=== PATIENT | male | born 1960 | race Caucasian/White ===

== ENCOUNTER 2016-08-12 18:47 | Inpatient (IN) | payer OTHER ==
[2016-08-12] MEDS ORDERED: AZITHROMYCIN 500 MG in SODIUM CHLORIDE 0.9% 250 ML IVPB STA (19:06)
[2016-08-12] MEDS ORDERED: ALBUTEROL NEBULIZED 2.5 MG/3 ML INHALATION STA (19:06)
[2016-08-12] MEDS ORDERED: methylPREDNISolone SOD SUCCI 125 MG/2 ML VIAL IV STA (19:06)
[2016-08-12] MEDS ORDERED: IPRATROPIUM 0.5 MG/2.5 ML NEBU INHALATION STA (19:06)
[2016-08-12] MEDS ORDERED: SODIUM CHLORIDE 0.9% 1,000 ML IV STA (19:06)
[2016-08-12] MEDS ORDERED: ASPIRIN 81 MG CHEW PO STA (19:08)
[2016-08-12] MEDS ORDERED: MORPHINE SULFATE 4 MG/ML SYRINGE IV PRN (19:08)
--- NOTE | 2016-08-12 19:10 | ED ---
General Adult HPI - General Chief complaint: Shortness of Breath Stated complaint: ryan, gets worse lying down Time Seen by Provider: 08/12/16 19:04 Source: patient, RN notes reviewed, old records reviewed Mode of arrival: wheelchair Limitations: no limitations - History of Present Illness Initial comments: This is a 35-year-old male the ER for evaluation of severe shortness of breath. Cough congestion and chest pain rating on left arm. Patient has a medical history including COPD CHF heart disease. Patient coming here today for evaluation of shortness of breath. Patient is very short of breath and exam, for strain secondary to clinical condition. Patient denies fever, does admit increased cough and congestion. Has been taking all medications as prescribed - Related Data Home Medications Medication Instructions Recorded Confirmed Albuterol Inhaler [Ventolin Hfa 1 - 2 puff INHALATION Q6HR PRN 08/12/16 08/12/16 Inhaler] Carvedilol [Coreg] 25 mg PO 08/12/16 Insulin Regular, Human [NovoLIN R] 400 unit SQ 08/12/16 Metoclopramide [Reglan] 10 mg PO ACHS 08/12/16 08/12/16 amLODIPine BES/OLMESARTAN MED 0.5 each PO DAILY 08/12/16 08/12/16 [amLODIPine BES/OLMESARTAN MED 10-20 mg] Allergies Allergy/AdvReac Type Severity Reaction Status Date / Time No Known Allergies Allergy Verified 08/12/16 19:00 Review of Systems ROS Statement: Those systems with pertinent positive or pertinent negative responses have been documented in the HPI. ROS Other: All systems not noted in ROS Statement are negative. Past Medical History Past Medical History: COPD, Diabetes Mellitus, Hypertension, Osteoarthritis (OA) Additional Past Medical History / Comment(s): emphysema, retinopathy, charcot joints, gastroparesis History of Any Multi-Drug Resistant Organisms: None Reported Past Surgical History: Cholecystectomy Past Psychological History: No Psychological Hx Reported Smoking Status: Former smoker Past Alcohol Use History: None Reported Past Drug Use History: None Reported General Exam Limitations: no limitations General appearance: alert, in no apparent distress, anxious, in distress Head exam: Present: atraumatic, normocephalic, normal inspection Eye exam: Present: normal appearance, PERRL, EOMI. Absent: scleral icterus, conjunctival injection, periorbital swelling ENT exam: Present: normal exam, mucous membranes moist Neck exam: Present: normal inspection. Absent: tenderness, meningismus, lymphadenopathy Respiratory exam: Present: respiratory distress, wheezes, accessory muscle use, decreased breath sounds, prolonged expiratory. Absent: rales, rhonchi, stridor Cardiovascular Exam: Present: regular rate, normal rhythm, normal heart sounds. Absent: systolic murmur, diastolic murmur, rubs, gallop, clicks GI/Abdominal exam: Present: soft, normal bowel sounds. Absent: distended, tenderness, guarding, rebound, rigid Extremities exam: Present: normal inspection, full ROM, normal capillary refill. Absent: tenderness, pedal edema, joint swelling, calf tenderness Back exam: Present: normal inspection Neurological exam: Present: alert, oriented X3, CN II-XII intact Psychiatric exam: Present: normal affect, normal mood Skin exam: Present: warm, dry, intact, normal color. Absent: rash Course Vital Signs 08/12/16 08/12/16 08/12/16 18:54 19:25 19:35 Temperature 98.8 F Pulse Rate 94 93 98 Respiratory 18 Rate Blood Pressure 159/74 O2 Sat by Pulse 83 L Oximetry 08/12/16 20:31 Temperature Pulse Rate 90 Respiratory 18 Rate Blood Pressure 124/60 O2 Sat by Pulse 94 L Oximetry - Reevaluation(s) Reevaluation #1: 08/12/16 19:09 Patient does have mild improvement after prolonged breathing treatment EKG Findings - EKG Comments: EKG Findings:: EKG shows normal sinus rhythm rate of 89, NJ 160, QRS 100, QTC 433 Medical Decision Making - Medical Decision Making 55 mailed ER for evaluation of chest pain shortness of breath difficulty breathing cough congestion severe COPD exacerbation, patient found to be hypoxic mildly improved with breathing treatment. Chest X ray shows no pneumonia, patient also significant history of heart disease. She'll be admitted for breathing treatment minutes, trending of troponin. Patient is also found to have elevated troponin, we will anticoagulate - Lab Data Result diagrams: 08/12/16 19:20 08/12/16 19:20 Lab Results 08/12/16 08/12/16 08/12/16 Range/Units 19:20 19:20 19:20 WBC 6.2 (3.8-10.6) k/uL RBC 3.97 L (4.30-5.90) m/uL Hgb 10.8 L (13.0-17.5) gm/dL Hct 35.4 L (39.0-53.0) % MCV 89.1 (80.0-100.0) fL MCH 27.3 (25.0-35.0) pg MCHC 30.6 L (31.0-37.0) g/dL RDW 15.3 (11.5-15.5) % Plt Count 222 (150-450) k/uL Neutrophils % (Manual) 90.0 % Lymphocytes % (Manual) 6.0 % Monocytes % (Manual) 4.0 % Neutrophils # (Manual) 5.6 (1.3-7.7) k/uL Lymphocytes # (Manual) 0.4 L (1.0-4.8) k/uL Monocytes # (Manual) 0.2 (0-1.0) k/uL Nucleated RBCs 0 (0-0) /100 WBC Manual Slide Review Performed Hypochromasia Moderate PT (9.0-12.0) sec INR (<1.1) APTT (22.0-30.0) sec Sodium 135 L (137-145) mmol/L Potassium 5.0 (3.5-5.1) mmol/L Chloride 94 L (98-107) mmol/L Carbon Dioxide 29 (22-30) mmol/L Anion Gap 12 mmol/L BUN 19 (9-20) mg/dL Creatinine 0.95 (0.66-1.25) mg/dL Est GFR (MDRD) Af Amer >60 (>60 ml/min/1.73 sqM) Est GFR (MDRD) Non-Af >60 (>60 ml/min/1.73 sqM) Glucose 350 H (74-99) mg/dL Calcium 8.9 (8.4-10.2) mg/dL Magnesium 1.8 (1.6-2.3) mg/dL Total Bilirubin 0.7 (0.2-1.3) mg/dL AST 52 (17-59) U/L ALT 61 (21-72) U/L Alkaline Phosphatase 77 (38-126) U/L Total Creatine Kinase 121 (55-170) U/L CK-MB (CK-2) 3.5 H* (0.0-2.4) ng/mL CK-MB (CK-2) Rel Index 2.9 Troponin I 1.590 H* (0.000-0.034) ng/mL Total Protein 6.9 (6.3-8.2) g/dL Albumin 3.9 (3.5-5.0) g/dL 08/12/16 Range/Units 19:20 WBC (3.8-10.6) k/uL RBC (4.30-5.90) m/uL Hgb (13.0-17.5) gm/dL Hct (39.0-53.0) % MCV (80.0-100.0) fL MCH (25.0-35.0) pg MCHC (31.0-37.0) g/dL RDW (11.5-15.5) % Plt Count (150-450) k/uL Neutrophils % (Manual) % Lymphocytes % (Manual) % Monocytes % (Manual) % Neutrophils # (Manual) (1.3-7.7) k/uL Lymphocytes # (Manual) (1.0-4.8) k/uL Monocytes # (Manual) (0-1.0) k/uL Nucleated RBCs (0-0) /100 WBC Manual Slide Review Hypochromasia PT 10.8 (9.0-12.0) sec INR 1.1 (<1.1) APTT 24.9 (22.0-30.0) sec Sodium (137-145) mmol/L Potassium (3.5-5.1) mmol/L Chloride (98-107) mmol/L Carbon Dioxide (22-30) mmol/L Anion Gap mmol/L BUN (9-20) mg/dL Creatinine (0.66-1.25) mg/dL Est GFR (MDRD) Af Amer (>60 ml/min/1.73 sqM) Est GFR (MDRD) Non-Af (>60 ml/min/1.73 sqM) Glucose (74-99) mg/dL Calcium (8.4-10.2) mg/dL Magnesium (1.6-2.3) mg/dL Total Bilirubin (0.2-1.3) mg/dL AST (17-59) U/L ALT (21-72) U/L Alkaline Phosphatase (38-126) U/L Total Creatine Kinase (55-170) U/L CK-MB (CK-2) (0.0-2.4) ng/mL CK-MB (CK-2) Rel Index Troponin I (0.000-0.034) ng/mL Total Protein (6.3-8.2) g/dL Albumin (3.5-5.0) g/dL Critical Care Time Critical Care Time: Yes Total Critical Care Time: 31 Disposition Clinical Impression: Asthma with exacerbation, Acute exacerbation of chronic obstructive airways disease, Hypoxemia, Community acquired pneumonia, NSTEMI (non-ST elevated myocardial infarction) Disposition: ADMITTED IP TO THIS HOSP Condition: Serious Referrals: None,Stated [Primary Care Provider] - 1-2 days
[2016-08-12] MEDS ORDERED: IPRATROPIUM-ALBUTEROL 3 ML NEB INHALATION STA (19:19)
[2016-08-12] MEDS ORDERED: ALBUTEROL NEB (CONC) 2.5 MG/0.5 ML INHALATION STA (19:19)
[2016-08-12] MEDS: IPRATROPIUM-ALBUTEROL 3 ML NEB INHALATION SCH (19:26)
--- NOTE | 2016-08-12 19:40 | XR ---
EXAMINATION TYPE: XR chest 1V portable DATE OF EXAM: 08/12/2016 7:32 PM COMPARISON: NONE HISTORY: Shortness of breath TECHNIQUE: Single frontal view of the chest is obtained. FINDINGS: Abnormal increased attenuation is present at the right lung base. Heart is enlarged. No pn eumothorax or pleural effusion. There are overlying cardiac leads. Pulmonary vascularity and song wit hin normal limits. IMPRESSION: Correlate for pneumonia. Cardiomegaly. Follow-up recommended.
[2016-08-12] MEDS ORDERED: LEVOFLOXACIN 750MG-D5W PMX 750 MG in DEXTROSE/WATER 1 150ML.BAG IVPB STA (19:52)
[2016-08-12 20:30] LABS: ALT 61 U/L (21-72); AST 52 U/L (17-59); Alkaline Phosphatase 77 U/L (38-126); Anion Gap 12 mmol/L; Blood Urea Nitrogen 19 mg/dL (9-20); Calcium 8.9 mg/dL (8.4-10.2); Carbon Dioxide 29 mmol/L (22-30); Chloride 94 mmol/L (98-107); Glucose 350 mg/dL (74-99); Magnesium 1.8 mg/dL (1.6-2.3); Non-African American GFR(MDRD) >60 (>60 ml/min/1.73 sqM); Sodium 135 mmol/L (137-145); Total Bilirubin 0.7 mg/dL (0.2-1.3); Total Protein 6.9 g/dL (6.3-8.2)
[2016-08-12 20:33] LABS: Aty Lym Flag Slight; CH 27.2; CHCM 30.7; HCT 35.4 % (39.0-53.0); HDW 2.76; HGB 10.8 gm/dL (13.0-17.5); Hypochromasia Moderate; MCH 27.3 pg (25.0-35.0); MCHC 30.6 g/dL (31.0-37.0); MCV 89.1 fL (80.0-100.0); Mean Platelet Volume 9.2; RBC 3.97 m/uL (4.30-5.90); RDW 15.3 % (11.5-15.5); WBC 6.2 k/uL (3.8-10.6); WBC (Perox) 6.23
[2016-08-12 20:40] LABS: INR 1.1 (<1.1); Partial Thromboplastin Time 24.9 sec (22.0-30.0); Prothrombin Time 10.8 sec (9.0-12.0)
[2016-08-12 20:43] LABS: Add Differential Manual Differential
[2016-08-12 20:45] LABS: Manual Review Performed; Nucleated Red Blood Cells 0 /100 WBC (0-0); Total Cells Counted 100
[2016-08-12 20:54] LABS: Creatine Kinase MB 3.5 ng/mL (0.0-2.4)
[2016-08-12 20:55] LABS: Troponin I 1.59 ng/mL (0.000-0.034)
[2016-08-12] MEDS ORDERED: HEPARIN SODIUM,PORCINE 5,000 UNIT/ML 1 ML VIAL IV ONE (20:56)
[2016-08-12] MEDS: HEPARIN SODIUM,PORCINE/D5W PMX 25,000 UNIT in DEXTROSE/WATER 1 500ML.BAG IV SCH (21:06)
[2016-08-12 21:32] LABS: Glucose,Whole Blood 372 mg/dL (75-99)
[2016-08-12] MEDS: INSULIN LISPRO (humaLOG) 300 UNIT/3 ML VIAL SQ SCH (21:36)
[2016-08-12] MEDS: SODIUM CHLORIDE 0.9% 1,000 ML IV SCH ×2 (22:50→22:51)
[2016-08-12] MEDS: methylPREDNISolone SOD SUCCI 125 MG/2 ML VIAL IV SCH (23:27)
[2016-08-13] MEDS: HEPARIN SODIUM,PORCINE 5,000 UNIT/ML 1 ML VIAL IV PRN ×3 (03:13→17:02)
[2016-08-13 03:26] LABS: Creatine Kinase MB 2.9 ng/mL (0.0-2.4); Troponin I 1.08 ng/mL (0.000-0.034)
[2016-08-13] MEDS: methylPREDNISolone SOD SUCCI 125 MG/2 ML VIAL IV SCH ×4 (06:03→23:27)
[2016-08-13 06:09] LABS: Glucose,Whole Blood 492 mg/dL (75-99)
[2016-08-13] MEDS ORDERED: INSULIN LISPRO (humaLOG) 300 UNIT/3 ML VIAL SQ ONE (06:13)
[2016-08-13] MEDS: IPRATROPIUM-ALBUTEROL 3 ML NEB INHALATION SCH ×4 (08:26→19:47)
[2016-08-13] MEDS ORDERED: ENOXAPARIN 40 MG/0.4 ML SYRINGE SQ SCH (09:00)
[2016-08-13 09:02] LABS: Basophils % (A) 1 %; CH 26.3; CHCM 29.4; Eosinophils % (A) 0 %; HCT 36.8 % (39.0-53.0); HDW 2.64; HGB 10.8 gm/dL (13.0-17.5); Hypochromasia Marked; Luc # (Auto) 0.09; Luc % (Auto) 1; Lymphocytes # (A) 0.6 k/uL (1.0-4.8); Lymphocytes % (A) 7 %; MCH 26.4 pg (25.0-35.0); MCHC 29.3 g/dL (31.0-37.0); Mean Platelet Volume 7.5; Monocytes # (A) 0.3 k/uL (0-1.0); Monocytes % (A) 3 %; Neutrophils # (A) 6.7 k/uL (1.3-7.7); Neutrophils % (A) 88 %; RBC 4.09 m/uL (4.30-5.90); RDW 15.1 % (11.5-15.5); WBC 7.7 k/uL (3.8-10.6); WBC (Perox) 8.51
[2016-08-13 09:43] LABS: Creatine Kinase MB 2.8 ng/mL (0.0-2.4); Troponin I 0.886 ng/mL (0.000-0.034)
--- NOTE | 2016-08-13 11:10 | P.CRDCN ---
History of Present Illness Consult date: 08/13/16 Chief complaint: Chest discomfort History of present illness: This is a pleasant 55-year-old gentleman with a past medical history significant for obesity, diabetes, hypertension, dyslipidemia presented to the hospital complaining of chest discomfort and difficulty breathing. He was in his usual state of health until about 3 days ago when he started experiencing chest tightness, across the chest, without any radiation to the arm or neck or shoulders but it was associated with shortness of breath. He is not aware of any prior history of coronary artery disease. As a matter of fact he used to live in [place] and he was seen by a gauge machine operator over there few years ago where he underwent a stress test and it was unremarkable. During this admission, the EKG showed sinus rhythm with nonspecific changes in the lateral leads. The cardiac enzymes were checked and came in to be abnormal and consistent with acute [place]. I had a long discussion with him regarding the next step in management. I recommended proceeding with a coronary angiogram to rule out any severe underlying coronary artery disease in view of his multiple risk factors. The patient was to think about it today and he wants that to be scheduled for tomorrow. Meanwhile, I would maximize his medical treatment and I'll start the patient on antiplatelet, beta huey, and a statin. I will obtain an echocardiogram was Doppler as well. We will continue following up with the patient. Past Medical History Past Medical History: COPD, Diabetes Mellitus, Hypertension, Osteoarthritis (OA) , Renal Disease Additional Past Medical History / Comment(s): emphysema, retinopathy, charcot joints, gastroparesis, STAGE 3 RENAL FAILURE, MURMUR A CHILD, History of Any Multi-Drug Resistant Organisms: None Reported Past Surgical History: Cholecystectomy Additional Past Surgical History / Comment(s): SURGERY FOR GERD WHERE THEY MOVED ESOPHAGUS UP, carpal tunnel surgery, foot wounds requiring bone from right big toe to be removed. Past Anesthesia/Blood Transfusion Reactions: No Reported Reaction Past Psychological History: No Psychological Hx Reported Smoking Status: Former smoker Past Alcohol Use History: None Reported Past Drug Use History: None Reported - Past Family History Father Brother(s) Family Medical History: Diabetes Mellitus Mother Family Medical History: Myocardial Infarction ([place]) Medications and Allergies Home Medications Medication Instructions Recorded Confirmed Type Albuterol Inhaler [Ventolin Hfa 1 - 2 puff INHALATION Q6HR PRN 08/12/16 History Inhaler] Calcitriol [Rocaltrol] 0.25 mcg PO DAILY 08/12/16 08/12/16 History Carvedilol [Coreg] 25 mg PO BID 08/12/16 08/12/16 History Cyclobenzaprine [Flexeril] 10 mg PO TID 08/12/16 08/12/16 History Insulin Regular, Human [NovoLIN R] 400 unit SQ 08/12/16 History Losartan [Cozaar] 12.5 mg PO DAILY 08/12/16 08/12/16 History Metoclopramide [Reglan] 10 mg PO ACHS 08/12/16 08/12/16 History amLODIPine BES/OLMESARTAN MED 0.5 each PO DAILY 08/12/16 08/12/16 History [amLODIPine BES/OLMESARTAN MED 10-20 mg] Allergies Allergy/AdvReac Type Severity Reaction Status Date / Time No Known Allergies Allergy Verified 08/12/16 19:00 Physical Exam Vitals: Vital Signs Temp Pulse Pulse Resp BP BP Pulse Ox 08/13/16 08:40 92 08/13/16 08:31 90 08/13/16 07:44 90 19 08/13/16 07:38 96.8 F L 90 19 142/63 93 L 08/13/16 03:39 96.3 F L 97 20 165/75 90 L 08/12/16 23:15 96.7 F L 89 20 139/81 95 08/12/16 21:20 90 18 145/64 96 08/12/16 20:31 90 18 124/60 94 L 08/12/16 19:35 98 08/12/16 19:25 93 Intake and Output 08/12/16 08/13/16 08/13/16 22:59 06:59 14:59 Intake Total 773.246 183.512 Balance 773.246 183.512 Intake: IV 650 Azithromycin 500 mg In 250 Sodium Chloride 0.9% 250 ml @ 125 mls/hr IVPB ONCE STA Rx#:[id number] Heparin Sodium,Porcine/ 170 D5w Pmx 25,000 unit In Dextrose/Water 1 500ml. bag @ 8.5 UNITS/KG/HR 20. 04 mls/hr IV .Q24H [facility] Rx #:[id number] Sodium Chloride 0.9% 1, 180 000 ml @ 20 mls/hr IV . Q24H [facility] Rx#:[id number] cefTRIAXone 1,000 mg In 50 Sodium Chloride 0.9% 50 ml @ 100 mls/hr IVPB Q24H [facility] Rx#:[id number] Intake, IV Titration 123.246 183.512 Amount Heparin Sodium,Porcine/ 123.246 183.512 D5w Pmx 25,000 unit In Dextrose/Water 1 500ml. bag @ 8.5 UNITS/KG/HR 20. 04 mls/hr IV .Q24H [facility] Rx #:[id number] Other: Weight 118.841 kg 119 kg - Constitutional General appearance: no acute distress - Respiratory Respiratory: bilateral: CTA - Cardiovascular Rhythm: regular Heart sounds: normal: S1, S2 Results 08/13/16 08:20 08/12/16 19:20 Cardiac Enzymes 08/12/16 08/12/16 08/13/16 Range/Units 19:20 19:20 02:14 AST 52 (17-59) U/L CK-MB (CK-2) 3.5 H* 2.9 H* (0.0-2.4) ng/mL Troponin I 1.590 H* 1.080 H* (0.000-0.034) ng/mL 08/13/16 Range/Units 08:20 AST (17-59) U/L CK-MB (CK-2) 2.8 H* (0.0-2.4) ng/mL Troponin I 0.886 H* (0.000-0.034) ng/mL Coagulation 08/12/16 08/13/16 08/13/16 Range/Units 19:20 02:14 08:20 PT 10.8 (9.0-12.0) sec APTT 24.9 26.1 30.8 H (22.0-30.0) sec CBC 08/12/16 08/13/16 Range/Units 19:20 08:20 WBC 6.2 7.7 (3.8-10.6) k/uL RBC 3.97 L 4.09 L (4.30-5.90) m/uL Hgb 10.8 L 10.8 L (13.0-17.5) gm/dL Hct 35.4 L 36.8 L (39.0-53.0) % Plt Count 222 285 (150-450) k/uL Comprehensive Metabolic Panel 08/12/16 Range/Units 19:20 Sodium 135 L (137-145) mmol/L Potassium 5.0 (3.5-5.1) mmol/L Chloride 94 L (98-107) mmol/L Carbon Dioxide 29 (22-30) mmol/L BUN 19 (9-20) mg/dL Creatinine 0.95 (0.66-1.25) mg/dL Glucose 350 H (74-99) mg/dL Calcium 8.9 (8.4-10.2) mg/dL AST 52 (17-59) U/L ALT 61 (21-72) U/L Alkaline Phosphatase 77 (38-126) U/L Total Protein 6.9 (6.3-8.2) g/dL Albumin 3.9 (3.5-5.0) g/dL Current Medications Generic Name Dose Route Start Last Admin Trade Name Freq PRN Reason Stop Dose Admin Albuterol/Ipratropium 3 ml 08/12/16 20:00 08/13/16 08:26 Duoneb 0.5 Mg-3 Mg/3 Ml Soln INHALATION 3 ml RT-QID [facility] Administration Aspirin 325 mg 08/13/16 09:00 Aspirin PO DAILY [facility] Heparin Sodium (Porcine) 0 unit 08/12/16 20:56 08/13/16 10:00 Heparin IV 4,000 unit PER PROTOCOL PRN Administration Low PTT Protocol Sodium Chloride 1,000 mls @ 20 mls/hr 08/12/16 19:15 08/12/16 22:51 Saline 0.9% IV 20 mls/hr .Q24H [facility] Administration Ceftriaxone Sodium 1,000 mg/ 50 mls @ 100 mls/hr 08/13/16 22:00 Sodium Chloride IVPB Q24H [facility] Heparin Sodium/Dextrose 25,000 500 mls @ 20.04 mls/hr 08/12/16 21:00 10:01 unit/ IV Solution IV 14.41 units/kg/hr .Q24H [facility] 34 mls/hr Protocol Titration 8.5 UNITS/KG/HR Insulin Human Lispro 0 unit 08/13/16 07:30 08/12/16 21:36 Humalog SQ 10 unit ACHS [facility] Administration Protocol Methylprednisolone Sodium Succinate 60 mg 08/13/16 00:00 08/13/16 06:03 Solu-Medrol IV 60 mg Q6HR [facility] Administration Morphine Sulfate 4 mg 08/12/16 19:08 08/12/16 19:58 Morphine Sulfate (Inj) IV 4 mg Q4HR PRN Administration Chest Pain Intake and Output 08/12/16 08/13/16 08/13/16 22:59 06:59 14:59 Intake Total 773.246 183.512 Balance 773.246 183.512 Intake: IV 650 Azithromycin 500 mg In 250 Sodium Chloride 0.9% 250 ml @ 125 mls/hr IVPB ONCE STA Rx#:[id number] Heparin Sodium,Porcine/ 170 D5w Pmx 25,000 unit In Dextrose/Water 1 500ml. bag @ 8.5 UNITS/KG/HR 20. 04 mls/hr IV .Q24H [facility] Rx #:[id number] Sodium Chloride 0.9% 1, 180 000 ml @ 20 mls/hr IV . Q24H [facility] Rx#:[id number] cefTRIAXone 1,000 mg In 50 Sodium Chloride 0.9% 50 ml @ 100 mls/hr IVPB Q24H [facility] Rx#:[id number] Intake, IV Titration 123.246 183.512 Amount Heparin Sodium,Porcine/ 123.246 183.512 D5w Pmx 25,000 unit In Dextrose/Water 1 500ml. bag @ 8.5 UNITS/KG/HR 20. 04 mls/hr IV .Q24H [facility] Rx #:[id number] Other: Weight 118.841 kg 119 kg 08/13/16 08:20 08/12/16 19:20 Assessment and Plan Plan: Assessment #1 acute non-ST elevation [place] #2 diabetes type 2 #3 morbid obesity #4 hypertension #5 dyslipidemia Plan #1 antiplatelet #2 beta huey and statin #3 echocardiogram was Doppler #4 heart catheterization tomorrow
[2016-08-13] MEDS: INSULIN LISPRO (humaLOG) 300 UNIT/3 ML VIAL SQ SCH ×3 (11:51→17:08)
[2016-08-13 12:06] LABS: Glucose,Whole Blood 458 mg/dL (75-99)
[2016-08-13] MEDS: ASPIRIN 325 MG TAB PO SCH (13:01)
[2016-08-13 13:33] LABS: Glucose,Whole Blood 500 mg/dL (75-99)
[2016-08-13] MEDS: INSULIN REGULAR 100 UNIT in SODIUM CHLORIDE 0.9% 100 ML IV SCH ×2 (13:44→18:47)
[2016-08-13 14:42] LABS: Glucose,Whole Blood 483 mg/dL (75-99)
[2016-08-13 15:12] LABS: Glucose,Whole Blood 399 mg/dL (75-99)
[2016-08-13 15:42] LABS: Glucose,Whole Blood 385 mg/dL (75-99)
[2016-08-13 16:20] LABS: Glucose,Whole Blood 348 mg/dL (75-99)
[2016-08-13 16:24] LABS: Glucose,Whole Blood 301 mg/dL (75-99)
[2016-08-13 17:13] LABS: Glucose,Whole Blood 338 mg/dL (75-99)
[2016-08-13 17:55] LABS: Glucose,Whole Blood 296 mg/dL (75-99)
[2016-08-13 18:17] LABS: Glucose,Whole Blood 342 mg/dL (75-99)
[2016-08-13 18:29] LABS: Glucose,Whole Blood 365 mg/dL (75-99)
[2016-08-13 19:06] LABS: Glucose,Whole Blood 316 mg/dL (75-99)
[2016-08-13] MEDS: ATORVASTATIN 80 MG TAB PO SCH (19:30)
[2016-08-13] MEDS: METOPROLOL TARTRATE 25 MG TAB PO SCH (19:30)
[2016-08-13 19:32] LABS: Glucose,Whole Blood 315 mg/dL (75-99)
[2016-08-13 20:03] LABS: Glucose,Whole Blood 291 mg/dL (75-99)
[2016-08-13] MEDS ORDERED: ALPRAZolam 0.25 MG TAB PO PRN (20:08)
[2016-08-13] MEDS ORDERED: TEMAZEPAM 15 MG CAP PO PRN (20:08)
[2016-08-13] MEDS ORDERED: HYDROcodone/APAP 5-325MG 1 EACH TAB PO PRN (20:08)
[2016-08-13 20:32] LABS: Glucose,Whole Blood 303 mg/dL (75-99)
[2016-08-13 21:00] LABS: Glucose,Whole Blood 267 mg/dL (75-99)
[2016-08-13] MEDS: GABAPENTIN 300 MG CAP PO SCH (21:12)
[2016-08-13] MEDS: LISINOPRIL 5 MG TAB PO SCH (21:12)
[2016-08-13] MEDS: FUROSEMIDE 10 MG/ML 4 ML VIAL IV SCH (21:12)
[2016-08-13] MEDS: CARVEDILOL 12.5 MG TAB PO SCH (21:12)
[2016-08-13] MEDS: NIACIN TR 500 MG CAPSULE.ER PO SCH (21:13)
[2016-08-13] MEDS: HEPARIN SODIUM,PORCINE/D5W PMX 25,000 UNIT in DEXTROSE/WATER 1 500ML.BAG IV SCH (21:25)
[2016-08-13 21:38] LABS: Glucose,Whole Blood 256 mg/dL (75-99)
[2016-08-13 22:14] LABS: Glucose,Whole Blood 259 mg/dL (75-99)
[2016-08-13 22:48] LABS: Glucose,Whole Blood 212 mg/dL (75-99)
[2016-08-13 23:33] LABS: Glucose,Whole Blood 221 mg/dL (75-99)
[2016-08-14] MEDS: HEPARIN SODIUM,PORCINE 5,000 UNIT/ML 1 ML VIAL IV PRN (00:19)
[2016-08-14 00:31] LABS: Glucose,Whole Blood 255 mg/dL (75-99)
[2016-08-14 01:46] LABS: Glucose,Whole Blood 225 mg/dL (75-99)
[2016-08-14 02:29] LABS: Glucose,Whole Blood 221 mg/dL (75-99)
[2016-08-14 02:32] LABS: Appearance,Urine Clear (Clear); Bilirubin,Urine Negative (Negative); Glucose,Urine (UA) 1+ (Negative); Ketones,Urine Negative (Negative); Leukocyte Esterase,Urine Negative (Negative); Nitrite,Urine Negative (Negative); PH, Urine 6.5 (5.0-8.0); Protein,Urine Negative (Negative); Specific Gravity,Urine 1.004 (1.001-1.035); UA Billing (MACRO vs. MICRO) CHEM; Urobilinogen,Urine <2.0 mg/dL (<2.0)
[2016-08-14 03:35] LABS: Glucose,Whole Blood 271 mg/dL (75-99)
[2016-08-14 04:38] LABS: Glucose,Whole Blood 190 mg/dL (75-99)
[2016-08-14 05:32] LABS: Glucose,Whole Blood 215 mg/dL (75-99)
[2016-08-14] MEDS: INSULIN REGULAR 100 UNIT in SODIUM CHLORIDE 0.9% 100 ML IV SCH ×3 (05:39→22:23)
[2016-08-14] MEDS: INSULIN LISPRO (humaLOG) 300 UNIT/3 ML VIAL SQ SCH ×3 (06:13→17:37)
[2016-08-14] MEDS: methylPREDNISolone SOD SUCCI 125 MG/2 ML VIAL IV SCH ×3 (06:16→17:36)
[2016-08-14] MEDS: ASPIRIN 325 MG TAB PO SCH (06:16)
[2016-08-14] MEDS: PANTOPRAZOLE 40 MG TABLET PO SCH (06:16)
[2016-08-14] MEDS: amLODIPine 10 MG TAB PO SCH (06:16)
[2016-08-14] MEDS: CHOLECALCIFEROL 400 UNIT TAB PO SCH (06:16)
[2016-08-14] MEDS: LISINOPRIL 5 MG TAB PO SCH (06:17)
[2016-08-14] MEDS: GABAPENTIN 300 MG CAP PO SCH ×2 (06:17→23:42)
[2016-08-14] MEDS: METOPROLOL TARTRATE 25 MG TAB PO SCH ×2 (06:18→23:43)
[2016-08-14] MEDS: NIACIN TR 500 MG CAPSULE.ER PO SCH ×4 (06:19→23:44)
[2016-08-14] MEDS: CALCITRIOL 0.25 MCG CAP PO SCH (06:25)
[2016-08-14 06:28] LABS: Glucose,Whole Blood 235 mg/dL (75-99)
[2016-08-14] MEDS: CARVEDILOL 12.5 MG TAB PO SCH ×2 (06:30→10:48)
[2016-08-14 06:53] LABS: Basophils % (A) 0 %; CH 26.7; CHCM 31.3; Eosinophils % (A) 0 %; HCT 32.8 % (39.0-53.0); HDW 2.89; HGB 10.1 gm/dL (13.0-17.5); Hypochromasia Slight; Luc # (Auto) 0.32; Luc % (Auto) 3; Lymphocytes # (A) 0.7 k/uL (1.0-4.8); Lymphocytes % (A) 5 %; MCH 26.5 pg (25.0-35.0); MCHC 30.8 g/dL (31.0-37.0); MCV 85.8 fL (80.0-100.0); Mean Platelet Volume 8.6; Monocytes # (A) 0.6 k/uL (0-1.0); Monocytes % (A) 5 %; Neutrophils # (A) 11.4 k/uL (1.3-7.7); Neutrophils % (A) 88 %; RBC 3.82 m/uL (4.30-5.90); RDW 15.6 % (11.5-15.5); WBC (Perox) 13.66
[2016-08-14 07:39] LABS: Anion Gap 10 mmol/L; Blood Urea Nitrogen 31 mg/dL (9-20); Calcium 8.5 mg/dL (8.4-10.2); Carbon Dioxide 27 mmol/L (22-30); Chloride 99 mmol/L (98-107); Cholesterol 207 mg/dL (<200); Glucose 226 mg/dL (74-99); HDL Cholesterol 45 mg/dL (40-60); Non-African American GFR(MDRD) >60 (>60 ml/min/1.73 sqM); Potassium 4.1 mmol/L (3.5-5.1); Sodium 136 mmol/L (137-145); Triglycerides 147 mg/dL (<150)
[2016-08-14] MEDS: SYMBICORT 160-4.5 MCG INHALER INHALATION SCH ×2 (08:24→21:11)
[2016-08-14] MEDS: IPRATROPIUM-ALBUTEROL 3 ML NEB INHALATION SCH ×5 (08:24→21:11)
[2016-08-14 08:39] LABS: Glucose,Whole Blood 208 mg/dL (75-99)
[2016-08-14] MEDS ORDERED: NON-FORMULARY DRUG (Multivitamin [Men's Multi-Vitamin] 1 TAB) PO SCH (09:00)
[2016-08-14] MEDS ORDERED: LOSARTAN 50 MG TAB PO SCH (09:00)
[2016-08-14] MEDS ORDERED: IV FLUID CONTINUATION 1,000 ML IV ONE (09:05)
[2016-08-14] MEDS ORDERED: MIDAZOLAM 2 MG/2 ML VIAL IV ONE (09:25)
[2016-08-14] MEDS ORDERED: LIDOCAINE 2% INJ 20 MG/ML SQ ONE (09:26)
[2016-08-14] MEDS: VERAPAMIL SYRINGE (5 MG/10 ML) INTRAARTER ONE ×2 (09:27→09:45)
[2016-08-14] MEDS ORDERED: HEPARIN SODIUM 1,000 UNIT/ML VIAL IV ONE (09:28)
[2016-08-14] MEDS ORDERED: IOHEXOL 350 MG/ML 100 ML BOTTLE INJ ONE (09:46)
[2016-08-14] MEDS ORDERED: RX INFO: IV CONTRAST WAS GIVEN 1 EACH MISC MISCELLANE PRN (10:01)
--- NOTE | 2016-08-14 10:11 | XR ---
EXAMINATION TYPE: XR chest 1V portable DATE OF EXAM: 08/14/2016 7:16 AM COMPARISON: Prior chest x-ray 12 August 2016 HISTORY: Pneumonia, COPD and congestive heart failure TECHNIQUE: Single frontal view of the chest is obtained. FINDINGS: Airspace disease persists in the right lower lobe. The heart is enlarged. No evident pneum othorax. Patient is rotated. There are overlying cardiac leads. IMPRESSION: Rotated exam. Similar findings to prior. Correlate for pneumonia versus congestive heart failure. Follow-up recommended.
[2016-08-14] MEDS ORDERED: SODIUM CHLORIDE 0.9% 1,000 ML IV SCH (10:15)
[2016-08-14] MEDS ORDERED: MD COMMUNICATION TO PHARMACY 1 EACH MISC PO ONE (10:21)
--- NOTE | 2016-08-14 10:27 | ECHOF ---
Referral Reason:NSTEMI MEASUREMENTS -------- HEIGHT: 175.3 cm WEIGHT: 114.3 kg BP: IVSd: 1.3 cm (0.6 - 1.1) LVIDd: 4.6 cm (3.9 - 5.3) LVPWd: 1.1 cm (0.6 - 1.1) IVSs: 1.7 cm LVIDs: 3.3 cm LVPWs: 1.2 cm Ao Diam: 3.3 cm (2.0 - 3.7) AV Cusp: 2.1 cm (1.5 - 2.6) LA Diam: 4.1 cm (2.7 - 3.8) MV EXCURSION: 19.436 mm (> 18.000) MV EF SLOPE: 104 mm/s (70 - 150) EPSS: 1.0 cm MV E Jaron: 1.08 m/s MV DecT: 230 ms MV A Jaron: 0.97 m/s MV E/A Ratio: 1.12 RAP: 5.00 mmHg RVSP: 10.82 mmHg FINDINGS -------- Sinus rhythm. This was a techncally difficult study with suboptimal views, , Definity utilized for enhancement of images. There is mild concentric left ventricular hypertrophy. Overall left ventricular systolic function is mildly impaired with, an EF between 45 - 50 %. Inferior basal Hypokinesis The right ventricle is normal in size. The left atrial size is normal. The right atrial size is normal. 1.5MG OF DEFINITY UTLIZED: 2 OR MORE WALL SEGMENTS NOT VISUALIZED. There is mild aortic valve sclerosis. There is no evidence of aortic regurgitation. Mild mitral annular calcification present. Mild mitral regurgitation is present. Mild tricuspid regurgitation present. There is no evidence of pulmonary hypertension. The right ventricular systolic pressure, as measured by Doppler, is 10.82mmHg. Trace/mild (physiologic) pulmonic regurgitation. The aortic root size is normal. There is no pericardial effusion. CONCLUSIONS -------- 1. This was a techncally difficult study with suboptimal views, , Definity utilized for enhancement of images. 2. There is no evidence of pulmonary hypertension. 3. The right ventricular systolic pressure, as measured by Doppler, is 10.82mmHg. 4. Trace/mild (physiologic) pulmonic regurgitation. 5. The aortic root size is normal. 6. There is no pericardial effusion. 7. There is mild concentric left ventricular hypertrophy. 8. Overall left ventricular systolic function is mildly impaired with, an EF between 45 - 50 %. 9. Inferior basal Hypokinesis 10. 1.5MG OF DEFINITY UTLIZED: 2 OR MORE WALL SEGMENTS NOT VISUALIZED. 11. There is mild aortic valve sclerosis. 12. Mild mitral annular calcification present. 13. Mild mitral regurgitation is present. 14. Mild tricuspid regurgitation present. [employer]OMOTIONS DIRECTOR: Ines France RDCS
[2016-08-14 11:06] LABS: Glucose,Whole Blood 266 mg/dL (75-99)
[2016-08-14] MEDS: FUROSEMIDE 10 MG/ML 4 ML VIAL IV SCH (11:58)
[2016-08-14] MEDS: MULTIVITAMINS, THERA 1 EACH TAB PO SCH (11:59)
[2016-08-14 12:54] LABS: Glucose,Whole Blood 279 mg/dL (75-99)
[2016-08-14 13:48] LABS: Hepatitis B Surface Ag Index 0.08
[2016-08-14 13:54] LABS: Hepatitis B Core IgM Index 0.03
[2016-08-14 14:05] LABS: Hepatitis C Virus IgG Index 0.07
[2016-08-14 14:11] LABS: Hepatitis C Virus IgG Ab Negative (Negative)
--- NOTE | 2016-08-14 14:47 | P.GSCN ---
History of Present Illness Consult date: 08/14/16 Reason for Consult: Evaluation for coronary artery bypass grafting Requesting physician: Javon Marin History of present illness: Patient is a 55 years old gentleman with past medical history of insulin- dependent diabetes mellitus, hypertension, hyperlipidemia, obesity, obstructive sleep apnea on CPAP , with diabetic complication including stage III chronic kidney disease as per the nephrology record in [place], secondary hyperparathyroidism, retinopathy, proteinuria, peripheral neuropathy etc. admitted for a 2 days history of stuttering chest pain radiating to the left associated with diaphoresis coming at rest associated to shortness of breath. Patient was ruled in for a non-ST elevation myocardial infarction. Cardiac catheterization today shows double vessel coronary artery disease with advanced calcification. The cardiovascular surgical consult was called to evaluate him for coronary artery bypass grafting Review of Systems - Constitutional Denies fever, Denies weight loss - Cardiovascular Reports chest pain, Reports dyspnea on exertion, Reports high blood pressure, Reports shortness of breath - Respiratory Reports dyspnea, Reports sleep apnea, Reports snoring, Reports wheezing - Gastrointestinal Reports dyspepsia, Reports heartburn - Genitourinary Denies dysuria, Denies hematuria - Musculoskeletal Musculoskeleta Comment(s): Patient has bilateral Charcot feet bilateral: foot pain, foot stiffness - Integumentary Denies rash, Denies unusual bruising - Neurological Denies headaches, Denies syncope - Endocrine Reports excessive sweating, Reports heat intolerance, Reports high blood sugars , Reports polydipsia, Reports polyuria - Hematologic/Lymphatic Denies easy bleeding, Denies easy bruising Past Medical History Past Medical History: COPD, Diabetes Mellitus, Hypertension, Osteoarthritis (OA) , Renal Disease Additional Past Medical History / Comment(s): emphysema, retinopathy, charcot joints, gastroparesis, STAGE 3 RENAL FAILURE, MURMUR A CHILD, History of Any Multi-Drug Resistant Organisms: None Reported Past Surgical History: Cholecystectomy Additional Past Surgical History / Comment(s): SURGERY FOR GERD WHERE THEY MOVED ESOPHAGUS UP, carpal tunnel surgery, foot wounds requiring bone from right big toe to be removed. Past Anesthesia/Blood Transfusion Reactions: No Reported Reaction Past Psychological History: No Psychological Hx Reported Smoking Status: Former smoker Past Alcohol Use History: None Reported Past Drug Use History: None Reported - Past Family History Father Brother(s) Family Medical History: Diabetes Mellitus Mother Family Medical History: Myocardial Infarction (DE) Medications and Allergies Home Medications Medication Instructions Recorded Confirmed Type Calcitriol [Rocaltrol] 0.25 mcg PO MOWEFR 08/12/16 08/13/16 History Carvedilol [Coreg] 25 mg PO BID 08/12/16 08/14/16 History Metoclopramide [Reglan] 10 mg PO ACHS 08/12/16 08/12/16 History Albuterol Sulfate [Proventil Hfa] 2 puff INHALATION RT-Q6H PRN 08/13/16 History Ascorbic Acid [Vitamin C] 1,000 mg PO DAILY 08/13/16 08/13/16 History Fish Oil/Dha/Epa [Fish Oil 1,200 1 cap PO TID 08/13/16 08/13/16 History mg Fish Oil] Furosemide [Lasix] 20 mg PO DAILY 08/13/16 08/13/16 History Gabapentin [Neurontin] 600 mg PO BID 08/13/16 08/13/16 History Gemfibrozil [Lopid] 600 mg PO AC-BID 08/13/16 08/13/16 History INSULIN LISPRO (HumaLOG) [HumaLOG] 280 - 400 units SQ ACHS 08/13/16 08/13/16 History Ipratropium Nebulized [Atrovent 0.5 mg INHALATION RT-QID 08/13/16 08/13/16 History Nebulized] Losartan Potassium [Cozaar] 50 mg PO DAILY 08/13/16 08/14/16 History Mometasone/Formoterol [Dulera 100 2 puff INHALATION RT-BID 08/13/16 08/13/16 History Mcg/5 Mcg Inhaler] Multivitamin [Men's Multi-Vitamin] 1 tab PO DAILY 08/13/16 08/13/16 History Niacin 500 mg PO QID 08/13/16 08/13/16 History Simvastatin [Zocor] 40 mg PO HS 08/13/16 08/13/16 History amLODIPine [Norvasc] 5 mg PO HS 08/13/16 08/14/16 History Aspirin 81 mg PO DAILY 08/14/16 08/14/16 History Bismuth Subsalicylate 0 mg PO DAILY PRN 08/14/16 08/14/16 History [Pepto-Bismol] Cyclobenzaprine [Flexeril] 10 mg PO TID 08/14/16 08/14/16 History Eye Lubricant Combination No.1 1 applic BOTH EYES BID 08/14/16 08/14/16 History [Freshkote] Magnesium Oxide 400 mg PO DAILY 08/14/16 08/14/16 History Polyethylene Glycol 3350 [Miralax] 17 gm PO DAILY PRN 08/14/16 08/14/16 History Turmeric/Cumin 1,300 mg PO DAILY 08/14/16 08/14/16 History Allergies Allergy/AdvReac Type Severity Reaction Status Date / Time No Known Allergies Allergy Verified 08/13/16 12:56 Surgical - Exam Vital Signs Temp Pulse Resp BP Pulse Ox 98.8 F 94 18 159/74 83 L 08/12/16 18:54 08/12/16 18:54 08/12/16 18:54 08/12/16 18:54 08/12/16 18:54 - General well developed, well nourished, no distress - Eyes normal ocular movement, no icteric - Neck no masses, trachea midline - Respiratory normal expansion - Cardiovascular Heart Sounds: normal: S1, S2 - Abdomen Obese - Rectum Deferred - Neurologic no disoriented, no combative - Psychiatric oriented to time, oriented to person, oriented to place, speech is normal, memory intact No varicose veins. 2+ left-sided dorsalis pedis and 1+ right-sided dorsalis pedis. Charcot feeds with deformity and exostosis Results - Labs 08/14/16 06:16 08/14/16 06:16 Abnormal Lab Results - Last 24 Hours (Table) 08/13/16 08/13/16 08/13/16 Range/Units 02:14 14:20 14:52 WBC (3.8-10.6) k/uL RBC (4.30-5.90) m/uL Hgb (13.0-17.5) gm/dL Hct (39.0-53.0) % MCHC (31.0-37.0) g/dL RDW (11.5-15.5) % Neutrophils # (1.3-7.7) k/uL Lymphocytes # (1.0-4.8) k/uL APTT (22.0-30.0) sec Sodium (137-145) mmol/L BUN (9-20) mg/dL Glucose (74-99) mg/dL POC Glucose (mg/dL) 483 H 399 H (75-99) mg/dL Hemoglobin A1c 9.0 H (4.2-6.1) % Cholesterol (<200) mg/dL LDL Cholesterol, Calc (0-99) mg/dL TSH (0.465-4.680) mIU/L Urine Glucose (UA) (Negative) 08/13/16 08/13/16 08/13/16 Range/Units 15:22 16:00 16:21 WBC (3.8-10.6) k/uL RBC (4.30-5.90) m/uL Hgb (13.0-17.5) gm/dL Hct (39.0-53.0) % MCHC (31.0-37.0) g/dL RDW (11.5-15.5) % Neutrophils # (1.3-7.7) k/uL Lymphocytes # (1.0-4.8) k/uL APTT (22.0-30.0) sec Sodium (137-145) mmol/L BUN (9-20) mg/dL Glucose (74-99) mg/dL POC Glucose (mg/dL) 385 H 348 H 301 H (75-99) mg/dL Hemoglobin A1c (4.2-6.1) % Cholesterol (<200) mg/dL LDL Cholesterol, Calc (0-99) mg/dL TSH (0.465-4.680) mIU/L Urine Glucose (UA) (Negative) 08/13/16 08/13/16 08/13/16 Range/Units 16:53 17:27 17:57 WBC (3.8-10.6) k/uL RBC (4.30-5.90) m/uL Hgb (13.0-17.5) gm/dL Hct (39.0-53.0) % MCHC (31.0-37.0) g/dL RDW (11.5-15.5) % Neutrophils # (1.3-7.7) k/uL Lymphocytes # (1.0-4.8) k/uL APTT (22.0-30.0) sec Sodium (137-145) mmol/L BUN (9-20) mg/dL Glucose (74-99) mg/dL POC Glucose (mg/dL) 338 H 296 H 342 H (75-99) mg/dL Hemoglobin A1c (4.2-6.1) % Cholesterol (<200) mg/dL LDL Cholesterol, Calc (0-99) mg/dL TSH (0.465-4.680) mIU/L Urine Glucose (UA) (Negative) 08/13/16 08/13/16 08/13/16 Range/Units 18:27 19:03 19:31 WBC (3.8-10.6) k/uL RBC (4.30-5.90) m/uL Hgb (13.0-17.5) gm/dL Hct (39.0-53.0) % MCHC (31.0-37.0) g/dL RDW (11.5-15.5) % Neutrophils # (1.3-7.7) k/uL Lymphocytes # (1.0-4.8) k/uL APTT (22.0-30.0) sec Sodium (137-145) mmol/L BUN (9-20) mg/dL Glucose (74-99) mg/dL POC Glucose (mg/dL) 365 H 316 H 315 H (75-99) mg/dL Hemoglobin A1c (4.2-6.1) % Cholesterol (<200) mg/dL LDL Cholesterol, Calc (0-99) mg/dL TSH (0.465-4.680) mIU/L Urine Glucose (UA) (Negative) 08/13/16 08/13/16 08/13/16 Range/Units 20:01 20:30 20:59 WBC (3.8-10.6) k/uL RBC (4.30-5.90) m/uL Hgb (13.0-17.5) gm/dL Hct (39.0-53.0) % MCHC (31.0-37.0) g/dL RDW (11.5-15.5) % Neutrophils # (1.3-7.7) k/uL Lymphocytes # (1.0-4.8) k/uL APTT (22.0-30.0) sec Sodium (137-145) mmol/L BUN (9-20) mg/dL Glucose (74-99) mg/dL POC Glucose (mg/dL) 291 H 303 H 267 H (75-99) mg/dL Hemoglobin A1c (4.2-6.1) % Cholesterol (<200) mg/dL LDL Cholesterol, Calc (0-99) mg/dL TSH (0.465-4.680) mIU/L Urine Glucose (UA) (Negative) 08/13/16 08/13/16 08/13/16 Range/Units 21:35 22:11 22:44 WBC (3.8-10.6) k/uL RBC (4.30-5.90) m/uL Hgb (13.0-17.5) gm/dL Hct (39.0-53.0) % MCHC (31.0-37.0) g/dL RDW (11.5-15.5) % Neutrophils # (1.3-7.7) k/uL Lymphocytes # (1.0-4.8) k/uL APTT (22.0-30.0) sec Sodium (137-145) mmol/L BUN (9-20) mg/dL Glucose (74-99) mg/dL POC Glucose (mg/dL) 256 H 259 H 212 H (75-99) mg/dL Hemoglobin A1c (4.2-6.1) % Cholesterol (<200) mg/dL LDL Cholesterol, Calc (0-99) mg/dL TSH (0.465-4.680) mIU/L Urine Glucose (UA) (Negative) 08/13/16 08/13/16 08/14/16 Range/Units 23:06 23:31 00:29 WBC (3.8-10.6) k/uL RBC (4.30-5.90) m/uL Hgb (13.0-17.5) gm/dL Hct (39.0-53.0) % MCHC (31.0-37.0) g/dL RDW (11.5-15.5) % Neutrophils # (1.3-7.7) k/uL Lymphocytes # (1.0-4.8) k/uL APTT 34.7 H (22.0-30.0) sec Sodium (137-145) mmol/L BUN (9-20) mg/dL Glucose (74-99) mg/dL POC Glucose (mg/dL) 221 H 255 H (75-99) mg/dL Hemoglobin A1c (4.2-6.1) % Cholesterol (<200) mg/dL LDL Cholesterol, Calc (0-99) mg/dL TSH (0.465-4.680) mIU/L Urine Glucose (UA) (Negative) 08/14/16 08/14/16 08/14/16 Range/Units 01:15 01:34 02:27 WBC (3.8-10.6) k/uL RBC (4.30-5.90) m/uL Hgb (13.0-17.5) gm/dL Hct (39.0-53.0) % MCHC (31.0-37.0) g/dL RDW (11.5-15.5) % Neutrophils # (1.3-7.7) k/uL Lymphocytes # (1.0-4.8) k/uL APTT (22.0-30.0) sec Sodium (137-145) mmol/L BUN (9-20) mg/dL Glucose (74-99) mg/dL POC Glucose (mg/dL) 225 H 221 H (75-99) mg/dL Hemoglobin A1c (4.2-6.1) % Cholesterol (<200) mg/dL LDL Cholesterol, Calc (0-99) mg/dL TSH (0.465-4.680) mIU/L Urine Glucose (UA) 1+ H (Negative) 08/14/16 08/14/16 08/14/16 Range/Units 03:33 04:37 05:31 WBC (3.8-10.6) k/uL RBC (4.30-5.90) m/uL Hgb (13.0-17.5) gm/dL Hct (39.0-53.0) % MCHC (31.0-37.0) g/dL RDW (11.5-15.5) % Neutrophils # (1.3-7.7) k/uL Lymphocytes # (1.0-4.8) k/uL APTT (22.0-30.0) sec Sodium (137-145) mmol/L BUN (9-20) mg/dL Glucose (74-99) mg/dL POC Glucose (mg/dL) 271 H 190 H 215 H (75-99) mg/dL Hemoglobin A1c (4.2-6.1) % Cholesterol (<200) mg/dL LDL Cholesterol, Calc (0-99) mg/dL TSH (0.465-4.680) mIU/L Urine Glucose (UA) (Negative) 08/14/16 08/14/16 08/14/16 Range/Units 06:16 06:16 06:16 WBC 13.0 H (3.8-10.6) k/uL RBC 3.82 L (4.30-5.90) m/uL Hgb 10.1 L (13.0-17.5) gm/dL Hct 32.8 L (39.0-53.0) % MCHC 30.8 L (31.0-37.0) g/dL RDW 15.6 H (11.5-15.5) % Neutrophils # 11.4 H (1.3-7.7) k/uL Lymphocytes # 0.7 L (1.0-4.8) k/uL APTT 57.3 H (22.0-30.0) sec Sodium 136 L (137-145) mmol/L BUN 31 H (9-20) mg/dL Glucose 226 H (74-99) mg/dL POC Glucose (mg/dL) (75-99) mg/dL Hemoglobin A1c (4.2-6.1) % Cholesterol 207 H (<200) mg/dL LDL Cholesterol, Calc 133 H (0-99) mg/dL TSH (0.465-4.680) mIU/L Urine Glucose (UA) (Negative) 08/14/16 08/14/16 08/14/16 Range/Units 06:16 06:26 08:37 WBC (3.8-10.6) k/uL RBC (4.30-5.90) m/uL Hgb (13.0-17.5) gm/dL Hct (39.0-53.0) % MCHC (31.0-37.0) g/dL RDW (11.5-15.5) % Neutrophils # (1.3-7.7) k/uL Lymphocytes # (1.0-4.8) k/uL APTT (22.0-30.0) sec Sodium (137-145) mmol/L BUN (9-20) mg/dL Glucose (74-99) mg/dL POC Glucose (mg/dL) 235 H 208 H (75-99) mg/dL Hemoglobin A1c (4.2-6.1) % Cholesterol (<200) mg/dL LDL Cholesterol, Calc (0-99) mg/dL TSH 0.294 L (0.465-4.680) mIU/L Urine Glucose (UA) (Negative) 08/14/16 08/14/16 Range/Units 10:45 12:52 WBC (3.8-10.6) k/uL RBC (4.30-5.90) m/uL Hgb (13.0-17.5) gm/dL Hct (39.0-53.0) % MCHC (31.0-37.0) g/dL RDW (11.5-15.5) % Neutrophils # (1.3-7.7) k/uL Lymphocytes # (1.0-4.8) k/uL APTT (22.0-30.0) sec Sodium (137-145) mmol/L BUN (9-20) mg/dL Glucose (74-99) mg/dL POC Glucose (mg/dL) 266 H 279 H (75-99) mg/dL Hemoglobin A1c (4.2-6.1) % Cholesterol (<200) mg/dL LDL Cholesterol, Calc (0-99) mg/dL TSH (0.465-4.680) mIU/L Urine Glucose (UA) (Negative) Microbiology - Last 24 Hours (Table) 08/12/16 19:38 Blood Culture - Preliminary Blood No Growth after 24 hours Diabetes panel 08/13/16 08/14/16 Range/Units 02:14 06:16 Sodium 136 L (137-145) mmol/L Potassium 4.1 (3.5-5.1) mmol/L Chloride 99 (98-107) mmol/L Carbon Dioxide 27 (22-30) mmol/L BUN 31 H (9-20) mg/dL Creatinine 0.87 (0.66-1.25) mg/dL Glucose 226 H (74-99) mg/dL Hemoglobin A1c 9.0 H (4.2-6.1) % Calcium 8.5 (8.4-10.2) mg/dL Triglycerides 147 (<150) mg/dL HDL Cholesterol 45 (40-60) mg/dL Thyroid panel 08/14/16 Range/Units 06:16 TSH 0.294 L (0.465-4.680) mIU/L Calcium panel 08/14/16 Range/Units 06:16 Calcium 8.5 (8.4-10.2) mg/dL Pituitary panel 08/14/16 08/14/16 Range/Units 06:16 06:16 Sodium 136 L (137-145) mmol/L Potassium 4.1 (3.5-5.1) mmol/L Chloride 99 (98-107) mmol/L Carbon Dioxide 27 (22-30) mmol/L BUN 31 H (9-20) mg/dL Creatinine 0.87 (0.66-1.25) mg/dL Glucose 226 H (74-99) mg/dL Calcium 8.5 (8.4-10.2) mg/dL TSH 0.294 L (0.465-4.680) mIU/L Adrenal panel 08/14/16 Range/Units 06:16 Sodium 136 L (137-145) mmol/L Potassium 4.1 (3.5-5.1) mmol/L Chloride 99 (98-107) mmol/L Carbon Dioxide 27 (22-30) mmol/L BUN 31 H (9-20) mg/dL Creatinine 0.87 (0.66-1.25) mg/dL Glucose 226 H (74-99) mg/dL Calcium 8.5 (8.4-10.2) mg/dL - Imaging Chest x-ray: report reviewed, image reviewed EKG: report reviewed, image reviewed Additional studies: Patient had a 2-D echo that showed an EF of 45-50%, inferior hypokinesia and mild mitral valve regurgitation. Cardiac catheterization showed calcific significant proximal LAD disease involving a moderate-sized diagonal, subtotally occluded right coronary artery just before the bifurcation with some faint distended he visualized right to right and [id number], a circumflex system that consists of a ramus with several branching, occluded circumflex in the groove with may be a small marginal distally. Calcification noted in the proximal aorta Assessment and Plan Plan: 55 years old gentleman with the above comorbidities with non-ST elevation myocardial infarction. Patient has insulin-dependent diabetes with microvascular complications with chronic kidney disease, proteinuria, retinopathy, etc. Patient was significant proximal LAD and distal right coronary artery stenosis. Patient candidate for a beating heart approach to his LAD diagonal distal right coronary artery. I doubt that they'll be a suitable posterolateral target. We will allow 24th 48 hours of kidney recovery and pulmonary optimization before proceeding. Preoperative workup has been initiated. We'll follow the patient closely with you. Thank you for the privilege of this consult
--- NOTE | 2016-08-14 14:54 | P.CNPUL ---
History of Present Illness Consult date: 08/14/16 Requesting physician: Katherine Sarmiento Chief complaint: Shortness of breath History of present illness: This is a 55-year-old white male with history of multiple medical problems including COPD, hypertension, dyslipidemia, diabetes, obesity, and he has a very sedentary lifestyle. 2 years ago, the patient had a stress test which was supposedly normal. This was done in [place]. Patient presented this time to the ER with 3 days history of tightness across the chest, associated with some shortness of breath. His EKG was nonspecific, however his enzymes were positive , the patient was found to have non-ST elevation myocardial infarction. Today the patient underwent cardiac catheterization by Dr. Vegas, and he was found to have significant coronary artery disease. Hence the patient was advised to have myocardial revascularization. And the patient is yet to be seen by cardiac surgery on consultation. In the meantime the patient was placed on medications for his acute MN and I was asked to see him on consultation. His shortness of breath is improved, his chest pain is resolved. However the patient is known to have remote smoking history, however he quit many years ago. Patient was told at one point that he may have emphysema, severity of which is not clear. However the patient is not O2 dependent and not prednisone dependent. Bedside spirometry was done, and it was a poor quality because of the effort was very poor, hence I recommended a full PFT to be done in a.m. Review of Systems 14 point review of systems were obtained, please refer to pertinent positives and negatives as per HPI. Past Medical History Past Medical History: COPD, Diabetes Mellitus, Hypertension, Osteoarthritis (OA) , Renal Disease Additional Past Medical History / Comment(s): emphysema, retinopathy, charcot joints, gastroparesis, STAGE 3 RENAL FAILURE, MURMUR A CHILD, History of Any Multi-Drug Resistant Organisms: None Reported Past Surgical History: Cholecystectomy Additional Past Surgical History / Comment(s): SURGERY FOR GERD WHERE THEY MOVED ESOPHAGUS UP, carpal tunnel surgery, foot wounds requiring bone from right big toe to be removed. Past Anesthesia/Blood Transfusion Reactions: No Reported Reaction Past Psychological History: No Psychological Hx Reported Smoking Status: Former smoker Past Alcohol Use History: None Reported Past Drug Use History: None Reported - Past Family History Father Brother(s) Family Medical History: Diabetes Mellitus Mother Family Medical History: Myocardial Infarction (MN) Medications and Allergies Home Medications Medication Instructions Recorded Confirmed Type Calcitriol [Rocaltrol] 0.25 mcg PO MOWEFR 08/12/16 08/13/16 History Carvedilol [Coreg] 25 mg PO BID 08/12/16 08/14/16 History Metoclopramide [Reglan] 10 mg PO ACHS 08/12/16 08/12/16 History Albuterol Sulfate [Proventil Hfa] 2 puff INHALATION RT-Q6H PRN 08/13/16 History Ascorbic Acid [Vitamin C] 1,000 mg PO DAILY 08/13/16 08/13/16 History Fish Oil/Dha/Epa [Fish Oil 1,200 1 cap PO TID 08/13/16 08/13/16 History mg Fish Oil] Furosemide [Lasix] 20 mg PO DAILY 08/13/16 08/13/16 History Gabapentin [Neurontin] 600 mg PO BID 08/13/16 08/13/16 History Gemfibrozil [Lopid] 600 mg PO AC-BID 08/13/16 08/13/16 History INSULIN LISPRO (HumaLOG) [HumaLOG] 280 - 400 units SQ ACHS 08/13/16 08/13/16 History Ipratropium Nebulized [Atrovent 0.5 mg INHALATION RT-QID 08/13/16 08/13/16 History Nebulized] Losartan Potassium [Cozaar] 50 mg PO DAILY 08/13/16 08/14/16 History Mometasone/Formoterol [Dulera 100 2 puff INHALATION RT-BID 08/13/16 08/13/16 History Mcg/5 Mcg Inhaler] Multivitamin [Men's Multi-Vitamin] 1 tab PO DAILY 08/13/16 08/13/16 History Niacin 500 mg PO QID 08/13/16 08/13/16 History Simvastatin [Zocor] 40 mg PO HS 08/13/16 08/13/16 History amLODIPine [Norvasc] 5 mg PO HS 08/13/16 08/14/16 History Aspirin 81 mg PO DAILY 08/14/16 08/14/16 History Bismuth Subsalicylate 0 mg PO DAILY PRN 08/14/16 08/14/16 History [Pepto-Bismol] Cyclobenzaprine [Flexeril] 10 mg PO TID 08/14/16 08/14/16 History Eye Lubricant Combination No.1 1 applic BOTH EYES BID 08/14/16 08/14/16 History [Freshkote] Magnesium Oxide 400 mg PO DAILY 08/14/16 08/14/16 History Polyethylene Glycol 3350 [Miralax] 17 gm PO DAILY PRN 08/14/16 08/14/16 History Turmeric/Cumin 1,300 mg PO DAILY 08/14/16 08/14/16 History Allergies Allergy/AdvReac Type Severity Reaction Status Date / Time No Known Allergies Allergy Verified 08/13/16 12:56 Physical Exam Vitals: Vital Signs Temp Pulse Pulse Pulse Pulse Resp BP 08/14/16 13:46 83 20 125/70 08/14/16 12:45 94 20 112/57 08/14/16 11:46 80 20 118/60 08/14/16 11:16 96.4 F L 80 20 126/61 08/14/16 10:46 83 20 08/14/16 10:31 78 20 135/64 08/14/16 10:16 77 20 124/62 08/14/16 10:01 77 20 122/59 08/14/16 08:55 97 F L 74 20 08/14/16 08:40 92 08/14/16 08:24 88 08/14/16 08:00 97 F L 74 20 08/14/16 03:43 97 F L 83 18 08/14/16 00:00 96.9 F L 83 20 08/13/16 20:00 96 F L 92 20 08/13/16 19:59 92 08/13/16 19:47 92 08/13/16 16:00 96.7 F L 90 18 08/13/16 15:40 96 08/13/16 15:27 92 BP Pulse Ox 08/14/16 13:46 08/14/16 12:45 08/14/16 11:46 08/14/16 11:16 92 L 08/14/16 10:46 133/61 08/14/16 10:31 08/14/16 10:16 08/14/16 10:01 08/14/16 08:55 143/65 94 L 08/14/16 08:40 08/14/16 08:24 08/14/16 08:00 143/65 94 L 08/14/16 03:43 141/64 93 L 08/14/16 00:00 150/67 92 L 08/13/16 20:00 161/70 93 L 08/13/16 19:59 08/13/16 19:47 92 L 08/13/16 16:00 156/77 93 L 08/13/16 15:40 08/13/16 15:27 Intake and Output 08/13/16 08/14/16 08/14/16 22:59 06:59 14:59 Intake Total 1198.074 1859.539 1527.533 Output Total 1200 700 Balance 1325.326 217.539 827.533 Intake: IV 766 940 875 Heparin Sodium,Porcine/ 380 160 D5w Pmx 25,000 unit In Dextrose/Water 1 500ml. bag @ 8.5 UNITS/KG/HR 20. 04 mls/hr IV .Q24H ALE Rx #:[id number] Insulin Regular 100 unit 176 60 In Sodium Chloride 0.9% 100 ml @ Titrate IV .Q0M ALE Rx#:[id number] Sodium Chloride 0.9% 1, 160 720 800 000 ml @ 20 mls/hr IV . Q24H ALE Rx#:[id number] [id number] 1,000 mg In 50 Sodium Chloride 0.9% 50 ml @ 100 mls/hr IVPB Q24H ALE Rx#:[id number] Intake, IV Titration 319.326 477.539 52.533 Amount Heparin Sodium,Porcine/ 193.242 429.823 D5w Pmx 25,000 unit In Dextrose/Water 1 500ml. bag @ 8.5 UNITS/KG/HR 20. 04 mls/hr IV .Q24H ALE Rx #:[id number] Insulin Regular 100 unit 126.084 47.716 52.533 In Sodium Chloride 0.9% 100 ml @ Titrate IV .Q0M ALE Rx#:[id number] Oral 240 600 Output: Urine 1200 700 Other: # Voids 2 # Bowel Movements 1 Weight 114.5 kg 114.5 kg Patient Weight 08/15/16 06:59 Weight 114.5 kg Physical Exam: Revealed a 55-year-old in no distress HEENT:[Neck is supple.] [No neck masses.] [No thyromegaly.] [No JVD.] Chest: Diminished breath sounds at the bases, no crackles or rhonchi or wheezes. ] Cardiac Exam: [Normal S1 and S2, no S3 gallop, no murmur.] Abdomen: [Soft, nontender, no megaly, no rebound, no guarding, normal bowel sounds.] Extremities: [No clubbing, no edema, no cyanosis.] Neurological Exam: [No focal neurologic deficit.] Results - Laboratory Findings CBC and BMP: 08/14/16 06:16 08/14/16 06:16 PT/INR, D-dimer PT 10.8 sec (9.0-12.0) 08/12/16 19:20 INR 1.1 (<1.1) 08/12/16 19:20 Abnormal lab findings: Abnormal Labs 08/12/16 08/12/16 08/12/16 19:20 19:20 19:20 WBC RBC 3.97 L Hgb 10.8 L Hct 35.4 L MCHC 30.6 L RDW Neutrophils # Lymphocytes # Lymphocytes # (Manual) 0.4 L APTT Sodium 135 L Chloride 94 L BUN Glucose 350 H POC Glucose (mg/dL) Hemoglobin A1c CK-MB (CK-2) 3.5 H* Troponin I 1.590 H* Cholesterol LDL Cholesterol, Calc TSH Urine Glucose (UA) 08/12/16 08/13/16 08/13/16 21:30 02:14 02:14 WBC RBC Hgb Hct MCHC RDW Neutrophils # Lymphocytes # Lymphocytes # (Manual) APTT Sodium Chloride BUN Glucose POC Glucose (mg/dL) 372 H Hemoglobin A1c 9.0 H CK-MB (CK-2) 2.9 H* Troponin I 1.080 H* Cholesterol LDL Cholesterol, Calc TSH Urine Glucose (UA) 08/13/16 08/13/16 08/13/16 06:08 08:20 08:20 WBC RBC 4.09 L Hgb 10.8 L Hct 36.8 L MCHC 29.3 L RDW Neutrophils # Lymphocytes # 0.6 L Lymphocytes # (Manual) APTT Sodium Chloride BUN Glucose POC Glucose (mg/dL) 492 H Hemoglobin A1c CK-MB (CK-2) 2.8 H* Troponin I 0.886 H* Cholesterol LDL Cholesterol, Calc TSH Urine Glucose (UA) 08/13/16 08/13/16 08/13/16 08:20 11:50 13:23 WBC RBC Hgb Hct MCHC RDW Neutrophils # Lymphocytes # Lymphocytes # (Manual) APTT 30.8 H Sodium Chloride BUN Glucose POC Glucose (mg/dL) 458 H 500 H Hemoglobin A1c CK-MB (CK-2) Troponin I Cholesterol LDL Cholesterol, Calc TSH Urine Glucose (UA) 08/13/16 08/13/16 08/13/16 14:20 14:52 15:22 WBC RBC Hgb Hct MCHC RDW Neutrophils # Lymphocytes # Lymphocytes # (Manual) APTT Sodium Chloride BUN Glucose POC Glucose (mg/dL) 483 H 399 H 385 H Hemoglobin A1c CK-MB (CK-2) Troponin I Cholesterol LDL Cholesterol, Calc TSH Urine Glucose (UA) 08/13/16 08/13/16 08/13/16 16:00 16:21 16:53 WBC RBC Hgb Hct MCHC RDW Neutrophils # Lymphocytes # Lymphocytes # (Manual) APTT Sodium Chloride BUN Glucose POC Glucose (mg/dL) 348 H 301 H 338 H Hemoglobin A1c CK-MB (CK-2) Troponin I Cholesterol LDL Cholesterol, Calc TSH Urine Glucose (UA) 08/13/16 08/13/16 08/13/16 17:27 17:57 18:27 WBC RBC Hgb Hct MCHC RDW Neutrophils # Lymphocytes # Lymphocytes # (Manual) APTT Sodium Chloride BUN Glucose POC Glucose (mg/dL) 296 H 342 H 365 H Hemoglobin A1c CK-MB (CK-2) Troponin I Cholesterol LDL Cholesterol, Calc TSH Urine Glucose (UA) 08/13/16 08/13/16 08/13/16 19:03 19:31 20:01 WBC RBC Hgb Hct MCHC RDW Neutrophils # Lymphocytes # Lymphocytes # (Manual) APTT Sodium Chloride BUN Glucose POC Glucose (mg/dL) 316 H 315 H 291 H Hemoglobin A1c CK-MB (CK-2) Troponin I Cholesterol LDL Cholesterol, Calc TSH Urine Glucose (UA) 08/13/16 08/13/16 08/13/16 20:30 20:59 21:35 WBC RBC Hgb Hct MCHC RDW Neutrophils # Lymphocytes # Lymphocytes # (Manual) APTT Sodium Chloride BUN Glucose POC Glucose (mg/dL) 303 H 267 H 256 H Hemoglobin A1c CK-MB (CK-2) Troponin I Cholesterol LDL Cholesterol, Calc TSH Urine Glucose (UA) 08/13/16 08/13/16 08/13/16 22:11 22:44 23:06 WBC RBC Hgb Hct MCHC RDW Neutrophils # Lymphocytes # Lymphocytes # (Manual) APTT 34.7 H Sodium Chloride BUN Glucose POC Glucose (mg/dL) 259 H 212 H Hemoglobin A1c CK-MB (CK-2) Troponin I Cholesterol LDL Cholesterol, Calc TSH Urine Glucose (UA) 08/13/16 08/14/16 08/14/16 23:31 00:29 01:15 WBC RBC Hgb Hct MCHC RDW Neutrophils # Lymphocytes # Lymphocytes # (Manual) APTT Sodium Chloride BUN Glucose POC Glucose (mg/dL) 221 H 255 H Hemoglobin A1c CK-MB (CK-2) Troponin I Cholesterol LDL Cholesterol, Calc TSH Urine Glucose (UA) 1+ H 08/14/16 08/14/16 08/14/16 01:34 02:27 03:33 WBC RBC Hgb Hct MCHC RDW Neutrophils # Lymphocytes # Lymphocytes # (Manual) APTT Sodium Chloride BUN Glucose POC Glucose (mg/dL) 225 H 221 H 271 H Hemoglobin A1c CK-MB (CK-2) Troponin I Cholesterol LDL Cholesterol, Calc TSH Urine Glucose (UA) 08/14/16 08/14/16 08/14/16 04:37 05:31 06:16 WBC 13.0 H RBC 3.82 L Hgb 10.1 L Hct 32.8 L MCHC 30.8 L RDW 15.6 H Neutrophils # 11.4 H Lymphocytes # 0.7 L Lymphocytes # (Manual) APTT Sodium Chloride BUN Glucose POC Glucose (mg/dL) 190 H 215 H Hemoglobin A1c CK-MB (CK-2) Troponin I Cholesterol LDL Cholesterol, Calc TSH Urine Glucose (UA) 08/14/16 08/14/16 08/14/16 06:16 06:16 06:16 WBC RBC Hgb Hct MCHC RDW Neutrophils # Lymphocytes # Lymphocytes # (Manual) APTT 57.3 H Sodium 136 L Chloride BUN 31 H Glucose 226 H POC Glucose (mg/dL) Hemoglobin A1c CK-MB (CK-2) Troponin I Cholesterol 207 H LDL Cholesterol, Calc 133 H TSH 0.294 L Urine Glucose (UA) 08/14/16 08/14/16 08/14/16 06:26 08:37 10:45 WBC RBC Hgb Hct MCHC RDW Neutrophils # Lymphocytes # Lymphocytes # (Manual) APTT Sodium Chloride BUN Glucose POC Glucose (mg/dL) 235 H 208 H 266 H Hemoglobin A1c CK-MB (CK-2) Troponin I Cholesterol LDL Cholesterol, Calc TSH Urine Glucose (UA) 08/14/16 12:52 WBC RBC Hgb Hct MCHC RDW Neutrophils # Lymphocytes # Lymphocytes # (Manual) APTT Sodium Chloride BUN Glucose POC Glucose (mg/dL) 279 H Hemoglobin A1c CK-MB (CK-2) Troponin I Cholesterol LDL Cholesterol, Calc TSH Urine Glucose (UA) - Diagnostic Findings Chest x-ray: image reviewed (Initial chest x-ray was reviewed and the follow-up chest x-ray was also reviewed, the initial one was showing findings of congestive heart failure improved on the follow-up chest x-ray. Strongly doubt underlying pneumonia.) Assessment and Plan Plan: Impression: 1 acute non-ST elevation myocardial infarction, 2 significant coronary artery disease based on cardiac catheterization. 3 morbid obesity 4 history of hypertension 5 history of dyslipidemia 6 suspect some component of COPD, full PFT is pending, his initial bedside PFT is very poor because of mostly of poor effort. Although restriction is strongly suspected. 7 suspect some component of congestive heart failure on presentation, improved on the follow-up chest x-ray. Hence cut down IV fluid to KVO, and continue diuretics. Follow-up chest x-ray will be done in a.m. Recommendation: Agree with the present treatment plan including antiplatelets beta blockers and statins and patient is to be seen by cardiac surgery on consultation today. Patient will be placed empirically on bronchodilators. Time with Patient: Greater than 30
[2016-08-14 15:05] LABS: Glucose,Whole Blood 231 mg/dL (75-99)
[2016-08-14] MEDS ORDERED: INSULIN REGULAR 100 UNIT in SODIUM CHLORIDE 0.9% 100 ML IV SCH (17:30)
--- NOTE | 2016-08-14 17:34 | HP ---
DATE OF ADMISSION: 08/12/2016 CHIEF COMPLAINT: Shortness of breath and chest pain. HISTORY OF PRESENT ILLNESS: This 55-year-old gentleman with a past history of COPD, history of diabetes, history of asthma, hypertension, degenerative joint disease, history of renal disease, history of diabetic retinopathy, diabetic shock, gastroparesis, history of , history of morbid obesity, cholecystectomy, being followed by a primary physician in [place] recently moved to [place]. The patient is having cold symptoms for the last 3-4 weeks and subsequently which was aggravated and the patient also had some cough and sputum. The patient was noted to have shortness of breath and the patient came to [facility] and admitted to the hospital for further evaluation and treatment. Patient also complains of left-sided chest pain. The right side pneumonia was suspected and in the ER chest x-rays but; however, the troponin was also found to be elevated up to 1.590 and 1.08 indicating acute non-ST elevation myocardial infarction. The EKG showed diffuse ST-T changes also. The patient is in sinus rhythm as well as LVH. There is no history of any fever, rigors or chills. No history of headache, loss of consciousness or seizures, hematochezia or melena at this time. PAST MEDICAL HISTORY: History of COPD, diabetes mellitus, hypertension, DJD, history of renal disorder, history of retinopathy, history of Charcot joints, history of renal failure. Medications: The home medications are: 1. Niacin 500 mg p.o. q.i.d. 2. Vitamin D3 800 units daily. 3. Multivitamins 1 p.o. daily. 4. Fish oil on p.o. t.i.d. 5. Vitamin C 1000 mg daily. 6. Proventil 2 puffs q.6 p.r.n. 7. Zocor 40 mg at bedtime. 8. Lopid 600 mg b.i.d. 9. Lasix 20 mg daily. 10. Atrovent 0.5 q.i.d. 11. Humalog 280 to 400 units subcutaneous q.h.s. 12. Dulera 100 2 puffs b.i.d. 13. Cozaar 100 mg daily. 14. Neurontin 600 mg p.o. b.i.d. 15. Norvasc 10 mg p.o. daily. 16. Coreg 25 mg p.o. t.i.d. 17. Rocaltrol 0.25 Sunday, Sunday and Sunday. 18. Reglan 10 mg p.o. q.h.s. ALLERGIES: None. FAMILY HISTORY: History of diabetes mellitus in the family. SOCIAL HISTORY: Previous history of smoking. No history of alcohol intake. REVIEW OF SYSTEMS: ENT: No diminished vision. No diminished hearing. CARDIOVASCULAR: As mentioned earlier. RESPIRATORY: As mentioned earlier. GI: No nausea. : No dysuria. Nervous system: No numbness, weakness. ALLERGY/IMMUNOLOGY: No asthma or hayfever. MUSCULOSKELETAL: As mentioned earlier. HEMATOLOGY/ONCOLOGY: No history of anemia. ENDOCRINE: Diabetes. CONSTITUTIONAL: As mentioned earlier. Dermatology: Negative. Rheumatology: Negative. PSYCHIATRY: As mentioned earlier. PHYSICAL EXAMINATION: The patient is alert and oriented times three. Pulse is 90, blood pressure 150/77. Respiratory rate 18. Temperature 97.7. Pulse ox 93% on 5 L. HEENT: Conjunctivae normal. NECK: No jugular venous distention. CARDIOVASCULAR: S1, S2 muffled. No S3, no S4. RESPIRATORY: Breath sounds diminished in the bases. Bilateral scattered rhonchi and crackles. ABDOMEN: Soft, obese, nontender. No mass palpable. LEGS: No edema. No swelling. CENTRAL NERVOUS SYSTEM: Higher functions as mentioned earlier. Moves all four limbs. No focal deficits. LYMPHATICS: No lymph nodes palpable in the neck, axillae or groin. SKIN: No ulcer, rash or bleeding. LABS: WBC 7.5, hemoglobin 10.8. Sodium is 135 and glucose is 372 and 291. Troponin is 1.590 and 1.080. ASSESSMENT: 1. Chest pain with elevated troponin 1.590, acute non-ST segment elevation myocardial infarction. 2. Acute pneumonia, bilateral, possibly gram-negative, right more than the left. 3. Chronic obstructive pulmonary disease, acute exacerbation. 4. Hyponatremia. 5. Diabetes mellitus type 2, uncontrolled. 6. Anemia, normocytic, anemia of chronic disease. 7. Obesity with body mass index 38.7. 8. History of asthma. 9. Diabetes mellitus type 2. 10. Hypertension. 11. History of degenerative joint disease. 12. History of chronic kidney disease stage III. 13. History of diabetic retinopathy. 14. Diabetic Charcot joints. 15. Diabetic gastroparesis. 16. Cholecystectomy. 17. History of gastroesophageal reflux disease. 18. History of carpal tunnel surgery. 19. Remote history of nicotine dependence. 20. FULL CODE. RECOMMENDATIONS AND DISCUSSION: In this 55-year-old gentleman who presented with multiple complex medical issues, we will monitor the patient closely, continue the current medications, continue symptomatic treatment, continue bronchodilators. Continue with empiric antibiotics. Continue with steroids. Monitor blood pressures closely, continue IV insulin drip. I would also recommend a cardiology and pulmonology consultations. Cardiology is also evaluating the patient with myocardial infarction and the patient started on antiplatelet agents. Guarded prognosis because of multiple complex medical issues. Further recommendations to follow. We will also initiate beta blockers as well. Guarded prognosis. MTDD
--- NOTE | 2016-08-14 17:40 | P.PN ---
Subjective Date of service 08/14/2016. Progress note being dictated for Dr. Sarmiento. Interval history: This is a 55-year-old gentleman admitted with chest pain, acute non-STEMI, status post cardiac cath with significant CAD involving proximal LAD and distal RCA per verbal report, COPD, possible CHF and multiple other medical issues. Maintained on beta huey, statin, antiplatelet therapy , and nebulized bronchodilators. Evaluated by cardiothoracic surgery, discussing CABG. Echo suboptimal study, reporting moderately impaired LV function, EF 45-50%, inferior basal hypokinesis, 2 or more wall segments not visualized. Maintained on insulin drip with sugars uncontrolled, up to 230, in a patient with hemoglobin A1c of 9. Currently denies chest pain, palpitations. Shortness of breath slow to improve, maintaining O2 sats of 90% on 5 L nasal cannula. Review of systems: HEENT: Denies headache or focal deficits. Denies any dizziness or lightheadedness. Respiratory: Complains of increased shortness of breath. Cardiac: Denies any chest pain, palpitations. GI: Denies any nausea, vomiting, or diarrhea. Denies any abdominal tenderness. : Denies any dysuria. Psychiatry: Denies any anxiety or depression. Active Medications Hydrocodone Bitart/Acetaminophen ([place] 5-325) 1 each PO Q6HR PRN PRN Reason: Pain Albuterol/Ipratropium (Duoneb 0.5 Mg-3 Mg/3 Ml Soln) 3 ml INHALATION RT-QID [facility] Last Admin: 08/14/16 16:52 Dose: Not Given Alprazolam (Xanax) 0.25 mg PO TID PRN PRN Reason: Anxiety Amlodipine Besylate (Norvasc) 10 mg PO DAILY [facility] Last Admin: 08/14/16 06:16 Dose: Not Given Aspirin (Aspirin) 325 mg PO DAILY [facility] Last Admin: 08/14/16 06:16 Dose: 325 mg Atorvastatin Calcium (Lipitor) 80 mg PO HS [facility] Last Admin: 08/13/16 19:30 Dose: 80 mg Budesonide/Formoterol Fumarate (Symbicort 160-4.5 Mcg Inhaler) 2 puff INHALATION RT-BID [facility] Last Admin: 08/14/16 08:24 Dose: 2 puff Calcitriol (Rocaltrol) 0.25 mcg PO MOWEFR [facility] Last Admin: 08/14/16 06:25 Dose: 0.25 mcg Cholecalciferol (Vitamin D3) 800 unit PO DAILY [facility] Last Admin: 08/14/16 06:16 Dose: 800 unit Furosemide (Lasix) 40 mg IV DAILY [facility] Last Admin: 08/14/16 11:58 Dose: 40 mg Gabapentin (Neurontin) 600 mg PO BID [facility] Last Admin: 08/14/16 06:17 Dose: 600 mg Heparin Sodium (Porcine) (Heparin) 0 unit IV PER PROTOCOL PRN; Protocol PRN Reason: Low PTT Last Admin: 08/14/16 00:19 Dose: 4,000 unit Sodium Chloride (Saline 0.9%) 1,000 mls @ 20 mls/hr IV .Q24H [facility] Last Admin: 08/12/16 22:51 Dose: 20 mls/hr Ceftriaxone Sodium 1,000 mg/ (Sodium Chloride) 50 mls @ 100 mls/hr IVPB Q24H [facility] Last Admin: 08/13/16 21:26 Dose: 100 mls/hr Heparin Sodium/Dextrose 25,000 (unit/ IV Solution) 500 mls @ 20.04 mls/hr IV .Q24H [facility]; 8.5 UNITS/KG/HR PRN Reason: Protocol Last Titration: 08/14/16 06:48 Dose: 20.34 units/kg/hr, 47.97 mls/hr Insulin Human Regular 100 unit (/ Sodium Chloride) 101 mls @ 0 mls/hr IV .Q0M [facility]; Titrate PRN Reason: Protocol Last Titration: 08/14/16 15:06 Dose: 7.92 units/hr, 8 mls/hr Azithromycin 500 mg/ Sodium (Chloride) 250 mls @ 125 mls/hr IVPB 2000 [facility] Insulin Human Lispro (Humalog) 15 unit SQ AC-TID [facility] Last Admin: 08/14/16 12:00 Dose: 15 unit Methylprednisolone Sodium Succinate (Solu-Medrol) 60 mg IV Q6HR [facility] Last Admin: 08/14/16 11:58 Dose: 60 mg Metoprolol Tartrate (Lopressor) 25 mg PO BID [facility] Last Admin: 08/14/16 06:18 Dose: 25 mg Miscellaneous Information (Rx Info: Iv Contrast Was Given) 1 each MISCELLANE DAILY PRN PRN Reason: Per Protocol Stop: 08/16/16 10:01 Morphine Sulfate (Morphine Sulfate (Inj)) 4 mg IV Q4HR PRN PRN Reason: Chest Pain Last Admin: 08/12/16 19:58 Dose: 4 mg Multivitamins (Theragran) 1 each PO DAILY@1200 [facility] Last Admin: 08/14/16 11:59 Dose: 1 each Mupirocin (Bactroban Oint) 1 applic NASAL BID [facility] Stop: 08/19/16 21:01 Niacin (Niacin Tr) 500 mg PO QID [facility] Last Admin: 08/14/16 11:59 Dose: 500 mg Pantoprazole Sodium (Protonix) 40 mg PO AC-BRKFST [facility] Last Admin: 08/14/16 06:16 Dose: 40 mg Temazepam (Restoril) 15 mg PO HS PRN PRN Reason: Insomnia Objective - Vital Signs Vital signs: Vital Signs Temp 96.4 F L 08/14/16 11:16 Pulse 80 08/14/16 11:16 Resp 20 08/14/16 11:16 BP 126/61 08/14/16 11:16 Pulse Ox 92 L 08/14/16 11:16 Intake & Output 08/13/16 08/14/16 08/14/16 18:59 06:59 18:59 Intake Total 3216.028 2250.623 105.7 Output Total 1200 Balance 1073.754 925.623 105.7 Weight 114.5 kg Intake: IV 116 1590 75 Heparin Sodium,Porcine/ 540 D5w Pmx 25,000 unit In Dextrose/Water 1 500ml. bag @ 8.5 UNITS/KG/HR 20. 04 mls/hr IV .Q24H [facility] Rx #:[id number] Insulin Regular 100 unit 116 120 In Sodium Chloride 0.9% 100 ml @ Titrate IV .Q0M [facility] Rx#:[id number] Sodium Chloride 0.9% 1, 880 000 ml @ 20 mls/hr IV . Q24H [facility] Rx#:[id number] cefTRIAXone 1,000 mg In 50 Sodium Chloride 0.9% 50 ml @ 100 mls/hr IVPB Q24H [facility] Rx#:[id number] Intake, IV Titration 477.754 535.623 30.7 Amount Heparin Sodium,Porcine/ 376.754 429.823 D5w Pmx 25,000 unit In Dextrose/Water 1 500ml. bag @ 8.5 UNITS/KG/HR 20. 04 mls/hr IV .Q24H [facility] Rx #:[id number] Insulin Regular 100 unit 101.000 105.800 30.7 In Sodium Chloride 0.9% 100 ml @ Titrate IV .Q0M [facility] Rx#:[id number] Oral 480 Output: Urine 1200 Other: # Voids 2 # Bowel Movements 1 - Exam PHYSICAL EXAM: VITAL SIGNS: As above [] GENERAL: [Sitting up at side of bed, no acute distress] HEENT: [Pupils equal conjunctiva normal.] NECK: [Supple, no JVD] RESPIRATORY EFFORT:[Increased] LUNGS: [Diminished bases, no crackles rhonchi or wheezes] CARDIOVASCULAR[regular S1 and S2, no murmur rub or gallop] GI: [Abdomen soft, nontender, positive bowel sounds.] PSYCH: [Alert and oriented -3, mood and affect normal.] NEURO: [No focal deficits, moves all 4 extremities, charcot joints] - Labs CBC & Chem 7: 08/14/16 06:16 08/14/16 06:16 Labs: Abnormal Lab Results - Last 24 Hours (Table) 08/13/16 08/13/16 08/13/16 Range/Units 02:14 11:50 13:23 WBC (3.8-10.6) k/uL RBC (4.30-5.90) m/uL Hgb (13.0-17.5) gm/dL Hct (39.0-53.0) % MCHC (31.0-37.0) g/dL RDW (11.5-15.5) % Neutrophils # (1.3-7.7) k/uL Lymphocytes # (1.0-4.8) k/uL APTT (22.0-30.0) sec Sodium (137-145) mmol/L BUN (9-20) mg/dL Glucose (74-99) mg/dL POC Glucose (mg/dL) 458 H 500 H (75-99) mg/dL Hemoglobin A1c 9.0 H (4.2-6.1) % Cholesterol (<200) mg/dL LDL Cholesterol, Calc (0-99) mg/dL Urine Glucose (UA) (Negative) 08/13/16 08/13/16 08/13/16 Range/Units 14:20 14:52 15:22 WBC (3.8-10.6) k/uL RBC (4.30-5.90) m/uL Hgb (13.0-17.5) gm/dL Hct (39.0-53.0) % MCHC (31.0-37.0) g/dL RDW (11.5-15.5) % Neutrophils # (1.3-7.7) k/uL Lymphocytes # (1.0-4.8) k/uL APTT (22.0-30.0) sec Sodium (137-145) mmol/L BUN (9-20) mg/dL Glucose (74-99) mg/dL POC Glucose (mg/dL) 483 H 399 H 385 H (75-99) mg/dL Hemoglobin A1c (4.2-6.1) % Cholesterol (<200) mg/dL LDL Cholesterol, Calc (0-99) mg/dL Urine Glucose (UA) (Negative) 08/13/16 08/13/16 08/13/16 Range/Units 16:00 16:21 16:53 WBC (3.8-10.6) k/uL RBC (4.30-5.90) m/uL Hgb (13.0-17.5) gm/dL Hct (39.0-53.0) % MCHC (31.0-37.0) g/dL RDW (11.5-15.5) % Neutrophils # (1.3-7.7) k/uL Lymphocytes # (1.0-4.8) k/uL APTT (22.0-30.0) sec Sodium (137-145) mmol/L BUN (9-20) mg/dL Glucose (74-99) mg/dL POC Glucose (mg/dL) 348 H 301 H 338 H (75-99) mg/dL Hemoglobin A1c (4.2-6.1) % Cholesterol (<200) mg/dL LDL Cholesterol, Calc (0-99) mg/dL Urine Glucose (UA) (Negative) 08/13/16 08/13/16 08/13/16 Range/Units 17:27 17:57 18:27 WBC (3.8-10.6) k/uL RBC (4.30-5.90) m/uL Hgb (13.0-17.5) gm/dL Hct (39.0-53.0) % MCHC (31.0-37.0) g/dL RDW (11.5-15.5) % Neutrophils # (1.3-7.7) k/uL Lymphocytes # (1.0-4.8) k/uL APTT (22.0-30.0) sec Sodium (137-145) mmol/L BUN (9-20) mg/dL Glucose (74-99) mg/dL POC Glucose (mg/dL) 296 H 342 H 365 H (75-99) mg/dL Hemoglobin A1c (4.2-6.1) % Cholesterol (<200) mg/dL LDL Cholesterol, Calc (0-99) mg/dL Urine Glucose (UA) (Negative) 08/13/16 08/13/16 08/13/16 Range/Units 19:03 19:31 20:01 WBC (3.8-10.6) k/uL RBC (4.30-5.90) m/uL Hgb (13.0-17.5) gm/dL Hct (39.0-53.0) % MCHC (31.0-37.0) g/dL RDW (11.5-15.5) % Neutrophils # (1.3-7.7) k/uL Lymphocytes # (1.0-4.8) k/uL APTT (22.0-30.0) sec Sodium (137-145) mmol/L BUN (9-20) mg/dL Glucose (74-99) mg/dL POC Glucose (mg/dL) 316 H 315 H 291 H (75-99) mg/dL Hemoglobin A1c (4.2-6.1) % Cholesterol (<200) mg/dL LDL Cholesterol, Calc (0-99) mg/dL Urine Glucose (UA) (Negative) 08/13/16 08/13/16 08/13/16 Range/Units 20:30 20:59 21:35 WBC (3.8-10.6) k/uL RBC (4.30-5.90) m/uL Hgb (13.0-17.5) gm/dL Hct (39.0-53.0) % MCHC (31.0-37.0) g/dL RDW (11.5-15.5) % Neutrophils # (1.3-7.7) k/uL Lymphocytes # (1.0-4.8) k/uL APTT (22.0-30.0) sec Sodium (137-145) mmol/L BUN (9-20) mg/dL Glucose (74-99) mg/dL POC Glucose (mg/dL) 303 H 267 H 256 H (75-99) mg/dL Hemoglobin A1c (4.2-6.1) % Cholesterol (<200) mg/dL LDL Cholesterol, Calc (0-99) mg/dL Urine Glucose (UA) (Negative) 08/13/16 08/13/16 08/13/16 Range/Units 22:11 22:44 23:06 WBC (3.8-10.6) k/uL RBC (4.30-5.90) m/uL Hgb (13.0-17.5) gm/dL Hct (39.0-53.0) % MCHC (31.0-37.0) g/dL RDW (11.5-15.5) % Neutrophils # (1.3-7.7) k/uL Lymphocytes # (1.0-4.8) k/uL APTT 34.7 H (22.0-30.0) sec Sodium (137-145) mmol/L BUN (9-20) mg/dL Glucose (74-99) mg/dL POC Glucose (mg/dL) 259 H 212 H (75-99) mg/dL Hemoglobin A1c (4.2-6.1) % Cholesterol (<200) mg/dL LDL Cholesterol, Calc (0-99) mg/dL Urine Glucose (UA) (Negative) 08/13/16 08/14/16 08/14/16 Range/Units 23:31 00:29 01:15 WBC (3.8-10.6) k/uL RBC (4.30-5.90) m/uL Hgb (13.0-17.5) gm/dL Hct (39.0-53.0) % MCHC (31.0-37.0) g/dL RDW (11.5-15.5) % Neutrophils # (1.3-7.7) k/uL Lymphocytes # (1.0-4.8) k/uL APTT (22.0-30.0) sec Sodium (137-145) mmol/L BUN (9-20) mg/dL Glucose (74-99) mg/dL POC Glucose (mg/dL) 221 H 255 H (75-99) mg/dL Hemoglobin A1c (4.2-6.1) % Cholesterol (<200) mg/dL LDL Cholesterol, Calc (0-99) mg/dL Urine Glucose (UA) 1+ H (Negative) 08/14/16 08/14/16 08/14/16 Range/Units 01:34 02:27 03:33 WBC (3.8-10.6) k/uL RBC (4.30-5.90) m/uL Hgb (13.0-17.5) gm/dL Hct (39.0-53.0) % MCHC (31.0-37.0) g/dL RDW (11.5-15.5) % Neutrophils # (1.3-7.7) k/uL Lymphocytes # (1.0-4.8) k/uL APTT (22.0-30.0) sec Sodium (137-145) mmol/L BUN (9-20) mg/dL Glucose (74-99) mg/dL POC Glucose (mg/dL) 225 H 221 H 271 H (75-99) mg/dL Hemoglobin A1c (4.2-6.1) % Cholesterol (<200) mg/dL LDL Cholesterol, Calc (0-99) mg/dL Urine Glucose (UA) (Negative) 08/14/16 08/14/16 08/14/16 Range/Units 04:37 05:31 06:16 WBC 13.0 H (3.8-10.6) k/uL RBC 3.82 L (4.30-5.90) m/uL Hgb 10.1 L (13.0-17.5) gm/dL Hct 32.8 L (39.0-53.0) % MCHC 30.8 L (31.0-37.0) g/dL RDW 15.6 H (11.5-15.5) % Neutrophils # 11.4 H (1.3-7.7) k/uL Lymphocytes # 0.7 L (1.0-4.8) k/uL APTT (22.0-30.0) sec Sodium (137-145) mmol/L BUN (9-20) mg/dL Glucose (74-99) mg/dL POC Glucose (mg/dL) 190 H 215 H (75-99) mg/dL Hemoglobin A1c (4.2-6.1) % Cholesterol (<200) mg/dL LDL Cholesterol, Calc (0-99) mg/dL Urine Glucose (UA) (Negative) 08/14/16 08/14/16 08/14/16 Range/Units 06:16 06:16 06:26 WBC (3.8-10.6) k/uL RBC (4.30-5.90) m/uL Hgb (13.0-17.5) gm/dL Hct (39.0-53.0) % MCHC (31.0-37.0) g/dL RDW (11.5-15.5) % Neutrophils # (1.3-7.7) k/uL Lymphocytes # (1.0-4.8) k/uL APTT 57.3 H (22.0-30.0) sec Sodium 136 L (137-145) mmol/L BUN 31 H (9-20) mg/dL Glucose 226 H (74-99) mg/dL POC Glucose (mg/dL) 235 H (75-99) mg/dL Hemoglobin A1c (4.2-6.1) % Cholesterol 207 H (<200) mg/dL LDL Cholesterol, Calc 133 H (0-99) mg/dL Urine Glucose (UA) (Negative) 08/14/16 08/14/16 Range/Units 08:37 10:45 WBC (3.8-10.6) k/uL RBC (4.30-5.90) m/uL Hgb (13.0-17.5) gm/dL Hct (39.0-53.0) % MCHC (31.0-37.0) g/dL RDW (11.5-15.5) % Neutrophils # (1.3-7.7) k/uL Lymphocytes # (1.0-4.8) k/uL APTT (22.0-30.0) sec Sodium (137-145) mmol/L BUN (9-20) mg/dL Glucose (74-99) mg/dL POC Glucose (mg/dL) 208 H 266 H (75-99) mg/dL Hemoglobin A1c (4.2-6.1) % Cholesterol (<200) mg/dL LDL Cholesterol, Calc (0-99) mg/dL Urine Glucose (UA) (Negative) Microbiology - Last 24 Hours (Table) 08/12/16 19:38 Blood Culture - Preliminary Blood No Growth after 24 hours Assessment and Plan Plan: 1. Acute non-STEMI. 2. [Status post cardiac cath and verbal report of significant CAD involving LAD and distal RCA]. CABG pending. 3. [Diabetes mellitus, and insulin drip dependent, hemoglobin A1c 9, uncontrolled- on steroids]. 4. CKD, stage III 5. [Hypertension]. 6. [Acute on chronic COPD]. 7. [Possible acute CHF exacerbation, echo pending]. 8. Degenerative joint disease with osteoarthritis 9. Charcot joints 10. History of nicotine abuse 11. Heparin monitoring 12. Hyperlipidemia 13. Anemia of chronic disease, secondary to CKD 14. Acute hypoxic respiratory failure Plan: Continue on current medication regime , nebulized bronchodilators, beta huey, statin, heparin, monitoring and symptomatic treatment. As mentioned above cardiothoracic surgery discussing CABG. Close monitoring of of Accu-Cheks , insulin drip adjusted, please refer to orders. Close monitoring of electrolytes and renal function with repeat labs ordered for a.m.CT ordered and pending. Further recommendations to follow. The impression and plan of care has been dictated as directed. : I performed a H&P examination of this patient and discussed the same with the dictator. I agree with the dictator's note. Any additional findings/opinions/ etc. will be noted.
--- NOTE | 2016-08-14 17:41 | CC ---
DATE OF SERVICE: August 14, 2016. Performing physician: Javon Marin M.D., munitions handler. PROCEDURE PERFORMED: Selective right and left coronary angiogram. INDICATION: This is a pleasant 55-year-old gentleman who just moved to town recently with a past medical history significant for diabetes, hypertension, dyslipidemia, and obesity, presented to the hospital with chest discomfort and shortness of breath and was ruled in for acute coronary event. A heart catheterization was recommended. Approach: Right radial artery. COMPLICATIONS: None. Level of sedation: Moderate with a sedation length of 30 minutes. PROCEDURE DESCRIPTION: After obtaining informed consent, the patient was brought to the cardiac clinical lab specialist. Right radial artery was cannulated using micropuncture technique. The micropuncture wire passed easily, then I placed a 6 [place] sheath in the right radial artery. Subsequently I gave the patient 2 mg of verapamil IA and 3000 units of heparin IV. After that, I did selective right and left coronary angiogram using JR4 and JL 3.5 catheters. The procedure was completed without any complication. SELECTIVE CORONARY ANGIOGRAM: 1. The right coronary artery is a large-caliber vessel and it is a dominant vessel. The proximal RCA appeared to have mild disease only. The mid RCA appeared to have mild disease only and gives rises into a small to medium acute marginal branch. The RCA distally has a long tubular lesion in the range of 90% to 95%. It bifurcates distally into PDA and PLV branches; both seems to be a small-caliber vessel with competitive flow from the collaterals from the left to system. 2. The left main is angiographically normal. It bifurcates into the left circumflex and left anterior descending artery. 3. The left circumflex is a large-caliber vessel and it is a codominant vessel. The proximal left circumflex is occluded. It fills by collateral from the left anterior descending coronary artery. Before the occlusion, the left circumflex gives rises into the first obtuse marginal branch, which is a large-caliber vessel, seems to have mild disease only. The left circumflex continues after that in the AV groove and it is occluded. 4. Left anterior descending artery: The proximal left anterior descending artery appeared to have mild disease only and gives rises into the first diagonal branch, which is a medium caliber vessel with disease in the ostium appeared to be in the range of 50%. The mid LAD has a long tubular lesion and seems to be calcified by that region and the lesion appeared to be in in the range 70% to 80%. This is by the bifurcation of the second diagonal branch, which is a medium caliber vessel with severe ostial disease. The LAD distally becomes a large-caliber vessel and seems to be angiographically normally. The LAD gives rises to left to left and [id number] collaterals. CONCLUSION: 1. Calcified right and left coronary system. 2. Codominant right and left coronary system. 3. Severe triple-vessel coronary artery disease. 4. Critical disease involving the distal right coronary artery. 5. Occluded left circumflex coronary artery in the proximal portion and fills by collateral from the left anterior descending coronary artery. 6. Severe disease involving the mid left anterior descending coronary artery on a long tubular lesion. POSTPROCEDURE MANAGEMENT: I discussed with the patient that the best move is to proceed with coronary artery bypass grafting. I will consult the surgeon to evaluate the patient.
[2016-08-14 17:57] LABS: Glucose,Whole Blood 181 mg/dL (75-99)
--- NOTE | 2016-08-14 18:17 | US ---
EXAMINATION TYPE: US carotid duplex BILAT DATE OF EXAM: 08/14/2016 5:06 PM COMPARISON: NONE CLINICAL HISTORY: PreOp cardiac surgery. EXAM MEASUREMENTS: RIGHT: Peak Systolic Velocity (PSV) cm/sec ----- Right CCA: 74.0 ----- Right ICA: 90.6 ----- Right ECA: 68.0 ICA/CCA ratio: 1.2 RIGHT: End Diastole cm/sec ----- Right CCA: 17.3 ----- Right ICA: 25.2 ----- Right ECA: 21.2 LEFT: Peak Systolic Velocity (PSV) cm/sec ----- Left CCA: 126.0 ----- Left ICA: 79.5 ----- Left ECA: 122.0 ICA/CCA ratio: 0.6 LEFT: End Diastole cm/sec ----- Left CCA: 15.6 ----- Left ICA: 25.9 ----- Left ECA: 9.0 VERTEBRALS (direction of flow): Right Vertebral: Antegrade Left Vertebral: Antegrade TECHNOLOGIST IMPRESSION: No significant velocity elevations, patient has large thick neck. IMPRESSION: There is antegrade flow in the vertebral arteries. The images and measurements suggest 2 0-30% stenosis in both internal carotid arteries. Criteria for Assigning % of Stenosis / Diameter reduction (Estimation based on the indirect measurements of the internal carotid artery velocities (ICA PSV). 1. Normal (no stenosis)=ICA PSV < 125 cm/s: ratio < 2.0: ICA EDV<40 cm/s. 2. Less than 50% stenosis=ICA PSV < 125 cm/s: ratio < 2.0: ICA EDV<40 cm/s. 3. 50 to 69% stenosis=ICA PSV of 125 to 230 cm/s: ration 2.0 ? 4.0: ICA EDV 40-100 cm/s. 4. Greater than 70% stenosis to near occlusion= ICA PSV > 230 cm/s: ratio > 4.0: ICA EDV > 100 cm/s. 5. Near occlusion= ICA PSV velocities may be low or undetectable: variable ratio and ICA EDV. 6. Total occlusion=unable to detect flow.
[2016-08-14 19:31] LABS: Glucose,Whole Blood 207 mg/dL (75-99)
[2016-08-14 21:26] LABS: Glucose,Whole Blood 255 mg/dL (75-99)
[2016-08-14] MEDS: SODIUM CHLORIDE 0.9% 1,000 ML IV SCH (22:10)
[2016-08-14] MEDS: AZITHROMYCIN 500 MG in SODIUM CHLORIDE 0.9% 250 ML IVPB SCH (22:11)
[2016-08-14] MEDS: ATORVASTATIN 80 MG TAB PO SCH (23:43)
[2016-08-14] MEDS: MUPIROCIN 2% OINT 22 GM TUBE NASAL SCH (23:43)
[2016-08-15 00:05] LABS: Glucose,Whole Blood 245 mg/dL (75-99)
[2016-08-15 02:25] LABS: Glucose,Whole Blood 244 mg/dL (75-99)
[2016-08-15 04:56] LABS: Glucose,Whole Blood 242 mg/dL (75-99)
[2016-08-15 06:13] LABS: Glucose,Whole Blood 160 mg/dL (75-99)
[2016-08-15 06:19] LABS: Basophils % (A) 0 %; CH 26.3; CHCM 30.3; Eosinophils % (A) 0 %; HCT 32.9 % (39.0-53.0); Hypochromasia Moderate; Luc # (Auto) 0.35; Luc % (Auto) 3; Lymphocytes # (A) 0.6 k/uL (1.0-4.8); Lymphocytes % (A) 5 %; MCH 26.7 pg (25.0-35.0); MCHC 30.5 g/dL (31.0-37.0); MCV 87.3 fL (80.0-100.0); Mean Platelet Volume 9.1; Monocytes # (A) 0.7 k/uL (0-1.0); Monocytes % (A) 6 %; Neutrophils # (A) 10.3 k/uL (1.3-7.7); Neutrophils % (A) 86 %; RBC 3.76 m/uL (4.30-5.90); RDW 15.6 % (11.5-15.5); WBC 12.1 k/uL (3.8-10.6); WBC (Perox) 12.26
[2016-08-15 06:25] LABS: INR 1.2 (<1.1); Partial Thromboplastin Time 22.8 sec (22.0-30.0); Prothrombin Time 12.1 sec (9.0-12.0)
[2016-08-15 06:33] LABS: ALT 53 U/L (21-72); AST 40 U/L (17-59); Alkaline Phosphatase 54 U/L (38-126); Anion Gap 8 mmol/L; Blood Urea Nitrogen 24 mg/dL (9-20); Calcium 8.2 mg/dL (8.4-10.2); Carbon Dioxide 27 mmol/L (22-30); Chloride 103 mmol/L (98-107); Glucose 157 mg/dL (74-99); Non-African American GFR(MDRD) >60 (>60 ml/min/1.73 sqM); Potassium 3.9 mmol/L (3.5-5.1); Sodium 138 mmol/L (137-145); Total Bilirubin 0.3 mg/dL (0.2-1.3); Total Protein 6.2 g/dL (6.3-8.2)
[2016-08-15] MEDS: HEPARIN SODIUM,PORCINE/D5W PMX 25,000 UNIT in DEXTROSE/WATER 1 500ML.BAG IV SCH (06:48)
[2016-08-15] MEDS: methylPREDNISolone SOD SUCCI 125 MG/2 ML VIAL IV SCH ×5 (06:52→23:31)
[2016-08-15] MEDS: INSULIN LISPRO (humaLOG) 300 UNIT/3 ML VIAL SQ SCH ×3 (06:56→17:29)
[2016-08-15] MEDS: PANTOPRAZOLE 40 MG TABLET PO SCH (06:57)
[2016-08-15] MEDS: IPRATROPIUM-ALBUTEROL 3 ML NEB INHALATION SCH ×4 (07:26→19:54)
[2016-08-15] MEDS: SYMBICORT 160-4.5 MCG INHALER INHALATION SCH ×2 (07:26→19:55)
[2016-08-15 08:13] LABS: Glucose,Whole Blood 100 mg/dL (75-99)
--- NOTE | 2016-08-15 09:36 | P.PN ---
<Yasmin Dalton - Last Filed: 08/15/16 09:35> Subjective Principal diagnosis: CAD, non-STEMI. Pending coronary artery bypass graft surgery. Patient currently sitting up in bed in no apparent distress. Eating breakfast. No questions at this time. Objective - Vital Signs Vital signs: Vital Signs Temp 96.6 F L 08/15/16 04:00 Pulse 83 08/15/16 04:00 Resp 20 08/15/16 04:00 BP 130/62 08/15/16 04:00 Pulse Ox 95 08/15/16 04:00 Intake & Output 08/14/16 08/15/16 08/15/16 18:59 06:59 18:59 Intake Total 1751.200 352.935 Output Total 2200 2600 Balance -448.800 -2247.065 Weight 114.5 kg 116.3 kg Intake: IV 875 Sodium Chloride 0.9% 1, 800 000 ml @ 20 mls/hr IV . Q24H ALE Rx#:[id number] Intake, IV Titration 96.200 52.935 Amount Insulin Regular 100 unit 96.200 In Sodium Chloride 0.9% 100 ml @ Titrate IV .Q0M ALE Rx#:[id number] Insulin Regular 100 unit 52.935 In Sodium Chloride 0.9% 100 ml @ Titrate IV .Q0M ALE Rx#:[id number] Oral 780 300 Output: Urine 2200 2600 Other: # Voids 2 # Bowel Movements 1 - Constitutional General appearance: Present: cooperative, no acute distress, obese - Respiratory Details: Lungs sounds diminished bilaterally. Respirations even, nonlabored. Currently on 5 L nasal cannula. - Cardiovascular Details: S1, S2 present. Regular rate and rhythm, normal sinus rhythm on telemetry. No edema present. - Gastrointestinal Gastrointestinal Comment(s): Abdomen soft, nontender, nondistended. Active bowel sounds 4 quadrants. Tolerating diet. - Genitourinary Genitourinary Comment(s): Voiding clear, yellow urine per urinal. - Musculoskeletal Musculoskeletal: Present: strength equal bilaterally - Psychiatric Psychiatric: Present: A&O x's 3, appropriate affect, intact judgment & insight - Allied health notes Allied health notes reviewed: nursing - Labs CBC & Chem 7: 08/15/16 06:04 08/15/16 06:04 Labs: Abnormal Lab Results - Last 24 Hours (Table) 08/13/16 08/14/16 08/14/16 Range/Units 02:14 06:16 08:37 WBC (3.8-10.6) k/uL RBC (4.30-5.90) m/uL Hgb (13.0-17.5) gm/dL Hct (39.0-53.0) % MCHC (31.0-37.0) g/dL RDW (11.5-15.5) % Neutrophils # (1.3-7.7) k/uL Lymphocytes # (1.0-4.8) k/uL PT (9.0-12.0) sec BUN (9-20) mg/dL Glucose (74-99) mg/dL POC Glucose (mg/dL) 208 H (75-99) mg/dL Hemoglobin A1c 9.0 H (4.2-6.1) % Calcium (8.4-10.2) mg/dL Total Protein (6.3-8.2) g/dL Albumin (3.5-5.0) g/dL TSH 0.294 L (0.465-4.680) mIU/L 08/14/16 08/14/16 08/14/16 Range/Units 10:45 12:52 14:53 WBC (3.8-10.6) k/uL RBC (4.30-5.90) m/uL Hgb (13.0-17.5) gm/dL Hct (39.0-53.0) % MCHC (31.0-37.0) g/dL RDW (11.5-15.5) % Neutrophils # (1.3-7.7) k/uL Lymphocytes # (1.0-4.8) k/uL PT (9.0-12.0) sec BUN (9-20) mg/dL Glucose (74-99) mg/dL POC Glucose (mg/dL) 266 H 279 H 231 H (75-99) mg/dL Hemoglobin A1c (4.2-6.1) % Calcium (8.4-10.2) mg/dL Total Protein (6.3-8.2) g/dL Albumin (3.5-5.0) g/dL TSH (0.465-4.680) mIU/L 08/14/16 08/14/16 08/14/16 Range/Units 17:31 19:28 21:24 WBC (3.8-10.6) k/uL RBC (4.30-5.90) m/uL Hgb (13.0-17.5) gm/dL Hct (39.0-53.0) % MCHC (31.0-37.0) g/dL RDW (11.5-15.5) % Neutrophils # (1.3-7.7) k/uL Lymphocytes # (1.0-4.8) k/uL PT (9.0-12.0) sec BUN (9-20) mg/dL Glucose (74-99) mg/dL POC Glucose (mg/dL) 181 H 207 H 255 H (75-99) mg/dL Hemoglobin A1c (4.2-6.1) % Calcium (8.4-10.2) mg/dL Total Protein (6.3-8.2) g/dL Albumin (3.5-5.0) g/dL TSH (0.465-4.680) mIU/L 08/15/16 08/15/16 08/15/16 Range/Units 00:03 02:23 04:53 WBC (3.8-10.6) k/uL RBC (4.30-5.90) m/uL Hgb (13.0-17.5) gm/dL Hct (39.0-53.0) % MCHC (31.0-37.0) g/dL RDW (11.5-15.5) % Neutrophils # (1.3-7.7) k/uL Lymphocytes # (1.0-4.8) k/uL PT (9.0-12.0) sec BUN (9-20) mg/dL Glucose (74-99) mg/dL POC Glucose (mg/dL) 245 H 244 H 242 H (75-99) mg/dL Hemoglobin A1c (4.2-6.1) % Calcium (8.4-10.2) mg/dL Total Protein (6.3-8.2) g/dL Albumin (3.5-5.0) g/dL TSH (0.465-4.680) mIU/L 08/15/16 08/15/16 08/15/16 Range/Units 06:04 06:04 06:04 WBC 12.1 H (3.8-10.6) k/uL RBC 3.76 L (4.30-5.90) m/uL Hgb 10.0 L (13.0-17.5) gm/dL Hct 32.9 L (39.0-53.0) % MCHC 30.5 L (31.0-37.0) g/dL RDW 15.6 H (11.5-15.5) % Neutrophils # 10.3 H (1.3-7.7) k/uL Lymphocytes # 0.6 L (1.0-4.8) k/uL PT 12.1 H (9.0-12.0) sec BUN 24 H (9-20) mg/dL Glucose 157 H (74-99) mg/dL POC Glucose (mg/dL) (75-99) mg/dL Hemoglobin A1c (4.2-6.1) % Calcium 8.2 L (8.4-10.2) mg/dL Total Protein 6.2 L (6.3-8.2) g/dL Albumin 3.3 L (3.5-5.0) g/dL TSH (0.465-4.680) mIU/L 08/15/16 Range/Units 06:11 WBC (3.8-10.6) k/uL RBC (4.30-5.90) m/uL Hgb (13.0-17.5) gm/dL Hct (39.0-53.0) % MCHC (31.0-37.0) g/dL RDW (11.5-15.5) % Neutrophils # (1.3-7.7) k/uL Lymphocytes # (1.0-4.8) k/uL PT (9.0-12.0) sec BUN (9-20) mg/dL Glucose (74-99) mg/dL POC Glucose (mg/dL) 160 H (75-99) mg/dL Hemoglobin A1c (4.2-6.1) % Calcium (8.4-10.2) mg/dL Total Protein (6.3-8.2) g/dL Albumin (3.5-5.0) g/dL TSH (0.465-4.680) mIU/L Microbiology - Last 24 Hours (Table) 08/12/16 19:38 Blood Culture - Preliminary Blood No Growth after 48 hours 08/14/16 12:54 Urine Culture - Preliminary Urine,Clean Catch 08/14/16 13:57 Nasal Screen MRSA/MSSA ([facility]) - Preliminary Nasal Swab - Imaging and Cardiology Carotids, vein mapping images reviewed. Assessment and Plan (1) NSTEMI (non-ST elevated myocardial infarction) Status: Acute (2) Acute exacerbation of chronic obstructive airways disease Status: Acute (3) History of chronic kidney disease Status: Acute (4) Insulin dependent diabetes mellitus Status: Acute (5) Hypertension Status: Acute (6) Hyperlipidemia associated with type 2 diabetes mellitus Status: Acute (7) Obesity (BMI 30-39.9) Status: Acute (8) Obstructive sleep apnea on CPAP Status: Acute (9) Secondary hyperparathyroidism of renal origin Status: Acute (10) Diabetic gastroparesis associated with type 2 diabetes mellitus Status: Acute Plan: 1. Continue aspirin, beta huey, statin, Lasix. 2. Anticipate coronary artery bypass grafting soon, probably pending results of preop testing. 3. Hold heparin drip 2 hours prior to OR. 4. Antibiotics, Solu-Medrol per pulmonology recommendations. 5. Encourage preoperative incentive spirometry use. 6. Insulin and diabetic management per primary service 7. More recommendations as patient progresses. Time with Patient: Greater than 30 <Rodrigo Bates - Last Filed: 08/15/16 09:40> Objective - Vital Signs Vital signs: Vital Signs Temp 97.4 F L 08/15/16 07:40 Pulse 77 08/15/16 07:40 Resp 16 08/15/16 07:40 BP 149/68 08/15/16 07:40 Pulse Ox 95 08/15/16 07:40 Intake & Output 08/14/16 08/15/16 08/15/16 18:59 06:59 18:59 Intake Total 1751.200 352.935 253.2 Output Total 2200 2600 Balance -448.800 -2247.065 253.2 Weight 114.5 kg 116.3 kg Intake: IV 875 Sodium Chloride 0.9% 1, 800 000 ml @ 20 mls/hr IV . Q24H ALE Rx#:[id number] Intake, IV Titration 96.200 52.935 13.2 Amount Insulin Regular 100 unit 96.200 In Sodium Chloride 0.9% 100 ml @ Titrate IV .Q0M ALE Rx#:[id number] Insulin Regular 100 unit 52.935 13.2 In Sodium Chloride 0.9% 100 ml @ Titrate IV .Q0M ALE Rx#:[id number] Oral 780 300 240 Output: Urine 2200 2600 Other: # Voids 2 # Bowel Movements 1 - Labs CBC & Chem 7: 08/15/16 06:04 08/15/16 06:04 Labs: Abnormal Lab Results - Last 24 Hours (Table) 08/14/16 08/14/16 08/14/16 Range/Units 06:16 10:45 12:52 WBC (3.8-10.6) k/uL RBC (4.30-5.90) m/uL Hgb (13.0-17.5) gm/dL Hct (39.0-53.0) % MCHC (31.0-37.0) g/dL RDW (11.5-15.5) % Neutrophils # (1.3-7.7) k/uL Lymphocytes # (1.0-4.8) k/uL PT (9.0-12.0) sec BUN (9-20) mg/dL Glucose (74-99) mg/dL POC Glucose (mg/dL) 266 H 279 H (75-99) mg/dL Calcium (8.4-10.2) mg/dL Total Protein (6.3-8.2) g/dL Albumin (3.5-5.0) g/dL TSH 0.294 L (0.465-4.680) mIU/L 08/14/16 08/14/16 08/14/16 Range/Units 14:53 17:31 19:28 WBC (3.8-10.6) k/uL RBC (4.30-5.90) m/uL Hgb (13.0-17.5) gm/dL Hct (39.0-53.0) % MCHC (31.0-37.0) g/dL RDW (11.5-15.5) % Neutrophils # (1.3-7.7) k/uL Lymphocytes # (1.0-4.8) k/uL PT (9.0-12.0) sec BUN (9-20) mg/dL Glucose (74-99) mg/dL POC Glucose (mg/dL) 231 H 181 H 207 H (75-99) mg/dL Calcium (8.4-10.2) mg/dL Total Protein (6.3-8.2) g/dL Albumin (3.5-5.0) g/dL TSH (0.465-4.680) mIU/L 08/14/16 08/15/16 08/15/16 Range/Units 21:24 00:03 02:23 WBC (3.8-10.6) k/uL RBC (4.30-5.90) m/uL Hgb (13.0-17.5) gm/dL Hct (39.0-53.0) % MCHC (31.0-37.0) g/dL RDW (11.5-15.5) % Neutrophils # (1.3-7.7) k/uL Lymphocytes # (1.0-4.8) k/uL PT (9.0-12.0) sec BUN (9-20) mg/dL Glucose (74-99) mg/dL POC Glucose (mg/dL) 255 H 245 H 244 H (75-99) mg/dL Calcium (8.4-10.2) mg/dL Total Protein (6.3-8.2) g/dL Albumin (3.5-5.0) g/dL TSH (0.465-4.680) mIU/L 08/15/16 08/15/16 08/15/16 Range/Units 04:53 06:04 06:04 WBC 12.1 H (3.8-10.6) k/uL RBC 3.76 L (4.30-5.90) m/uL Hgb 10.0 L (13.0-17.5) gm/dL Hct 32.9 L (39.0-53.0) % MCHC 30.5 L (31.0-37.0) g/dL RDW 15.6 H (11.5-15.5) % Neutrophils # 10.3 H (1.3-7.7) k/uL Lymphocytes # 0.6 L (1.0-4.8) k/uL PT (9.0-12.0) sec BUN 24 H (9-20) mg/dL Glucose 157 H (74-99) mg/dL POC Glucose (mg/dL) 242 H (75-99) mg/dL Calcium 8.2 L (8.4-10.2) mg/dL Total Protein 6.2 L (6.3-8.2) g/dL Albumin 3.3 L (3.5-5.0) g/dL TSH (0.465-4.680) mIU/L 08/15/16 08/15/16 08/15/16 Range/Units 06:04 06:11 08:10 WBC (3.8-10.6) k/uL RBC (4.30-5.90) m/uL Hgb (13.0-17.5) gm/dL Hct (39.0-53.0) % MCHC (31.0-37.0) g/dL RDW (11.5-15.5) % Neutrophils # (1.3-7.7) k/uL Lymphocytes # (1.0-4.8) k/uL PT 12.1 H (9.0-12.0) sec BUN (9-20) mg/dL Glucose (74-99) mg/dL POC Glucose (mg/dL) 160 H 100 H (75-99) mg/dL Calcium (8.4-10.2) mg/dL Total Protein (6.3-8.2) g/dL Albumin (3.5-5.0) g/dL TSH (0.465-4.680) mIU/L Microbiology - Last 24 Hours (Table) 08/12/16 19:38 Blood Culture - Preliminary Blood No Growth after 48 hours 08/14/16 12:54 Urine Culture - Preliminary Urine,Clean Catch 08/14/16 13:57 Nasal Screen MRSA/MSSA ([facility]) - Preliminary Nasal Swab Assessment and Plan Plan: Preoperative workup is underway. Plan for coronary artery bypass grafting later this week by Dr. James.
--- NOTE | 2016-08-15 10:18 | PN ---
DATE OF SERVICE: 08/14/2016 This 55-year-old gentleman was admitted with features of acute non-ST elevation myocardial infarction with significant coronary artery disease. Cardiology is recommend CABG. The patient also had multiple pulmonary abnormalities and Dr. Rangel is also following the patient closely. I have seen and evaluated the patient with the nurse practitioner. Please see the nurse practitioner notes and impressions documented as a scribe for further information. Further recommendations to follow.
--- NOTE | 2016-08-15 10:34 | XR ---
EXAMINATION TYPE: XR chest 2V DATE OF EXAM: 08/15/2016 10:22 AM COMPARISON: 08/14/2016 TECHNIQUE: PA and lateral views submitted. HISTORY: Preop FINDINGS: There is no pneumothorax, pleural or pleural effusion. Hypertrophic and degenerative change of the sp ine noted. Heart is mildly enlarged. Nodule at the left lung base may be related to granuloma. There is marked right paratracheal soft tissue fullness. CT chest recommended. IMPRESSION: 1. Persistent subsegmental interstitial perihilar changes. May been the basis of a pneumonitis or int erstitial atypical pneumonia. Venous congestion not excluded. 2. There is right paratracheal soft tissue fullness for which CT of the chest is recommended.
[2016-08-15 10:39] LABS: Glucose,Whole Blood 290 mg/dL (75-99)
[2016-08-15] MEDS: amLODIPine 10 MG TAB PO SCH (11:00)
[2016-08-15] MEDS: ASPIRIN 325 MG TAB PO SCH (11:01)
[2016-08-15] MEDS: GABAPENTIN 300 MG CAP PO SCH ×2 (11:01→21:57)
[2016-08-15] MEDS: NIACIN TR 500 MG CAPSULE.ER PO SCH ×4 (11:01→21:57)
[2016-08-15] MEDS: MUPIROCIN 2% OINT 22 GM TUBE NASAL SCH ×2 (11:01→21:58)
[2016-08-15] MEDS: METOPROLOL TARTRATE 25 MG TAB PO SCH ×2 (11:01→22:11)
[2016-08-15] MEDS: CHOLECALCIFEROL 400 UNIT TAB PO SCH (11:01)
[2016-08-15] MEDS: FUROSEMIDE 10 MG/ML 4 ML VIAL IV SCH ×2 (11:41→22:10)
[2016-08-15 11:46] LABS: Glucose,Whole Blood 319 mg/dL (75-99)
--- NOTE | 2016-08-15 11:51 | CT ---
EXAMINATION TYPE: CT chest wo con DATE OF EXAM: 08/15/2016 11:26 AM COMPARISON: Chest x-ray same date HISTORY: Congestive heart failure, COPD, pneumonia, restrictive lung disease CT DLP: 659.5 mGycm Automated exposure control for dose reduction was used. FINDINGS: There is bilateral airspace disease in the perihilar regions, lower lobes. Bilateral pleural effusion s are present with associated atelectatic change. Some air bronchograms are noted at the right lung b ase. Calcified subcarinal and left hilar nodes are present. There are coronary artery calcifications. No pericardial effusion. Ascending aorta measures 4 cm. No mediastinal, axillary, or hilar adenopath y. Possible gastric diverticulum is present. There may be fatty infiltration of the liver. Cystic focus present at the posterior left kidney upper pole measures 3.8 cm. Hypertrophic changes present within the spine. IMPRESSION: CORRELATE FOR CONGESTIVE HEART FAILURE, PNEUMONIA NOT EXCLUDED. NONCONTRAST EXAM, ADDITIONAL FINDINGS ABOVE. ASCENDING AORTIC ANEURYSM
[2016-08-15] MEDS: MULTIVITAMINS, THERA 1 EACH TAB PO SCH (12:28)
[2016-08-15 12:59] LABS: ABG HCO3 26 mmol/L (21-25); ABG PCO2 40 mmHg (35-45); ABG PH 7.43 (7.35-7.45); ABG PO2 131 mmHg (83-108)
--- NOTE | 2016-08-15 12:59 | P.PN ---
Subjective Principal diagnosis: Acute myocardial infarction This is a 55-year-old white male with history of multiple medical problems including COPD, hypertension, dyslipidemia, diabetes, obesity, and he has a very sedentary lifestyle. 2 years ago, the patient had a stress test which was supposedly normal. This was done in [place]. Patient presented this time to the ER with 3 days history of tightness across the chest, associated with some shortness of breath. His EKG was nonspecific, however his enzymes were positive , the patient was found to have non-ST elevation myocardial infarction. Today the patient underwent cardiac catheterization by Dr. Vegas, and he was found to have significant coronary artery disease. Hence the patient was advised to have myocardial revascularization. And the patient is yet to be seen by cardiac surgery on consultation. In the meantime the patient was placed on medications for his acute ME and I was asked to see him on consultation. His shortness of breath is improved, his chest pain is resolved. However the patient is known to have remote smoking history, however he quit many years ago. Patient was told at one point that he may have emphysema, severity of which is not clear. However the patient is not O2 dependent and not prednisone dependent. Bedside spirometry was done, and it was a poor quality because of the effort was very poor, hence I recommended a full PFT to be done in a.m. Patient was reevaluated today on 08/15/2016, doing relatively well, however his PFT is quite abnormal showing mostly a picture of restriction and poor effort with very low Mvv and low FVC, lower lung volumes. This would make him a very high surgical risk, in the meantime I ordered a high-resolution CT of the chest , his chest x-ray was showing a right paratracheal soft tissue fullness, and some subsegmental interstitial perihilar changes felt to be related to congestive heart failure unless proven otherwise. CT of the chest is showing mostly congestive heart failure, with air bronchograms noted in the right lung base and there is also evidence of calcified subcarinal and left hilar nodes noted. Fatty infiltration of the liver was also noted, and cystic focus of left kidney was noted. Patient will likely improve with aggressive diuresis. Objective - Vital Signs Vital signs: Vital Signs Temp 97.8 F 08/15/16 11:32 Pulse 76 08/15/16 11:32 Resp 16 08/15/16 11:32 BP 147/63 03/21/17 11:32 Pulse Ox 94 L 08/15/16 11:32 Intake & Output 08/14/16 08/15/16 08/15/16 18:59 06:59 18:59 Intake Total 1751.200 352.935 273.2 Output Total 2200 2600 500 Balance -448.800 -2247.065 -226.8 Weight 114.5 kg 116.3 kg Intake: IV 875 Sodium Chloride 0.9% 1, 800 000 ml @ 20 mls/hr IV . Q24H ALE Rx#:[id number] Intake, IV Titration 96.200 52.935 33.2 Amount Insulin Regular 100 unit 96.200 In Sodium Chloride 0.9% 100 ml @ Titrate IV .Q0M ALE Rx#:[id number] Insulin Regular 100 unit 52.935 33.2 In Sodium Chloride 0.9% 100 ml @ Titrate IV .Q0M ALE Rx#:[id number] Oral 780 300 240 Output: Urine 2200 2600 500 Other: Voiding Method Urinal # Voids 2 # Bowel Movements 1 - Exam Physical Exam: Revealed a 55-year-old in no distress HEENT:[Neck is supple.] [No neck masses.] [No thyromegaly.] [No JVD.] Chest: Diminished breath sounds at the bases, no crackles or rhonchi or wheezes. ] Cardiac Exam: [Normal S1 and S2, no S3 gallop, no murmur.] Abdomen: [Soft, nontender, no megaly, no rebound, no guarding, normal bowel sounds.] Extremities: [No clubbing, no edema, no cyanosis.] Neurological Exam: [No focal neurologic deficit.] - Labs CBC & Chem 7: 08/15/16 06:04 08/15/16 06:04 Labs: Abnormal Lab Results - Last 24 Hours (Table) 08/14/16 08/14/16 08/14/16 Range/Units 06:16 12:52 14:53 WBC (3.8-10.6) k/uL RBC (4.30-5.90) m/uL Hgb (13.0-17.5) gm/dL Hct (39.0-53.0) % MCHC (31.0-37.0) g/dL RDW (11.5-15.5) % Neutrophils # (1.3-7.7) k/uL Lymphocytes # (1.0-4.8) k/uL PT (9.0-12.0) sec BUN (9-20) mg/dL Glucose (74-99) mg/dL POC Glucose (mg/dL) 279 H 231 H (75-99) mg/dL Calcium (8.4-10.2) mg/dL Total Protein (6.3-8.2) g/dL Albumin (3.5-5.0) g/dL TSH 0.294 L (0.465-4.680) mIU/L 08/14/16 08/14/16 08/14/16 Range/Units 17:31 19:28 21:24 WBC (3.8-10.6) k/uL RBC (4.30-5.90) m/uL Hgb (13.0-17.5) gm/dL Hct (39.0-53.0) % MCHC (31.0-37.0) g/dL RDW (11.5-15.5) % Neutrophils # (1.3-7.7) k/uL Lymphocytes # (1.0-4.8) k/uL PT (9.0-12.0) sec BUN (9-20) mg/dL Glucose (74-99) mg/dL POC Glucose (mg/dL) 181 H 207 H 255 H (75-99) mg/dL Calcium (8.4-10.2) mg/dL Total Protein (6.3-8.2) g/dL Albumin (3.5-5.0) g/dL TSH (0.465-4.680) mIU/L 08/15/16 08/15/16 08/15/16 Range/Units 00:03 02:23 04:53 WBC (3.8-10.6) k/uL RBC (4.30-5.90) m/uL Hgb (13.0-17.5) gm/dL Hct (39.0-53.0) % MCHC (31.0-37.0) g/dL RDW (11.5-15.5) % Neutrophils # (1.3-7.7) k/uL Lymphocytes # (1.0-4.8) k/uL PT (9.0-12.0) sec BUN (9-20) mg/dL Glucose (74-99) mg/dL POC Glucose (mg/dL) 245 H 244 H 242 H (75-99) mg/dL Calcium (8.4-10.2) mg/dL Total Protein (6.3-8.2) g/dL Albumin (3.5-5.0) g/dL TSH (0.465-4.680) mIU/L 08/15/16 08/15/16 08/15/16 Range/Units 06:04 06:04 06:04 WBC 12.1 H (3.8-10.6) k/uL RBC 3.76 L (4.30-5.90) m/uL Hgb 10.0 L (13.0-17.5) gm/dL Hct 32.9 L (39.0-53.0) % MCHC 30.5 L (31.0-37.0) g/dL RDW 15.6 H (11.5-15.5) % Neutrophils # 10.3 H (1.3-7.7) k/uL Lymphocytes # 0.6 L (1.0-4.8) k/uL PT 12.1 H (9.0-12.0) sec BUN 24 H (9-20) mg/dL Glucose 157 H (74-99) mg/dL POC Glucose (mg/dL) (75-99) mg/dL Calcium 8.2 L (8.4-10.2) mg/dL Total Protein 6.2 L (6.3-8.2) g/dL Albumin 3.3 L (3.5-5.0) g/dL TSH (0.465-4.680) mIU/L 08/15/16 08/15/16 08/15/16 Range/Units 06:11 08:10 10:37 WBC (3.8-10.6) k/uL RBC (4.30-5.90) m/uL Hgb (13.0-17.5) gm/dL Hct (39.0-53.0) % MCHC (31.0-37.0) g/dL RDW (11.5-15.5) % Neutrophils # (1.3-7.7) k/uL Lymphocytes # (1.0-4.8) k/uL PT (9.0-12.0) sec BUN (9-20) mg/dL Glucose (74-99) mg/dL POC Glucose (mg/dL) 160 H 100 H 290 H (75-99) mg/dL Calcium (8.4-10.2) mg/dL Total Protein (6.3-8.2) g/dL Albumin (3.5-5.0) g/dL TSH (0.465-4.680) mIU/L 08/15/16 Range/Units 11:44 WBC (3.8-10.6) k/uL RBC (4.30-5.90) m/uL Hgb (13.0-17.5) gm/dL Hct (39.0-53.0) % MCHC (31.0-37.0) g/dL RDW (11.5-15.5) % Neutrophils # (1.3-7.7) k/uL Lymphocytes # (1.0-4.8) k/uL PT (9.0-12.0) sec BUN (9-20) mg/dL Glucose (74-99) mg/dL POC Glucose (mg/dL) 319 H (75-99) mg/dL Calcium (8.4-10.2) mg/dL Total Protein (6.3-8.2) g/dL Albumin (3.5-5.0) g/dL TSH (0.465-4.680) mIU/L Microbiology - Last 24 Hours (Table) 08/12/16 19:38 Blood Culture - Preliminary Blood No Growth after 48 hours 08/14/16 12:54 Urine Culture - Preliminary Urine,Clean Catch 08/14/16 13:57 Nasal Screen MRSA/MSSA ([facility]) - Preliminary Nasal Swab Assessment and Plan Plan: Impression: 1 acute non-ST elevation myocardial infarction, 2 significant coronary artery disease based on cardiac catheterization. 3 morbid obesity 4 history of hypertension 5 history of dyslipidemia 6 suspect some component of COPD, full PFT is pending, his initial bedside PFT is very poor because of mostly of poor effort. Although restriction is strongly suspected. Based on the PFT patient is definitely a high surgical risk , patient is a combined restrictive as well as obstructive lung disease. CT of the chest was reviewed, patient may benefit from aggressive diuresis. 7 suspect some component of congestive heart failure on presentation, improved on the follow-up chest x-ray. Hence cut down IV fluid to KVO, and continue diuretics. Follow-up chest x-ray will be done in a.m. Recommendation: Agree with the present treatment plan including antiplatelets beta blockers and statins and patient is to be seen by cardiac surgery on consultation today. Patient will be placed empirically on bronchodilators. Patient is definitely high surgical risk. Time with Patient: Less than 30
[2016-08-15 13:00] LABS: ABG Base Excess 2.4 mmol/L; ABG Oxygen Saturation 99.1 % (94-97); ABG TCO2 28 mmol/L (19-24)
[2016-08-15 13:59] LABS: Glucose,Whole Blood 291 mg/dL (75-99)
--- NOTE | 2016-08-15 15:06 | P.PN ---
Subjective Principal diagnosis: CHF, COPD, hypoxia This is a pleasant 55-year-old gentleman with a past medical history significant for obesity, diabetes, hypertension and dyslipidemia. Presented to the hospital complaining of chest discomfort and difficulty breathing. Patient' s troponin were elevated and was subsequently taken to the [facility] by Dr. Vegas yesterday. Coronary angiogram showed severe triple-vessel coronary artery disease and patient was advised to undergo coronary artery bypass grafting. Patient was evaluated by surgery and is tentatively scheduled for . Echocardiogram showed ejection fraction between 45-50% with inferior basal hypokinesis. Computed tomography scan of the chest showed congestive heart failure patient is being diuresed with Lasix 40 mg IV push every 12 hours. Upon examination, patient is sitting up at the side of the bed and says he's feeling well today. Denies complaints of chest discomfort, palpitations, orthopnea or PND. Objective - Vital Signs Vital signs: Vital Signs Temp 97.8 F 08/15/16 11:32 Pulse 76 08/15/16 11:32 Resp 16 08/15/16 11:32 BP 147/63 08/15/16 11:32 Pulse Ox 94 L 08/15/16 11:32 Intake & Output 08/14/16 08/15/16 08/15/16 18:59 06:59 18:59 Intake Total 1751.200 352.935 528.065 Output Total 2200 2600 1300 Balance -448.800 -2247.065 -771.935 Weight 114.5 kg 116.3 kg Intake: IV 875 Sodium Chloride 0.9% 1, 800 000 ml @ 20 mls/hr IV . Q24H ALE Rx#:[id number] Intake, IV Titration 96.200 52.935 48.065 Amount Insulin Regular 100 unit 96.200 In Sodium Chloride 0.9% 100 ml @ Titrate IV .Q0M ALE Rx#:[id number] Insulin Regular 100 unit 52.935 48.065 In Sodium Chloride 0.9% 100 ml @ Titrate IV .Q0M ALE Rx#:[id number] Oral 780 300 480 Output: Urine 2200 2600 1300 Other: Voiding Method Urinal # Voids 2 # Bowel Movements 1 - Exam PHYSICAL EXAMINATION: HEENT: Head is atraumatic, normocephalic. Pupils equal, round. Neck is supple. There is no elevated jugular venous pressure. HEART EXAMINATION: Heart sounds regular, S1 and S2 normal. No murmur or gallop heard. CHEST EXAMINATION: Lungs reveal diminished air entry to bilateral bases. No chest wall tenderness is noted on palpation or with deep breathing. ABDOMEN: Soft, nontender. Bowel sounds are heard. No organomegaly noted. EXTREMITIES: 1+ peripheral pulses with no evidence of peripheral edema and no calf tenderness noted. NEUROLOGIC patient is awake, alert and oriented x3. . - Labs CBC & Chem 7: 08/15/16 06:04 08/15/16 06:04 Labs: Abnormal Lab Results - Last 24 Hours (Table) 08/14/16 08/14/16 08/14/16 Range/Units 12:35 14:53 17:31 WBC (3.8-10.6) k/uL RBC (4.30-5.90) m/uL Hgb (13.0-17.5) gm/dL Hct (39.0-53.0) % MCHC (31.0-37.0) g/dL RDW (11.5-15.5) % Neutrophils # (1.3-7.7) k/uL Lymphocytes # (1.0-4.8) k/uL PT (9.0-12.0) sec ABG pO2 (83-108) mmHg ABG HCO3 (21-25) mmol/L ABG Total CO2 (19-24) mmol/L ABG O2 Saturation (94-97) % BUN (9-20) mg/dL Glucose (74-99) mg/dL POC Glucose (mg/dL) 231 H 181 H (75-99) mg/dL Calcium (8.4-10.2) mg/dL Total Protein (6.3-8.2) g/dL Albumin (3.5-5.0) g/dL Crossmatch See Detail 08/14/16 08/14/16 08/15/16 Range/Units 19:28 21:24 00:03 WBC (3.8-10.6) k/uL RBC (4.30-5.90) m/uL Hgb (13.0-17.5) gm/dL Hct (39.0-53.0) % MCHC (31.0-37.0) g/dL RDW (11.5-15.5) % Neutrophils # (1.3-7.7) k/uL Lymphocytes # (1.0-4.8) k/uL PT (9.0-12.0) sec ABG pO2 (83-108) mmHg ABG HCO3 (21-25) mmol/L ABG Total CO2 (19-24) mmol/L ABG O2 Saturation (94-97) % BUN (9-20) mg/dL Glucose (74-99) mg/dL POC Glucose (mg/dL) 207 H 255 H 245 H (75-99) mg/dL Calcium (8.4-10.2) mg/dL Total Protein (6.3-8.2) g/dL Albumin (3.5-5.0) g/dL Crossmatch 08/15/16 08/15/16 08/15/16 Range/Units 02:23 04:53 06:04 WBC 12.1 H (3.8-10.6) k/uL RBC 3.76 L (4.30-5.90) m/uL Hgb 10.0 L (13.0-17.5) gm/dL Hct 32.9 L (39.0-53.0) % MCHC 30.5 L (31.0-37.0) g/dL RDW 15.6 H (11.5-15.5) % Neutrophils # 10.3 H (1.3-7.7) k/uL Lymphocytes # 0.6 L (1.0-4.8) k/uL PT (9.0-12.0) sec ABG pO2 (83-108) mmHg ABG HCO3 (21-25) mmol/L ABG Total CO2 (19-24) mmol/L ABG O2 Saturation (94-97) % BUN (9-20) mg/dL Glucose (74-99) mg/dL POC Glucose (mg/dL) 244 H 242 H (75-99) mg/dL Calcium (8.4-10.2) mg/dL Total Protein (6.3-8.2) g/dL Albumin (3.5-5.0) g/dL Crossmatch 08/15/16 08/15/16 08/15/16 Range/Units 06:04 06:04 06:11 WBC (3.8-10.6) k/uL RBC (4.30-5.90) m/uL Hgb (13.0-17.5) gm/dL Hct (39.0-53.0) % MCHC (31.0-37.0) g/dL RDW (11.5-15.5) % Neutrophils # (1.3-7.7) k/uL Lymphocytes # (1.0-4.8) k/uL PT 12.1 H (9.0-12.0) sec ABG pO2 (83-108) mmHg ABG HCO3 (21-25) mmol/L ABG Total CO2 (19-24) mmol/L ABG O2 Saturation (94-97) % BUN 24 H (9-20) mg/dL Glucose 157 H (74-99) mg/dL POC Glucose (mg/dL) 160 H (75-99) mg/dL Calcium 8.2 L (8.4-10.2) mg/dL Total Protein 6.2 L (6.3-8.2) g/dL Albumin 3.3 L (3.5-5.0) g/dL Crossmatch 08/15/16 08/15/16 08/15/16 Range/Units 08:10 10:37 11:44 WBC (3.8-10.6) k/uL RBC (4.30-5.90) m/uL Hgb (13.0-17.5) gm/dL Hct (39.0-53.0) % MCHC (31.0-37.0) g/dL RDW (11.5-15.5) % Neutrophils # (1.3-7.7) k/uL Lymphocytes # (1.0-4.8) k/uL PT (9.0-12.0) sec ABG pO2 (83-108) mmHg ABG HCO3 (21-25) mmol/L ABG Total CO2 (19-24) mmol/L ABG O2 Saturation (94-97) % BUN (9-20) mg/dL Glucose (74-99) mg/dL POC Glucose (mg/dL) 100 H 290 H 319 H (75-99) mg/dL Calcium (8.4-10.2) mg/dL Total Protein (6.3-8.2) g/dL Albumin (3.5-5.0) g/dL Crossmatch 08/15/16 08/15/16 Range/Units 12:45 13:47 WBC (3.8-10.6) k/uL RBC (4.30-5.90) m/uL Hgb (13.0-17.5) gm/dL Hct (39.0-53.0) % MCHC (31.0-37.0) g/dL RDW (11.5-15.5) % Neutrophils # (1.3-7.7) k/uL Lymphocytes # (1.0-4.8) k/uL PT (9.0-12.0) sec ABG pO2 131 H (83-108) mmHg ABG HCO3 26 H (21-25) mmol/L ABG Total CO2 28 H (19-24) mmol/L ABG O2 Saturation 99.1 H (94-97) % BUN (9-20) mg/dL Glucose (74-99) mg/dL POC Glucose (mg/dL) 291 H (75-99) mg/dL Calcium (8.4-10.2) mg/dL Total Protein (6.3-8.2) g/dL Albumin (3.5-5.0) g/dL Crossmatch Microbiology - Last 24 Hours (Table) 08/12/16 19:38 Blood Culture - Preliminary Blood No Growth after 48 hours 08/14/16 12:54 Urine Culture - Preliminary Urine,Clean Catch 08/14/16 13:57 Nasal Screen MRSA/MSSA ([facility]) - Preliminary Nasal Swab Assessment and Plan Plan: Assessment and plan #1 non-ST elevated myocardial infarction #2 severe triple vessel, awaiting coronary artery bypass grafting #3 obesity #4 hypertension #5 diabetes #6 congestive heart failure with ejection fraction 45-50% #7 COPD From cardiology's perspective, medications were reviewed we will continue the same. We'll continue to follow the patient perioperatively and provide further recommendations accordingly. The above dictated assessment and findings were discussed with signing physician. The impression and plan of care have been directed as dictated. Paty Sanchez, Nurse Practitioner, acting as scribe for signing physician.
[2016-08-15 16:14] LABS: Glucose,Whole Blood 237 mg/dL (75-99)
[2016-08-15] MEDS: INSULIN REGULAR 100 UNIT in SODIUM CHLORIDE 0.9% 100 ML IV SCH (16:29)
[2016-08-15] MEDS ORDERED: POTASSIUM CHLORIDE ER 20 MEQ TAB.ER PO STA (17:37)
--- NOTE | 2016-08-15 17:45 | P.PN ---
Subjective Date of service 08/15/2016. Progress note being dictated for Dr. Sarmiento. Interval history: This is a 55-year-old gentleman admitted with chest pain, acute non-STEMI, status post cardiac cath with significant CAD involving proximal LAD and distal RCA per verbal report, COPD, possible CHF and multiple other medical issues. Scheduled for CABG on . Chest CT reporting CHF, pneumonia, ascending aortic aneurysm 4 cm, right lung base air bronchograms, calcified subcarinal and left hilar nodes, fatty liver, posterior left kidney upper pole cystic focus 3.8. cm. Placed on Lasix IV push every 12 hours Maintained on beta huey, statin, antiplatelet therapy, and nebulized bronchodilators. Currently denies chest pain, palpitations. Appears to be oxygenating better today, maintaining O2 sats of 95% on 5 L nasal cannula. Review of systems: HEENT: Denies headache or focal deficits. Denies any dizziness or lightheadedness. Respiratory: Complains of increased shortness of breath. Cardiac: Denies any chest pain, palpitations. GI: Denies any nausea, vomiting, or diarrhea. Denies any abdominal tenderness. : Denies any dysuria. Psychiatry: Denies any anxiety or depression. Active Medications Generic Name Dose Route Start Last Admin Trade Name Freq PRN Reason Stop Dose Admin Hydrocodone Bitart/Acetaminophen 1 each 08/13/16 20:08 [place] 5-325 PO Q6HR PRN Pain Albuterol/Ipratropium 3 ml 08/12/16 20:00 08/15/16 15:58 Duoneb 0.5 Mg-3 Mg/3 Ml Soln INHALATION 3 ml RT-QID ALE Administration Alprazolam 0.25 mg 08/13/16 20:08 Xanax PO TID PRN Anxiety Amlodipine Besylate 10 mg 08/14/16 09:00 08/15/16 11:00 Norvasc PO 10 mg DAILY ALE Administration Aspirin 325 mg 08/13/16 09:00 08/15/16 11:01 Aspirin PO 325 mg DAILY ALE Administration Aspirin 325 mg 08/17/16 05:00 Aspirin PO 08/17/16 05:01 ONCE ONE Atorvastatin Calcium 80 mg 08/13/16 21:00 08/14/16 23:43 Lipitor PO 80 mg HS ALE Administration Atorvastatin Calcium 10 mg 08/17/16 05:00 Lipitor PO 08/17/16 05:01 ONCE ONE Budesonide/Formoterol Fumarate 2 puff 08/14/16 08:00 08/15/16 07:26 Symbicort 160-4.5 Mcg Inhaler INHALATION Not Given RT-BID [facility] Calcitriol 0.25 mcg 08/14/16 09:00 08/14/16 06:25 Rocaltrol PO 0.25 mcg MOWEFR ALE Administration Calcium Chloride 1,000 mg 08/17/16 05:00 Calcium Chloride IVP 08/17/16 05:01 ONCE ONE Chlorhexidine Gluconate 15 ml 08/17/16 05:00 Peridex MUCOUS MEM 08/17/16 05:01 ONCE ONE Cholecalciferol 800 unit 08/14/16 09:00 08/15/16 11:01 Vitamin D3 PO 800 unit DAILY ALE Administration Furosemide 40 mg 08/15/16 21:00 Lasix IV Q12HR ALE Gabapentin 600 mg 08/13/16 21:00 08/15/16 11:01 Neurontin PO 600 mg BID ALE Administration Heparin Sodium (Porcine) 10,000 unit 08/17/16 05:00 Heparin Sodium (1,000 Unit/Ml) IV 08/17/16 05:01 ONCE ONE Heparin Sodium (Porcine) 30,000 unit 08/17/16 05:00 Heparin IV 08/17/16 05:01 ONCE ONE Heparin Sodium (Porcine) 30,000 unit 08/17/16 05:00 Heparin IV 08/17/16 05:01 ONCE ONE Heparin Sodium (Porcine) 30,000 unit 08/17/16 05:00 Heparin IV 08/17/16 05:01 ONCE ONE Heparin Sodium (Porcine) 5,000 unit 08/15/16 21:00 Heparin SQ Q12HR ALE Sodium Chloride 1,000 mls @ 20 mls/hr 08/12/16 19:15 08/14/16 22:10 Saline 0.9% IV 20 mls/hr .Q24H ALE Administration Ceftriaxone Sodium 1,000 mg/ 50 mls @ 100 mls/hr 08/13/16 22:00 08/14/16 23: 43 Sodium Chloride IVPB 100 mls/hr Q24H ALE Administration Azithromycin 500 mg/ Sodium 250 mls @ 125 mls/hr 08/14/16 20:00 08/14/16 22: 11 Chloride IVPB 125 mls/hr 2000 ALE Administration Insulin Human Regular 100 unit 101 mls @ 0 mls/hr 08/14/16 21:45 08/15/16 16: 29 / Sodium Chloride IV 12.37 units/hr .Q0M ALE 12.5 mls/hr Protocol Administration Titrate Albumin Human 50 ml/ IV 50 mls @ 100 mls/hr 08/17/16 05:00 Solution IVPB 08/17/16 05:29 ONCE ONE Albumin Human 50 ml/ IV 50 mls @ 100 mls/hr 08/17/16 05:00 Solution IVPB 08/17/16 05:29 ONCE ONE Albumin Human 500 ml/ IV 500 mls @ 250 mls/hr 08/17/16 05:00 Solution IVPB 08/17/16 06:59 ONCE ONE Albumin Human 500 ml/ IV 500 mls @ 250 mls/hr 08/17/16 05:00 Solution IVPB 08/17/16 06:59 ONCE ONE Albumin Human 500 ml/ IV 500 mls @ 250 mls/hr 08/17/16 05:00 Solution IVPB 08/17/16 06:59 ONCE ONE Albumin Human 500 ml/ IV 500 mls @ 250 mls/hr 08/17/16 05:00 Solution IVPB 08/17/16 06:59 ONCE ONE Albumin Human 500 ml/ IV 500 mls @ 250 mls/hr 08/17/16 05:00 Solution IVPB 08/17/16 06:59 ONCE ONE Albumin Human 500 ml/ IV 500 mls @ 250 mls/hr 08/17/16 05:00 Solution IVPB 08/17/16 06:59 ONCE ONE Clevidipine 25 mg/ IV Solution 50 mls @ 2 mls/hr 08/17/16 05:00 IV 08/18/16 04:59 .Q24H ONE Protocol 1 MG/HR Diltiazem HCl 125 mg/ Sodium 125 mls @ 5 mls/hr 08/17/16 05:00 Chloride IV 08/18/16 04:59 .Q24H ONE 5 MG/HR Heparin Sodium (Porcine) 5,000 501 mls @ 0 mls/hr 08/17/16 05:00 unit/ Sodium Chloride IV 08/17/16 05:01 ONCE ONE As Directed Insulin Human Regular 100 unit 101 mls @ 0 mls/hr 08/17/16 05:00 / Sodium Chloride IV 08/17/16 05:01 .Q0M ONE Titrate Nitroglycerin/Dextrose 50 mg/ 250 mls @ 1.5 mls/hr 08/17/16 05:00 IV Solution IV 08/18/16 04:59 .Q24H ONE Protocol 5 MCG/MIN Norepinephrine Bitartrate 4 mg 254 mls @ 0 mls/hr 08/17/16 05:00 / Sodium Chloride IV 08/17/16 05:01 .Q0M ONE Protocol Titrate Papaverine HCl 360 mg/ Sodium 102 mls @ 0 mls/hr 08/17/16 05:00 Chloride IV 08/17/16 05:01 ONCE ONE As Directed Phenylephrine HCl 40 mg/ 254 mls @ 0 mls/hr 08/17/16 05:00 Sodium Chloride IV 08/17/16 05:01 .Q0M ONE Protocol Per Protocol Propofol 500 mg/ IV Solution 50 mls @ 0 mls/hr 08/17/16 05:00 IV 08/17/16 05:01 .Q0M ONE Protocol Titrate Protamine Sulfate 250 mg/ IV 25 mls @ 0 mls/hr 08/17/16 05:00 Solution IV 08/17/16 05:01 ONCE ONE As Directed Cefazolin Sodium 2 gm/ Sodium 30 mls @ 60 mls/hr 08/17/16 05:00 Chloride IVPB 08/17/16 05:29 ONCE ONE Cefazolin Sodium 2,000 mg/ 30 mls @ 999 mls/hr 08/17/16 05:00 Sodium Chloride IVPB 08/17/16 05:01 ONCE ONE Cefazolin Sodium 1,000 mg/ 1,000 mls @ 999 mls/hr 08/17/16 05:00 Sodium Chloride IRRIGATION 08/17/16 06:00 ONCE ONE Insulin Human Lispro 15 unit 08/14/16 17:30 08/15/16 17:29 Humalog SQ 15 unit AC-TID ALE Administration Magnesium Sulfate 16.24 meq 08/17/16 05:00 Magnesium Sulfate Syg IV 08/17/16 05:01 ONCE ONE Methylprednisolone Sodium Succinate 60 mg 08/13/16 00:00 08/15/16 17:30 Solu-Medrol IV 60 mg Q6HR ALE Administration Metoprolol Tartrate 25 mg 08/13/16 21:00 08/15/16 11:01 Lopressor PO 25 mg BID ALE Administration Metoprolol Tartrate 25 mg 08/17/16 05:00 Lopressor PO 08/17/16 05:01 ONCE ONE Miscellaneous Information 1 each 08/14/16 10:01 Rx Info: Iv Contrast Was Given MISCELLANE 08/16/16 10:01 DAILY PRN Per Protocol Morphine Sulfate 4 mg 08/12/16 19:08 08/12/16 19:58 Morphine Sulfate (Inj) IV 4 mg Q4HR PRN Administration Chest Pain Multivitamins 1 each 08/14/16 12:00 08/15/16 12:28 Theragran PO 1 each DAILY@1200 ALE Administration Mupirocin 1 applic 08/14/16 21:00 08/15/16 11:01 Bactroban Oint NASAL 08/19/16 21:01 1 applic BID ALE Administration Niacin 500 mg 08/13/16 22:00 08/15/16 17:30 Niacin Tr PO 500 mg QID ALE Administration Nitroglycerin/Dextrose 1 mg 08/17/16 05:00 Nitro Drip 25 Mg/250 Ml In D5w Pmx IV 08/17/16 05:01 ONCE ONE Pantoprazole Sodium 40 mg 08/14/16 07:30 08/15/16 06:57 Protonix PO 40 mg AC-BRKFST ALE Administration Phenylephrine HCl 1 mg 08/17/16 05:00 [place]-Synephrine Syringe IV 08/17/16 05:01 ONCE ONE Phenylephrine HCl 1 mg 08/17/16 05:00 [place]-Synephrine Syringe IV 08/17/16 05:01 ONCE ONE Phenylephrine HCl 1 mg 08/17/16 05:00 [place]-Synephrine Syringe IV 08/17/16 05:01 ONCE ONE Phenylephrine HCl 1 mg 08/17/16 05:00 [place]-Synephrine Syringe IV 08/17/16 05:01 ONCE ONE Protamine Sulfate 250 mg 08/17/16 05:00 Protamine Sulfate IV 08/17/16 05:01 ONCE ONE Sodium Bicarbonate 50 ml 08/17/16 05:00 Sodium Bicarb 8.4% (1 Meq/Ml) IV 08/17/16 05:01 ONCE ONE Temazepam 15 mg 08/13/16 20:08 Restoril PO HS PRN Insomnia Objective - Vital Signs Vital signs: Vital Signs Temp 98.0 F 08/15/16 15:42 Pulse 78 08/15/16 16:07 Resp 18 08/15/16 15:42 BP 142/62 08/15/16 15:42 Pulse Ox 96 08/15/16 15:42 Intake & Output 08/14/16 08/15/16 08/15/16 18:59 06:59 18:59 Intake Total 1751.200 352.935 528.065 Output Total 2200 2600 2100 Balance -448.800 -2247.065 -1571.935 Weight 114.5 kg 116.3 kg Intake: IV 875 Sodium Chloride 0.9% 1, 800 000 ml @ 20 mls/hr IV . Q24H ALE Rx#:[id number] Intake, IV Titration 96.200 52.935 48.065 Amount Insulin Regular 100 unit 96.200 In Sodium Chloride 0.9% 100 ml @ Titrate IV .Q0M ALE Rx#:[id number] Insulin Regular 100 unit 52.935 48.065 In Sodium Chloride 0.9% 100 ml @ Titrate IV .Q0M ALE Rx#:[id number] Oral 780 300 480 Output: Urine 2200 2600 2100 Other: Voiding Method Urinal # Voids 2 # Bowel Movements 1 - Exam PHYSICAL EXAM: VITAL SIGNS: As above GENERAL: [Sitting up at side of bed, no acute distress] HEENT: [Pupils equal conjunctiva normal.] NECK: [Supple, no JVD] RESPIRATORY EFFORT:[Increased] LUNGS: [Diminished bases, no crackles rhonchi or wheezes] CARDIOVASCULAR[regular S1 and S2, no murmur rub or gallop] GI: [Abdomen soft, nontender, positive bowel sounds.] PSYCH: [Alert and oriented -3, mood and affect normal.] NEURO: [No focal deficits, moves all 4 extremities, charcot joints] - Labs CBC & Chem 7: 08/15/16 06:04 08/15/16 06:04 Labs: Abnormal Lab Results - Last 24 Hours (Table) 08/14/16 08/14/16 08/14/16 Range/Units 12:35 17:31 19:28 WBC (3.8-10.6) k/uL RBC (4.30-5.90) m/uL Hgb (13.0-17.5) gm/dL Hct (39.0-53.0) % MCHC (31.0-37.0) g/dL RDW (11.5-15.5) % Neutrophils # (1.3-7.7) k/uL Lymphocytes # (1.0-4.8) k/uL PT (9.0-12.0) sec ABG pO2 (83-108) mmHg ABG HCO3 (21-25) mmol/L ABG Total CO2 (19-24) mmol/L ABG O2 Saturation (94-97) % BUN (9-20) mg/dL Glucose (74-99) mg/dL POC Glucose (mg/dL) 181 H 207 H (75-99) mg/dL Calcium (8.4-10.2) mg/dL Total Protein (6.3-8.2) g/dL Albumin (3.5-5.0) g/dL Crossmatch See Detail 08/14/16 08/15/16 08/15/16 Range/Units 21:24 00:03 02:23 WBC (3.8-10.6) k/uL RBC (4.30-5.90) m/uL Hgb (13.0-17.5) gm/dL Hct (39.0-53.0) % MCHC (31.0-37.0) g/dL RDW (11.5-15.5) % Neutrophils # (1.3-7.7) k/uL Lymphocytes # (1.0-4.8) k/uL PT (9.0-12.0) sec ABG pO2 (83-108) mmHg ABG HCO3 (21-25) mmol/L ABG Total CO2 (19-24) mmol/L ABG O2 Saturation (94-97) % BUN (9-20) mg/dL Glucose (74-99) mg/dL POC Glucose (mg/dL) 255 H 245 H 244 H (75-99) mg/dL Calcium (8.4-10.2) mg/dL Total Protein (6.3-8.2) g/dL Albumin (3.5-5.0) g/dL Crossmatch 08/15/16 08/15/16 08/15/16 Range/Units 04:53 06:04 06:04 WBC 12.1 H (3.8-10.6) k/uL RBC 3.76 L (4.30-5.90) m/uL Hgb 10.0 L (13.0-17.5) gm/dL Hct 32.9 L (39.0-53.0) % MCHC 30.5 L (31.0-37.0) g/dL RDW 15.6 H (11.5-15.5) % Neutrophils # 10.3 H (1.3-7.7) k/uL Lymphocytes # 0.6 L (1.0-4.8) k/uL PT (9.0-12.0) sec ABG pO2 (83-108) mmHg ABG HCO3 (21-25) mmol/L ABG Total CO2 (19-24) mmol/L ABG O2 Saturation (94-97) % BUN 24 H (9-20) mg/dL Glucose 157 H (74-99) mg/dL POC Glucose (mg/dL) 242 H (75-99) mg/dL Calcium 8.2 L (8.4-10.2) mg/dL Total Protein 6.2 L (6.3-8.2) g/dL Albumin 3.3 L (3.5-5.0) g/dL Crossmatch 08/15/16 08/15/16 08/15/16 Range/Units 06:04 06:11 08:10 WBC (3.8-10.6) k/uL RBC (4.30-5.90) m/uL Hgb (13.0-17.5) gm/dL Hct (39.0-53.0) % MCHC (31.0-37.0) g/dL RDW (11.5-15.5) % Neutrophils # (1.3-7.7) k/uL Lymphocytes # (1.0-4.8) k/uL PT 12.1 H (9.0-12.0) sec ABG pO2 (83-108) mmHg ABG HCO3 (21-25) mmol/L ABG Total CO2 (19-24) mmol/L ABG O2 Saturation (94-97) % BUN (9-20) mg/dL Glucose (74-99) mg/dL POC Glucose (mg/dL) 160 H 100 H (75-99) mg/dL Calcium (8.4-10.2) mg/dL Total Protein (6.3-8.2) g/dL Albumin (3.5-5.0) g/dL Crossmatch 08/15/16 08/15/16 08/15/16 Range/Units 10:37 11:44 12:45 WBC (3.8-10.6) k/uL RBC (4.30-5.90) m/uL Hgb (13.0-17.5) gm/dL Hct (39.0-53.0) % MCHC (31.0-37.0) g/dL RDW (11.5-15.5) % Neutrophils # (1.3-7.7) k/uL Lymphocytes # (1.0-4.8) k/uL PT (9.0-12.0) sec ABG pO2 131 H (83-108) mmHg ABG HCO3 26 H (21-25) mmol/L ABG Total CO2 28 H (19-24) mmol/L ABG O2 Saturation 99.1 H (94-97) % BUN (9-20) mg/dL Glucose (74-99) mg/dL POC Glucose (mg/dL) 290 H 319 H (75-99) mg/dL Calcium (8.4-10.2) mg/dL Total Protein (6.3-8.2) g/dL Albumin (3.5-5.0) g/dL Crossmatch 08/15/16 08/15/16 Range/Units 13:47 16:13 WBC (3.8-10.6) k/uL RBC (4.30-5.90) m/uL Hgb (13.0-17.5) gm/dL Hct (39.0-53.0) % MCHC (31.0-37.0) g/dL RDW (11.5-15.5) % Neutrophils # (1.3-7.7) k/uL Lymphocytes # (1.0-4.8) k/uL PT (9.0-12.0) sec ABG pO2 (83-108) mmHg ABG HCO3 (21-25) mmol/L ABG Total CO2 (19-24) mmol/L ABG O2 Saturation (94-97) % BUN (9-20) mg/dL Glucose (74-99) mg/dL POC Glucose (mg/dL) 291 H 237 H (75-99) mg/dL Calcium (8.4-10.2) mg/dL Total Protein (6.3-8.2) g/dL Albumin (3.5-5.0) g/dL Crossmatch Microbiology - Last 24 Hours (Table) 08/12/16 19:38 Blood Culture - Preliminary Blood No Growth after 48 hours 08/14/16 12:54 Urine Culture - Preliminary Urine,Clean Catch 08/14/16 13:57 Nasal Screen MRSA/MSSA ([facility]) - Preliminary Nasal Swab Assessment and Plan Plan: 1. Acute non-STEMI. 2. [Status post cardiac cath , severe CAD involving LAD and distal RCA]. CABG pending. 3. [Diabetes mellitus, and insulin drip dependent, hemoglobin A1c 9, on steroids 4. CKD, stage III 5. [Hypertension]. 6. [Acute on chronic COPD]. 7. [Possible acute CHF exacerbation, systolic dysfunction, EF 45-50%]. 8. Degenerative joint disease with osteoarthritis 9. Charcot joints 10. History of nicotine abuse 11. Heparin monitoring 12. Hyperlipidemia 13. Anemia of chronic disease, secondary to CKD 14. Acute hypoxic respiratory failure 15. Ascending aortic aneurysm 4 cm, incidental finding per CT 16. Left kidney cystic focus 3.[address] 17. Fatty liver 18. Left hilar and subcarinal nodes 19. Obesity, BMI 37.9 Plan: Continue on current medication regime , Lasix, nebulized bronchodilators, beta huey, statin, heparin, monitoring and symptomatic treatment. CHF pathway, now being diuresed on IV Lasix. Close monitoring of of Accu-Cheks, on insulin drip. As mentioned above CABG scheduled for Further recommendations to follow. The impression and plan of care has been dictated as directed. : I performed a H&P examination of this patient and discussed the same with the dictator. I agree with the dictator's note. Any additional findings/opinions/ etc. will be noted.
[2016-08-15 18:18] LABS: Glucose,Whole Blood 183 mg/dL (75-99)
[2016-08-15 20:10] LABS: Glucose,Whole Blood 160 mg/dL (75-99)
[2016-08-15] MEDS: AZITHROMYCIN 500 MG in SODIUM CHLORIDE 0.9% 250 ML IVPB SCH (21:47)
[2016-08-15] MEDS: ATORVASTATIN 80 MG TAB PO SCH (21:48)
[2016-08-15] MEDS: HEPARIN SODIUM,PORCINE 5,000 UNIT/ML 1 ML VIAL SQ SCH (22:10)
[2016-08-15 22:16] LABS: Glucose,Whole Blood 170 mg/dL (75-99)
[2016-08-16 00:15] LABS: Glucose,Whole Blood 261 mg/dL (75-99)
[2016-08-16 02:24] LABS: Glucose,Whole Blood 255 mg/dL (75-99)
[2016-08-16 04:39] LABS: Glucose,Whole Blood 219 mg/dL (75-99)
--- NOTE | 2016-08-16 06:01 | PN ---
DATE OF SERVICE: 08/15/2016 This 55-year-old gentleman who was admitted with acute non-ST elevation myocardial infarction, also had significant respiratory issues and diabetes mellitus. Also, patient was on insulin drip at this time. Seen and evaluated the patient along with the nurse practitioner. Please refer to nurse practitioner notes and impression documented for further information. Prognosis guarded. Further recommendations to follow.
[2016-08-16] MEDS: SODIUM CHLORIDE 0.9% 1,000 ML IV SCH ×2 (06:08→19:18)
[2016-08-16 06:31] LABS: Glucose,Whole Blood 200 mg/dL (75-99)
[2016-08-16 06:40] LABS: Basophils % (A) 0 %; CH 26.4; CHCM 30.4; Eosinophils % (A) 0 %; HCT 35.8 % (39.0-53.0); HDW 2.83; HGB 10.6 gm/dL (13.0-17.5); Hypochromasia Moderate; Luc # (Auto) 0.22; Luc % (Auto) 2; Lymphocytes # (A) 0.7 k/uL (1.0-4.8); Lymphocytes % (A) 7 %; MCH 25.8 pg (25.0-35.0); MCHC 29.5 g/dL (31.0-37.0); MCV 87.4 fL (80.0-100.0); Mean Platelet Volume 7.8; Monocytes # (A) 0.4 k/uL (0-1.0); Monocytes % (A) 4 %; Neutrophils # (A) 8.8 k/uL (1.3-7.7); Neutrophils % (A) 87 %; RDW 15.8 % (11.5-15.5); WBC 10.1 k/uL (3.8-10.6); WBC (Perox) 10.34
[2016-08-16 06:43] LABS: ALT 65 U/L (21-72); AST 57 U/L (17-59); Alkaline Phosphatase 58 U/L (38-126); Anion Gap 11 mmol/L; Blood Urea Nitrogen 25 mg/dL (9-20); Calcium 8.4 mg/dL (8.4-10.2); Carbon Dioxide 30 mmol/L (22-30); Chloride 97 mmol/L (98-107); Glucose 196 mg/dL (74-99); Non-African American GFR(MDRD) >60 (>60 ml/min/1.73 sqM); Potassium 3.6 mmol/L (3.5-5.1); Sodium 138 mmol/L (137-145); Total Bilirubin 0.4 mg/dL (0.2-1.3); Total Protein 6.4 g/dL (6.3-8.2)
[2016-08-16] MEDS: INSULIN REGULAR 100 UNIT in SODIUM CHLORIDE 0.9% 100 ML IV SCH ×2 (06:55→15:22)
[2016-08-16] MEDS: methylPREDNISolone SOD SUCCI 125 MG/2 ML VIAL IV SCH ×4 (06:57→23:34)
[2016-08-16] MEDS: INSULIN LISPRO (humaLOG) 300 UNIT/3 ML VIAL SQ SCH ×3 (06:58→17:27)
[2016-08-16] MEDS: PANTOPRAZOLE 40 MG TABLET PO SCH (06:59)
--- NOTE | 2016-08-16 07:52 | P.PN ---
Subjective Principal diagnosis: CAD, non-STEMI. Pending coronary artery bypass graft surgery . Patient currently sitting up in bed in no apparent distress. Eating breakfast. All questions answered. Objective - Vital Signs Vital signs: Vital Signs Temp 96.4 F L 08/16/16 04:00 Pulse 70 08/16/16 04:00 Resp 18 08/16/16 04:00 BP 146/71 08/16/16 04:00 Pulse Ox 97 08/16/16 04:00 Intake & Output 08/15/16 08/16/16 08/16/16 18:59 06:59 18:59 Intake Total 1050.357 578.708 Output Total 2100 4025 Balance -1049.643 -3446.292 Weight 114.3 kg Intake: Intake, IV Titration 70.357 78.708 Amount Insulin Regular 100 unit 70.357 78.708 In Sodium Chloride 0.9% 100 ml @ Titrate IV .Q0M [facility] Rx#:[id number] Oral 980 500 Output: Urine 2100 4025 Other: Voiding Method Urinal Urinal # Voids 2 - Constitutional General appearance: Present: cooperative, no acute distress, obese - Respiratory Details: Lungs sounds diminished bilaterally. Respirations even, nonlabored. Currently on 3 L nasal cannula. Able to achieve 2000 mL on incentive spirometry. - Cardiovascular Details: S1, S2 present. Regular rate and rhythm, normal sinus rhythm on telemetry. No events noted overnight. - Gastrointestinal Gastrointestinal Comment(s): Abdomen soft, nontender, nondistended. Active bowel sounds 4 quadrants. Tolerating diet. - Genitourinary Genitourinary Comment(s): Continues to void large volumes of clear yellow urine. - Musculoskeletal Musculoskeletal: Present: gait normal, strength equal bilaterally - Psychiatric Psychiatric: Present: A&O x's 3, appropriate affect, intact judgment & insight - Allied health notes Allied health notes reviewed: nursing - Labs CBC & Chem 7: 08/16/16 05:39 08/16/16 05:39 Labs: Abnormal Lab Results - Last 24 Hours (Table) 08/14/16 08/15/16 08/15/16 Range/Units 12:35 08:10 10:37 RBC (4.30-5.90) m/uL Hgb (13.0-17.5) gm/dL Hct (39.0-53.0) % MCHC (31.0-37.0) g/dL RDW (11.5-15.5) % Neutrophils # (1.3-7.7) k/uL Lymphocytes # (1.0-4.8) k/uL ABG pO2 (83-108) mmHg ABG HCO3 (21-25) mmol/L ABG Total CO2 (19-24) mmol/L ABG O2 Saturation (94-97) % Chloride (98-107) mmol/L BUN (9-20) mg/dL Glucose (74-99) mg/dL POC Glucose (mg/dL) 100 H 290 H (75-99) mg/dL Crossmatch See Detail 08/15/16 08/15/16 08/15/16 Range/Units 11:44 12:45 13:47 RBC (4.30-5.90) m/uL Hgb (13.0-17.5) gm/dL Hct (39.0-53.0) % MCHC (31.0-37.0) g/dL RDW (11.5-15.5) % Neutrophils # (1.3-7.7) k/uL Lymphocytes # (1.0-4.8) k/uL ABG pO2 131 H (83-108) mmHg ABG HCO3 26 H (21-25) mmol/L ABG Total CO2 28 H (19-24) mmol/L ABG O2 Saturation 99.1 H (94-97) % Chloride (98-107) mmol/L BUN (9-20) mg/dL Glucose (74-99) mg/dL POC Glucose (mg/dL) 319 H 291 H (75-99) mg/dL Crossmatch 08/15/16 08/15/16 08/15/16 Range/Units 16:13 18:16 20:08 RBC (4.30-5.90) m/uL Hgb (13.0-17.5) gm/dL Hct (39.0-53.0) % MCHC (31.0-37.0) g/dL RDW (11.5-15.5) % Neutrophils # (1.3-7.7) k/uL Lymphocytes # (1.0-4.8) k/uL ABG pO2 (83-108) mmHg ABG HCO3 (21-25) mmol/L ABG Total CO2 (19-24) mmol/L ABG O2 Saturation (94-97) % Chloride (98-107) mmol/L BUN (9-20) mg/dL Glucose (74-99) mg/dL POC Glucose (mg/dL) 237 H 183 H 160 H (75-99) mg/dL Crossmatch 08/15/16 08/16/16 08/16/16 Range/Units 22:15 00:14 02:23 RBC (4.30-5.90) m/uL Hgb (13.0-17.5) gm/dL Hct (39.0-53.0) % MCHC (31.0-37.0) g/dL RDW (11.5-15.5) % Neutrophils # (1.3-7.7) k/uL Lymphocytes # (1.0-4.8) k/uL ABG pO2 (83-108) mmHg ABG HCO3 (21-25) mmol/L ABG Total CO2 (19-24) mmol/L ABG O2 Saturation (94-97) % Chloride (98-107) mmol/L BUN (9-20) mg/dL Glucose (74-99) mg/dL POC Glucose (mg/dL) 170 H 261 H 255 H (75-99) mg/dL Crossmatch 08/16/16 08/16/16 08/16/16 Range/Units 04:37 05:39 05:39 RBC 4.10 L (4.30-5.90) m/uL Hgb 10.6 L (13.0-17.5) gm/dL Hct 35.8 L (39.0-53.0) % MCHC 29.5 L (31.0-37.0) g/dL RDW 15.8 H (11.5-15.5) % Neutrophils # 8.8 H (1.3-7.7) k/uL Lymphocytes # 0.7 L (1.0-4.8) k/uL ABG pO2 (83-108) mmHg ABG HCO3 (21-25) mmol/L ABG Total CO2 (19-24) mmol/L ABG O2 Saturation (94-97) % Chloride 97 L (98-107) mmol/L BUN 25 H (9-20) mg/dL Glucose 196 H (74-99) mg/dL POC Glucose (mg/dL) 219 H (75-99) mg/dL Crossmatch 08/16/16 Range/Units 06:30 RBC (4.30-5.90) m/uL Hgb (13.0-17.5) gm/dL Hct (39.0-53.0) % MCHC (31.0-37.0) g/dL RDW (11.5-15.5) % Neutrophils # (1.3-7.7) k/uL Lymphocytes # (1.0-4.8) k/uL ABG pO2 (83-108) mmHg ABG HCO3 (21-25) mmol/L ABG Total CO2 (19-24) mmol/L ABG O2 Saturation (94-97) % Chloride (98-107) mmol/L BUN (9-20) mg/dL Glucose (74-99) mg/dL POC Glucose (mg/dL) 200 H (75-99) mg/dL Crossmatch Microbiology - Last 24 Hours (Table) 08/14/16 13:57 Nasal Screen MRSA/MSSA ([facility]) - Final Nasal Swab 08/14/16 12:54 Urine Culture - Final Urine,Clean Catch 08/12/16 19:38 Blood Culture - Preliminary Blood No Growth after 72 hours Assessment and Plan (1) NSTEMI (non-ST elevated myocardial infarction) Status: Acute (2) Acute exacerbation of chronic obstructive airways disease Status: Acute (3) History of chronic kidney disease Status: Acute (4) Insulin dependent diabetes mellitus Status: Acute (5) Hypertension Status: Acute (6) Hyperlipidemia associated with type 2 diabetes mellitus Status: Acute (7) Obesity (BMI 30-39.9) Status: Acute (8) Obstructive sleep apnea on CPAP Status: Acute (9) Secondary hyperparathyroidism of renal origin Status: Acute (10) Diabetic gastroparesis associated with type 2 diabetes mellitus Status: Acute Plan: 1. Continue aspirin, beta huey, statin, Lasix. 2. Anticipate coronary artery bypass grafting . 3. Antibiotics, Solu-Medrol per pulmonology recommendations. 4. Encourage preoperative incentive spirometry use. 5. Insulin and diabetic management per primary service 6. 5 m walk test done, #1 7.73 sec, #2 6.44 sec, #3 6.47 sec 7. Preoperative teaching initiated and continuing. 8. GI/DVT prophylaxis. 9. More recommendations as patient progresses. Time with Patient: Greater than 30
[2016-08-16] MEDS: IPRATROPIUM-ALBUTEROL 3 ML NEB INHALATION SCH ×4 (08:35→21:02)
[2016-08-16] MEDS: SYMBICORT 160-4.5 MCG INHALER INHALATION SCH ×2 (08:35→21:20)
[2016-08-16 08:49] LABS: Glucose,Whole Blood 295 mg/dL (75-99)
[2016-08-16] MEDS: amLODIPine 10 MG TAB PO SCH (08:58)
[2016-08-16] MEDS: ASPIRIN 325 MG TAB PO SCH (08:58)
[2016-08-16] MEDS: CHOLECALCIFEROL 400 UNIT TAB PO SCH (08:59)
[2016-08-16] MEDS: FUROSEMIDE 10 MG/ML 4 ML VIAL IV SCH ×2 (08:59→21:28)
[2016-08-16] MEDS: CALCITRIOL 0.25 MCG CAP PO SCH (08:59)
[2016-08-16] MEDS: HEPARIN SODIUM,PORCINE 5,000 UNIT/ML 1 ML VIAL SQ SCH ×2 (09:00→21:29)
[2016-08-16] MEDS: METOPROLOL TARTRATE 25 MG TAB PO SCH ×2 (09:00→23:33)
[2016-08-16] MEDS: GABAPENTIN 300 MG CAP PO SCH ×2 (09:00→21:28)
[2016-08-16] MEDS: MUPIROCIN 2% OINT 22 GM TUBE NASAL SCH ×2 (09:01→21:29)
[2016-08-16] MEDS: NIACIN TR 500 MG CAPSULE.ER PO SCH ×4 (09:01→23:34)
[2016-08-16 10:52] LABS: Glucose,Whole Blood 337 mg/dL (75-99)
--- NOTE | 2016-08-16 11:49 | P.VSCSTY ---
Greater Saphenous Vein Mapping This is bilateral lower extremity greater saphenous vein mapping. Date of service 08/14/2016 Vein quality and ultrasound appearance intimal thickening bilaterally at the ankle level. Vein size groin right 7.8 x 4.6 groin left 8.4 x 7.7 High thigh right 6.3 x 4.8 high thigh left 7.5 x 5.2 Mid thigh right 4.4 x 3.6 mid thigh left 6.0 x 4.1 Above-knee right 5.1 x 3.9 above- knee left 6.9 x 5.2 Below knee right 5.8 x 4.1 below-knee left 5.2 x 4.3 Mid calf right 3.6 x 2.9 mid calf left 3.5 x 3.5 Ankle right 5.6 x 2.3 ankle left 2.7 x 1.1 Impression somewhat oversized vein bilaterally. The midportion on the right is somewhat better than other areas. Both ankle areas have intimal thickening and are questionable.
--- NOTE | 2016-08-16 11:49 | P.PN ---
Subjective Principal diagnosis: Acute myocardial infarction This is a 55-year-old white male with history of multiple medical problems including COPD, hypertension, dyslipidemia, diabetes, obesity, and he has a very sedentary lifestyle. 2 years ago, the patient had a stress test which was supposedly normal. This was done in [place]. Patient presented this time to the ER with 3 days history of tightness across the chest, associated with some shortness of breath. His EKG was nonspecific, however his enzymes were positive , the patient was found to have non-ST elevation myocardial infarction. Today the patient underwent cardiac catheterization by Dr. Vegas, and he was found to have significant coronary artery disease. Hence the patient was advised to have myocardial revascularization. And the patient is yet to be seen by cardiac surgery on consultation. In the meantime the patient was placed on medications for his acute VA and I was asked to see him on consultation. His shortness of breath is improved, his chest pain is resolved. However the patient is known to have remote smoking history, however he quit many years ago. Patient was told at one point that he may have emphysema, severity of which is not clear. However the patient is not O2 dependent and not prednisone dependent. Bedside spirometry was done, and it was a poor quality because of the effort was very poor, hence I recommended a full PFT to be done in a.m. Patient was reevaluated today on 08/15/2016, doing relatively well, however his PFT is quite abnormal showing mostly a picture of restriction and poor effort with very low Mvv and low FVC, lower lung volumes. This would make him a very high surgical risk, in the meantime I ordered a high-resolution CT of the chest , his chest x-ray was showing a right paratracheal soft tissue fullness, and some subsegmental interstitial perihilar changes felt to be related to congestive heart failure unless proven otherwise. CT of the chest is showing mostly congestive heart failure, with air bronchograms noted in the right lung base and there is also evidence of calcified subcarinal and left hilar nodes noted. Fatty infiltration of the liver was also noted, and cystic focus of left kidney was noted. Patient will likely improve with aggressive diuresis. Patient was reevaluated today on 08/16/2016, seems to be doing much better, breathing a lot easier, and he is doing well with incentive spirometry. Patient is scheduled to undergo myocardial revascularization in a.m. And his follow-up chest x-ray is showing definite improvement. Hence the patient will be cleared for surgery, however he is still considered moderate to high operative risk. Objective - Vital Signs Vital signs: Vital Signs Temp 98.1 F 08/16/16 11:25 Pulse 74 08/16/16 11:25 Resp 16 08/16/16 11:25 BP 124/57 08/16/16 11:25 Pulse Ox 95 08/16/16 11:25 Intake & Output 08/15/16 08/16/16 08/16/16 18:59 06:59 18:59 Intake Total 1050.357 578.708 48.900 Output Total 4100 4025 1000 Balance -3049.643 -3446.292 -951.100 Weight 114.3 kg Intake: Intake, IV Titration 70.357 78.708 48.900 Amount Insulin Regular 100 unit 70.357 78.708 48.900 In Sodium Chloride 0.9% 100 ml @ Titrate IV .Q0M [facility] Rx#:[id number] Oral 980 500 0 Output: Urine 4100 4025 1000 Other: Voiding Method Urinal Urinal Urinal # Voids 2 1 - Exam Physical Exam: Revealed a 55-year-old in no distress HEENT:[Neck is supple.] [No neck masses.] [No thyromegaly.] [No JVD.] Chest: Diminished breath sounds at the bases, no crackles or rhonchi or wheezes. ] Cardiac Exam: [Normal S1 and S2, no S3 gallop, no murmur.] Abdomen: [Soft, nontender, no megaly, no rebound, no guarding, normal bowel sounds.] Extremities: [No clubbing, no edema, no cyanosis.] Neurological Exam: [No focal neurologic deficit.] - Labs CBC & Chem 7: 08/16/16 05:39 08/16/16 05:39 Labs: Abnormal Lab Results - Last 24 Hours (Table) 08/14/16 08/15/16 08/15/16 Range/Units 12:35 12:45 13:47 RBC (4.30-5.90) m/uL Hgb (13.0-17.5) gm/dL Hct (39.0-53.0) % MCHC (31.0-37.0) g/dL RDW (11.5-15.5) % Neutrophils # (1.3-7.7) k/uL Lymphocytes # (1.0-4.8) k/uL ABG pO2 131 H (83-108) mmHg ABG HCO3 26 H (21-25) mmol/L ABG Total CO2 28 H (19-24) mmol/L ABG O2 Saturation 99.1 H (94-97) % Chloride (98-107) mmol/L BUN (9-20) mg/dL Glucose (74-99) mg/dL POC Glucose (mg/dL) 291 H (75-99) mg/dL Crossmatch See Detail 08/15/16 08/15/16 08/15/16 Range/Units 16:13 18:16 20:08 RBC (4.30-5.90) m/uL Hgb (13.0-17.5) gm/dL Hct (39.0-53.0) % MCHC (31.0-37.0) g/dL RDW (11.5-15.5) % Neutrophils # (1.3-7.7) k/uL Lymphocytes # (1.0-4.8) k/uL ABG pO2 (83-108) mmHg ABG HCO3 (21-25) mmol/L ABG Total CO2 (19-24) mmol/L ABG O2 Saturation (94-97) % Chloride (98-107) mmol/L BUN (9-20) mg/dL Glucose (74-99) mg/dL POC Glucose (mg/dL) 237 H 183 H 160 H (75-99) mg/dL Crossmatch 08/15/16 08/16/16 08/16/16 Range/Units 22:15 00:14 02:23 RBC (4.30-5.90) m/uL Hgb (13.0-17.5) gm/dL Hct (39.0-53.0) % MCHC (31.0-37.0) g/dL RDW (11.5-15.5) % Neutrophils # (1.3-7.7) k/uL Lymphocytes # (1.0-4.8) k/uL ABG pO2 (83-108) mmHg ABG HCO3 (21-25) mmol/L ABG Total CO2 (19-24) mmol/L ABG O2 Saturation (94-97) % Chloride (98-107) mmol/L BUN (9-20) mg/dL Glucose (74-99) mg/dL POC Glucose (mg/dL) 170 H 261 H 255 H (75-99) mg/dL Crossmatch 08/16/16 08/16/16 08/16/16 Range/Units 04:37 05:39 05:39 RBC 4.10 L (4.30-5.90) m/uL Hgb 10.6 L (13.0-17.5) gm/dL Hct 35.8 L (39.0-53.0) % MCHC 29.5 L (31.0-37.0) g/dL RDW 15.8 H (11.5-15.5) % Neutrophils # 8.8 H (1.3-7.7) k/uL Lymphocytes # 0.7 L (1.0-4.8) k/uL ABG pO2 (83-108) mmHg ABG HCO3 (21-25) mmol/L ABG Total CO2 (19-24) mmol/L ABG O2 Saturation (94-97) % Chloride 97 L (98-107) mmol/L BUN 25 H (9-20) mg/dL Glucose 196 H (74-99) mg/dL POC Glucose (mg/dL) 219 H (75-99) mg/dL Crossmatch 08/16/16 08/16/16 08/16/16 Range/Units 06:30 08:28 10:32 RBC (4.30-5.90) m/uL Hgb (13.0-17.5) gm/dL Hct (39.0-53.0) % MCHC (31.0-37.0) g/dL RDW (11.5-15.5) % Neutrophils # (1.3-7.7) k/uL Lymphocytes # (1.0-4.8) k/uL ABG pO2 (83-108) mmHg ABG HCO3 (21-25) mmol/L ABG Total CO2 (19-24) mmol/L ABG O2 Saturation (94-97) % Chloride (98-107) mmol/L BUN (9-20) mg/dL Glucose (74-99) mg/dL POC Glucose (mg/dL) 200 H 295 H 337 H (75-99) mg/dL Crossmatch Microbiology - Last 24 Hours (Table) 08/14/16 13:57 Nasal Screen MRSA/MSSA ([facility]) - Final Nasal Swab 08/14/16 12:54 Urine Culture - Final Urine,Clean Catch 08/12/16 19:38 Blood Culture - Preliminary Blood No Growth after 72 hours Assessment and Plan Plan: Impression: 1 acute non-ST elevation myocardial infarction, 2 significant coronary artery disease based on cardiac catheterization. 3 morbid obesity 4 history of hypertension 5 history of dyslipidemia 6 suspect some component of COPD, full PFT is pending, his initial bedside PFT is very poor because of mostly of poor effort. Although restriction is strongly suspected. Based on the PFT patient is definitely a high surgical risk , patient is a combined restrictive as well as obstructive lung disease. CT of the chest was reviewed, patient was diuresed, and improved significantly. 7 suspect some component of congestive heart failure on presentation, improved on the follow-up chest x-ray. Hence cut down IV fluid to KVO, and continue diuretics. Proceed with surgery in a.m. Recommendation: Agree with the present treatment plan including antiplatelets beta blockers and statins and patient is to be seen by cardiac surgery on consultation today. Patient will be placed empirically on bronchodilators. Patient is definitely moderate to high surgical risk. Time with Patient: Less than 30
--- NOTE | 2016-08-16 12:04 | XR ---
EXAMINATION TYPE: XR chest 1V portable DATE OF EXAM: 08/16/2016 11:00 AM COMPARISON: 08/15/2016 HISTORY: Shortness of breath TECHNIQUE: Single frontal view of the chest is obtained. FINDINGS: Prominence of the aorta noted. Heart enlarged. Underlying COPD suspected. Small granuloma left lower lobe. Right paratracheal stripe thickening again noted but appears stable. Small bilateral pleural effusions and patchy infiltrate are stable. IMPRESSION: 1. Small bilateral effusions and patchy infiltrate are stable.
--- NOTE | 2016-08-16 12:08 | P.ARTDOP ---
Arterial Doppler LOWER EXTREMITY ARTERIAL DOPPLER: DATE OF SERVICE: 08/15/2016 Reason for study: Diabetes with suspected PVD. Doppler waveforms: Multiphasic bilaterally throughout. Pulse volume recording: Not performed. Pressure gradients: None. Ankle-brachial indices: Greater than 1 bilaterally. Impression: Normal study.
[2016-08-16 12:52] LABS: Glucose,Whole Blood 234 mg/dL (75-99)
[2016-08-16] MEDS: MULTIVITAMINS, THERA 1 EACH TAB PO SCH (12:57)
--- NOTE | 2016-08-16 14:16 | P.PN ---
Subjective Principal diagnosis: Non-STEMI This is a pleasant 55-year-old gentleman with a past medical history significant for obesity, diabetes, hypertension and dyslipidemia. Presented to the hospital complaining of chest discomfort and difficulty breathing. Patient' s troponin were elevated and was subsequently [facility] by Dr. Vegas . Coronary angiogram showed severe triple-vessel coronary artery disease and patient has been advised to undergo coronary artery bypass grafting. Patient was evaluated by surgery and is scheduled for . Echocardiogram showed ejection fraction between 45-50% with inferior basal hypokinesis. At the time of my examination today, patient is chest pain-free. He's been up ambulating without any difficulty. Blood pressure 124/56 with a heart rate in the 70s. Objective - Vital Signs Vital signs: Vital Signs Temp 98.1 F 08/16/16 11:25 Pulse 74 08/16/16 11:25 Resp 16 08/16/16 11:25 BP 124/57 08/16/16 11:25 Pulse Ox 95 08/16/16 11:25 Intake & Output 08/15/16 08/16/16 08/16/16 18:59 06:59 18:59 Intake Total 1050.357 578.708 93.425 Output Total 4100 4025 1999 Balance -3049.643 -3446.292 -1906.575 Weight 114.3 kg Intake: Intake, IV Titration 70.357 78.708 93.425 Amount Insulin Regular 100 unit 70.357 78.708 93.425 In Sodium Chloride 0.9% 100 ml @ Titrate IV .Q0M [facility] Rx#:[id number] Oral 980 500 0 Output: Urine 4100 4025 1999 Other: Voiding Method Urinal Urinal Urinal # Voids 2 1 # Bowel Movements 0 - Exam PHYSICAL EXAMINATION: HEENT: [Head is atraumatic, normocephalic. Pupils equal, round. Neck is supple. There is no elevated jugular venous pressure.] HEART EXAMINATION: [Heart S1, S2 normal. No murmur or gallop heard.] CHEST EXAMINATION:[ Lungs are clear to auscultation and precussion. No chest wall tenderness is noted on palpation or with deep breathing.] ABDOMEN: [ Soft, nontender. Bowel sounds are heard. No organomegaly noted]. EXTREMITIES:[ 2+ peripheral pulses with no evidence of peripheral edema and no calf tenderness noted]. NEUROLOGIC [patient is awake, alert and oriented -3.] . - Labs CBC & Chem 7: 08/16/16 05:39 08/16/16 05:39 Labs: Abnormal Lab Results - Last 24 Hours (Table) 08/14/16 08/15/16 08/15/16 Range/Units 12:35 16:13 18:16 RBC (4.30-5.90) m/uL Hgb (13.0-17.5) gm/dL Hct (39.0-53.0) % MCHC (31.0-37.0) g/dL RDW (11.5-15.5) % Neutrophils # (1.3-7.7) k/uL Lymphocytes # (1.0-4.8) k/uL Chloride (98-107) mmol/L BUN (9-20) mg/dL Glucose (74-99) mg/dL POC Glucose (mg/dL) 237 H 183 H (75-99) mg/dL Crossmatch See Detail 08/15/16 08/15/16 08/16/16 Range/Units 20:08 22:15 00:14 RBC (4.30-5.90) m/uL Hgb (13.0-17.5) gm/dL Hct (39.0-53.0) % MCHC (31.0-37.0) g/dL RDW (11.5-15.5) % Neutrophils # (1.3-7.7) k/uL Lymphocytes # (1.0-4.8) k/uL Chloride (98-107) mmol/L BUN (9-20) mg/dL Glucose (74-99) mg/dL POC Glucose (mg/dL) 160 H 170 H 261 H (75-99) mg/dL Crossmatch 08/16/16 08/16/16 08/16/16 Range/Units 02:23 04:37 05:39 RBC 4.10 L (4.30-5.90) m/uL Hgb 10.6 L (13.0-17.5) gm/dL Hct 35.8 L (39.0-53.0) % MCHC 29.5 L (31.0-37.0) g/dL RDW 15.8 H (11.5-15.5) % Neutrophils # 8.8 H (1.3-7.7) k/uL Lymphocytes # 0.7 L (1.0-4.8) k/uL Chloride (98-107) mmol/L BUN (9-20) mg/dL Glucose (74-99) mg/dL POC Glucose (mg/dL) 255 H 219 H (75-99) mg/dL Crossmatch 08/16/16 08/16/16 08/16/16 Range/Units 05:39 06:30 08:28 RBC (4.30-5.90) m/uL Hgb (13.0-17.5) gm/dL Hct (39.0-53.0) % MCHC (31.0-37.0) g/dL RDW (11.5-15.5) % Neutrophils # (1.3-7.7) k/uL Lymphocytes # (1.0-4.8) k/uL Chloride 97 L (98-107) mmol/L BUN 25 H (9-20) mg/dL Glucose 196 H (74-99) mg/dL POC Glucose (mg/dL) 200 H 295 H (75-99) mg/dL Crossmatch 08/16/16 08/16/16 Range/Units 10:32 12:31 RBC (4.30-5.90) m/uL Hgb (13.0-17.5) gm/dL Hct (39.0-53.0) % MCHC (31.0-37.0) g/dL RDW (11.5-15.5) % Neutrophils # (1.3-7.7) k/uL Lymphocytes # (1.0-4.8) k/uL Chloride (98-107) mmol/L BUN (9-20) mg/dL Glucose (74-99) mg/dL POC Glucose (mg/dL) 337 H 234 H (75-99) mg/dL Crossmatch Microbiology - Last 24 Hours (Table) 08/14/16 13:57 Nasal Screen MRSA/MSSA ([facility]) - Final Nasal Swab 08/14/16 12:54 Urine Culture - Final Urine,Clean Catch 08/12/16 19:38 Blood Culture - Preliminary Blood No Growth after 72 hours Assessment and Plan (1) NSTEMI (non-ST elevated myocardial infarction) Status: Acute (2) Triple vessel coronary artery disease Status: Acute (3) S/P cardiac cath Status: Acute (4) Diabetes Status: Acute (5) HTN (hypertension) Status: Acute (6) Hyperlipemia Status: Acute (7) COPD (chronic obstructive pulmonary disease) Status: Acute Plan: Patient is scheduled to undergo coronary artery bypass grafting surgery tomorrow. We will continue to follow during the duration. DNP note has been reviewed, I agree with a documented findings and plan of care. Patient was seen and examined.
[2016-08-16 14:57] LABS: Glucose,Whole Blood 249 mg/dL (75-99)
[2016-08-16 16:49] LABS: Glucose,Whole Blood 156 mg/dL (75-99)
[2016-08-16 18:44] LABS: Glucose,Whole Blood 224 mg/dL (75-99)
[2016-08-16 20:32] LABS: Glucose,Whole Blood 234 mg/dL (75-99)
[2016-08-16] MEDS: AZITHROMYCIN 500 MG in SODIUM CHLORIDE 0.9% 250 ML IVPB SCH (21:27)
[2016-08-16] MEDS: ATORVASTATIN 80 MG TAB PO SCH (21:28)
[2016-08-16] MEDS: METOPROLOL TARTRATE 25 MG TAB PO ONE (21:29)
[2016-08-16 23:46] LABS: Glucose,Whole Blood 252 mg/dL (75-99)
--- NOTE | 2016-08-17 00:12 | P.PN ---
Subjective Date of service 08/16/2016. Progress note being dictated for Dr. Sarmiento. Interval history: This is a 55-year-old gentleman admitted with chest pain, acute non-STEMI, status post cardiac cath with significant CAD involving proximal LAD and distal RCA, COPD, possible CHF and multiple other medical issues. Scheduled for CABG tomorrow. Maintained on Lasix IV,beta huey, statin, antiplatelet therapy, and nebulized bronchodilators. Chest x-ray noted , improving. Currently denies chest pain, palpitations. Ambulating, tolerating increase in exertion. Review of systems: HEENT: Denies headache or focal deficits. Denies any dizziness or lightheadedness. Respiratory: Complains of increased shortness of breath. Cardiac: Denies any chest pain, palpitations. GI: Denies any nausea, vomiting, or diarrhea. Denies any abdominal tenderness. : Denies any dysuria. Psychiatry: Denies any anxiety or depression. Active Medications Hydrocodone Bitart/Acetaminophen (Concepcion 5-325) 1 each PO Q6HR PRN PRN Reason: Pain Albuterol/Ipratropium (Duoneb 0.5 Mg-3 Mg/3 Ml Soln) 3 ml INHALATION RT-QID [facility] Last Admin: 08/16/16 21:02 Dose: 3 ml Alprazolam (Xanax) 0.25 mg PO TID PRN PRN Reason: Anxiety Amlodipine Besylate (Norvasc) 10 mg PO DAILY [facility] Last Admin: 08/16/16 08:58 Dose: 10 mg Aspirin (Aspirin) 325 mg PO ONCE ONE Stop: 08/17/16 05:01 Atorvastatin Calcium (Lipitor) 10 mg PO ONCE ONE Stop: 08/17/16 05:01 Budesonide/Formoterol Fumarate (Symbicort 160-4.5 Mcg Inhaler) 2 puff INHALATION RT-BID [facility] Last Admin: 08/16/16 21:20 Dose: 2 puff Calcitriol (Rocaltrol) 0.25 mcg PO MOWEFR [facility] Last Admin: 08/16/16 08:59 Dose: 0.25 mcg Calcium Chloride (Calcium Chloride) 1,000 mg IVP ONCE PRN PRN Reason: OPEN HEART Chlorhexidine Gluconate (Peridex) 15 ml MUCOUS MEM ONCE PRN PRN Reason: OPEN HEART Cholecalciferol (Vitamin D3) 800 unit PO DAILY [facility] Last Admin: 08/16/16 08:59 Dose: 800 unit Furosemide (Lasix) 40 mg IV Q12HR [facility] Last Admin: 08/16/16 21:28 Dose: 40 mg Gabapentin (Neurontin) 600 mg PO BID [facility] Last Admin: 08/16/16 21:28 Dose: 600 mg Heparin Sodium (Porcine) (Heparin Sodium (1,000 Unit/Ml)) 10,000 unit IV ONCE PRN PRN Reason: OPEN HEART Heparin Sodium (Porcine) (Heparin) 30,000 unit IV ONCE PRN PRN Reason: OPEN HEART Heparin Sodium (Porcine) (Heparin) 30,000 unit IV ONCE PRN PRN Reason: OPEN HEART Heparin Sodium (Porcine) (Heparin) 30,000 unit IV ONCE PRN PRN Reason: OPEN HEART Heparin Sodium (Porcine) (Heparin) 5,000 unit SQ Q12HR [facility] Last Admin: 08/16/16 21:29 Dose: 5,000 unit Sodium Chloride (Saline 0.9%) 1,000 mls @ 20 mls/hr IV .Q24H [facility] Last Admin: 08/16/16 19:18 Dose: Not Given Ceftriaxone Sodium 1,000 mg/ (Sodium Chloride) 50 mls @ 100 mls/hr IVPB Q24H [facility] Last Admin: 08/15/16 23:29 Dose: 100 mls/hr Azithromycin 500 mg/ Sodium (Chloride) 250 mls @ 125 mls/hr IVPB 2000 [facility] Last Admin: 08/16/16 21:27 Dose: 125 mls/hr Insulin Human Regular 100 unit (/ Sodium Chloride) 101 mls @ 0 mls/hr IV .Q0M [facility]; Titrate PRN Reason: Protocol Last Titration: 08/16/16 19:17 Dose: 10.39 units/hr, 10.5 mls/hr Albumin Human 50 ml/ IV (Solution) 50 mls @ 100 mls/hr IVPB ONCE PRN PRN Reason: OPEN HEART Albumin Human 50 ml/ IV (Solution) 50 mls @ 100 mls/hr IVPB ONCE PRN PRN Reason: OPEN HEART Albumin Human 500 ml/ IV (Solution) 500 mls @ 250 mls/hr IVPB ONCE PRN PRN Reason: OPEN HEART Albumin Human 500 ml/ IV (Solution) 500 mls @ 250 mls/hr IVPB ONCE PRN PRN Reason: OPEN HEART Albumin Human 500 ml/ IV (Solution) 500 mls @ 250 mls/hr IVPB ONCE PRN PRN Reason: OPEN HEART Albumin Human 500 ml/ IV (Solution) 500 mls @ 250 mls/hr IVPB ONCE PRN PRN Reason: OPEN HEART Albumin Human 500 ml/ IV (Solution) 500 mls @ 250 mls/hr IVPB ONCE PRN PRN Reason: OPEN HEART Albumin Human 500 ml/ IV (Solution) 500 mls @ 250 mls/hr IVPB ONCE PRN PRN Reason: OPEN HEART Clevidipine 25 mg/ IV Solution 50 mls @ 2 mls/hr IV .Q24H PRN; Protocol; 1 MG/ HR PRN Reason: OPEN HEART Diltiazem HCl 125 mg/ Sodium (Chloride) 125 mls @ 5 mls/hr IV .Q24H PRN; 5 MG/ HR PRN Reason: OPEN HEART Heparin Sodium (Porcine) 5,000 (unit/ Sodium Chloride) 501 mls @ 0 mls/hr IV ONCE PRN; As Directed PRN Reason: OPEN HEART Insulin Human Regular 100 unit (/ Sodium Chloride) 101 mls @ 0 mls/hr IV .Q0M PRN; Titrate PRN Reason: OPEN HEART Nitroglycerin/Dextrose 50 mg/ (IV Solution) 250 mls @ 1.5 mls/hr IV .Q24H PRN; Protocol; 5 MCG/MIN PRN Reason: OPEN HEART Norepinephrine Bitartrate 4 mg (/ Sodium Chloride) 254 mls @ 0 mls/hr IV .Q0M PRN; Protocol; Titrate PRN Reason: OPEN HEART Papaverine HCl 360 mg/ Sodium (Chloride) 102 mls @ 0 mls/hr IV ONCE PRN; As Directed PRN Reason: OPEN HEART Phenylephrine HCl 40 mg/ (Sodium Chloride) 254 mls @ 0 mls/hr IV .Q0M PRN; Protocol; Per Protocol PRN Reason: OPEN HEART Propofol 500 mg/ IV Solution 50 mls @ 0 mls/hr IV .Q0M PRN; Protocol; Titrate PRN Reason: OPEN HEART Protamine Sulfate 250 mg/ IV (Solution) 25 mls @ 0 mls/hr IV ONCE PRN; As Directed PRN Reason: OPEN HEART Cefazolin Sodium 2 gm/ Sodium (Chloride) 30 mls @ 60 mls/hr IVPB ONCE PRN PRN Reason: OPEN HEART Cefazolin Sodium 2,000 mg/ (Sodium Chloride) 30 mls @ 999 mls/hr IVPB ONCE PRN PRN Reason: OPEN HEART Cefazolin Sodium 1,000 mg/ (Sodium Chloride) 1,000 mls @ 999 mls/hr IRRIGATION ONCE PRN PRN Reason: OPEN HEART Insulin Human Lispro (Humalog) 15 unit SQ AC-TID [facility] Last Admin: 08/16/16 17:27 Dose: 15 unit Magnesium Sulfate (Magnesium Sulfate Syg) 16.24 meq IV ONCE PRN PRN Reason: OPEN HEART Methylprednisolone Sodium Succinate (Solu-Medrol) 60 mg IV Q6HR [facility] Last Admin: 08/16/16 23:34 Dose: 60 mg Metoprolol Tartrate (Lopressor) 25 mg PO ONCE ONE Stop: 08/17/16 05:01 Last Admin: 08/16/16 21:29 Dose: 25 mg Morphine Sulfate (Morphine Sulfate (Inj)) 4 mg IV Q4HR PRN PRN Reason: Chest Pain Last Admin: 08/12/16 19:58 Dose: 4 mg Multivitamins (Theragran) 1 each PO DAILY@1200 [facility] Last Admin: 08/16/16 12:57 Dose: 1 each Mupirocin (Bactroban Oint) 1 applic NASAL BID [facility] Stop: 08/19/16 21:01 Last Admin: 08/16/16 21:29 Dose: 1 applic Niacin (Niacin Tr) 500 mg PO QID [facility] Last Admin: 08/16/16 23:34 Dose: Not Given Nitroglycerin/Dextrose (Nitro Drip 25 Mg/250 Ml In D5w Pmx) 1 mg IV ONCE PRN PRN Reason: OPEN HEART Pantoprazole Sodium (Protonix) 40 mg PO AC-BRKFST [facility] Last Admin: 08/16/16 06:59 Dose: 40 mg Phenylephrine HCl ([place]-Synephrine Syringe) 1 mg IV ONCE PRN PRN Reason: OPEN HEART Phenylephrine HCl ([place]-Synephrine Syringe) 1 mg IV ONCE PRN PRN Reason: OPEN HEART Phenylephrine HCl ([place]-Synephrine Syringe) 1 mg IV ONCE PRN PRN Reason: OPEN HEART Phenylephrine HCl ([place]-Synephrine Syringe) 1 mg IV ONCE PRN PRN Reason: OPEN HEART Protamine Sulfate (Protamine Sulfate) 250 mg IV ONCE PRN PRN Reason: OPEN HEART Sodium Bicarbonate (Sodium Bicarb 8.4% (1 Meq/Ml)) 50 ml IV ONCE PRN PRN Reason: OPEN HEART Temazepam (Restoril) 15 mg PO HS PRN PRN Reason: Insomnia Objective - Vital Signs Vital signs: Vital Signs Temp 97.7 F 08/16/16 20:00 Pulse 74 08/16/16 21:40 Resp 18 08/16/16 20:00 BP 145/70 08/16/16 20:00 Pulse Ox 95 08/16/16 20:00 Intake & Output 08/16/16 08/16/16 08/17/16 06:59 18:59 06:59 Intake Total 578.708 835.167 323.658 Output Total 4025 3000 1800 Balance -3446.292 -2164.833 -1476.342 Weight 114.3 kg 114.3 kg Intake: Intake, IV Titration 78.708 115.167 23.658 Amount Insulin Regular 100 unit 78.708 115.167 23.658 In Sodium Chloride 0.9% 100 ml @ Titrate IV .Q0M [facility] Rx#:[id number] Oral 500 720 300 Output: Urine 4025 3000 1800 Other: Voiding Method Urinal Urinal Urinal # Voids 2 1 1 # Bowel Movements 0 0 - Exam PHYSICAL EXAM: VITAL SIGNS: As above GENERAL: [Sitting up at side of bed, no acute distress] HEENT: [Pupils equal conjunctiva normal.] NECK: [Supple, no JVD] RESPIRATORY EFFORT:[Increased] LUNGS: [Diminished bases, no crackles rhonchi or wheezes] CARDIOVASCULAR[regular S1 and S2, no murmur rub or gallop] GI: [Abdomen soft, nontender, positive bowel sounds.] PSYCH: [Alert and oriented -3, mood and affect normal.] NEURO: [No focal deficits, moves all 4 extremities, charcot feet] - Labs CBC & Chem 7: 08/16/16 05:39 08/16/16 05:39 Labs: Abnormal Lab Results - Last 24 Hours (Table) 08/14/16 08/16/16 08/16/16 Range/Units 12:35 00:14 02:23 RBC (4.30-5.90) m/uL Hgb (13.0-17.5) gm/dL Hct (39.0-53.0) % MCHC (31.0-37.0) g/dL RDW (11.5-15.5) % Neutrophils # (1.3-7.7) k/uL Lymphocytes # (1.0-4.8) k/uL Chloride (98-107) mmol/L BUN (9-20) mg/dL Glucose (74-99) mg/dL POC Glucose (mg/dL) 261 H 255 H (75-99) mg/dL Crossmatch See Detail 08/16/16 08/16/16 08/16/16 Range/Units 04:37 05:39 05:39 RBC 4.10 L (4.30-5.90) m/uL Hgb 10.6 L (13.0-17.5) gm/dL Hct 35.8 L (39.0-53.0) % MCHC 29.5 L (31.0-37.0) g/dL RDW 15.8 H (11.5-15.5) % Neutrophils # 8.8 H (1.3-7.7) k/uL Lymphocytes # 0.7 L (1.0-4.8) k/uL Chloride 97 L (98-107) mmol/L BUN 25 H (9-20) mg/dL Glucose 196 H (74-99) mg/dL POC Glucose (mg/dL) 219 H (75-99) mg/dL Crossmatch 08/16/16 08/16/16 08/16/16 Range/Units 06:30 08:28 10:32 RBC (4.30-5.90) m/uL Hgb (13.0-17.5) gm/dL Hct (39.0-53.0) % MCHC (31.0-37.0) g/dL RDW (11.5-15.5) % Neutrophils # (1.3-7.7) k/uL Lymphocytes # (1.0-4.8) k/uL Chloride (98-107) mmol/L BUN (9-20) mg/dL Glucose (74-99) mg/dL POC Glucose (mg/dL) 200 H 295 H 337 H (75-99) mg/dL Crossmatch 08/16/16 08/16/1617 Range/Units 12:31 14:37 16:23 RBC (4.30-5.90) m/uL Hgb (13.0-17.5) gm/dL Hct (39.0-53.0) % MCHC (31.0-37.0) g/dL RDW (11.5-15.5) % Neutrophils # (1.3-7.7) k/uL Lymphocytes # (1.0-4.8) k/uL Chloride (98-107) mmol/L BUN (9-20) mg/dL Glucose (74-99) mg/dL POC Glucose (mg/dL) 234 H 249 H 156 H (75-99) mg/dL Crossmatch 08/16/16 08/16/16 Range/Units 18:33 20:31 RBC (4.30-5.90) m/uL Hgb (13.0-17.5) gm/dL Hct (39.0-53.0) % MCHC (31.0-37.0) g/dL RDW (11.5-15.5) % Neutrophils # (1.3-7.7) k/uL Lymphocytes # (1.0-4.8) k/uL Chloride (98-107) mmol/L BUN (9-20) mg/dL Glucose (74-99) mg/dL POC Glucose (mg/dL) 224 H 234 H (75-99) mg/dL Crossmatch Microbiology - Last 24 Hours (Table) 08/12/16 19:38 Blood Culture - Preliminary Blood No Growth after 96 hours 08/14/16 13:57 Nasal Screen MRSA/MSSA (ALFRED) - Final Nasal Swab 08/14/16 12:54 Urine Culture - Final Urine,Clean Catch Assessment and Plan Plan: 1. Acute non-STEMI. 2. [Status post cardiac cath , severe CAD involving LAD and distal RCA]. CABG pending. 3. [Diabetes mellitus, and insulin drip dependent, hemoglobin A1c 9, on steroids 4. CKD, stage III 5. [Hypertension]. 6. [Acute on chronic COPD]. 7. [Possible acute CHF exacerbation, systolic dysfunction, EF 45-50%]. 8. Degenerative joint disease with osteoarthritis 9. Charcot joints 10. History of nicotine abuse 11. Heparin monitoring 12. Hyperlipidemia 13. Anemia of chronic disease, secondary to CKD 14. Acute hypoxic respiratory failure 15. Ascending aortic aneurysm 4 cm, incidental finding per CT 16. Left kidney cystic focus 3.[address] 17. Fatty liver 18. Left hilar and subcarinal nodes 19. Obesity, BMI 37.9 Plan: Continue on current medication regime , Lasix, nebulized bronchodilators, beta huey, statin, heparin, monitoring and symptomatic treatment. CABG tomorrow .aggressive pulmonary toileting, reinstructed on incentive spirometer .Close monitoring of of Accu-Cheks, on insulin drip. Further recommendations to follow. The impression and plan of care has been dictated as directed. .: I performed a H&P examination of this patient and discussed the same with the dictator. I agree with the dictator's note. Any additional findings/opinions/ etc. will be noted.
[2016-08-17 01:34] LABS: Glucose,Whole Blood 229 mg/dL (75-99)
[2016-08-17 04:45] LABS: Glucose,Whole Blood 218 mg/dL (75-99)
[2016-08-17] MEDS ORDERED: HEPARIN SODIUM,PORCINE 5,000 UNIT in SODIUM CHLORIDE 0.9% 500 ML IV PRN (05:00)
[2016-08-17] MEDS ORDERED: ceFAZolin 2,000 MG in SODIUM CHLORIDE 0.9% 30 ML IVPB PRN (05:00)
[2016-08-17] MEDS ORDERED: PHENYLEPHRINE-0.9% NACL SYG 1 MG/10 ML SYRINGE IV PRN ×4 (05:00)
[2016-08-17] MEDS ORDERED: ceFAZolin 1,000 MG in SODIUM CHLORIDE 0.9% IRRIGATIO 1,000 ML IRRIGATION PRN (05:00)
[2016-08-17] MEDS ORDERED: CALCIUM CHLORIDE 100 MG/ML 10 ML SYRINGE IVP PRN (05:00)
[2016-08-17] MEDS ORDERED: ceFAZolin 2 GM in SODIUM CHLORIDE 0.9% 30 ML IVPB PRN (05:00)
[2016-08-17] MEDS ORDERED: SODIUM BICARB 8.4% 50 ML SYR (1 MEQ/ML) IV PRN (05:00)
[2016-08-17] MEDS ORDERED: PROPOFOL 500 MG in EMPTY BAG 1 BAG IV PRN (05:00)
[2016-08-17] MEDS ORDERED: PROTAMINE SULFATE 10 MG/ML 25 ML VIAL IV PRN (05:00)
[2016-08-17] MEDS ORDERED: PROTAMINE SULFATE 250 MG in EMPTY BAG 1 BAG IV PRN (05:00)
[2016-08-17] MEDS ORDERED: INSULIN REGULAR 100 UNIT in SODIUM CHLORIDE 0.9% 100 ML IV PRN (05:00)
[2016-08-17] MEDS ORDERED: ATORVASTATIN 10 MG TAB PO ONE (05:00)
[2016-08-17] MEDS ORDERED: HEPARIN SODIUM 1,000 UNIT/ML VIAL IV PRN (05:00)
[2016-08-17] MEDS ORDERED: ALBUMIN HUMAN 5% 500 ML in EMPTY BAG 1 BAG IVPB PRN ×6 (05:00)
[2016-08-17] MEDS ORDERED: ALBUMIN HUMAN 25% 50 ML in EMPTY BAG 1 BAG IVPB PRN (05:00)
[2016-08-17] MEDS ORDERED: NOREPINEPHRINE 4 MG in SODIUM CHLORIDE 0.9% 250 ML IV PRN (05:00)
[2016-08-17] MEDS ORDERED: MAGNESIUM SULFATE SYG 4.06 MEQ/ML SYRINGE IV PRN (05:00)
[2016-08-17] MEDS ORDERED: CLEVIDIPINE BUTYRATE 25 MG in EMPTY BAG 1 BAG IV PRN (05:00)
[2016-08-17] MEDS ORDERED: ASPIRIN 325 MG TAB PO ONE (05:00)
[2016-08-17] MEDS ORDERED: PAPAVERINE 360 MG in SODIUM CHLORIDE 0.9% 90 ML IV PRN (05:00)
[2016-08-17] MEDS ORDERED: NITROGLYCERIN-D5W PMX 25 MG/250 ML BTL IV PRN (05:00)
[2016-08-17] MEDS ORDERED: PHENYLEPHRINE 40 MG in SODIUM CHLORIDE 0.9% 250 ML IV PRN (05:00)
[2016-08-17] MEDS ORDERED: NITROGLYCERIN-D5W PMX 50 MG in DEXTROSE/WATER 1 250ML.BAG IV PRN (05:00)
[2016-08-17] MEDS ORDERED: DILTIAZEM 125 MG in SODIUM CHLORIDE 0.9% 100 ML IV PRN (05:00)
[2016-08-17] MEDS ORDERED: CHLORHEXIDINE GLUCONATE 15 ML CUP MUCOUS MEM PRN (05:00)
[2016-08-17] MEDS: METOPROLOL TARTRATE 25 MG TAB PO ONE (05:21)
[2016-08-17] MEDS: INSULIN REGULAR 100 UNIT in SODIUM CHLORIDE 0.9% 100 ML IV SCH (05:31)
[2016-08-17 06:01] LABS: Glucose,Whole Blood 209 mg/dL (75-99)
[2016-08-17] MEDS ORDERED: LIDOCAINE 2% SYG (PF) 100 MG/5 ML ONE (08:00)
[2016-08-17] MEDS ORDERED: HEPARIN SODIUM,PORCINE 5,000 UNIT/ML 1 ML VIAL ONE (08:00)
[2016-08-17] MEDS ORDERED: MAGNESIUM SULFATE 4 MEQ/ML 2 ML VIAL ONE (08:00)
[2016-08-17] MEDS ORDERED: PROPOFOL 10 MG/ML 20 ML VIAL IV ONE (08:00)
[2016-08-17] MEDS ORDERED: VECURONIUM 10 MG VIAL IV ONE (08:00)
[2016-08-17] MEDS ORDERED: HEPARIN SODIUM,PORCINE 10,000 UNIT/ML 1 ML VIAL ONE (08:00)
[2016-08-17] MEDS ORDERED: LACTATED RINGERS 1,000 ML BAG IV ONE (08:00)
[2016-08-17] MEDS ORDERED: fentaNYL (PF) 50 MCG/ML 50 ML VIAL ONE (08:00)
[2016-08-17] MEDS ORDERED: SUFentanil 50 MCG/ML 2ML AMP ONE (08:00)
[2016-08-17] MEDS ORDERED: MIDAZOLAM 2 MG/2 ML VIAL ONE (08:00)
[2016-08-17 08:38] LABS: Glucose,Whole Blood 283 mg/dL (75-99)
--- NOTE | 2016-08-17 09:17 | PN ---
DATE OF SERVICE: 08/16/2016 This 55-year-old gentleman who was admitted with acute [id number] myocardial infarction is being closely monitored at this time. The patient is scheduled for CABG. Seen and evaluated the patient along with the nurse practitioner. Please refer to nurse practitioner notes and impression documented for further information.
[2016-08-17 09:28] LABS: Glucose,Whole Blood 284 mg/dL (75-99)
[2016-08-17 10:09] LABS: Glucose,Whole Blood 262 mg/dL (75-99)
[2016-08-17 10:26] LABS: Glucose,Whole Blood 260 mg/dL (75-99)
[2016-08-17 10:57] LABS: Glucose,Whole Blood 253 mg/dL (75-99)
[2016-08-17] MEDS: INSULIN LISPRO (humaLOG) 300 UNIT/3 ML VIAL SQ SCH ×2 (12:19→12:22)
[2016-08-17] MEDS: methylPREDNISolone SOD SUCCI 125 MG/2 ML VIAL IV SCH ×3 (12:19→18:09)
[2016-08-17] MEDS: PANTOPRAZOLE 40 MG TABLET PO SCH (12:19)
[2016-08-17] MEDS: amLODIPine 10 MG TAB PO SCH (12:20)
[2016-08-17] MEDS: IPRATROPIUM-ALBUTEROL 3 ML NEB INHALATION SCH ×4 (12:20→20:19)
[2016-08-17] MEDS: CHOLECALCIFEROL 400 UNIT TAB PO SCH (12:20)
[2016-08-17] MEDS: SYMBICORT 160-4.5 MCG INHALER INHALATION SCH (12:20)
[2016-08-17] MEDS: MUPIROCIN 2% OINT 22 GM TUBE NASAL SCH ×2 (12:21→21:31)
[2016-08-17] MEDS: HEPARIN SODIUM,PORCINE 5,000 UNIT/ML 1 ML VIAL SQ SCH (12:21)
[2016-08-17] MEDS: GABAPENTIN 300 MG CAP PO SCH (12:21)
[2016-08-17] MEDS: FUROSEMIDE 10 MG/ML 4 ML VIAL IV SCH (12:21)
[2016-08-17] MEDS: NIACIN TR 500 MG CAPSULE.ER PO SCH (12:22)
[2016-08-17] MEDS: MULTIVITAMINS, THERA 1 EACH TAB PO SCH (12:22)
[2016-08-17 13:02] LABS: Glucose,Whole Blood 183 mg/dL (75-99)
[2016-08-17] MEDS ORDERED: METOCLOPRAMIDE 5 MG/ML 2 ML VIAL IVP PRN (13:56)
[2016-08-17] MEDS ORDERED: Phosphorus Replacement Protoco 1 EACH MISC MISCELLANE PRN (13:56)
[2016-08-17] MEDS ORDERED: CALCIUM GLUCONATE 2,000 MG in SODIUM CHLORIDE 0.9% 100 ML IVPB PRN (13:56)
[2016-08-17] MEDS ORDERED: ONDANSETRON 4 MG/2 ML VIAL IVP PRN (13:56)
[2016-08-17] MEDS ORDERED: PROPOFOL 500 MG in EMPTY BAG 1 BAG IV SCH (13:56)
[2016-08-17] MEDS ORDERED: MORPHINE SULFATE 2 MG/ML SYRINGE IVP PRN (13:56)
[2016-08-17] MEDS ORDERED: Potassium Replacement Protocol 1 EACH MISC MISCELLANE PRN (13:56)
[2016-08-17] MEDS ORDERED: BENZOCAINE/MENTHOL LOZENG 1 EACH LOZENGE MUCOUS MEM PRN (13:56)
[2016-08-17] MEDS ORDERED: Magnesium Replacement Protocol 1 EACH MISC MISCELLANE PRN (13:56)
[2016-08-17 14:10] LABS: Glucose,Whole Blood 147 mg/dL (75-99)
[2016-08-17] MEDS ORDERED: NITROGLYCERIN-D5W PMX 50 MG in DEXTROSE/WATER 1 250ML.BAG IV SCH (14:15)
[2016-08-17] MEDS ORDERED: ASPIRIN 300 MG SUPP RECTAL ONE (14:15)
[2016-08-17 14:31] LABS: Ionized Calcium 4.4 mg/dL (4.5-5.3)
--- NOTE | 2016-08-17 14:33 | XR ---
EXAMINATION TYPE: XR chest 1V portable DATE OF EXAM: 08/17/2016 2:18 PM COMPARISON: Prior chest x-ray 16 August 2016 HISTORY: Status post cardiac surgery TECHNIQUE: Single frontal view of the chest is obtained. FINDINGS: Endotracheal tube, NG tube are overlying appropriate positions. Right jugular central veno us catheter is present, distal tip overlying the pulmonary artery. The heart is enlarged. Left-sided chest tube is in place. Patient is post median sternotomy. Sizable pneumothorax. Lung volumes are low . Patchy basilar density likely reflects atelectasis. There are overlying cardiac leads. IMPRESSION: Postoperative findings.
[2016-08-17 14:34] LABS: Basophils % (A) 0 %; CH 26.3; CHCM 30.3; Eosinophils % (A) 0 %; HCT 25.6 % (39.0-53.0); HDW 2.75; Hypochromasia Moderate; Luc # (Auto) 0.55; Luc % (Auto) 3; Lymphocytes # (A) 0.9 k/uL (1.0-4.8); Lymphocytes % (A) 5 %; MCH 26.8 pg (25.0-35.0); MCHC 30.7 g/dL (31.0-37.0); MCV 87.3 fL (80.0-100.0); Mean Platelet Volume 9.4; Monocytes # (A) 1.2 k/uL (0-1.0); Monocytes % (A) 7 %; Neutrophils # (A) 15.6 k/uL (1.3-7.7); Neutrophils % (A) 85 %; RBC 2.93 m/uL (4.30-5.90); RDW 15.8 % (11.5-15.5); WBC 18.3 k/uL (3.8-10.6); WBC (Perox) 19.41
[2016-08-17 14:36] LABS: HGB 7.9 gm/dL (13.0-17.5)
[2016-08-17 14:39] LABS: INR 1.7 (<1.1); Partial Thromboplastin Time 31.1 sec (22.0-30.0); Prothrombin Time 16.3 sec (9.0-12.0)
[2016-08-17 14:42] LABS: ALT 48 U/L (21-72); AST 45 U/L (17-59); Alkaline Phosphatase 28 U/L (38-126); Anion Gap 8 mmol/L; Blood Urea Nitrogen 27 mg/dL (9-20); Calcium 7.3 mg/dL (8.4-10.2); Carbon Dioxide 28 mmol/L (22-30); Chloride 105 mmol/L (98-107); Glucose 134 mg/dL (74-99); Non-African American GFR(MDRD) >60 (>60 ml/min/1.73 sqM); Sodium 141 mmol/L (137-145); Total Bilirubin 0.4 mg/dL (0.2-1.3); Total Protein 4.9 g/dL (6.3-8.2)
[2016-08-17 14:48] LABS: ABG Base Excess 2.1 mmol/L; ABG HCO3 27 mmol/L (21-25); ABG PCO2 50 mmHg (35-45); ABG PH 7.35 (7.35-7.45); ABG PO2 296 mmHg (83-108); ABG TCO2 29 mmol/L (19-24)
[2016-08-17 15:04] LABS: Glucose,Whole Blood 137 mg/dL (75-99)
--- NOTE | 2016-08-17 15:14 | P.PN ---
Subjective This is a 55-year-old white male with history of multiple medical problems including COPD, hypertension, dyslipidemia, diabetes, obesity, and he has a very sedentary lifestyle. 2 years ago, the patient had a stress test which was supposedly normal. This was done in [place]. Patient presented this time to the ER with 3 days history of tightness across the chest, associated with some shortness of breath. His EKG was nonspecific, however his enzymes were positive , the patient was found to have non-ST elevation myocardial infarction. Today the patient underwent cardiac catheterization by Dr. Vegas, and he was found to have significant coronary artery disease. Hence the patient was advised to have myocardial revascularization. And the patient is yet to be seen by cardiac surgery on consultation. In the meantime the patient was placed on medications for his acute [place] and I was asked to see him on consultation. His shortness of breath is improved, his chest pain is resolved. However the patient is known to have remote smoking history, however he quit many years ago. Patient was told at one point that he may have emphysema, severity of which is not clear. However the patient is not O2 dependent and not prednisone dependent. Bedside spirometry was done, and it was a poor quality because of the effort was very poor, hence I recommended a full PFT to be done in a.m. Patient was reevaluated today on 08/15/2016, doing relatively well, however his PFT is quite abnormal showing mostly a picture of restriction and poor effort with very low Mvv and low FVC, lower lung volumes. This would make him a very high surgical risk, in the meantime I ordered a high-resolution CT of the chest , his chest x-ray was showing a right paratracheal soft tissue fullness, and some subsegmental interstitial perihilar changes felt to be related to congestive heart failure unless proven otherwise. CT of the chest is showing mostly congestive heart failure, with air bronchograms noted in the right lung base and there is also evidence of calcified subcarinal and left hilar nodes noted. Fatty infiltration of the liver was also noted, and cystic focus of left kidney was noted. Patient will likely improve with aggressive diuresis. Patient was reevaluated today on 08/16/2016, seems to be doing much better, breathing a lot easier, and he is doing well with incentive spirometry. Patient is scheduled to undergo myocardial revascularization in a.m. And his follow-up chest x-ray is showing definite improvement. Hence the patient will be cleared for surgery, however he is still considered moderate to high operative risk. The patient is seen again today 08/17/2016 in follow-up. He is now status post coronary artery bypass grafting 3. He received a JIN to the LAD and 2 saphenous vein grafts to the diagonal and RCA. He is currently intubated and on the mechanical ventilator at settings of assist control of 12, tidal volume 500 , FiO2 100%, PEEP of 5. Blood gases reveal a P O2 of 296, p O2 50, PH7.35. He has mediastinal and left pleural chest tubes in place. Chest x-ray was reviewed. He is currently sedated on propofol 20 mcg/kg/m, he is on insulin drip at 2 units per hour. He is on a nitroglycerin drip at 5 mg/m. He has lactated Ringer's at 50 MLS per hour. Current blood pressure 99/53 with a mean of 67, PA pressure 35/25 with a mean of 29 and a CVP of 18. He is making adequate urine currently. Cardiac output 5, cardiac index 2.2. Objective - Vital Signs Vital signs: Vital Signs Temp 98.4 F 08/17/16 06:21 Pulse 66 08/17/16 14:10 Resp 16 08/17/16 06:21 BP 137/64 08/17/16 06:21 Pulse Ox 100 08/17/16 14:10 Intake & Output 08/16/16 08/17/16 08/17/16 18:59 06:59 18:59 Intake Total 835.167 386.833 Output Total 3000 5650 2460 Balance -2164.833 -5263.167 -2460 Weight 111.7 kg Intake: Intake, IV Titration 115.167 86.833 Amount Insulin Regular 100 unit 115.167 86.833 In Sodium Chloride 0.9% 100 ml @ Titrate IV .Q0M [facility] Rx#:[id number] Oral 720 300 Output: Urine 3000 5650 1460 Estimated Blood Loss 1000 Other: Voiding Method Urinal Urinal # Voids 1 1 # Bowel Movements 0 0 ABP, PAP, CO, CI - Last Documented Arterial Blood Pressure 107/55 Pulmonary Artery Pressure 46/25 Cardiac Output 5.5 - Exam GENERAL EXAM: Intubated, sedated. HEAD: Normocephalic. EYES: Sluggish reaction of pupils, equal size. NOSE: Clear with pink turbinates. THROAT: Oral endotracheal tube and gastric tube secured in place. NECK: No masses, no JVD. Right IJ Walker-Dangelo CHEST: Sternal dressing is dry and intact. Mediastinal and left pleural chest tubes in place. LUNGS: Equal air entry with few scattered rhonchi, crackles in the bases. CVS: S1 and S2 normal with no audible murmurs, regular rhythm. ABDOMEN: Soft.. SPINE: No scoliosis or deformity SKIN: No rashes Extremities: There is wrapped to the bilateral lower extremities, compression devices in place. SUNDAY drain to the left. - Labs CBC & Chem 7: 08/17/16 14:08 08/17/16 14:08 Labs: Abnormal Lab Results - Last 24 Hours (Table) 08/14/16 08/16/16 08/16/16 Range/Units 12:35 16:23 18:33 WBC (3.8-10.6) k/uL RBC (4.30-5.90) m/uL Hgb (13.0-17.5) gm/dL Hct (39.0-53.0) % MCHC (31.0-37.0) g/dL RDW (11.5-15.5) % Neutrophils # (1.3-7.7) k/uL Lymphocytes # (1.0-4.8) k/uL Monocytes # (0-1.0) k/uL PT (9.0-12.0) sec APTT (22.0-30.0) sec ABG pCO2 (35-45) mmHg ABG pO2 (83-108) mmHg ABG HCO3 (21-25) mmol/L ABG Total CO2 (19-24) mmol/L ABG O2 Saturation (94-97) % BUN (9-20) mg/dL Glucose (74-99) mg/dL POC Glucose (mg/dL) 156 H 224 H (75-99) mg/dL Calcium (8.4-10.2) mg/dL Ionized Calcium [place] (4.5-5.3) mg/dL Alkaline Phosphatase (38-126) U/L Total Protein (6.3-8.2) g/dL Albumin (3.5-5.0) g/dL Crossmatch See Detail 08/16/16 08/16/16 08/17/16 Range/Units 20:31 23:44 01:32 WBC (3.8-10.6) k/uL RBC (4.30-5.90) m/uL Hgb (13.0-17.5) gm/dL Hct (39.0-53.0) % MCHC (31.0-37.0) g/dL RDW (11.5-15.5) % Neutrophils # (1.3-7.7) k/uL Lymphocytes # (1.0-4.8) k/uL Monocytes # (0-1.0) k/uL PT (9.0-12.0) sec APTT (22.0-30.0) sec ABG pCO2 (35-45) mmHg ABG pO2 (83-108) mmHg ABG HCO3 (21-25) mmol/L ABG Total CO2 (19-24) mmol/L ABG O2 Saturation (94-97) % BUN (9-20) mg/dL Glucose (74-99) mg/dL POC Glucose (mg/dL) 234 H 252 H 229 H (75-99) mg/dL Calcium (8.4-10.2) mg/dL Ionized Calcium [place] (4.5-5.3) mg/dL Alkaline Phosphatase (38-126) U/L Total Protein (6.3-8.2) g/dL Albumin (3.5-5.0) g/dL Crossmatch 08/17/16 08/17/16 08/17/16 Range/Units 04:43 06:00 08:23 WBC (3.8-10.6) k/uL RBC (4.30-5.90) m/uL Hgb (13.0-17.5) gm/dL Hct (39.0-53.0) % MCHC (31.0-37.0) g/dL RDW (11.5-15.5) % Neutrophils # (1.3-7.7) k/uL Lymphocytes # (1.0-4.8) k/uL Monocytes # (0-1.0) k/uL PT (9.0-12.0) sec APTT (22.0-30.0) sec ABG pCO2 (35-45) mmHg ABG pO2 (83-108) mmHg ABG HCO3 (21-25) mmol/L ABG Total CO2 (19-24) mmol/L ABG O2 Saturation (94-97) % BUN (9-20) mg/dL Glucose (74-99) mg/dL POC Glucose (mg/dL) 218 H 209 H 283 H (75-99) mg/dL Calcium (8.4-10.2) mg/dL Ionized Calcium [place] (4.5-5.3) mg/dL Alkaline Phosphatase (38-126) U/L Total Protein (6.3-8.2) g/dL Albumin (3.5-5.0) g/dL Crossmatch 08/17/16 08/17/16 08/17/16 Range/Units 09:26 09:56 10:23 WBC (3.8-10.6) k/uL RBC (4.30-5.90) m/uL Hgb (13.0-17.5) gm/dL Hct (39.0-53.0) % MCHC (31.0-37.0) g/dL RDW (11.5-15.5) % Neutrophils # (1.3-7.7) k/uL Lymphocytes # (1.0-4.8) k/uL Monocytes # (0-1.0) k/uL PT (9.0-12.0) sec APTT (22.0-30.0) sec ABG pCO2 (35-45) mmHg ABG pO2 (83-108) mmHg ABG HCO3 (21-25) mmol/L ABG Total CO2 (19-24) mmol/L ABG O2 Saturation (94-97) % BUN (9-20) mg/dL Glucose (74-99) mg/dL POC Glucose (mg/dL) 284 H 262 H 260 H (75-99) mg/dL Calcium (8.4-10.2) mg/dL Ionized Calcium [place] (4.5-5.3) mg/dL Alkaline Phosphatase (38-126) U/L Total Protein (6.3-8.2) g/dL Albumin (3.5-5.0) g/dL Crossmatch 08/17/16 08/17/16 08/17/16 Range/Units 10:53 12:06 12:59 WBC (3.8-10.6) k/uL RBC (4.30-5.90) m/uL Hgb (13.0-17.5) gm/dL Hct (39.0-53.0) % MCHC (31.0-37.0) g/dL RDW (11.5-15.5) % Neutrophils # (1.3-7.7) k/uL Lymphocytes # (1.0-4.8) k/uL Monocytes # (0-1.0) k/uL PT (9.0-12.0) sec APTT (22.0-30.0) sec ABG pCO2 (35-45) mmHg ABG pO2 (83-108) mmHg ABG HCO3 (21-25) mmol/L ABG Total CO2 (19-24) mmol/L ABG O2 Saturation (94-97) % BUN (9-20) mg/dL Glucose 190 H (74-99) mg/dL POC Glucose (mg/dL) 253 H 183 H (75-99) mg/dL Calcium (8.4-10.2) mg/dL Ionized Calcium [place] (4.5-5.3) mg/dL Alkaline Phosphatase (38-126) U/L Total Protein (6.3-8.2) g/dL Albumin (3.5-5.0) g/dL Crossmatch 08/17/16 08/17/16 08/17/16 Range/Units 14:08 14:08 14:08 WBC 18.3 H (3.8-10.6) k/uL RBC 2.93 L (4.30-5.90) m/uL Hgb 7.9 L D (13.0-17.5) gm/dL Hct 25.6 L (39.0-53.0) % MCHC 30.7 L (31.0-37.0) g/dL RDW 15.8 H (11.5-15.5) % Neutrophils # 15.6 H (1.3-7.7) k/uL Lymphocytes # 0.9 L (1.0-4.8) k/uL Monocytes # 1.2 H (0-1.0) k/uL PT (9.0-12.0) sec APTT (22.0-30.0) sec ABG pCO2 (35-45) mmHg ABG pO2 (83-108) mmHg ABG HCO3 (21-25) mmol/L ABG Total CO2 (19-24) mmol/L ABG O2 Saturation (94-97) % BUN 27 H (9-20) mg/dL Glucose 134 H (74-99) mg/dL POC Glucose (mg/dL) 147 H (75-99) mg/dL Calcium 7.3 L (8.4-10.2) mg/dL Ionized Calcium [place] 4.4 L (4.5-5.3) mg/dL Alkaline Phosphatase 28 L (38-126) U/L Total Protein 4.9 L (6.3-8.2) g/dL Albumin 3.2 L (3.5-5.0) g/dL Crossmatch 08/17/16 08/17/16 Range/Units 14:08 14:42 WBC (3.8-10.6) k/uL RBC (4.30-5.90) m/uL Hgb (13.0-17.5) gm/dL Hct (39.0-53.0) % MCHC (31.0-37.0) g/dL RDW (11.5-15.5) % Neutrophils # (1.3-7.7) k/uL Lymphocytes # (1.0-4.8) k/uL Monocytes # (0-1.0) k/uL PT 16.3 H (9.0-12.0) sec APTT 31.1 H (22.0-30.0) sec ABG pCO2 50 H (35-45) mmHg ABG pO2 296 H (83-108) mmHg ABG HCO3 27 H (21-25) mmol/L ABG Total CO2 29 H (19-24) mmol/L ABG O2 Saturation 100.0 H (94-97) % BUN (9-20) mg/dL Glucose (74-99) mg/dL POC Glucose (mg/dL) (75-99) mg/dL Calcium (8.4-10.2) mg/dL Ionized Calcium [place] (4.5-5.3) mg/dL Alkaline Phosphatase (38-126) U/L Total Protein (6.3-8.2) g/dL Albumin (3.5-5.0) g/dL Crossmatch Microbiology - Last 24 Hours (Table) 08/12/16 19:38 Blood Culture - Preliminary Blood No Growth after 96 hours Assessment and Plan Plan: Impression: 1 Acute non-ST elevation myocardial infarction, 2 Significant coronary artery disease based on cardiac catheterization. Status post coronary artery bypass grafting utilizing a JIN to the LAD, saphenous vein grafts to the diagonal and RCA. Postoperative day #0. 3 Ventilator dependence as an expected outcome to thoracotomy. 4 History of hypertension 5 History of dyslipidemia 6 Suspect some component of COPD, full PFT is pending, his initial bedside PFT is very poor because of mostly of poor effort. Although restriction is strongly suspected. Based on the PFT patient is definitely a high surgical risk , patient is a combined restrictive as well as obstructive lung disease. CT of the chest was reviewed, patient was diuresed, and improved significantly. 7 Suspect some component of congestive heart failure on presentation, improved on the follow-up chest x-ray. Hence cut down IV fluid to KVO, and continue diuretics. Plan: The patient was seen and evaluated by Dr. Rangel. His postop chest x-ray, arterial blood gases and labs were reviewed. We plan to utilize the rapid extubation protocol if possible. However, the patient does have suspected significant chronic obstructive pulmonary disease with poor FEV1 values and suspected restrictive lung disease. Prior to extubation we will be performing sedation holiday and obtain weaning parameters. We will decrease his FiO2 to 60 % based on the arterial blood gases. We will utilize bronchodilators every 4 hours. We will continue to monitor him here closely in the intensive care unit and make further recommendations based on his clinical status.
[2016-08-17] MEDS ORDERED: INSULIN REGULAR 100 UNIT in SODIUM CHLORIDE 0.9% 100 ML IV SCH (15:30)
[2016-08-17] MEDS: CLEVIDIPINE BUTYRATE 25 MG in EMPTY BAG 1 BAG IV SCH ×2 (15:36→17:20)
[2016-08-17] MEDS: LACTATED RINGERS 1,000 ML IV SCH (15:36)
[2016-08-17] MEDS: ceFAZolin 2 GM in SODIUM CHLORIDE 0.9% 100 ML IVPB SCH (15:38)
[2016-08-17 16:08] LABS: Glucose,Whole Blood 168 mg/dL (75-99)
[2016-08-17] MEDS: MAGNESIUM SULFATE-D5W PMX 1 GM in DEXTROSE/WATER 1 100ML.BAG IVPB SCH ×2 (16:41→17:58)
[2016-08-17 16:58] LABS: Glucose,Whole Blood 139 mg/dL (75-99)
[2016-08-17 17:12] LABS: Anisocytosis Slight; Basophils % (A) 0 %; CH 26.8; CHCM 30.9; Eosinophils % (A) 0 %; HCT 26.6 % (39.0-53.0); HDW 2.82; HGB 8.1 gm/dL (13.0-17.5); Hypochromasia Moderate; Luc # (Auto) 0.53; Luc % (Auto) 3; Lymphocytes # (A) 0.7 k/uL (1.0-4.8); Lymphocytes % (A) 5 %; MCH 26.5 pg (25.0-35.0); MCHC 30.4 g/dL (31.0-37.0); MCV 87.3 fL (80.0-100.0); Monocytes # (A) 0.9 k/uL (0-1.0); Monocytes % (A) 6 %; Neutrophils # (A) 13.7 k/uL (1.3-7.7); Neutrophils % (A) 86 %; RBC 3.05 m/uL (4.30-5.90); WBC 15.9 k/uL (3.8-10.6); WBC (Perox) 16.23
[2016-08-17 17:28] LABS: Anion Gap 7 mmol/L; Blood Urea Nitrogen 27 mg/dL (9-20); Calcium 7.3 mg/dL (8.4-10.2); Carbon Dioxide 28 mmol/L (22-30); Chloride 104 mmol/L (98-107); Glucose 139 mg/dL (74-99); Non-African American GFR(MDRD) >60 (>60 ml/min/1.73 sqM); Potassium 4.1 mmol/L (3.5-5.1); Sodium 139 mmol/L (137-145)
[2016-08-17 17:45] LABS: ABG Base Excess 1.1 mmol/L; ABG HCO3 26 mmol/L (21-25); ABG PCO2 45 mmHg (35-45); ABG PH 7.38 (7.35-7.45); ABG PO2 119 mmHg (83-108); ABG TCO2 27 mmol/L (19-24)
[2016-08-17 18:02] LABS: Glucose,Whole Blood 177 mg/dL (75-99)
[2016-08-17] MEDS: ACETAMINOPHEN IV (For NPO) 1,000 MG in EMPTY BAG 1 BAG IVPB SCH (18:04)
[2016-08-17 18:57] LABS: Glucose,Whole Blood 194 mg/dL (75-99)
[2016-08-17 19:51] LABS: Glucose,Whole Blood 185 mg/dL (75-99)
[2016-08-17 20:04] LABS: Anisocytosis Slight; Basophils % (A) 0 %; CH 26.8; CHCM 30.7; Eosinophils % (A) 0 %; HCT 27.6 % (39.0-53.0); HDW 2.84; HGB 8.5 gm/dL (13.0-17.5); Hypochromasia Moderate; Luc # (Auto) 0.31; Luc % (Auto) 2; Lymphocytes # (A) 0.6 k/uL (1.0-4.8); Lymphocytes % (A) 5 %; MCHC 30.7 g/dL (31.0-37.0); MCV 87.9 fL (80.0-100.0); Mean Platelet Volume 9.7; Monocytes # (A) 0.7 k/uL (0-1.0); Monocytes % (A) 5 %; Neutrophils # (A) 12.1 k/uL (1.3-7.7); Neutrophils % (A) 88 %; RBC 3.14 m/uL (4.30-5.90); RDW 16.1 % (11.5-15.5); WBC 13.7 k/uL (3.8-10.6); WBC (Perox) 14.21
[2016-08-17] MEDS: PANTOPRAZOLE 40 MG/10 ML VIAL IVP SCH (20:41)
[2016-08-17 21:07] LABS: Glucose,Whole Blood 168 mg/dL (75-99)
[2016-08-17 22:02] LABS: Glucose,Whole Blood 164 mg/dL (75-99)
[2016-08-17 23:15] LABS: Glucose,Whole Blood 156 mg/dL (75-99)
[2016-08-18 00:01] LABS: Glucose,Whole Blood 138 mg/dL (75-99)
[2016-08-18] MEDS: ACETAMINOPHEN IV (For NPO) 1,000 MG in EMPTY BAG 1 BAG IVPB SCH ×4 (00:07→17:24)
[2016-08-18] MEDS: HEPARIN SODIUM,PORCINE 5,000 UNIT/ML 1 ML VIAL SQ SCH ×3 (00:08→15:10)
[2016-08-18] MEDS: methylPREDNISolone SOD SUCCI 125 MG/2 ML VIAL IV SCH ×3 (00:08→13:26)
[2016-08-18] MEDS: ceFAZolin 2 GM in SODIUM CHLORIDE 0.9% 100 ML IVPB SCH ×2 (00:11→09:12)
[2016-08-18 01:06] LABS: Glucose,Whole Blood 125 mg/dL (75-99)
[2016-08-18 02:08] LABS: Glucose,Whole Blood 121 mg/dL (75-99)
[2016-08-18 03:04] LABS: Glucose,Whole Blood 118 mg/dL (75-99)
[2016-08-18 04:16] LABS: Glucose,Whole Blood 118 mg/dL (75-99)
[2016-08-18 05:03] LABS: Glucose,Whole Blood 122 mg/dL (75-99)
[2016-08-18] MEDS ORDERED: ALBUMIN HUMAN 5% 250 ML IVPB ONE (05:08)
[2016-08-18 05:31] LABS: Basophils % (A) 0 %; CH 26.3; CHCM 30.1; Eosinophils % (A) 0 %; HCT 30.7 % (39.0-53.0); HDW 2.86; HGB 9.5 gm/dL (13.0-17.5); Hypochromasia Marked; Luc # (Auto) 0.22; Luc % (Auto) 2; Lymphocytes # (A) 0.4 k/uL (1.0-4.8); Lymphocytes % (A) 3 %; MCHC 30.7 g/dL (31.0-37.0); MCV 87.9 fL (80.0-100.0); Mean Platelet Volume 8.8; Monocytes # (A) 0.6 k/uL (0-1.0); Monocytes % (A) 5 %; Neutrophils # (A) 10.7 k/uL (1.3-7.7); Neutrophils % (A) 90 %; RDW 15.9 % (11.5-15.5); WBC (Perox) 12.43
[2016-08-18 06:05] LABS: Ionized Calcium 4.7 mg/dL (4.5-5.3)
[2016-08-18 06:06] LABS: Glucose,Whole Blood 134 mg/dL (75-99)
[2016-08-18 06:20] LABS: ALT 67 U/L (21-72); AST 90 U/L (17-59); Alkaline Phosphatase 38 U/L (38-126); Anion Gap 6 mmol/L; Blood Urea Nitrogen 25 mg/dL (9-20); Calcium 7.7 mg/dL (8.4-10.2); Carbon Dioxide 28 mmol/L (22-30); Chloride 105 mmol/L (98-107); Glucose 118 mg/dL (74-99); Magnesium 2.6 mg/dL (1.6-2.3); Non-African American GFR(MDRD) >60 (>60 ml/min/1.73 sqM); Potassium 4.3 mmol/L (3.5-5.1); Sodium 139 mmol/L (137-145); Total Bilirubin 0.4 mg/dL (0.2-1.3); Total Protein 5.2 g/dL (6.3-8.2)
[2016-08-18 07:08] LABS: Glucose,Whole Blood 141 mg/dL (75-99)
[2016-08-18] MEDS: IPRATROPIUM-ALBUTEROL 3 ML NEB INHALATION SCH ×4 (07:54→19:34)
--- NOTE | 2016-08-18 08:08 | OP ---
DATE OF SERVICE: SURGEON: Terrie James MD ASSISTANT PROFESSOR SURGICAL TECHNOLOGY: TENA GARCIA, ARASH PALACIOS, PHILIP FLOR PREOPERATIVE DIAGNOSES: 1. Non-ST elevation myocardial infarction with double vessel coronary artery disease, preserved left ventricular function, poorly controlled diabetes with micro and macrovascular complication. 2. Chronic kidney disease. 3. Retinopathy. 4. Obesity. 5. Hypertension. 6. Hyperlipidemia. 7. Obstructive sleep apnea. POSTOPERATIVE DIAGNOSES: 1. Non-ST elevation myocardial infarction with double vessel coronary artery disease, preserved left ventricular function, poorly controlled diabetes with micro and macrovascular complication. 2. Chronic kidney disease. 3. Retinopathy. 4. Obesity. 5. Hypertension. 6. Hyperlipidemia. 7. Obstructive sleep apnea. OPERATION: 1. Non- aortic clamp off pump triple coronary artery bypass grafting using the left internal mammary artery to the left anterior descending artery, reverse saphenous vein graft connected to the aorta using the PAS port device and connected distally to the first diagonal artery, reverse saphenous vein graft connected to the aorta using the PAS port device and connected distally to the right coronary artery in the groove after the PDA takeoff. 2. Endoscopic harvesting of left greater saphenous vein. 3. Sternal plating and sternal cable using [employer]erc[employer] system. 4. Transesophageal echocardiogram and epiaortic scanning. 5. Intraoperative graft flow measurements using the medicine machine flow. ANESTHESIA: ESTIMATED BLOOD LOSS: SPECIMENS REMOVED: COMPLICATIONS: OPERATIVE FINDINGS: INDICATIONS FOR SURGERY: Patient is a 55-year-old gentleman with the above risk factors who was admitted to the hospital with a 2 days scattering chest pain. Patient was ruled in for non-ST elevation myocardial infarction. Patient had a cardiac catheterization that showed totally occluded right coronary artery at the bifurcation with faint distality. Proximal disease of the LAD involving the diagonal artery, large open ramus intermedius distribution of the circumflex with circumflex occluded beyond that in the groove. Patient modified Luisito's test was very equivocal on the left side and we will not be using the radial artery. He has got poorly controlled with an HbA1c at 9 along with obesity and that in my mind represent contraindications using his other mammary artery, especially in view of the fact that I do not have a second large left-sided target. Risks, benefits, and alternatives were discussed with him. He understood them and agreed to proceed. DESCRIPTION OF THE PROCEDURE: Patient had a Bainbridge-Dangelo catheter inserted in the preoperative holding area and had PA pressure of 34/13 and cardiac index of 3.1. He had a right radial arterial line. He was brought to the operating room, where general endotracheal anesthesia was induced uneventfully. Brumfield catheter was inserted. The chest, abdomen and both lower extremities were prepped and draped using ChloraPrep. Ioban was used to cover the skin. Patient received 2 grams of cefazolin intravenously. Transesophageal echocardiogram confirmed the preoperative finding of mild left ventricular dysfunction with inferior hypokinesia with no significant valvular abnormality. Midline sternotomy was performed and the bone was relatively thin on this large jazmine. There was a large thick subcutaneous fat. The sternal bleeding was controlled with ostine. No bone wax was used. The left hemisternum was elevated and the left internal mammary artery was harvested in a somewhat skeletonized fashion. The left pleura was intentionally opened in this process and was drained with a 28 Sudanese chest tube. The right pleura remained grossly intact. In the same setting, the left greater saphenous vein was harvested endoscopically from groin to above ankle level after administration of 2500 units of heparin. The branches were tied. The leg incisions were closed over a drain. The vein appeared to be of reasonable quality, mildly thickened, around 4 mm in diameter. Mediastinal fat was transected between 2 ties and epiaortic scanning revealed normal intimal thickening but no protruding atheroma. Pericardium was opened in an inverted T-fashion and a pericardial cradle was created. The aorta was relatively short and posteriorly. There was calcific disease into the right coronary artery after the bifurcation, proximal calcific disease of the LAD and the diagonal artery in a diffuse fashion proximally. The Acrobat system along with the exposed device were used to perform the surgery on a beating heart. Heparinization to achieve an ACT above 250 seconds was administered. The ACT was repeated every 20 to 30 minutes and additional heparin given if needed. The mammary artery was doubly clipped distally and transected, had an excellent pulsatile flow in it and was around 1.7 mm in diameter. The first distal anastomosis was between the left internal mammary artery and the distal aspect of the left anterior descending artery, which was opened, had reasonable flow in it accepted a 1.75 mm flow shunt using Prolene 7-0 in continuous fashion. The shunt was removed before completing the anastomosis, which was well tolerated. The mammary artery pedicle was affixed to the epicardium with a single Prolene 6-0. Flow measurement revealed excellent parameters. Subsequently we looked at the inferior wall and the posterior descending artery was a small vessel. I looked at the first diagonal artery and despite diffuse disease, I could see a soft spot proximally I decided to bypass it. We at this point looked at the right coronary artery in the groove beyond the takeoff of the posterior descending artery, beyond the calcific bifurcation and I identified it was around 1.75 mm at that level, that will be the site for bypass. The distance between those 2 potential targets and the aorta were measured. Two segments of vein were fashioned accordingly, loaded on 2 PAS port device and deployed on the proximal aspect of the anterior aorta for the vein going to the RCA and on the mid ascending aorta to the left side for the vein going to the diagonal artery. Both proximal anastomosis were hemostatic and there was excellent flow in the distal end of the vein. The second distal anastomosis between the segment of vein connected to the aorta and the first diagonal artery, which was opened proximally, accepted a 1.5 mm shunt using Prolene 7-0 in continuous fashion. The shunt was removed and the vein was de-aired before completing the anastomosis, which was well tolerated. Graft flow measurements revealed a flow of 61 mL per minute, pulsatility index of 1.4, diastolic fraction of 61%, showing excellent graft. The third and last distal anastomosis was between the other vein graft connected to the aorta and the right coronary artery in the groove beyond the takeoff of the PDA. That artery was opened, had reasonable collateral flow in it, accepted a 1.5 mm shunt and the anastomosis was completed using Prolene 7-0 in continuous fashion. The vein was de-aired and the shunt was removed before completing the anastomosis, which was well tolerated. Flow measurement revealed a flow of 70 mL milliliters per minute, pulsatility index of 3.5, diastolic filling of 67%, also, showing excellent graft. With that test dose and full dose protamine was given. A groove was made in the left pleural pericardial fat to accommodate the mammary artery medial to the lung and away from the posterior sternal table. Two substernal chest tubes were placed. Pericardial fat was approximated over the heart and the grafts. After ensuring adequate hemostasis and hemodynamics and after correct sponge, instrument and needle count, the sternum was approximated using a combination of [place] cable and a total of 3 sternal plates. The manubrial plate was in a V-shape and was affixed with four 16 mm screws. The sternal body plates were two X-shaped plates affixed with 14 mm screw for the mid plate and 12 mm screw for the lower plates. Thorough irrigation with cefazolin followed. The rest of the closure proceeded in layers. Skin glue sealant was applied. Patient did not receive any blood bank product and received 400 mL of Cell Saver blood. He was transferred to the ICU on low-dose nitroglycerin with a mean arterial pressure of 68. PA pressure 33/15. Normal EKG and an index of 2.2. MTDD
--- NOTE | 2016-08-18 08:09 | XR ---
EXAMINATION TYPE: XR chest 1V portable DATE OF EXAM: 08/18/2016 6:26 AM COMPARISON: Prior chest x-ray 17 August 2016 HISTORY: Postop cardiac surgery TECHNIQUE: Single frontal view of the chest is obtained. FINDINGS: There is been interval removal of the endotracheal and NG tube. Left chest tube, right jug ular central venous catheter, overlying cardiac leads again noted. No sizable pneumothorax or pleural effusion. Heart remains enlarged. Lung volumes, aeration somewhat improved. IMPRESSION: Interval extubation. Improvement in aeration in volume status
[2016-08-18 08:13] LABS: Glucose,Whole Blood 130 mg/dL (75-99)
[2016-08-18] MEDS: ATORVASTATIN 40 MG TAB PO SCH (09:13)
[2016-08-18] MEDS: ASPIRIN 325 MG TAB PO SCH (09:13)
[2016-08-18] MEDS: GABAPENTIN 300 MG CAP PO SCH ×2 (09:13→20:54)
[2016-08-18] MEDS: CLOPIDOGREL 75 MG TAB PO SCH (09:13)
[2016-08-18] MEDS: METOPROLOL TARTRATE 25 MG TAB PO SCH ×2 (09:13→20:55)
[2016-08-18] MEDS: MUPIROCIN 2% OINT 22 GM TUBE NASAL SCH ×2 (09:14→20:55)
[2016-08-18] MEDS: PANTOPRAZOLE 40 MG/10 ML VIAL IVP SCH (09:14)
--- NOTE | 2016-08-18 09:19 | PN ---
DATE OF SERVICE: 08/17/2016 This 55-year-old gentleman was admitted with coronary artery bypass grafting x3 today by Cardiothoracic Surgery. The patient is extubated. Patient was closely monitored in the ICU. No chest pain palpation. On exam, pulse is 77, blood pressure 120/57, respiratory rate 15, temperature 97.1, pulse ox 97% on 4-L. HEENT: Conjunctivae normal. NECK: No jugular venous distention. CARDIOVASCULAR: S1 and S2, muffled. RESPIRATORY: Breath sounds diminished at the bases. A few scattered rhonchi and crackles. ABDOMEN: Soft, nontender. LEGS: No edema, no swelling. NERVOUS SYSTEM: No focal deficits. LABS: WBC 13.6, hemoglobin 8.5, glucose 185 and 168. ASSESSMENT: 1. Acute non-ST segment elevation myocardial infarction, status post coronary artery bypass grafting x3. 2. Status post cardiac catheterization and coronary artery bypass graft involving the left anterior descending and distal right coronary artery. 3. Diabetes mellitus type 2 on insulin drip. 4. Chronic kidney disease stage III, present on admission. 5. Hypertension. 6. Chronic obstructive pulmonary disease. 7. Possible congestive heart failure acute exacerbation with acute systolic dysfunction, ejection fraction 45% to 50%, present on admission. 8. History of degenerative joint disease with osteoarthritis. 9. Charcot joints. 10. History of nicotine dependence. 11. Heparin monitoring. 12. Hyperlipidemia. 13. Anemia of chronic disease secondary to chronic kidney disease. 14. Acute hypoxic respiratory failure present on admission. 15. Ascending aortic aneurysm 4 cm incidental finding per CT. 16. Left kidney cyst focus 3.[address] 17. Fatty liver. 18. Hilar and subcarinal nodes. 19. Obesity with body mass index of 37.9. 20. FULL CODE. RECOMMENDATIONS AND DISCUSSION: In this 55-year-old gentleman who presented with multiple complex medical issues, will monitor the patient closely. Continue the current medications. Continue symptomatic treatment. Otherwise, at this time I would recommend continue insulin drip. The patient has brittle diabetes mellitus type 2. Incentive spirometry. Closely monitor. Further recommendations to follow.
[2016-08-18 09:28] LABS: Glucose,Whole Blood 277 mg/dL (75-99)
[2016-08-18 10:29] LABS: Glucose,Whole Blood 240 mg/dL (75-99)
[2016-08-18] MEDS: CALCITRIOL 0.25 MCG CAP PO SCH (10:37)
[2016-08-18] MEDS: amLODIPine 5 MG TAB PO SCH (10:37)
--- NOTE | 2016-08-18 10:41 | P.PN ---
Subjective Principal diagnosis: Non-ST elevation myocardial infarction with double vessel coronary artery disease, preserved left ventricular function, poorly controlled diabetes with micro-and macrovascular complication. Chronic kidney disease. Retinopathy. Obesity. Hypertension. Hyperlipidemia. Obstructive sleep apnea. POD #1 non-aortic clamp off pump triple coronary artery bypass grafting using the left internal mammary artery to the left anterior descending artery, reverse saphenous vein graft connected to the aorta using the PAS-Port device and connected distally to the first diagonal artery, reverse saphenous vein graft connected to the aorta using the PAS-Port device and connected distally to the right coronary artery in the groove after the PDA takeoff. Endoscopic harvesting of the left greater saphenous vein. Sternal plating and sternal cable using [employer] system. Transesophageal echocardiogram and epi- aortic scanning. Intraoperative graft flow measurements using the [employer] machine. Patient currently sitting up in the recliner. No apparent distress. Has no complaints at this time. Objective - Vital Signs Vital signs: Vital Signs Temp 97.3 F L 08/18/16 07:00 Pulse 84 08/18/16 07:00 Resp 27 H 08/18/16 07:00 BP 109/55 08/17/16 21:00 Pulse Ox 99 08/18/16 07:00 Intake & Output 08/17/16 08/18/16 08/18/16 18:59 06:59 18:59 Intake Total 051.115 1326.394 59 Output Total 2982 1155 80 Balance -2066.083 -37.606 -21 Weight 123.2 kg Intake: IV 365 779 59 0.9 for cardiac output 220 130 0.9 for pressure bag 45 99 9 Lactated Ringers 1,000 ml 550 50 @ 20 mls/hr IV .Q24H ALE Rx#:[id number] cefTRIAXone 1,000 mg In 100 Sodium Chloride 0.9% 50 ml @ 100 mls/hr IVPB Q24H ALE Rx#:[id number] Intake, IV Titration 550.917 338.394 Amount ACETAMINOPHEN IV (For NPO 100 200 ) 1,000 mg In Empty Bag 1 bag @ 400 mls/hr IVPB Q6HR ALE Rx#:[id number] Clevidipine Butyrate 25 3.233 mg In Empty Bag 1 bag @ 1 MG/HR 2 mls/hr IV .Q24H ALE Rx#:[id number] Insulin Regular 100 unit 7.154 38.394 In Sodium Chloride 0.9% 100 ml @ Per Protocol IV .Q0M ALE Rx#:[id number] Lactated Ringers 1,000 ml 230 @ 20 mls/hr IV .Q24H ALE Rx#:[id number] Magnesium Sulfate-D5w Pmx 200 1 gm In Dextrose/Water 1 100ml.bag @ 100 mls/hr IVPB Q1H ALE Rx#: [id number] Nitroglycerin-D5w Pmx 50 4.5 mg In Dextrose/Water 1 250ml.bag @ 5 MCG/MIN 1.5 mls/hr IV .Q24H ALE Rx#: [id number] Propofol 500 mg In Empty 6.03 Bag 1 bag @ Titrate IV . Q0M ALE Rx#:[id number] ceFAZolin 2 gm In Sodium 100 Chloride 0.9% 100 ml @ 100 mls/hr IVPB Q8HR ALE Rx#:[id number] Output: Chest Tube Drainage 136 550 30 Bilateral Mediastinal 131 340 10 Left Lateral Chest 5 210 20 Drainage 45 70 Left Lower Calf 45 70 Urine 1801 535 50 Estimated Blood Loss 1000 Other: Voiding Method Indwelling Catheter Indwelling Catheter ABP, PAP, CO, CI - Last Documented Arterial Blood Pressure 130/50 Pulmonary Artery Pressure 31/10 Cardiac Output 6.1 Cardiac Index 2.7 - Constitutional General appearance: Present: cooperative, no acute distress, obese - Respiratory Details: Lungs sounds diminished bilaterally. Respirations even, nonlabored. Currently on 2 L nasal cannula. Able to achieve 1250 mL on incentive spirometry. Effective cough. Mediastinal chest tube to -20 cm wall suction, drained 260 mL serosanguineous fluid in the last 8 hours, 550 mL since surgery. Left pleural chest tube to -20 cm wall suction, drained 170 mL serosanguineous fluid in the last 8 hours, 210 mL since surgery. Positive air leak and the mediastinal chest tube. - Cardiovascular Details: S1, S2 present. Regular rate and rhythm, normal sinus rhythm on telemetry. Sternum stable. No edema present. Heart hugger in place with patient demonstrating appropriate use. Teds, SCDs present. - Gastrointestinal Gastrointestinal Comment(s): Abdomen soft, nontender, nondistended. Hypoactive bowel sounds 4 quadrants. - Genitourinary Genitourinary Comment(s): [place] present draining clear, yellow urine. Approximately 30-50 mL per hour. - Integumentary Integumentary Comment(s): Anterior chest incision covered with dry intact silver dressing. Left lower extremity EVH site well approximated with SUNDAY draining minimal bloody fluid. - Musculoskeletal Musculoskeletal: Present: strength equal bilaterally - Psychiatric Psychiatric: Present: A&O x's 3, appropriate affect, intact judgment & insight - Allied health notes Allied health notes reviewed: nursing - Labs CBC & Chem 7: 08/18/16 05:01 08/18/16 05:01 Labs: Abnormal Lab Results - Last 24 Hours (Table) 08/14/16 08/17/16 08/17/16 Range/Units 12:35 08:23 09:26 WBC (3.8-10.6) k/uL RBC (4.30-5.90) m/uL Hgb (13.0-17.5) gm/dL Hct (39.0-53.0) % MCHC (31.0-37.0) g/dL RDW (11.5-15.5) % Neutrophils # (1.3-7.7) k/uL Lymphocytes # (1.0-4.8) k/uL Monocytes # (0-1.0) k/uL PT (9.0-12.0) sec APTT (22.0-30.0) sec ABG pCO2 (35-45) mmHg ABG pO2 (83-108) mmHg ABG HCO3 (21-25) mmol/L ABG Total CO2 (19-24) mmol/L ABG O2 Saturation (94-97) % BUN (9-20) mg/dL Glucose (74-99) mg/dL POC Glucose (mg/dL) 283 H 284 H (75-99) mg/dL Calcium (8.4-10.2) mg/dL Ionized Calcium [place] (4.5-5.3) mg/dL Magnesium (1.6-2.3) mg/dL AST (17-59) U/L Alkaline Phosphatase (38-126) U/L Total Protein (6.3-8.2) g/dL Albumin (3.5-5.0) g/dL Crossmatch See Detail 08/17/16 08/17/16 08/17/16 Range/Units 09:56 10:23 10:53 WBC (3.8-10.6) k/uL RBC (4.30-5.90) m/uL Hgb (13.0-17.5) gm/dL Hct (39.0-53.0) % MCHC (31.0-37.0) g/dL RDW (11.5-15.5) % Neutrophils # (1.3-7.7) k/uL Lymphocytes # (1.0-4.8) k/uL Monocytes # (0-1.0) k/uL PT (9.0-12.0) sec APTT (22.0-30.0) sec ABG pCO2 (35-45) mmHg ABG pO2 (83-108) mmHg ABG HCO3 (21-25) mmol/L ABG Total CO2 (19-24) mmol/L ABG O2 Saturation (94-97) % BUN (9-20) mg/dL Glucose (74-99) mg/dL POC Glucose (mg/dL) 262 H 260 H 253 H (75-99) mg/dL Calcium (8.4-10.2) mg/dL Ionized Calcium [place] (4.5-5.3) mg/dL Magnesium (1.6-2.3) mg/dL AST (17-59) U/L Alkaline Phosphatase (38-126) U/L Total Protein (6.3-8.2) g/dL Albumin (3.5-5.0) g/dL Crossmatch 08/17/16 08/17/16 08/17/16 Range/Units 12:06 12:59 14:08 WBC (3.8-10.6) k/uL RBC (4.30-5.90) m/uL Hgb (13.0-17.5) gm/dL Hct (39.0-53.0) % MCHC (31.0-37.0) g/dL RDW (11.5-15.5) % Neutrophils # (1.3-7.7) k/uL Lymphocytes # (1.0-4.8) k/uL Monocytes # (0-1.0) k/uL PT (9.0-12.0) sec APTT (22.0-30.0) sec ABG pCO2 (35-45) mmHg ABG pO2 (83-108) mmHg ABG HCO3 (21-25) mmol/L ABG Total CO2 (19-24) mmol/L ABG O2 Saturation (94-97) % BUN (9-20) mg/dL Glucose 190 H (74-99) mg/dL POC Glucose (mg/dL) 183 H 147 H (75-99) mg/dL Calcium (8.4-10.2) mg/dL Ionized Calcium [place] (4.5-5.3) mg/dL Magnesium (1.6-2.3) mg/dL AST (17-59) U/L Alkaline Phosphatase (38-126) U/L Total Protein (6.3-8.2) g/dL Albumin (3.5-5.0) g/dL Crossmatch 08/17/16 08/17/16 08/17/16 Range/Units 14:08 14:08 14:08 WBC 18.3 H (3.8-10.6) k/uL RBC 2.93 L (4.30-5.90) m/uL Hgb 7.9 L D (13.0-17.5) gm/dL Hct 25.6 L (39.0-53.0) % MCHC 30.7 L (31.0-37.0) g/dL RDW 15.8 H (11.5-15.5) % Neutrophils # 15.6 H (1.3-7.7) k/uL Lymphocytes # 0.9 L (1.0-4.8) k/uL Monocytes # 1.2 H (0-1.0) k/uL PT 16.3 H (9.0-12.0) sec APTT 31.1 H (22.0-30.0) sec ABG pCO2 (35-45) mmHg ABG pO2 (83-108) mmHg ABG HCO3 (21-25) mmol/L ABG Total CO2 (19-24) mmol/L ABG O2 Saturation (94-97) % BUN 27 H (9-20) mg/dL Glucose 134 H (74-99) mg/dL POC Glucose (mg/dL) (75-99) mg/dL Calcium 7.3 L (8.4-10.2) mg/dL Ionized Calcium [place] 4.4 L (4.5-5.3) mg/dL Magnesium (1.6-2.3) mg/dL AST (17-59) U/L Alkaline Phosphatase 28 L (38-126) U/L Total Protein 4.9 L (6.3-8.2) g/dL Albumin 3.2 L (3.5-5.0) g/dL Crossmatch 08/17/16 08/17/16 08/17/16 Range/Units 14:42 15:02 16:07 WBC (3.8-10.6) k/uL RBC (4.30-5.90) m/uL Hgb (13.0-17.5) gm/dL Hct (39.0-53.0) % MCHC (31.0-37.0) g/dL RDW (11.5-15.5) % Neutrophils # (1.3-7.7) k/uL Lymphocytes # (1.0-4.8) k/uL Monocytes # (0-1.0) k/uL PT (9.0-12.0) sec APTT (22.0-30.0) sec ABG pCO2 50 H (35-45) mmHg ABG pO2 296 H (83-108) mmHg ABG HCO3 27 H (21-25) mmol/L ABG Total CO2 29 H (19-24) mmol/L ABG O2 Saturation 100.0 H (94-97) % BUN (9-20) mg/dL Glucose (74-99) mg/dL POC Glucose (mg/dL) 137 H 168 H (75-99) mg/dL Calcium (8.4-10.2) mg/dL Ionized Calcium [place] (4.5-5.3) mg/dL Magnesium (1.6-2.3) mg/dL AST (17-59) U/L Alkaline Phosphatase (38-126) U/L Total Protein (6.3-8.2) g/dL Albumin (3.5-5.0) g/dL Crossmatch 08/17/16 08/17/16 08/17/16 Range/Units 16:55 17:00 17:00 WBC 15.9 H (3.8-10.6) k/uL RBC 3.05 L (4.30-5.90) m/uL Hgb 8.1 L (13.0-17.5) gm/dL Hct 26.6 L (39.0-53.0) % MCHC 30.4 L (31.0-37.0) g/dL RDW 16.0 H (11.5-15.5) % Neutrophils # 13.7 H (1.3-7.7) k/uL Lymphocytes # 0.7 L (1.0-4.8) k/uL Monocytes # (0-1.0) k/uL PT (9.0-12.0) sec APTT (22.0-30.0) sec ABG pCO2 (35-45) mmHg ABG pO2 (83-108) mmHg ABG HCO3 (21-25) mmol/L ABG Total CO2 (19-24) mmol/L ABG O2 Saturation (94-97) % BUN 27 H (9-20) mg/dL Glucose 139 H (74-99) mg/dL POC Glucose (mg/dL) 139 H (75-99) mg/dL Calcium 7.3 L (8.4-10.2) mg/dL Ionized Calcium [place] (4.5-5.3) mg/dL Magnesium (1.6-2.3) mg/dL AST (17-59) U/L Alkaline Phosphatase (38-126) U/L Total Protein (6.3-8.2) g/dL Albumin (3.5-5.0) g/dL Crossmatch 08/17/16 08/17/16 08/17/16 Range/Units 17:26 17:57 18:54 WBC (3.8-10.6) k/uL RBC (4.30-5.90) m/uL Hgb (13.0-17.5) gm/dL Hct (39.0-53.0) % MCHC (31.0-37.0) g/dL RDW (11.5-15.5) % Neutrophils # (1.3-7.7) k/uL Lymphocytes # (1.0-4.8) k/uL Monocytes # (0-1.0) k/uL PT (9.0-12.0) sec APTT (22.0-30.0) sec ABG pCO2 (35-45) mmHg ABG pO2 119 H (83-108) mmHg ABG HCO3 26 H (21-25) mmol/L ABG Total CO2 27 H (19-24) mmol/L ABG O2 Saturation 99.0 H (94-97) % BUN (9-20) mg/dL Glucose (74-99) mg/dL POC Glucose (mg/dL) 177 H 194 H (75-99) mg/dL Calcium (8.4-10.2) mg/dL Ionized Calcium [place] (4.5-5.3) mg/dL Magnesium (1.6-2.3) mg/dL AST (17-59) U/L Alkaline Phosphatase (38-126) U/L Total Protein (6.3-8.2) g/dL Albumin (3.5-5.0) g/dL Crossmatch 08/17/16 08/17/16 08/17/16 Range/Units 19:49 19:52 21:05 WBC 13.7 H (3.8-10.6) k/uL RBC 3.14 L (4.30-5.90) m/uL Hgb 8.5 L (13.0-17.5) gm/dL Hct 27.6 L (39.0-53.0) % MCHC 30.7 L (31.0-37.0) g/dL RDW 16.1 H (11.5-15.5) % Neutrophils # 12.1 H (1.3-7.7) k/uL Lymphocytes # 0.6 L (1.0-4.8) k/uL Monocytes # (0-1.0) k/uL PT (9.0-12.0) sec APTT (22.0-30.0) sec ABG pCO2 (35-45) mmHg ABG pO2 (83-108) mmHg ABG HCO3 (21-25) mmol/L ABG Total CO2 (19-24) mmol/L ABG O2 Saturation (94-97) % BUN (9-20) mg/dL Glucose (74-99) mg/dL POC Glucose (mg/dL) 185 H 168 H (75-99) mg/dL Calcium (8.4-10.2) mg/dL Ionized Calcium [place] (4.5-5.3) mg/dL Magnesium (1.6-2.3) mg/dL AST (17-59) U/L Alkaline Phosphatase (38-126) U/L Total Protein (6.3-8.2) g/dL Albumin (3.5-5.0) g/dL Crossmatch 08/17/16 08/17/16 08/17/16 Range/Units 22:00 23:12 23:58 WBC (3.8-10.6) k/uL RBC (4.30-5.90) m/uL Hgb (13.0-17.5) gm/dL Hct (39.0-53.0) % MCHC (31.0-37.0) g/dL RDW (11.5-15.5) % Neutrophils # (1.3-7.7) k/uL Lymphocytes # (1.0-4.8) k/uL Monocytes # (0-1.0) k/uL PT (9.0-12.0) sec APTT (22.0-30.0) sec ABG pCO2 (35-45) mmHg ABG pO2 (83-108) mmHg ABG HCO3 (21-25) mmol/L ABG Total CO2 (19-24) mmol/L ABG O2 Saturation (94-97) % BUN (9-20) mg/dL Glucose (74-99) mg/dL POC Glucose (mg/dL) 164 H 156 H 138 H (75-99) mg/dL Calcium (8.4-10.2) mg/dL Ionized Calcium [place] (4.5-5.3) mg/dL Magnesium (1.6-2.3) mg/dL AST (17-59) U/L Alkaline Phosphatase (38-126) U/L Total Protein (6.3-8.2) g/dL Albumin (3.5-5.0) g/dL Crossmatch 08/18/16 08/18/16 08/18/16 Range/Units 01:02 02:05 03:03 WBC (3.8-10.6) k/uL RBC (4.30-5.90) m/uL Hgb (13.0-17.5) gm/dL Hct (39.0-53.0) % MCHC (31.0-37.0) g/dL RDW (11.5-15.5) % Neutrophils # (1.3-7.7) k/uL Lymphocytes # (1.0-4.8) k/uL Monocytes # (0-1.0) k/uL PT (9.0-12.0) sec APTT (22.0-30.0) sec ABG pCO2 (35-45) mmHg ABG pO2 (83-108) mmHg ABG HCO3 (21-25) mmol/L ABG Total CO2 (19-24) mmol/L ABG O2 Saturation (94-97) % BUN (9-20) mg/dL Glucose (74-99) mg/dL POC Glucose (mg/dL) 125 H 121 H 118 H (75-99) mg/dL Calcium (8.4-10.2) mg/dL Ionized Calcium [place] (4.5-5.3) mg/dL Magnesium (1.6-2.3) mg/dL AST (17-59) U/L Alkaline Phosphatase (38-126) U/L Total Protein (6.3-8.2) g/dL Albumin (3.5-5.0) g/dL Crossmatch 08/18/16 08/18/16 08/18/16 Range/Units 04:12 04:59 05:01 WBC 12.0 H (3.8-10.6) k/uL RBC 3.50 L (4.30-5.90) m/uL Hgb 9.5 L (13.0-17.5) gm/dL Hct 30.7 L (39.0-53.0) % MCHC 30.7 L (31.0-37.0) g/dL RDW 15.9 H (11.5-15.5) % Neutrophils # 10.7 H (1.3-7.7) k/uL Lymphocytes # 0.4 L (1.0-4.8) k/uL Monocytes # (0-1.0) k/uL PT (9.0-12.0) sec APTT (22.0-30.0) sec ABG pCO2 (35-45) mmHg ABG pO2 (83-108) mmHg ABG HCO3 (21-25) mmol/L ABG Total CO2 (19-24) mmol/L ABG O2 Saturation (94-97) % BUN (9-20) mg/dL Glucose (74-99) mg/dL POC Glucose (mg/dL) 118 H 122 H (75-99) mg/dL Calcium (8.4-10.2) mg/dL Ionized Calcium [place] (4.5-5.3) mg/dL Magnesium (1.6-2.3) mg/dL AST (17-59) U/L Alkaline Phosphatase (38-126) U/L Total Protein (6.3-8.2) g/dL Albumin (3.5-5.0) g/dL Crossmatch 08/18/16 08/18/16 08/18/16 Range/Units 05:01 06:03 07:06 WBC (3.8-10.6) k/uL RBC (4.30-5.90) m/uL Hgb (13.0-17.5) gm/dL Hct (39.0-53.0) % MCHC (31.0-37.0) g/dL RDW (11.5-15.5) % Neutrophils # (1.3-7.7) k/uL Lymphocytes # (1.0-4.8) k/uL Monocytes # (0-1.0) k/uL PT (9.0-12.0) sec APTT (22.0-30.0) sec ABG pCO2 (35-45) mmHg ABG pO2 (83-108) mmHg ABG HCO3 (21-25) mmol/L ABG Total CO2 (19-24) mmol/L ABG O2 Saturation (94-97) % BUN 25 H (9-20) mg/dL Glucose 118 H (74-99) mg/dL POC Glucose (mg/dL) 134 H 141 H (75-99) mg/dL Calcium 7.7 L (8.4-10.2) mg/dL Ionized Calcium [place] (4.5-5.3) mg/dL Magnesium 2.6 H (1.6-2.3) mg/dL AST 90 H (17-59) U/L Alkaline Phosphatase (38-126) U/L Total Protein 5.2 L (6.3-8.2) g/dL Albumin 3.2 L (3.5-5.0) g/dL Crossmatch Microbiology - Last 24 Hours (Table) 08/12/16 19:38 Blood Culture - Preliminary Blood No Growth after 120 hours - Imaging and Cardiology Chest x-ray: report reviewed, image reviewed Assessment and Plan (1) NSTEMI (non-ST elevated myocardial infarction) Status: Acute (2) Acute exacerbation of chronic obstructive airways disease Status: Acute (3) History of chronic kidney disease Status: Acute (4) Insulin dependent diabetes mellitus Status: Acute (5) Hypertension Status: Acute (6) Hyperlipidemia associated with type 2 diabetes mellitus Status: Acute (7) Obesity (BMI 30-39.9) Status: Acute (8) Obstructive sleep apnea on CPAP Status: Acute (9) Secondary hyperparathyroidism of renal origin Status: Acute (10) Diabetic gastroparesis associated with type 2 diabetes mellitus Status: Acute Plan: 1. Continue aspirin, beta huey, statin, heparin, Plavix. 2. Will DC nitro drip. Will restart Norvasc. 3. Will DC [place]. 4. Encourage incentive spirometry use. Solu-Medrol per pulmonology. 5. Insulin and diabetic management per primary service 6. Will add home meds of Neurontin, calcitriol, Reglan, MVI. 7. Will restart Cozaar soon. 8. GI/DVT prophylaxis. 9. Increase activity, out of bed in chair all day. Physical therapy to follow. 10. More recommendations as patient progresses. Time with Patient: Greater than 30
--- NOTE | 2016-08-18 11:03 | P.PN ---
Subjective Principal diagnosis: Acute myocardial infarction, status post CABG This is a 55-year-old white male with history of multiple medical problems including COPD, hypertension, dyslipidemia, diabetes, obesity, and he has a very sedentary lifestyle. 2 years ago, the patient had a stress test which was supposedly normal. This was done in [place]. Patient presented this time to the ER with 3 days history of tightness across the chest, associated with some shortness of breath. His EKG was nonspecific, however his enzymes were positive , the patient was found to have non-ST elevation myocardial infarction. Today the patient underwent cardiac catheterization by Dr. Vegas, and he was found to have significant coronary artery disease. Hence the patient was advised to have myocardial revascularization. And the patient is yet to be seen by cardiac surgery on consultation. In the meantime the patient was placed on medications for his acute OR and I was asked to see him on consultation. His shortness of breath is improved, his chest pain is resolved. However the patient is known to have remote smoking history, however he quit many years ago. Patient was told at one point that he may have emphysema, severity of which is not clear. However the patient is not O2 dependent and not prednisone dependent. Bedside spirometry was done, and it was a poor quality because of the effort was very poor, hence I recommended a full PFT to be done in a.m. Patient was reevaluated today on 08/15/2016, doing relatively well, however his PFT is quite abnormal showing mostly a picture of restriction and poor effort with very low Mvv and low FVC, lower lung volumes. This would make him a very high surgical risk, in the meantime I ordered a high-resolution CT of the chest , his chest x-ray was showing a right paratracheal soft tissue fullness, and some subsegmental interstitial perihilar changes felt to be related to congestive heart failure unless proven otherwise. CT of the chest is showing mostly congestive heart failure, with air bronchograms noted in the right lung base and there is also evidence of calcified subcarinal and left hilar nodes noted. Fatty infiltration of the liver was also noted, and cystic focus of left kidney was noted. Patient will likely improve with aggressive diuresis. Patient was reevaluated today on 08/16/2016, seems to be doing much better, breathing a lot easier, and he is doing well with incentive spirometry. Patient is scheduled to undergo myocardial revascularization in a.m. And his follow-up chest x-ray is showing definite improvement. Hence the patient will be cleared for surgery, however he is still considered moderate to high operative risk. Patient was seen yesterday on 08/17/2016, and he was postoperative day #0/ CABG.patient had off-pump triple coronary artery bypass grafting using JIN to LAD and reverse SVG to aorta using the PASport device and connected distally to the first diagonal artery, reverse saphenous graft connected to the aorta using the PASport device and connected distally to the right coronary artery in the groove after the PDA takeoff.his ventilator settings were addressed yesterday, and I was able to extubate the patient uneventfully within few hours after he arrived to the ICU. I saw him today on 08/18/2016, patient is off mechanical ventilation, doing quite well, chest x-ray is relatively unremarkable. Patient is hemodynamically stable. And in no distress. Labs and meds were all reviewed. Objective - Vital Signs Vital signs: Vital Signs Temp 97.3 F L 08/18/16 07:00 Pulse 83 08/18/16 10:00 Resp 21 08/18/16 10:00 BP 109/55 08/17/16 21:00 Pulse Ox 94 L 08/18/16 10:00 Intake & Output 08/17/16 08/18/16 08/18/16 18:59 06:59 18:59 Intake Total 266.709 3793.394 357.07 Output Total 2982 1155 400 Balance -2066.083 -37.606 -42.93 Weight 123.2 kg Intake: IV 365 779 276 0.9 for cardiac output 220 130 20 0.9 for pressure bag 45 99 36 Lactated Ringers 1,000 ml 550 170 @ 20 mls/hr IV .Q24H ALE Rx#:[id number] cefTRIAXone 1,000 mg In 100 50 Sodium Chloride 0.9% 50 ml @ 100 mls/hr IVPB Q24H ALE Rx#:[id number] Intake, IV Titration 550.917 338.394 81.07 Amount ACETAMINOPHEN IV (For NPO 100 200 ) 1,000 mg In Empty Bag 1 bag @ 400 mls/hr IVPB Q6HR ALE Rx#:[id number] Clevidipine Butyrate 25 3.233 mg In Empty Bag 1 bag @ 1 MG/HR 2 mls/hr IV .Q24H ALE Rx#:[id number] Insulin Regular 100 unit 7.154 38.394 53.67 In Sodium Chloride 0.9% 100 ml @ Per Protocol IV .Q0M ALE Rx#:[id number] Lactated Ringers 1,000 ml 230 @ 20 mls/hr IV .Q24H ALE Rx#:[id number] Magnesium Sulfate-D5w Pmx 200 1 gm In Dextrose/Water 1 100ml.bag @ 100 mls/hr IVPB Q1H ALE Rx#: [id number] Nitroglycerin-D5w Pmx 50 4.5 27.4 mg In Dextrose/Water 1 250ml.bag @ 5 MCG/MIN 1.5 mls/hr IV .Q24H ALE Rx#: [id number] Propofol 500 mg In Empty 6.03 Bag 1 bag @ Titrate IV . Q0M ALE Rx#:[id number] ceFAZolin 2 gm In Sodium 100 Chloride 0.9% 100 ml @ 100 mls/hr IVPB Q8HR ALE Rx#:[id number] Output: Chest Tube Drainage 136 550 150 Bilateral Mediastinal 131 340 100 Left Lateral Chest 5 210 50 Drainage 45 70 Left Lower Calf 45 70 Urine 1801 535 250 Estimated Blood Loss 1000 Other: Voiding Method Indwelling Catheter Indwelling Catheter Indwelling Catheter ABP, PAP, CO, CI - Last Documented Arterial Blood Pressure 140/50 Pulmonary Artery Pressure 32/13 Cardiac Output 6.8 Cardiac Index 3 - Exam Physical Exam: Revealed a 55-year-old in no distress HEENT:[Neck is supple.] [No neck masses.] [No thyromegaly.] [No JVD.] Chest: Diminished breath sounds at the bases, no crackles or rhonchi or wheezes. ] Cardiac Exam: [Normal S1 and S2, no S3 gallop, no murmur.] Abdomen: [Soft, nontender, no megaly, no rebound, no guarding, normal bowel sounds.] Extremities: [No clubbing, no edema, no cyanosis.] Neurological Exam: [No focal neurologic deficit.] - Labs CBC & Chem 7: 08/18/16 05:01 08/18/16 05:01 Labs: Abnormal Lab Results - Last 24 Hours (Table) 08/14/16 08/17/16 08/17/16 Range/Units 12:35 12:06 12:59 WBC (3.8-10.6) k/uL RBC (4.30-5.90) m/uL Hgb (13.0-17.5) gm/dL Hct (39.0-53.0) % MCHC (31.0-37.0) g/dL RDW (11.5-15.5) % Neutrophils # (1.3-7.7) k/uL Lymphocytes # (1.0-4.8) k/uL Monocytes # (0-1.0) k/uL PT (9.0-12.0) sec APTT (22.0-30.0) sec ABG pCO2 (35-45) mmHg ABG pO2 (83-108) mmHg ABG HCO3 (21-25) mmol/L ABG Total CO2 (19-24) mmol/L ABG O2 Saturation (94-97) % BUN (9-20) mg/dL Glucose 190 H (74-99) mg/dL POC Glucose (mg/dL) 183 H (75-99) mg/dL Calcium (8.4-10.2) mg/dL Ionized Calcium [place] (4.5-5.3) mg/dL Magnesium (1.6-2.3) mg/dL AST (17-59) U/L Alkaline Phosphatase (38-126) U/L Total Protein (6.3-8.2) g/dL Albumin (3.5-5.0) g/dL Crossmatch See Detail 08/17/16 08/17/16 08/17/16 Range/Units 14:08 14:08 14:08 WBC 18.3 H (3.8-10.6) k/uL RBC 2.93 L (4.30-5.90) m/uL Hgb 7.9 L D (13.0-17.5) gm/dL Hct 25.6 L (39.0-53.0) % MCHC 30.7 L (31.0-37.0) g/dL RDW 15.8 H (11.5-15.5) % Neutrophils # 15.6 H (1.3-7.7) k/uL Lymphocytes # 0.9 L (1.0-4.8) k/uL Monocytes # 1.2 H (0-1.0) k/uL PT (9.0-12.0) sec APTT (22.0-30.0) sec ABG pCO2 (35-45) mmHg ABG pO2 (83-108) mmHg ABG HCO3 (21-25) mmol/L ABG Total CO2 (19-24) mmol/L ABG O2 Saturation (94-97) % BUN 27 H (9-20) mg/dL Glucose 134 H (74-99) mg/dL POC Glucose (mg/dL) 147 H (75-99) mg/dL Calcium 7.3 L (8.4-10.2) mg/dL Ionized Calcium [place] 4.4 L (4.5-5.3) mg/dL Magnesium (1.6-2.3) mg/dL AST (17-59) U/L Alkaline Phosphatase 28 L (38-126) U/L Total Protein 4.9 L (6.3-8.2) g/dL Albumin 3.2 L (3.5-5.0) g/dL Crossmatch 08/17/16 08/17/16 08/17/16 Range/Units 14:08 14:42 15:02 WBC (3.8-10.6) k/uL RBC (4.30-5.90) m/uL Hgb (13.0-17.5) gm/dL Hct (39.0-53.0) % MCHC (31.0-37.0) g/dL RDW (11.5-15.5) % Neutrophils # (1.3-7.7) k/uL Lymphocytes # (1.0-4.8) k/uL Monocytes # (0-1.0) k/uL PT 16.3 H (9.0-12.0) sec APTT 31.1 H (22.0-30.0) sec ABG pCO2 50 H (35-45) mmHg ABG pO2 296 H (83-108) mmHg ABG HCO3 27 H (21-25) mmol/L ABG Total CO2 29 H (19-24) mmol/L ABG O2 Saturation 100.0 H (94-97) % BUN (9-20) mg/dL Glucose (74-99) mg/dL POC Glucose (mg/dL) 137 H (75-99) mg/dL Calcium (8.4-10.2) mg/dL Ionized Calcium [place] (4.5-5.3) mg/dL Magnesium (1.6-2.3) mg/dL AST (17-59) U/L Alkaline Phosphatase (38-126) U/L Total Protein (6.3-8.2) g/dL Albumin (3.5-5.0) g/dL Crossmatch 08/17/16 08/17/16 08/17/16 Range/Units 16:07 16:55 17:00 WBC (3.8-10.6) k/uL RBC (4.30-5.90) m/uL Hgb (13.0-17.5) gm/dL Hct (39.0-53.0) % MCHC (31.0-37.0) g/dL RDW (11.5-15.5) % Neutrophils # (1.3-7.7) k/uL Lymphocytes # (1.0-4.8) k/uL Monocytes # (0-1.0) k/uL PT (9.0-12.0) sec APTT (22.0-30.0) sec ABG pCO2 (35-45) mmHg ABG pO2 (83-108) mmHg ABG HCO3 (21-25) mmol/L ABG Total CO2 (19-24) mmol/L ABG O2 Saturation (94-97) % BUN 27 H (9-20) mg/dL Glucose 139 H (74-99) mg/dL POC Glucose (mg/dL) 168 H 139 H (75-99) mg/dL Calcium 7.3 L (8.4-10.2) mg/dL Ionized Calcium [place] (4.5-5.3) mg/dL Magnesium (1.6-2.3) mg/dL AST (17-59) U/L Alkaline Phosphatase (38-126) U/L Total Protein (6.3-8.2) g/dL Albumin (3.5-5.0) g/dL Crossmatch 08/17/16 08/17/16 08/17/16 Range/Units 17:00 17:26 17:57 WBC 15.9 H (3.8-10.6) k/uL RBC 3.05 L (4.30-5.90) m/uL Hgb 8.1 L (13.0-17.5) gm/dL Hct 26.6 L (39.0-53.0) % MCHC 30.4 L (31.0-37.0) g/dL RDW 16.0 H (11.5-15.5) % Neutrophils # 13.7 H (1.3-7.7) k/uL Lymphocytes # 0.7 L (1.0-4.8) k/uL Monocytes # (0-1.0) k/uL PT (9.0-12.0) sec APTT (22.0-30.0) sec ABG pCO2 (35-45) mmHg ABG pO2 119 H (83-108) mmHg ABG HCO3 26 H (21-25) mmol/L ABG Total CO2 27 H (19-24) mmol/L ABG O2 Saturation 99.0 H (94-97) % BUN (9-20) mg/dL Glucose (74-99) mg/dL POC Glucose (mg/dL) 177 H (75-99) mg/dL Calcium (8.4-10.2) mg/dL Ionized Calcium [place] (4.5-5.3) mg/dL Magnesium (1.6-2.3) mg/dL AST (17-59) U/L Alkaline Phosphatase (38-126) U/L Total Protein (6.3-8.2) g/dL Albumin (3.5-5.0) g/dL Crossmatch 08/17/16 08/17/16 08/17/16 Range/Units 18:54 19:49 19:52 WBC 13.7 H (3.8-10.6) k/uL RBC 3.14 L (4.30-5.90) m/uL Hgb 8.5 L (13.0-17.5) gm/dL Hct 27.6 L (39.0-53.0) % MCHC 30.7 L (31.0-37.0) g/dL RDW 16.1 H (11.5-15.5) % Neutrophils # 12.1 H (1.3-7.7) k/uL Lymphocytes # 0.6 L (1.0-4.8) k/uL Monocytes # (0-1.0) k/uL PT (9.0-12.0) sec APTT (22.0-30.0) sec ABG pCO2 (35-45) mmHg ABG pO2 (83-108) mmHg ABG HCO3 (21-25) mmol/L ABG Total CO2 (19-24) mmol/L ABG O2 Saturation (94-97) % BUN (9-20) mg/dL Glucose (74-99) mg/dL POC Glucose (mg/dL) 194 H 185 H (75-99) mg/dL Calcium (8.4-10.2) mg/dL Ionized Calcium [place] (4.5-5.3) mg/dL Magnesium (1.6-2.3) mg/dL AST (17-59) U/L Alkaline Phosphatase (38-126) U/L Total Protein (6.3-8.2) g/dL Albumin (3.5-5.0) g/dL Crossmatch 08/17/16 08/17/16 08/17/16 Range/Units 21:05 22:00 23:12 WBC (3.8-10.6) k/uL RBC (4.30-5.90) m/uL Hgb (13.0-17.5) gm/dL Hct (39.0-53.0) % MCHC (31.0-37.0) g/dL RDW (11.5-15.5) % Neutrophils # (1.3-7.7) k/uL Lymphocytes # (1.0-4.8) k/uL Monocytes # (0-1.0) k/uL PT (9.0-12.0) sec APTT (22.0-30.0) sec ABG pCO2 (35-45) mmHg ABG pO2 (83-108) mmHg ABG HCO3 (21-25) mmol/L ABG Total CO2 (19-24) mmol/L ABG O2 Saturation (94-97) % BUN (9-20) mg/dL Glucose (74-99) mg/dL POC Glucose (mg/dL) 168 H 164 H 156 H (75-99) mg/dL Calcium (8.4-10.2) mg/dL Ionized Calcium [place] (4.5-5.3) mg/dL Magnesium (1.6-2.3) mg/dL AST (17-59) U/L Alkaline Phosphatase (38-126) U/L Total Protein (6.3-8.2) g/dL Albumin (3.5-5.0) g/dL Crossmatch 08/17/16 08/18/16 08/18/16 Range/Units 23:58 01:02 02:05 WBC (3.8-10.6) k/uL RBC (4.30-5.90) m/uL Hgb (13.0-17.5) gm/dL Hct (39.0-53.0) % MCHC (31.0-37.0) g/dL RDW (11.5-15.5) % Neutrophils # (1.3-7.7) k/uL Lymphocytes # (1.0-4.8) k/uL Monocytes # (0-1.0) k/uL PT (9.0-12.0) sec APTT (22.0-30.0) sec ABG pCO2 (35-45) mmHg ABG pO2 (83-108) mmHg ABG HCO3 (21-25) mmol/L ABG Total CO2 (19-24) mmol/L ABG O2 Saturation (94-97) % BUN (9-20) mg/dL Glucose (74-99) mg/dL POC Glucose (mg/dL) 138 H 125 H 121 H (75-99) mg/dL Calcium (8.4-10.2) mg/dL Ionized Calcium [place] (4.5-5.3) mg/dL Magnesium (1.6-2.3) mg/dL AST (17-59) U/L Alkaline Phosphatase (38-126) U/L Total Protein (6.3-8.2) g/dL Albumin (3.5-5.0) g/dL Crossmatch 08/18/16 08/18/16 08/18/16 Range/Units 03:03 04:12 04:59 WBC (3.8-10.6) k/uL RBC (4.30-5.90) m/uL Hgb (13.0-17.5) gm/dL Hct (39.0-53.0) % MCHC (31.0-37.0) g/dL RDW (11.5-15.5) % Neutrophils # (1.3-7.7) k/uL Lymphocytes # (1.0-4.8) k/uL Monocytes # (0-1.0) k/uL PT (9.0-12.0) sec APTT (22.0-30.0) sec ABG pCO2 (35-45) mmHg ABG pO2 (83-108) mmHg ABG HCO3 (21-25) mmol/L ABG Total CO2 (19-24) mmol/L ABG O2 Saturation (94-97) % BUN (9-20) mg/dL Glucose (74-99) mg/dL POC Glucose (mg/dL) 118 H 118 H 122 H (75-99) mg/dL Calcium (8.4-10.2) mg/dL Ionized Calcium [place] (4.5-5.3) mg/dL Magnesium (1.6-2.3) mg/dL AST (17-59) U/L Alkaline Phosphatase (38-126) U/L Total Protein (6.3-8.2) g/dL Albumin (3.5-5.0) g/dL Crossmatch 08/18/16 08/18/16 08/18/16 Range/Units 05:01 05:01 06:03 WBC 12.0 H (3.8-10.6) k/uL RBC 3.50 L (4.30-5.90) m/uL Hgb 9.5 L (13.0-17.5) gm/dL Hct 30.7 L (39.0-53.0) % MCHC 30.7 L (31.0-37.0) g/dL RDW 15.9 H (11.5-15.5) % Neutrophils # 10.7 H (1.3-7.7) k/uL Lymphocytes # 0.4 L (1.0-4.8) k/uL Monocytes # (0-1.0) k/uL PT (9.0-12.0) sec APTT (22.0-30.0) sec ABG pCO2 (35-45) mmHg ABG pO2 (83-108) mmHg ABG HCO3 (21-25) mmol/L ABG Total CO2 (19-24) mmol/L ABG O2 Saturation (94-97) % BUN 25 H (9-20) mg/dL Glucose 118 H (74-99) mg/dL POC Glucose (mg/dL) 134 H (75-99) mg/dL Calcium 7.7 L (8.4-10.2) mg/dL Ionized Calcium [place] (4.5-5.3) mg/dL Magnesium 2.6 H (1.6-2.3) mg/dL AST 90 H (17-59) U/L Alkaline Phosphatase (38-126) U/L Total Protein 5.2 L (6.3-8.2) g/dL Albumin 3.2 L (3.5-5.0) g/dL Crossmatch 08/18/16 08/18/16 08/18/16 Range/Units 07:06 08:12 09:27 WBC (3.8-10.6) k/uL RBC (4.30-5.90) m/uL Hgb (13.0-17.5) gm/dL Hct (39.0-53.0) % MCHC (31.0-37.0) g/dL RDW (11.5-15.5) % Neutrophils # (1.3-7.7) k/uL Lymphocytes # (1.0-4.8) k/uL Monocytes # (0-1.0) k/uL PT (9.0-12.0) sec APTT (22.0-30.0) sec ABG pCO2 (35-45) mmHg ABG pO2 (83-108) mmHg ABG HCO3 (21-25) mmol/L ABG Total CO2 (19-24) mmol/L ABG O2 Saturation (94-97) % BUN (9-20) mg/dL Glucose (74-99) mg/dL POC Glucose (mg/dL) 141 H 130 H 277 H (75-99) mg/dL Calcium (8.4-10.2) mg/dL Ionized Calcium [place] (4.5-5.3) mg/dL Magnesium (1.6-2.3) mg/dL AST (17-59) U/L Alkaline Phosphatase (38-126) U/L Total Protein (6.3-8.2) g/dL Albumin (3.5-5.0) g/dL Crossmatch 08/18/16 Range/Units 10:27 WBC (3.8-10.6) k/uL RBC (4.30-5.90) m/uL Hgb (13.0-17.5) gm/dL Hct (39.0-53.0) % MCHC (31.0-37.0) g/dL RDW (11.5-15.5) % Neutrophils # (1.3-7.7) k/uL Lymphocytes # (1.0-4.8) k/uL Monocytes # (0-1.0) k/uL PT (9.0-12.0) sec APTT (22.0-30.0) sec ABG pCO2 (35-45) mmHg ABG pO2 (83-108) mmHg ABG HCO3 (21-25) mmol/L ABG Total CO2 (19-24) mmol/L ABG O2 Saturation (94-97) % BUN (9-20) mg/dL Glucose (74-99) mg/dL POC Glucose (mg/dL) 240 H (75-99) mg/dL Calcium (8.4-10.2) mg/dL Ionized Calcium [place] (4.5-5.3) mg/dL Magnesium (1.6-2.3) mg/dL AST (17-59) U/L Alkaline Phosphatase (38-126) U/L Total Protein (6.3-8.2) g/dL Albumin (3.5-5.0) g/dL Crossmatch Microbiology - Last 24 Hours (Table) 08/12/16 19:38 Blood Culture - Preliminary Blood No Growth after 120 hours Assessment and Plan Plan: Impression: 1 acute non-ST elevation myocardial infarction,status post triple-vessel CABG, postoperative day #1. 2 significant coronary artery disease based on cardiac catheterization.status post CABG postoperative day #1 3 morbid obesity 4 history of hypertension 5 history of dyslipidemia Recommendation: continue present treatment plan including present meds, incentive spirometry, bronchodilators, patient will be off the Solu-Medrol today. We'll continue to follow closely. Time with Patient: Less than 30
--- NOTE | 2016-08-18 12:32 | P.PN ---
Subjective Principal diagnosis: CAD status post CABG This is a pleasant 55-year-old gentleman with a past medical history significant for diabetes, hypertension, dyslipidemia presented to the hospital with a chest discomfort and ruled in for acute non-ST elevation myocardial infarction. He underwent a heart catheterization and was found to have severe triple-vessel coronary artery disease. The echocardiogram showed cardiomyopathy. Review of the anatomy as well as a diabetes and cardiomyopathy I recommended proceeding with coronary artery bypass grafting. The patient underwent CABG 3 where he received JIN to LAD, SVG to diagonal, and SVG to RCA. From the cardiac standpoint overview, he is doing really well. He continue to maintain normal sinus rhythm. He is on maximize medical treatment including antiplatelet, beta huey, and statin. He continues to be on insulin drip. Objective - Vital Signs Vital signs: Vital Signs Temp 98 F 08/18/16 12:00 Pulse 69 08/18/16 12:00 Resp 16 08/18/16 12:00 BP 109/55 08/17/16 21:00 Pulse Ox 96 08/18/16 12:00 Intake & Output 08/17/16 08/18/16 08/18/16 18:59 06:59 18:59 Intake Total 711.814 9792.394 409.07 Output Total 2982 1155 505 Balance -2066.083 -37.606 -95.93 Weight 123.2 kg Intake: IV 365 779 328 0.9 for cardiac output 220 130 20 0.9 for pressure bag 45 99 48 Lactated Ringers 1,000 ml 550 210 @ 20 mls/hr IV .Q24H ALE Rx#:[id number] cefTRIAXone 1,000 mg In 100 50 Sodium Chloride 0.9% 50 ml @ 100 mls/hr IVPB Q24H ALE Rx#:[id number] Intake, IV Titration 550.917 338.394 81.07 Amount ACETAMINOPHEN IV (For NPO 100 200 ) 1,000 mg In Empty Bag 1 bag @ 400 mls/hr IVPB Q6HR ALE Rx#:[id number] Clevidipine Butyrate 25 3.233 mg In Empty Bag 1 bag @ 1 MG/HR 2 mls/hr IV .Q24H ALE Rx#:[id number] Insulin Regular 100 unit 7.154 38.394 53.67 In Sodium Chloride 0.9% 100 ml @ Per Protocol IV .Q0M ALE Rx#:[id number] Lactated Ringers 1,000 ml 230 @ 20 mls/hr IV .Q24H ALE Rx#:[id number] Magnesium Sulfate-D5w Pmx 200 1 gm In Dextrose/Water 1 100ml.bag @ 100 mls/hr IVPB Q1H ALE Rx#: [id number] Nitroglycerin-D5w Pmx 50 4.5 27.4 mg In Dextrose/Water 1 250ml.bag @ 5 MCG/MIN 1.5 mls/hr IV .Q24H ALE Rx#: [id number] Propofol 500 mg In Empty 6.03 Bag 1 bag @ Titrate IV . Q0M ALE Rx#:[id number] ceFAZolin 2 gm In Sodium 100 Chloride 0.9% 100 ml @ 100 mls/hr IVPB Q8HR ALE Rx#:[id number] Output: Chest Tube Drainage 136 550 190 Bilateral Mediastinal 131 340 130 Left Lateral Chest 5 210 60 Drainage 45 70 Left Lower Calf 45 70 Urine 1801 535 315 Estimated Blood Loss 1000 Other: Voiding Method Indwelling Catheter Indwelling Catheter Indwelling Catheter ABP, PAP, CO, CI - Last Documented Arterial Blood Pressure 116/49 Pulmonary Artery Pressure 32/13 Cardiac Output 6.8 Cardiac Index 3 - Constitutional General appearance: Present: no acute distress - Respiratory Respiratory: bilateral: diminished - Cardiovascular Rhythm: regular - Labs CBC & Chem 7: 08/18/16 05:01 08/18/16 05:01 Labs: Abnormal Lab Results - Last 24 Hours (Table) 08/14/16 08/17/16 08/17/16 Range/Units 12:35 12:06 12:59 WBC (3.8-10.6) k/uL RBC (4.30-5.90) m/uL Hgb (13.0-17.5) gm/dL Hct (39.0-53.0) % MCHC (31.0-37.0) g/dL RDW (11.5-15.5) % Neutrophils # (1.3-7.7) k/uL Lymphocytes # (1.0-4.8) k/uL Monocytes # (0-1.0) k/uL PT (9.0-12.0) sec APTT (22.0-30.0) sec ABG pCO2 (35-45) mmHg ABG pO2 (83-108) mmHg ABG HCO3 (21-25) mmol/L ABG Total CO2 (19-24) mmol/L ABG O2 Saturation (94-97) % BUN (9-20) mg/dL Glucose 190 H (74-99) mg/dL POC Glucose (mg/dL) 183 H (75-99) mg/dL Calcium (8.4-10.2) mg/dL Ionized Calcium Makeda (4.5-5.3) mg/dL Magnesium (1.6-2.3) mg/dL AST (17-59) U/L Alkaline Phosphatase (38-126) U/L Total Protein (6.3-8.2) g/dL Albumin (3.5-5.0) g/dL Crossmatch See Detail 08/17/16 08/17/16 08/17/16 Range/Units 14:08 14:08 14:08 WBC 18.3 H (3.8-10.6) k/uL RBC 2.93 L (4.30-5.90) m/uL Hgb 7.9 L D (13.0-17.5) gm/dL Hct 25.6 L (39.0-53.0) % MCHC 30.7 L (31.0-37.0) g/dL RDW 15.8 H (11.5-15.5) % Neutrophils # 15.6 H (1.3-7.7) k/uL Lymphocytes # 0.9 L (1.0-4.8) k/uL Monocytes # 1.2 H (0-1.0) k/uL PT (9.0-12.0) sec APTT (22.0-30.0) sec ABG pCO2 (35-45) mmHg ABG pO2 (83-108) mmHg ABG HCO3 (21-25) mmol/L ABG Total CO2 (19-24) mmol/L ABG O2 Saturation (94-97) % BUN 27 H (9-20) mg/dL Glucose 134 H (74-99) mg/dL POC Glucose (mg/dL) 147 H (75-99) mg/dL Calcium 7.3 L (8.4-10.2) mg/dL Ionized Calcium Maked[place] 4.4 L (4.5-5.3) mg/dL Magnesium (1.6-2.3) mg/dL AST (17-59) U/L Alkaline Phosphatase 28 L (38-126) U/L Total Protein 4.9 L (6.3-8.2) g/dL Albumin 3.2 L (3.5-5.0) g/dL Crossmatch 08/17/16 08/17/16 08/17/16 Range/Units 14:08 14:42 15:02 WBC (3.8-10.6) k/uL RBC (4.30-5.90) m/uL Hgb (13.0-17.5) gm/dL Hct (39.0-53.0) % MCHC (31.0-37.0) g/dL RDW (11.5-15.5) % Neutrophils # (1.3-7.7) k/uL Lymphocytes # (1.0-4.8) k/uL Monocytes # (0-1.0) k/uL PT 16.3 H (9.0-12.0) sec APTT 31.1 H (22.0-30.0) sec ABG pCO2 50 H (35-45) mmHg ABG pO2 296 H (83-108) mmHg ABG HCO3 27 H (21-25) mmol/L ABG Total CO2 29 H (19-24) mmol/L ABG O2 Saturation 100.0 H (94-97) % BUN (9-20) mg/dL Glucose (74-99) mg/dL POC Glucose (mg/dL) 137 H (75-99) mg/dL Calcium (8.4-10.2) mg/dL Ionized Calcium Maked[place] (4.5-5.3) mg/dL Magnesium (1.6-2.3) mg/dL AST (17-59) U/L Alkaline Phosphatase (38-126) U/L Total Protein (6.3-8.2) g/dL Albumin (3.5-5.0) g/dL Crossmatch 08/17/16 08/17/16 08/17/16 Range/Units 16:07 16:55 17:00 WBC (3.8-10.6) k/uL RBC (4.30-5.90) m/uL Hgb (13.0-17.5) gm/dL Hct (39.0-53.0) % MCHC (31.0-37.0) g/dL RDW (11.5-15.5) % Neutrophils # (1.3-7.7) k/uL Lymphocytes # (1.0-4.8) k/uL Monocytes # (0-1.0) k/uL PT (9.0-12.0) sec APTT (22.0-30.0) sec ABG pCO2 (35-45) mmHg ABG pO2 (83-108) mmHg ABG HCO3 (21-25) mmol/L ABG Total CO2 (19-24) mmol/L ABG O2 Saturation (94-97) % BUN 27 H (9-20) mg/dL Glucose 139 H (74-99) mg/dL POC Glucose (mg/dL) 168 H 139 H (75-99) mg/dL Calcium 7.3 L (8.4-10.2) mg/dL Ionized Calcium Maked[place] (4.5-5.3) mg/dL Magnesium (1.6-2.3) mg/dL AST (17-59) U/L Alkaline Phosphatase (38-126) U/L Total Protein (6.3-8.2) g/dL Albumin (3.5-5.0) g/dL Crossmatch 08/17/16 08/17/16 08/17/16 Range/Units 17:00 17:26 17:57 WBC 15.9 H (3.8-10.6) k/uL RBC 3.05 L (4.30-5.90) m/uL Hgb 8.1 L (13.0-17.5) gm/dL Hct 26.6 L (39.0-53.0) % MCHC 30.4 L (31.0-37.0) g/dL RDW 16.0 H (11.5-15.5) % Neutrophils # 13.7 H (1.3-7.7) k/uL Lymphocytes # 0.7 L (1.0-4.8) k/uL Monocytes # (0-1.0) k/uL PT (9.0-12.0) sec APTT (22.0-30.0) sec ABG pCO2 (35-45) mmHg ABG pO2 119 H (83-108) mmHg ABG HCO3 26 H (21-25) mmol/L ABG Total CO2 27 H (19-24) mmol/L ABG O2 Saturation 99.0 H (94-97) % BUN (9-20) mg/dL Glucose (74-99) mg/dL POC Glucose (mg/dL) 177 H (75-99) mg/dL Calcium (8.4-10.2) mg/dL Ionized Calcium Maked[place] (4.5-5.3) mg/dL Magnesium (1.6-2.3) mg/dL AST (17-59) U/L Alkaline Phosphatase (38-126) U/L Total Protein (6.3-8.2) g/dL Albumin (3.5-5.0) g/dL Crossmatch 08/17/16 08/17/16 08/17/16 Range/Units 18:54 19:49 19:52 WBC 13.7 H (3.8-10.6) k/uL RBC 3.14 L (4.30-5.90) m/uL Hgb 8.5 L (13.0-17.5) gm/dL Hct 27.6 L (39.0-53.0) % MCHC 30.7 L (31.0-37.0) g/dL RDW 16.1 H (11.5-15.5) % Neutrophils # 12.1 H (1.3-7.7) k/uL Lymphocytes # 0.6 L (1.0-4.8) k/uL Monocytes # (0-1.0) k/uL PT (9.0-12.0) sec APTT (22.0-30.0) sec ABG pCO2 (35-45) mmHg ABG pO2 (83-108) mmHg ABG HCO3 (21-25) mmol/L ABG Total CO2 (19-24) mmol/L ABG O2 Saturation (94-97) % BUN (9-20) mg/dL Glucose (74-99) mg/dL POC Glucose (mg/dL) 194 H 185 H (75-99) mg/dL Calcium (8.4-10.2) mg/dL Ionized Calcium Maked[place] (4.5-5.3) mg/dL Magnesium (1.6-2.3) mg/dL AST (17-59) U/L Alkaline Phosphatase (38-126) U/L Total Protein (6.3-8.2) g/dL Albumin (3.5-5.0) g/dL Crossmatch 08/17/16 08/17/16 08/17/16 Range/Units 21:05 22:00 23:12 WBC (3.8-10.6) k/uL RBC (4.30-5.90) m/uL Hgb (13.0-17.5) gm/dL Hct (39.0-53.0) % MCHC (31.0-37.0) g/dL RDW (11.5-15.5) % Neutrophils # (1.3-7.7) k/uL Lymphocytes # (1.0-4.8) k/uL Monocytes # (0-1.0) k/uL PT (9.0-12.0) sec APTT (22.0-30.0) sec ABG pCO2 (35-45) mmHg ABG pO2 (83-108) mmHg ABG HCO3 (21-25) mmol/L ABG Total CO2 (19-24) mmol/L ABG O2 Saturation (94-97) % BUN (9-20) mg/dL Glucose (74-99) mg/dL POC Glucose (mg/dL) 168 H 164 H 156 H (75-99) mg/dL Calcium (8.4-10.2) mg/dL Ionized Calcium Maked[place] (4.5-5.3) mg/dL Magnesium (1.6-2.3) mg/dL AST (17-59) U/L Alkaline Phosphatase (38-126) U/L Total Protein (6.3-8.2) g/dL Albumin (3.5-5.0) g/dL Crossmatch 08/17/16 08/18/16 08/18/16 Range/Units 23:58 01:02 02:05 WBC (3.8-10.6) k/uL RBC (4.30-5.90) m/uL Hgb (13.0-17.5) gm/dL Hct (39.0-53.0) % MCHC (31.0-37.0) g/dL RDW (11.5-15.5) % Neutrophils # (1.3-7.7) k/uL Lymphocytes # (1.0-4.8) k/uL Monocytes # (0-1.0) k/uL PT (9.0-12.0) sec APTT (22.0-30.0) sec ABG pCO2 (35-45) mmHg ABG pO2 (83-108) mmHg ABG HCO3 (21-25) mmol/L ABG Total CO2 (19-24) mmol/L ABG O2 Saturation (94-97) % BUN (9-20) mg/dL Glucose (74-99) mg/dL POC Glucose (mg/dL) 138 H 125 H 121 H (75-99) mg/dL Calcium (8.4-10.2) mg/dL Ionized Calcium Maked[place] (4.5-5.3) mg/dL Magnesium (1.6-2.3) mg/dL AST (17-59) U/L Alkaline Phosphatase (38-126) U/L Total Protein (6.3-8.2) g/dL Albumin (3.5-5.0) g/dL Crossmatch 08/18/16 08/18/16 08/18/16 Range/Units 03:03 04:12 04:59 WBC (3.8-10.6) k/uL RBC (4.30-5.90) m/uL Hgb (13.0-17.5) gm/dL Hct (39.0-53.0) % MCHC (31.0-37.0) g/dL RDW (11.5-15.5) % Neutrophils # (1.3-7.7) k/uL Lymphocytes # (1.0-4.8) k/uL Monocytes # (0-1.0) k/uL PT (9.0-12.0) sec APTT (22.0-30.0) sec ABG pCO2 (35-45) mmHg ABG pO2 (83-108) mmHg ABG HCO3 (21-25) mmol/L ABG Total CO2 (19-24) mmol/L ABG O2 Saturation (94-97) % BUN (9-20) mg/dL Glucose (74-99) mg/dL POC Glucose (mg/dL) 118 H 118 H 122 H (75-99) mg/dL Calcium (8.4-10.2) mg/dL Ionized Calcium Maked[place] (4.5-5.3) mg/dL Magnesium (1.6-2.3) mg/dL AST (17-59) U/L Alkaline Phosphatase (38-126) U/L Total Protein (6.3-8.2) g/dL Albumin (3.5-5.0) g/dL Crossmatch 08/18/16 08/18/16 08/18/16 Range/Units 05:01 05:01 06:03 WBC 12.0 H (3.8-10.6) k/uL RBC 3.50 L (4.30-5.90) m/uL Hgb 9.5 L (13.0-17.5) gm/dL Hct 30.7 L (39.0-53.0) % MCHC 30.7 L (31.0-37.0) g/dL RDW 15.9 H (11.5-15.5) % Neutrophils # 10.7 H (1.3-7.7) k/uL Lymphocytes # 0.4 L (1.0-4.8) k/uL Monocytes # (0-1.0) k/uL PT (9.0-12.0) sec APTT (22.0-30.0) sec ABG pCO2 (35-45) mmHg ABG pO2 (83-108) mmHg ABG HCO3 (21-25) mmol/L ABG Total CO2 (19-24) mmol/L ABG O2 Saturation (94-97) % BUN 25 H (9-20) mg/dL Glucose 118 H (74-99) mg/dL POC Glucose (mg/dL) 134 H (75-99) mg/dL Calcium 7.7 L (8.4-10.2) mg/dL Ionized Calcium Makeda (4.5-5.3) mg/dL Magnesium 2.6 H (1.6-2.3) mg/dL AST 90 H (17-59) U/L Alkaline Phosphatase (38-126) U/L Total Protein 5.2 L (6.3-8.2) g/dL Albumin 3.2 L (3.5-5.0) g/dL Crossmatch 08/18/16 08/18/16 08/18/16 Range/Units 07:06 08:12 09:27 WBC (3.8-10.6) k/uL RBC (4.30-5.90) m/uL Hgb (13.0-17.5) gm/dL Hct (39.0-53.0) % MCHC (31.0-37.0) g/dL RDW (11.5-15.5) % Neutrophils # (1.3-7.7) k/uL Lymphocytes # (1.0-4.8) k/uL Monocytes # (0-1.0) k/uL PT (9.0-12.0) sec APTT (22.0-30.0) sec ABG pCO2 (35-45) mmHg ABG pO2 (83-108) mmHg ABG HCO3 (21-25) mmol/L ABG Total CO2 (19-24) mmol/L ABG O2 Saturation (94-97) % BUN (9-20) mg/dL Glucose (74-99) mg/dL POC Glucose (mg/dL) 141 H 130 H 277 H (75-99) mg/dL Calcium (8.4-10.2) mg/dL Ionized Calcium Maked[place] (4.5-5.3) mg/dL Magnesium (1.6-2.3) mg/dL AST (17-59) U/L Alkaline Phosphatase (38-126) U/L Total Protein (6.3-8.2) g/dL Albumin (3.5-5.0) g/dL Crossmatch 08/18/16 Range/Units 10:27 WBC (3.8-10.6) k/uL RBC (4.30-5.90) m/uL Hgb (13.0-17.5) gm/dL Hct (39.0-53.0) % MCHC (31.0-37.0) g/dL RDW (11.5-15.5) % Neutrophils # (1.3-7.7) k/uL Lymphocytes # (1.0-4.8) k/uL Monocytes # (0-1.0) k/uL PT (9.0-12.0) sec APTT (22.0-30.0) sec ABG pCO2 (35-45) mmHg ABG pO2 (83-108) mmHg ABG HCO3 (21-25) mmol/L ABG Total CO2 (19-24) mmol/L ABG O2 Saturation (94-97) % BUN (9-20) mg/dL Glucose (74-99) mg/dL POC Glucose (mg/dL) 240 H (75-99) mg/dL Calcium (8.4-10.2) mg/dL Ionized Calcium Makeda (4.5-5.3) mg/dL Magnesium (1.6-2.3) mg/dL AST (17-59) U/L Alkaline Phosphatase (38-126) U/L Total Protein (6.3-8.2) g/dL Albumin (3.5-5.0) g/dL Crossmatch Microbiology - Last 24 Hours (Table) 08/12/16 19:38 Blood Culture - Preliminary Blood No Growth after 120 hours Assessment and Plan Plan: Assessment #1 acute non-ST elevation TN #2 status post coronary artery bypass grafting #3 morbid obesity #4 hypertension #5 dyslipidemia Plan #1 antiplatelet #2 beta huey and statin #3 follow-up with the patient
[2016-08-18 12:33] LABS: Glucose,Whole Blood 222 mg/dL (75-99)
[2016-08-18] MEDS ORDERED: INSULIN REGULAR 100 UNIT in SODIUM CHLORIDE 0.9% 100 ML IV SCH (12:45)
[2016-08-18] MEDS: MULTIVITAMINS, THERA 1 EACH TAB PO SCH (13:26)
[2016-08-18 13:31] LABS: Glucose,Whole Blood 191 mg/dL (75-99)
[2016-08-18] MEDS ORDERED: HYDROcodone/APAP 5-325MG 1 EACH TAB PO PRN (13:31)
[2016-08-18] MEDS ORDERED: MAGNESIUM HYDROXIDE 2,400 MG/10 ML CUP PO PRN (13:32)
[2016-08-18] MEDS ORDERED: BISACODYL 10 MG SUPP RECTAL PRN (13:32)
[2016-08-18] MEDS ORDERED: IPRATROPIUM-ALBUTEROL 3 ML NEB INHALATION PRN (13:32)
[2016-08-18] MEDS: METOCLOPRAMIDE 10 MG TAB PO SCH ×3 (13:41→20:54)
[2016-08-18 14:23] LABS: ABG PCO2 49 mmHg (35-45); ABG PO2 297 mmHg (83-108)
[2016-08-18 14:24] LABS: ABG HCO3 29 mmol/L (21-25); ABG Oxygen Saturation 99.9 % (94-97); ABG TCO2 31 mmol/L (19-24)
[2016-08-18 14:26] LABS: Glucose,Whole Blood 188 mg/dL (75-99)
[2016-08-18 14:29] LABS: ABG Base Excess 3.8 mmol/L; ABG HCO3 28 mmol/L (21-25); ABG Oxygen Saturation 99.8 % (94-97); ABG PCO2 43 mmHg (35-45); ABG PH 7.43 (7.35-7.45); ABG PO2 239 mmHg (83-108); ABG TCO2 29 mmol/L (19-24)
[2016-08-18 14:30] LABS: ABG PH 7.42 (7.35-7.45)
[2016-08-18 14:31] LABS: ABG Base Excess 3.7 mmol/L; ABG HCO3 28 mmol/L (21-25); ABG Oxygen Saturation 99.9 % (94-97); ABG PCO2 45 mmHg (35-45); ABG PO2 347 mmHg (83-108); ABG TCO2 30 mmol/L (19-24)
[2016-08-18 14:32] LABS: ABG Base Excess 3.4 mmol/L; ABG HCO3 27 mmol/L (21-25); ABG Oxygen Saturation 99.9 % (94-97); ABG PCO2 40 mmHg (35-45); ABG PH 7.45 (7.35-7.45); ABG PO2 259 mmHg (83-108); ABG TCO2 28 mmol/L (19-24)
[2016-08-18 14:33] LABS: ABG Base Excess 3.1 mmol/L; ABG HCO3 27 mmol/L (21-25); ABG PCO2 39 mmHg (35-45); ABG PH 7.45 (7.35-7.45); ABG PO2 245 mmHg (83-108); ABG TCO2 28 mmol/L (19-24)
[2016-08-18 14:34] LABS: ABG Oxygen Saturation 99.9 % (94-97)
[2016-08-18 14:35] LABS: ABG Base Excess 2.3 mmol/L; ABG HCO3 27 mmol/L (21-25); ABG Oxygen Saturation 99.9 % (94-97); ABG PCO2 44 mmHg (35-45); ABG PO2 281 mmHg (83-108); ABG TCO2 28 mmol/L (19-24)
[2016-08-18 14:36] LABS: ABG Base Excess 1.5 mmol/L; ABG HCO3 26 mmol/L (21-25); ABG Oxygen Saturation 99.8 % (94-97); ABG PCO2 42 mmHg (35-45); ABG PO2 235 mmHg (83-108); ABG TCO2 27 mmol/L (19-24)
[2016-08-18 15:10] LABS: Glucose,Whole Blood 215 mg/dL (75-99)
[2016-08-18 16:31] LABS: Glucose,Whole Blood 211 mg/dL (75-99)
[2016-08-18] MEDS: metFORMIN 500 MG TAB PO SCH (17:17)
[2016-08-18 17:22] LABS: Glucose,Whole Blood 182 mg/dL (75-99)
[2016-08-18 18:12] LABS: Glucose,Whole Blood 155 mg/dL (75-99)
[2016-08-18 19:09] LABS: Glucose,Whole Blood 216 mg/dL (75-99)
--- NOTE | 2016-08-18 19:50 | PN ---
DATE OF SERVICE: 08/18/2016 This 55-year-old gentleman, admitted with CAD, CABG, is being closely monitored. The patient also has multiple other complex medical issues. The patient had significantly uncontrolled brittle diabetes mellitus. The patient has a complicated history of diabetes mellitus, requiring up to 300 to 350 units of insulin per day. The patient was also on an insulin pump at some point. Apparently the pump was not working recently. The patient was also doing a combination of the pump as well as insulin, which the patient thought was easier to use, helping him to ease the control of the diabetes mellitus at home. In any case, currently the patient is monitored in the ICU. The patient is receiving insulin drip at 7 to 10 units. At that rate, sugars are running between 240 and 220. Please note that the patient did have brittle diabetes mellitus even prior to the surgery, and the sugars are up to 280 despite insulin drip. Past medical history reviewed. REVIEW OF SYSTEMS: CARDIOVASCULAR: No angina, palpitations. RESPIRATORY SYSTEM: As mentioned earlier. GI: As mentioned earlier. : No dysuria. NERVOUS SYSTEM: No numbness or weakness. Current medications are reviewed and include: 1. Tylenol 1000 mg p.r.n. 2. Hydrocodone 5 mg q.6 p.r.n. 3. Albuterol Atrovent q.i.d. and p.r.n. 4. Norvasc 5 mg p.o. daily. 5. Aspirin 325 mg daily. 6. Lipitor 40 mg daily. 7. Dulcolax 10 mg daily. 8. Rocaltrol 0.25 mcg p.o. Sunday, Sunday, Sunday. 9. Plavix 75 mg p.o. daily. 10. Neurontin 600 mg p.o. b.i.d. 11. Heparin 5000 units subcutaneously q.8. 12. Lactated Ringers. 13. Milk of Magnesia. 14. Glucophage. 15. Reglan. 16. Lopressor. 17. Multivitamins. 18. Zofran. 19. Protonix. 20. Senokot. 21. Saline flush. PHYSICAL EXAMINATION: Patient is alert and oriented x3. Pulse 76, blood pressure 116/46, respiration 24, temperature normal, pulse ox 97% on room air. HEENT: Conjunctivae normal. Oral mucosa moist. NECK: No jugular venous distention. No carotid bruit. No lymph node enlargement. CARDIOVASCULAR SYSTEM: S1, S2 muffled. RESPIRATORY SYSTEM: Breath sounds diminished at the bases. Scattered rhonchi. No crackles. ABDOMEN: Soft, obese, nontender. No mass palpable. LEGS: No edema. No swelling. NERVOUS SYSTEM: Higher functions as mentioned earlier. Moves all 4 limbs. No focal motor or sensory deficit. LYMPHATICS: No lymph node palpable in neck, axillae or groin. SKIN: No ulcer, rash, bleeding. LABS: WBC 12. Hemoglobin is 9.5. Accu-Cheks are noted. Otherwise, albumin is 3.2. ASSESSMENT: 1. Acute eay-SW-jroeexa-elevation myocardial infarction, present on admission, status post coronary artery bypass grafting x3. 2. Status post cardiac catheterization and coronary artery bypass grafting involving the left anterior descending as well as distal coronary artery. 3. Diabetes mellitus, type 2, uncontrolled, present on admission, on insulin drip. 4. Chronic kidney disease, stage III, present on admission. 5. Hypertension. 6. History of chronic obstructive pulmonary disease. 7. Possible congestive heart failure with acute exacerbation with acute systolic dysfunction, ejection fraction 45% to 40%, present on admission. 8. History of degenerative joint disease. 9. History of Charcot joints. 10. History of nicotine dependence. 11. History of heparin monitoring. 12. Hyperlipidemia. 13. Anemia of chronic disease secondary to chronic kidney disease. 14. Acute hypoxic respiratory failure, present on admission. 15. Ascending aortic aneurysm of 4 cm; incidental per CT scan. 16. Left kidney cyst of around 3.[address] scan. 17. Fatty liver. 18. Hilar and subcarinal nodes. 19. Obesity with a body mass index of 37.9. 20. FULL CODE. RECOMMENDATIONS AND DISCUSSION: I recommend to continue current medications, continue symptomatic treatment. I would recommend increasing insulin scale to the steroid scale and continuously monitor the blood sugar. The patient could be transitioned to home dose of insulin once the patient is stabilized and ready for discharge. Otherwise, I will continue to monitor and keep the patient on insulin drip as much as possible because of the extremely brittle nature of the diabetes and importance of blood sugar control perioperatively. Again, prognosis is guarded. Further recommendations to follow. Will closely monitor with Cardiothoracic Surgery. Further recommendations to follow.
[2016-08-18 20:02] LABS: Glucose,Whole Blood 193 mg/dL (75-99)
[2016-08-18] MEDS: LACTATED RINGERS 1,000 ML IV SCH (20:53)
[2016-08-18] MEDS: SENNOSIDES-DOCUSATE SODIUM 1 EACH TAB PO SCH (20:54)
[2016-08-18 21:02] LABS: Glucose,Whole Blood 173 mg/dL (75-99)
[2016-08-18 22:06] LABS: Glucose,Whole Blood 166 mg/dL (75-99)
[2016-08-18 23:26] LABS: Glucose,Whole Blood 144 mg/dL (75-99)
[2016-08-19] MEDS: HEPARIN SODIUM,PORCINE 5,000 UNIT/ML 1 ML VIAL SQ SCH ×4 (00:06→23:12)
[2016-08-19 00:07] LABS: Glucose,Whole Blood 131 mg/dL (75-99)
[2016-08-19 01:03] LABS: Glucose,Whole Blood 120 mg/dL (75-99)
[2016-08-19 02:19] LABS: Glucose,Whole Blood 112 mg/dL (75-99)
[2016-08-19 03:06] LABS: Glucose,Whole Blood 149 mg/dL (75-99)
[2016-08-19 04:08] LABS: Glucose,Whole Blood 142 mg/dL (75-99)
[2016-08-19 04:19] LABS: Anisocytosis Slight; Basophils % (A) 0 %; CH 26.9; Eosinophils % (A) 0 %; HCT 27.6 % (39.0-53.0); HDW 2.89; HGB 8.1 gm/dL (13.0-17.5); Hypochromasia Moderate; Luc # (Auto) 0.28; Luc % (Auto) 3; Lymphocytes # (A) 0.5 k/uL (1.0-4.8); Lymphocytes % (A) 5 %; MCH 25.7 pg (25.0-35.0); MCHC 29.5 g/dL (31.0-37.0); MCV 87.3 fL (80.0-100.0); Mean Platelet Volume 9.6; Monocytes # (A) 0.6 k/uL (0-1.0); Monocytes % (A) 6 %; Neutrophils # (A) 8.8 k/uL (1.3-7.7); Neutrophils % (A) 87 %; RBC 3.17 m/uL (4.30-5.90); RDW 16.3 % (11.5-15.5); WBC 10.1 k/uL (3.8-10.6); WBC (Perox) 10.57
[2016-08-19 04:28] LABS: Ionized Calcium 4.8 mg/dL (4.5-5.3)
[2016-08-19 04:29] LABS: INR 1.2 (<1.1); Prothrombin Time 11.6 sec (9.0-12.0)
[2016-08-19 04:41] LABS: ALT 53 U/L (21-72); AST 54 U/L (17-59); Alkaline Phosphatase 35 U/L (38-126); Anion Gap 7 mmol/L; Blood Urea Nitrogen 23 mg/dL (9-20); Calcium 7.8 mg/dL (8.4-10.2); Carbon Dioxide 28 mmol/L (22-30); Chloride 100 mmol/L (98-107); Glucose 132 mg/dL (74-99); Magnesium 2.3 mg/dL (1.6-2.3); Non-African American GFR(MDRD) >60 (>60 ml/min/1.73 sqM); Potassium 4.1 mmol/L (3.5-5.1); Sodium 135 mmol/L (137-145); Total Bilirubin 0.4 mg/dL (0.2-1.3); Total Protein 4.7 g/dL (6.3-8.2)
[2016-08-19 05:12] LABS: Glucose,Whole Blood 125 mg/dL (75-99)
[2016-08-19 06:11] LABS: Glucose,Whole Blood 110 mg/dL (75-99)
[2016-08-19 07:11] LABS: Glucose,Whole Blood 138 mg/dL (75-99)
--- NOTE | 2016-08-19 07:44 | XR ---
EXAMINATION TYPE: XR chest 1V portable DATE OF EXAM: 08/19/2016 6:34 AM HISTORY: Post Operative Cardiac Surgery. REFERENCE: Previous study dated 08/18/2016. FINDINGS: The patient's right internal jugular catheter is been removed. The heart is enlarged. There is some minimal residual bibasilar airspace disease. The lungs are other dorman clear. Pleural spaces are clear. IMPRESSION: 1. CARDIOMEGALY. 2. MINIMAL BIBASILAR AIRSPACE DISEASE.
[2016-08-19 08:35] LABS: Glucose,Whole Blood 189 mg/dL (75-99)
[2016-08-19] MEDS: metFORMIN 500 MG TAB PO SCH ×2 (08:49→16:58)
[2016-08-19] MEDS: PANTOPRAZOLE 40 MG TABLET PO SCH (08:49)
[2016-08-19] MEDS: ATORVASTATIN 40 MG TAB PO SCH (08:50)
[2016-08-19] MEDS: amLODIPine 5 MG TAB PO SCH (08:50)
[2016-08-19] MEDS: CLOPIDOGREL 75 MG TAB PO SCH (08:50)
[2016-08-19] MEDS: ASPIRIN 325 MG TAB PO SCH (08:50)
[2016-08-19] MEDS: GABAPENTIN 300 MG CAP PO SCH ×2 (08:50→21:26)
[2016-08-19] MEDS: METOPROLOL TARTRATE 25 MG TAB PO SCH ×2 (08:50→21:26)
[2016-08-19] MEDS: MUPIROCIN 2% OINT 22 GM TUBE NASAL SCH ×2 (08:50→21:26)
[2016-08-19] MEDS: IPRATROPIUM-ALBUTEROL 3 ML NEB INHALATION SCH ×4 (08:56→19:21)
[2016-08-19] MEDS: METOCLOPRAMIDE 10 MG TAB PO SCH ×4 (08:57→21:26)
--- NOTE | 2016-08-19 09:05 | P.PN ---
Progress Note - Text CV Surgery Nursing Principal diagnosis: Non-ST elevation myocardial infarction with double vessel coronary artery disease, preserved left ventricular function, poorly controlled diabetes with micro-and macrovascular complication. Chronic kidney disease. Retinopathy. Obesity. Hypertension. Hyperlipidemia. Obstructive sleep apnea. POD #2 non-aortic clamp off pump triple coronary artery bypass grafting using the left internal mammary artery to the left anterior descending artery, reverse saphenous vein graft connected to the aorta using the PAS-Port device and connected distally to the first diagonal artery, reverse saphenous vein graft connected to the aorta using the PAS-Port device and connected distally to the right coronary artery in the groove after the PDA takeoff. Endoscopic harvesting of the left greater saphenous vein. Sternal plating and sternal cable using [employer]/GoodB[employer] system. Transesophageal echocardiogram and epi- aortic scanning. Intraoperative graft flow measurements using the Easy [employer] machine. Patient awake and alert, no distress noted, no specific complaints, he is sitting up to the bedside chair. He is requesting when he is discharged to be discharged to a subacute rehab. Vital Signs: Afebrile Vital Signs - 24 hr 08/18/16 08/18/16 08/18/16 08:05 09:00 10:00 Temperature Pulse Rate 77 95 83 Respiratory 12 21 Rate O2 Sat by Pulse 92 L 94 L Oximetry 08/18/16 08/18/16 08/18/16 11:00 11:14 11:24 Temperature Pulse Rate 71 70 76 Respiratory 12 Rate O2 Sat by Pulse 94 L Oximetry 08/18/16 08/18/16 08/18/16 12:00 13:00 14:00 Temperature 98 F Pulse Rate 69 72 77 Respiratory 24 24 18 Rate O2 Sat by Pulse 96 95 93 L Oximetry 08/18/16 08/18/16 08/18/16 15:00 15:29 15:44 Temperature Pulse Rate 76 77 Respiratory 24 24 Rate O2 Sat by Pulse 97 Oximetry 08/18/16 08/18/16 08/18/16 15:50 16:00 17:00 Temperature Pulse Rate 76 79 80 Respiratory 27 H 16 Rate O2 Sat by Pulse 94 L 95 Oximetry 08/18/16 08/18/16 08/18/16 18:00 19:00 19:34 Temperature Pulse Rate 86 80 81 Respiratory 20 11 L Rate O2 Sat by Pulse 96 94 L Oximetry 08/18/16 08/18/16 08/18/16 19:44 20:00 21:00 Temperature 97.9 F 97.4 F L Pulse Rate 88 86 83 Respiratory 19 19 Rate O2 Sat by Pulse 96 94 L Oximetry 08/18/16 08/18/16 08/19/16 22:00 23:00 00:00 Temperature Pulse Rate 74 75 80 Respiratory 15 11 L 12 Rate O2 Sat by Pulse 96 94 L 93 L Oximetry 08/19/16 08/19/16 08/19/16 01:00 02:00 03:00 Temperature Pulse Rate 80 75 72 Respiratory 17 12 10 L Rate O2 Sat by Pulse 98 98 98 Oximetry 08/19/16 08/19/16 08/19/16 04:00 05:00 06:00 Temperature 97.9 F Pulse Rate 74 75 80 Respiratory 14 14 14 Rate O2 Sat by Pulse 97 99 Oximetry 08/19/16 07:00 Temperature Pulse Rate 76 Respiratory 18 Rate O2 Sat by Pulse 93 L Oximetry ABP, PAP, CO, CI - Last 8 Hours Arterial Blood Pressure 116/44 Arterial Blood Pressure 127/50 Arterial Blood Pressure 119/51 Arterial Blood Pressure 132/53 Arterial Blood Pressure 115/51 Arterial Blood Pressure 125/53 Arterial Blood Pressure 132/59 Labs: Short CBC 08/19/16 Range/Units 04:07 WBC 10.1 (3.8-10.6) k/uL Hgb 8.1 L (13.0-17.5) gm/dL Hct 27.6 L (39.0-53.0) % Plt Count 190 (150-450) k/uL Neutrophils # 8.8 H (1.3-7.7) k/uL BMP 08/19/16 04:07 Sodium 135 L Potassium 4.1 Chloride 100 Carbon Dioxide 28 BUN 23 H Creatinine 0.90 Glucose 132 H Calcium 7.8 L Liver Function 08/19/16 Range/Units 04:07 Total Bilirubin 0.4 (0.2-1.3) mg/dL AST 54 (17-59) U/L ALT 53 (21-72) U/L Alkaline Phosphatase 35 L (38-126) U/L Albumin 2.7 L (3.5-5.0) g/dL IV Fluids: Lactated Ringer's at 20 mL/h Insulin drip at 10 units per hour. CVP: 6 Lungs: Essentially clear throughout, diminished bilateral bases. Respirations are unlabored. O2 sat: 96% on room air. I/S: 1250 mL, reviewed with the patient importance of using his incentive spirometry every hour while awake. The patient gave a good return demonstration on his incentive spirometry. Heart: S1S2, regular rhythm and rate, negative for S3, gallop or murmur. Bedside telemetry showing normal sinus rhythm heart rate 89. Sternum stable, chest incision clean with medline Silver dressing clean and dry. Abdomen heart hugger in place, patient demonstrating proper use of his heart hugger. Left leg incisions clean dry and well approximated. No drainage noted. SUNDAY drain in place, 50 mL of output in the last 24 hours. Knee-high EVON hose and sequential compression devices in place to his bilateral lower extremities. Abdomen: Soft, Positive bowel sounds present in all 4 quadrants. CBGs: 138-216 mg/dL in the last 24 hours. U/O: Adequate, Brumfield catheter for accurate I&O. 1000 mL output in the last 8 hours. Chest Tubes: Mediastinal chest tubes without air leak, draining thin serosanguineous drainage, 90 mL output in the last 8 hours, 260 mL output in the last 24 hours. Left pleural chest tube without air leak, draining thin serosanguineous drainage. 50 mL output in the last 8 hours, 190 mL output in the last 24 hours. 24 hr Total: Intake & Output 08/17/16 08/18/16 08/19/16 08/20/16 06:59 06:59 06:59 06:59 Intake Total 0993.928 6862.311 1213.193 46 Output Total [address] [facility] -7428.000 -2103.689 -1206.807 -219 Weight 111.7 kg 123.2 kg 120.7 kg Plan: 1. Continue aspirin, beta huey, statin, heparin, Plavix. 2. His mediastinal and left pleural chest tubes will be discontinued today. 3. His Cordis will be discontinued 4. Encourage incentive spirometry use. Pulmonary management per Dr. Rangel 5. Insulin and diabetic management per primary service 6. He will be transferred to [address] [place] [address] Iraheta for rehab placement. 8. GI/DVT prophylaxis. 9. Increase activity, out of bed in chair all day. Physical therapy to follow. 10. More recommendations as patient progresses.
[2016-08-19 09:16] LABS: Glucose,Whole Blood 219 mg/dL (75-99)
[2016-08-19] MEDS: HYDROcodone/APAP 5-325MG 1 EACH TAB PO PRN (10:29)
--- NOTE | 2016-08-19 11:12 | P.PN ---
Subjective Principal diagnosis: Acute myocardial infarction, status post CABG This is a 55-year-old white male with history of multiple medical problems including COPD, hypertension, dyslipidemia, diabetes, obesity, and he has a very sedentary lifestyle. 2 years ago, the patient had a stress test which was supposedly normal. This was done in [place]. Patient presented this time to the ER with 3 days history of tightness across the chest, associated with some shortness of breath. His EKG was nonspecific, however his enzymes were positive , the patient was found to have non-ST elevation myocardial infarction. Today the patient underwent cardiac catheterization by Dr. Vegas, and he was found to have significant coronary artery disease. Hence the patient was advised to have myocardial revascularization. And the patient is yet to be seen by cardiac surgery on consultation. In the meantime the patient was placed on medications for his acute CO and I was asked to see him on consultation. His shortness of breath is improved, his chest pain is resolved. However the patient is known to have remote smoking history, however he quit many years ago. Patient was told at one point that he may have emphysema, severity of which is not clear. However the patient is not O2 dependent and not prednisone dependent. Bedside spirometry was done, and it was a poor quality because of the effort was very poor, hence I recommended a full PFT to be done in a.m. Patient was reevaluated today on 08/15/2016, doing relatively well, however his PFT is quite abnormal showing mostly a picture of restriction and poor effort with very low Mvv and low FVC, lower lung volumes. This would make him a very high surgical risk, in the meantime I ordered a high-resolution CT of the chest , his chest x-ray was showing a right paratracheal soft tissue fullness, and some subsegmental interstitial perihilar changes felt to be related to congestive heart failure unless proven otherwise. CT of the chest is showing mostly congestive heart failure, with air bronchograms noted in the right lung base and there is also evidence of calcified subcarinal and left hilar nodes noted. Fatty infiltration of the liver was also noted, and cystic focus of left kidney was noted. Patient will likely improve with aggressive diuresis. Patient was reevaluated today on 08/16/2016, seems to be doing much better, breathing a lot easier, and he is doing well with incentive spirometry. Patient is scheduled to undergo myocardial revascularization in a.m. And his follow-up chest x-ray is showing definite improvement. Hence the patient will be cleared for surgery, however he is still considered moderate to high operative risk. Patient was seen yesterday on 08/17/2016, and he was postoperative day #0/ CABG.patient had off-pump triple coronary artery bypass grafting using JIN to LAD and reverse SVG to aorta using the PASport device and connected distally to the first diagonal artery, reverse saphenous graft connected to the aorta using the PASport device and connected distally to the right coronary artery in the groove after the PDA takeoff.his ventilator settings were addressed yesterday, and I was able to extubate the patient uneventfully within few hours after he arrived to the ICU. I saw him today on 08/18/2016, patient is off mechanical ventilation, doing quite well, chest x-ray is relatively unremarkable. Patient is hemodynamically stable. And in no distress. Labs and meds were all reviewed. Reevaluated today on 08/19/2016, patient is doing well asymptomatic, on nasal cannula, in no distress. Chest x-ray showed minimal atelectasis at the bases patient will likely be transferred out of the ICU to a cardiac floor. In the meantime we'll continue updrafts, continue incentive spirometry, no need for any other bronchodilators or steroids at this point. Objective - Vital Signs Vital signs: Vital Signs Temp 98.2 F 08/19/16 08:00 Pulse 88 08/19/16 09:09 Resp 14 08/19/16 09:00 BP 109/55 08/17/16 21:00 Pulse Ox 100 08/19/16 09:00 Intake & Output 08/18/16 08/19/16 08/19/16 18:59 06:59 18:59 Intake Total 611.143 602.050 72 Output Total 995 1425 375 Balance -383.857 -822.950 -303 Weight 120.7 kg Intake: IV 484 312 72 0.9 for cardiac output 20 0.9 for pressure bag 84 72 12 0.9 sodium chloride 40 Lactated Ringers 1,000 ml 330 240 20 @ 20 mls/hr IV .Q24H ALE Rx#:[id number] cefTRIAXone 1,000 mg In 50 Sodium Chloride 0.9% 50 ml @ 100 mls/hr IVPB Q24H ALE Rx#:[id number] Intake, IV Titration 127.143 90.050 Amount Insulin Regular 100 unit 53.67 In Sodium Chloride 0.9% 100 ml @ Per Protocol IV .Q0M ALE Rx#:[id number] Insulin Regular 100 unit 46.073 48.982 In Sodium Chloride 0.9% 100 ml @ Per Protocol IV .Q0M ALE Rx#:[id number] Insulin Regular 100 unit 41.068 In Sodium Chloride 0.9% 100 ml @ Per Protocol IV .Q0M ALE Rx#:[id number] Nitroglycerin-D5w Pmx 50 27.4 mg In Dextrose/Water 1 250ml.bag @ 5 MCG/MIN 1.5 mls/hr IV .Q24H ALE Rx#: [id number] Oral 200 Output: Chest Tube Drainage 310 140 60 Bilateral Mediastinal 190 90 20 Left Lateral Chest 120 50 40 Drainage 30 20 40 Left Lower Calf 30 20 40 Urine 655 1265 275 Other: Voiding Method Indwelling Catheter Indwelling Catheter Indwelling Catheter # Voids 1 ABP, PAP, CO, CI - Last Documented Arterial Blood Pressure 137/50 Pulmonary Artery Pressure 32/13 Cardiac Output 6.8 Cardiac Index 3 - Exam Physical Exam: Revealed a 55-year-old in no distress HEENT:[Neck is supple.] [No neck masses.] [No thyromegaly.] [No JVD.] Chest: Diminished breath sounds at the bases, no crackles or rhonchi or wheezes. ] Cardiac Exam: [Normal S1 and S2, no S3 gallop, no murmur.] Abdomen: [Soft, nontender, no megaly, no rebound, no guarding, normal bowel sounds.] Extremities: [No clubbing, no edema, no cyanosis.] Neurological Exam: [No focal neurologic deficit.] - Labs CBC & Chem 7: 08/19/16 04:07 08/19/16 04:07 Labs: Abnormal Lab Results - Last 24 Hours (Table) 08/17/16 08/17/16 08/17/16 Range/Units 08:25 09:26 09:56 RBC (4.30-5.90) m/uL Hgb (13.0-17.5) gm/dL Hct (39.0-53.0) % MCHC (31.0-37.0) g/dL RDW (11.5-15.5) % Neutrophils # (1.3-7.7) k/uL Lymphocytes # (1.0-4.8) k/uL ABG pCO2 49 H (35-45) mmHg ABG pO2 297 H 239 H 347 H (83-108) mmHg ABG HCO3 29 H 28 H 28 H (21-25) mmol/L ABG Total CO2 31 H 29 H 30 H (19-24) mmol/L ABG O2 Saturation 99.9 H 99.8 H 99.9 H (94-97) % ABG Hematocrit (34.0-46.0) % ABG Potassium 3.1 L (3.4-4.5) mmol/L Sodium (137-145) mmol/L BUN (9-20) mg/dL Glucose (74-99) mg/dL POC Glucose (mg/dL) (75-99) mg/dL Calcium (8.4-10.2) mg/dL Alkaline Phosphatase (38-126) U/L Total Protein (6.3-8.2) g/dL Albumin (3.5-5.0) g/dL Arterial Blood Potassium 3.1 L (3.4-4.5) mmol/L 08/17/16 08/17/16 08/17/16 Range/Units 10:23 10:52 11:39 RBC (4.30-5.90) m/uL Hgb (13.0-17.5) gm/dL Hct (39.0-53.0) % MCHC (31.0-37.0) g/dL RDW (11.5-15.5) % Neutrophils # (1.3-7.7) k/uL Lymphocytes # (1.0-4.8) k/uL ABG pCO2 (35-45) mmHg ABG pO2 259 H 245 H 281 H (83-108) mmHg ABG HCO3 27 H 27 H 27 H (21-25) mmol/L ABG Total CO2 28 H 28 H 28 H (19-24) mmol/L ABG O2 Saturation 99.9 H 99.9 H 99.9 H (94-97) % ABG Hematocrit 31 L 30 L 27 L (34.0-46.0) % ABG Potassium 3.3 L (3.4-4.5) mmol/L Sodium (137-145) mmol/L BUN (9-20) mg/dL Glucose (74-99) mg/dL POC Glucose (mg/dL) (75-99) mg/dL Calcium (8.4-10.2) mg/dL Alkaline Phosphatase (38-126) U/L Total Protein (6.3-8.2) g/dL Albumin (3.5-5.0) g/dL Arterial Blood Potassium 3.3 L (3.4-4.5) mmol/L 08/17/16 08/18/16 08/18/16 Range/Units 13:01 12:30 13:28 RBC (4.30-5.90) m/uL Hgb (13.0-17.5) gm/dL Hct (39.0-53.0) % MCHC (31.0-37.0) g/dL RDW (11.5-15.5) % Neutrophils # (1.3-7.7) k/uL Lymphocytes # (1.0-4.8) k/uL ABG pCO2 (35-45) mmHg ABG pO2 235 H (83-108) mmHg ABG HCO3 26 H (21-25) mmol/L ABG Total CO2 27 H (19-24) mmol/L ABG O2 Saturation 99.8 H (94-97) % ABG Hematocrit 25 L (34.0-46.0) % ABG Potassium (3.4-4.5) mmol/L Sodium (137-145) mmol/L BUN (9-20) mg/dL Glucose (74-99) mg/dL POC Glucose (mg/dL) 222 H 191 H (75-99) mg/dL Calcium (8.4-10.2) mg/dL Alkaline Phosphatase (38-126) U/L Total Protein (6.3-8.2) g/dL Albumin (3.5-5.0) g/dL Arterial Blood Potassium (3.4-4.5) mmol/L 08/18/16 08/18/16 08/18/16 Range/Units 14:24 15:08 16:11 RBC (4.30-5.90) m/uL Hgb (13.0-17.5) gm/dL Hct (39.0-53.0) % MCHC (31.0-37.0) g/dL RDW (11.5-15.5) % Neutrophils # (1.3-7.7) k/uL Lymphocytes # (1.0-4.8) k/uL ABG pCO2 (35-45) mmHg ABG pO2 (83-108) mmHg ABG HCO3 (21-25) mmol/L ABG Total CO2 (19-24) mmol/L ABG O2 Saturation (94-97) % ABG Hematocrit (34.0-46.0) % ABG Potassium (3.4-4.5) mmol/L Sodium (137-145) mmol/L BUN (9-20) mg/dL Glucose (74-99) mg/dL POC Glucose (mg/dL) 188 H 215 H 211 H (75-99) mg/dL Calcium (8.4-10.2) mg/dL Alkaline Phosphatase (38-126) U/L Total Protein (6.3-8.2) g/dL Albumin (3.5-5.0) g/dL Arterial Blood Potassium (3.4-4.5) mmol/L 08/18/16 08/18/16 08/18/16 Range/Units 17:21 18:10 19:07 RBC (4.30-5.90) m/uL Hgb (13.0-17.5) gm/dL Hct (39.0-53.0) % MCHC (31.0-37.0) g/dL RDW (11.5-15.5) % Neutrophils # (1.3-7.7) k/uL Lymphocytes # (1.0-4.8) k/uL ABG pCO2 (35-45) mmHg ABG pO2 (83-108) mmHg ABG HCO3 (21-25) mmol/L ABG Total CO2 (19-24) mmol/L ABG O2 Saturation (94-97) % ABG Hematocrit (34.0-46.0) % ABG Potassium (3.4-4.5) mmol/L Sodium (137-145) mmol/L BUN (9-20) mg/dL Glucose (74-99) mg/dL POC Glucose (mg/dL) 182 H 155 H 216 H (75-99) mg/dL Calcium (8.4-10.2) mg/dL Alkaline Phosphatase (38-126) U/L Total Protein (6.3-8.2) g/dL Albumin (3.5-5.0) g/dL Arterial Blood Potassium (3.4-4.5) mmol/L 08/18/16 08/18/16 08/18/16 Range/Units 20:00 21:00 22:02 RBC (4.30-5.90) m/uL Hgb (13.0-17.5) gm/dL Hct (39.0-53.0) % MCHC (31.0-37.0) g/dL RDW (11.5-15.5) % Neutrophils # (1.3-7.7) k/uL Lymphocytes # (1.0-4.8) k/uL ABG pCO2 (35-45) mmHg ABG pO2 (83-108) mmHg ABG HCO3 (21-25) mmol/L ABG Total CO2 (19-24) mmol/L ABG O2 Saturation (94-97) % ABG Hematocrit (34.0-46.0) % ABG Potassium (3.4-4.5) mmol/L Sodium (137-145) mmol/L BUN (9-20) mg/dL Glucose (74-99) mg/dL POC Glucose (mg/dL) 193 H 173 H 166 H (75-99) mg/dL Calcium (8.4-10.2) mg/dL Alkaline Phosphatase (38-126) U/L Total Protein (6.3-8.2) g/dL Albumin (3.5-5.0) g/dL Arterial Blood Potassium (3.4-4.5) mmol/L 08/18/16 08/19/16 08/19/16 Range/Units 23:06 00:04 01:01 RBC (4.30-5.90) m/uL Hgb (13.0-17.5) gm/dL Hct (39.0-53.0) % MCHC (31.0-37.0) g/dL RDW (11.5-15.5) % Neutrophils # (1.3-7.7) k/uL Lymphocytes # (1.0-4.8) k/uL ABG pCO2 (35-45) mmHg ABG pO2 (83-108) mmHg ABG HCO3 (21-25) mmol/L ABG Total CO2 (19-24) mmol/L ABG O2 Saturation (94-97) % ABG Hematocrit (34.0-46.0) % ABG Potassium (3.4-4.5) mmol/L Sodium (137-145) mmol/L BUN (9-20) mg/dL Glucose (74-99) mg/dL POC Glucose (mg/dL) 144 H 131 H 120 H (75-99) mg/dL Calcium (8.4-10.2) mg/dL Alkaline Phosphatase (38-126) U/L Total Protein (6.3-8.2) g/dL Albumin (3.5-5.0) g/dL Arterial Blood Potassium (3.4-4.5) mmol/L 08/19/16 08/19/16 08/19/16 Range/Units 01:59 03:04 04:05 RBC (4.30-5.90) m/uL Hgb (13.0-17.5) gm/dL Hct (39.0-53.0) % MCHC (31.0-37.0) g/dL RDW (11.5-15.5) % Neutrophils # (1.3-7.7) k/uL Lymphocytes # (1.0-4.8) k/uL ABG pCO2 (35-45) mmHg ABG pO2 (83-108) mmHg ABG HCO3 (21-25) mmol/L ABG Total CO2 (19-24) mmol/L ABG O2 Saturation (94-97) % ABG Hematocrit (34.0-46.0) % ABG Potassium (3.4-4.5) mmol/L Sodium (137-145) mmol/L BUN (9-20) mg/dL Glucose (74-99) mg/dL POC Glucose (mg/dL) 112 H 149 H 142 H (75-99) mg/dL Calcium (8.4-10.2) mg/dL Alkaline Phosphatase (38-126) U/L Total Protein (6.3-8.2) g/dL Albumin (3.5-5.0) g/dL Arterial Blood Potassium (3.4-4.5) mmol/L 0308/19/16 08/19/16 Range/Units 04:07 04:07 05:09 RBC 3.17 L (4.30-5.90) m/uL Hgb 8.1 L (13.0-17.5) gm/dL Hct 27.6 L (39.0-53.0) % MCHC 29.5 L (31.0-37.0) g/dL RDW 16.3 H (11.5-15.5) % Neutrophils # 8.8 H (1.3-7.7) k/uL Lymphocytes # 0.5 L (1.0-4.8) k/uL ABG pCO2 (35-45) mmHg ABG pO2 (83-108) mmHg ABG HCO3 (21-25) mmol/L ABG Total CO2 (19-24) mmol/L ABG O2 Saturation (94-97) % ABG Hematocrit (34.0-46.0) % ABG Potassium (3.4-4.5) mmol/L Sodium 135 L (137-145) mmol/L BUN 23 H (9-20) mg/dL Glucose 132 H (74-99) mg/dL POC Glucose (mg/dL) 125 H (75-99) mg/dL Calcium 7.8 L (8.4-10.2) mg/dL Alkaline Phosphatase 35 L (38-126) U/L Total Protein 4.7 L (6.3-8.2) g/dL Albumin 2.7 L (3.5-5.0) g/dL Arterial Blood Potassium (3.4-4.5) mmol/L 08/19/16 08/19/16 08/19/16 Range/Units 06:07 07:09 08:33 RBC (4.30-5.90) m/uL Hgb (13.0-17.5) gm/dL Hct (39.0-53.0) % MCHC (31.0-37.0) g/dL RDW (11.5-15.5) % Neutrophils # (1.3-7.7) k/uL Lymphocytes # (1.0-4.8) k/uL ABG pCO2 (35-45) mmHg ABG pO2 (83-108) mmHg ABG HCO3 (21-25) mmol/L ABG Total CO2 (19-24) mmol/L ABG O2 Saturation (94-97) % ABG Hematocrit (34.0-46.0) % ABG Potassium (3.4-4.5) mmol/L Sodium (137-145) mmol/L BUN (9-20) mg/dL Glucose (74-99) mg/dL POC Glucose (mg/dL) 110 H 138 H 189 H (75-99) mg/dL Calcium (8.4-10.2) mg/dL Alkaline Phosphatase (38-126) U/L Total Protein (6.3-8.2) g/dL Albumin (3.5-5.0) g/dL Arterial Blood Potassium (3.4-4.5) mmol/L 08/19/16 Range/Units 09:14 RBC (4.30-5.90) m/uL Hgb (13.0-17.5) gm/dL Hct (39.0-53.0) % MCHC (31.0-37.0) g/dL RDW (11.5-15.5) % Neutrophils # (1.3-7.7) k/uL Lymphocytes # (1.0-4.8) k/uL ABG pCO2 (35-45) mmHg ABG pO2 (83-108) mmHg ABG HCO3 (21-25) mmol/L ABG Total CO2 (19-24) mmol/L ABG O2 Saturation (94-97) % ABG Hematocrit (34.0-46.0) % ABG Potassium (3.4-4.5) mmol/L Sodium (137-145) mmol/L BUN (9-20) mg/dL Glucose (74-99) mg/dL POC Glucose (mg/dL) 219 H (75-99) mg/dL Calcium (8.4-10.2) mg/dL Alkaline Phosphatase (38-126) U/L Total Protein (6.3-8.2) g/dL Albumin (3.5-5.0) g/dL Arterial Blood Potassium (3.4-4.5) mmol/L Microbiology - Last 24 Hours (Table) 08/12/16 19:38 Blood Culture - Final Blood No Growth after 144 hours Assessment and Plan Plan: Impression: 1 acute non-ST elevation myocardial infarction,status post triple-vessel CABG, postoperative day #2 2 significant coronary artery disease based on cardiac catheterization.status post CABG postoperative day #2 3 morbid obesity 4 history of hypertension 5 history of dyslipidemia Recommendation: continue present treatment plan including present meds, incentive spirometry, bronchodilators, agree with transfer to [facility] today. Time with Patient: Less than 30
[2016-08-19 11:28] LABS: Glucose,Whole Blood 168 mg/dL (75-99)
[2016-08-19] MEDS: MULTIVITAMINS, THERA 1 EACH TAB PO SCH (12:18)
[2016-08-19 13:29] LABS: Glucose,Whole Blood 198 mg/dL (75-99)
--- NOTE | 2016-08-19 14:43 | P.CONS ---
History of Present Illness - Chief Complaint cardiac debility - History of Present Illness I had the opportunity to see patient for inpatient rehab consultation with regard to cardiac debility. He was admitted to [facility] August 12 with chest pain and noted non-STEMI. Seen by cardiology and pulmonary as well as cardiac surgery. Patient did undergo chest x-rays. Most recent demonstrated cardiomegaly, bibasilar air space disease.note did undergo coronary bypassing with saphenous vein component August 18. PT and OT prescribed. Previous functional sick: As elicited from patient.'s 55-year-old right-handed white male who is single lives and one floor home with friends. History smoking doesn't smoke drink or do recreational drugs currently. He is on disability related diabetes and multiple complications. Note that they share the cooking and laundry. Patient independent with driving, sitdown shower appeared as a standard cane but tends not use a. Note laundry is in basement. Family history diabetes and cardiac disease in both parents. Review of Systems Review of systems: ENT: Denies sneezes or discharge. Eyes: Denies discharge or photophobia. Cardiac: some sternal discomfort related to the recent surgery. Pulmonary: mild shortness of breath. Gastrointestinal: Denies nausea, emesis, constipation, diarrhea. Genitourinary: Denies discharge or frequency. Musculoskeletal: Denies muscle or bone aches. Neurologic: Denies motor or sensory change. Endocrine: Denies shakes or sweats. Oncology: Denies cancers. Dermatologic: Denies rash, itching, pruritus. ALLERGY/immunology: Denies sneezes, rashes. Past Medical History Past Medical History: COPD, Diabetes Mellitus, Hypertension, Osteoarthritis (OA) , Renal Disease Additional Past Medical History / Comment(s): emphysema, retinopathy, charcot joints, gastroparesis, STAGE 3 RENAL FAILURE, MURMUR A CHILD, History of Any Multi-Drug Resistant Organisms: None Reported Past Surgical History: Cholecystectomy Additional Past Surgical History / Comment(s): SURGERY FOR GERD WHERE THEY MOVED ESOPHAGUS UP, carpal tunnel surgery, foot wounds requiring bone from right big toe to be removed. Past Anesthesia/Blood Transfusion Reactions: No Reported Reaction Past Psychological History: No Psychological Hx Reported Smoking Status: Former smoker Past Alcohol Use History: None Reported Past Drug Use History: None Reported - Past Family History Father Brother(s) Family Medical History: Diabetes Mellitus Mother Family Medical History: Myocardial Infarction ([place]) Medications and Allergies Home Medications Medication Instructions Recorded Confirmed Type Calcitriol [Rocaltrol] 0.25 mcg PO MOWEFR 08/12/16 08/13/16 History Carvedilol [Coreg] 25 mg PO BID 08/12/16 08/14/16 History Metoclopramide [Reglan] 10 mg PO ACHS 08/12/16 08/12/16 History Albuterol Sulfate [Proventil Hfa] 2 puff INHALATION RT-Q6H PRN 08/13/16 History Ascorbic Acid [Vitamin C] 1,000 mg PO DAILY 08/13/16 08/13/16 History Fish Oil/Dha/Epa [Fish Oil 1,200 1 cap PO TID 08/13/16 08/13/16 History mg Fish Oil] Furosemide [Lasix] 20 mg PO DAILY 08/13/16 08/13/16 History Gabapentin [Neurontin] 600 mg PO BID 08/13/16 08/13/16 History Gemfibrozil [Lopid] 600 mg PO AC-BID 08/13/16 08/13/16 History INSULIN LISPRO (HumaLOG) [HumaLOG] 280 - 400 units SQ ACHS 08/13/16 08/13/16 History Ipratropium Nebulized [Atrovent 0.5 mg INHALATION RT-QID 08/13/16 08/13/16 History Nebulized] Losartan Potassium [Cozaar] 50 mg PO DAILY 08/13/16 08/14/16 History Mometasone/Formoterol [Dulera 100 2 puff INHALATION RT-BID 08/13/16 08/13/16 History Mcg/5 Mcg Inhaler] Multivitamin [Men's Multi-Vitamin] 1 tab PO DAILY 08/13/16 08/13/16 History Niacin 500 mg PO QID 08/13/16 08/13/16 History Simvastatin [Zocor] 40 mg PO HS 08/13/16 08/13/16 History amLODIPine [Norvasc] 5 mg PO HS 08/13/16 08/14/16 History Aspirin 81 mg PO DAILY 08/14/16 08/14/16 History Bismuth Subsalicylate 0 mg PO DAILY PRN 08/14/16 08/14/16 History [Pepto-Bismol] Cyclobenzaprine [Flexeril] 10 mg PO TID 08/14/16 08/14/16 History Eye Lubricant Combination No.1 1 applic BOTH EYES BID 08/14/16 08/14/16 History [Freshkote] Magnesium Oxide 400 mg PO DAILY 08/14/16 08/14/16 History Polyethylene Glycol 3350 [Miralax] 17 gm PO DAILY PRN 08/14/16 08/14/16 History Turmeric/Cumin 1,300 mg PO DAILY 08/14/16 08/14/16 History Allergies Allergy/AdvReac Type Severity Reaction Status Date / Time No Known Allergies Allergy Verified 08/13/16 12:56 Physical Exam Vitals: Vital Signs Temp Pulse Pulse Resp BP Pulse Ox 08/19/16 12:16 88 08/19/16 12:03 88 08/19/16 11:00 97.1 F L 86 18 122/57 95 08/19/16 09:09 88 08/19/16 09:00 84 14 100 08/19/16 08:56 90 08/19/16 08:00 98.2 F 83 14 94 L 08/19/16 07:00 76 18 93 L 08/19/16 06:00 80 14 08/19/16 05:00 75 14 99 08/19/16 04:00 97.9 F 74 14 97 08/19/16 03:00 72 10 L 98 08/19/16 02:00 75 12 98 08/19/16 01:00 80 17 98 08/19/16 00:00 80 12 93 L 08/18/16 23:00 75 11 L 94 L 08/18/16 22:00 74 15 96 08/18/16 21:00 97.4 F L 83 19 94 L 08/18/16 20:00 97.9 F 86 19 96 08/18/16 19:44 88 08/18/16 19:34 81 08/18/16 19:00 80 11 L 94 L 08/18/16 18:00 86 20 96 08/18/16 17:00 80 16 95 08/18/16 16:00 79 27 H 94 L 08/18/16 15:50 76 08/18/16 15:44 77 08/18/16 15:29 24 08/18/16 15:00 76 24 97 Intake and Output 03/24/17 03/25/17 03/25/17 22:59 06:59 14:59 Intake Total 300.025 449.068 131.932 Output Total 644 1090 375 Balance -343.975 -640.932 -243.068 Intake: IV 208 208 72 0.9 for pressure bag 48 48 12 0.9 sodium chloride 40 Lactated Ringers 1,000 ml 160 160 20 @ 20 mls/hr IV .Q24H ALE Rx#:[id number] Intake, IV Titration 92.025 41.068 59.932 Amount Insulin Regular 100 unit 92.025 In Sodium Chloride 0.9% 100 ml @ Per Protocol IV .Q0M ALE Rx#:[id number] Insulin Regular 100 unit 41.068 59.932 In Sodium Chloride 0.9% 100 ml @ Per Protocol IV .Q0M ALE Rx#:[id number] Oral 200 Output: Chest Tube Drainage 140 80 60 Bilateral Mediastinal 60 70 20 Left Lateral Chest 80 10 40 Drainage 50 40 Left Lower Calf 50 40 Urine 454 1010 275 Other: Voiding Method Indwelling Catheter Indwelling Catheter Indwelling Catheter Weight 123.2 kg 120.7 kg ABP, PAP, CO, CI - Last 8 Hours Arterial Blood Pressure 137/50 Arterial Blood Pressure 134/51 Arterial Blood Pressure 116/44 Skin: Good color, texture, turgor. General: obese and comfortable appearance. Head: Normocephalic, atraumatic. Eyes: Symmetric. Pupils equal round. Ears: Symmetric. Hearing within normal limits. Mouth: Clear. Neck: Supple. Carotid without bruit. Cardiac: Regular rate and rhythm.chest with midline sternotomy that is clean and dressed. Lungs: Clear anteriorly and posteriorly.wearing chest harness. Abdomen: Soft active nontenderobese. Extremities: Normal tone. Neurological: Mental status: Alert, cooperative, pleasant. Cranial nerves: Symmetric facial tone and trapezius. Motor: Normal strength and isolation all 4 limbs. Sensation: Intact throughout. DTRs: Symmetric and equal throughout. Mobility: Sits and stands withminimal to moderate assistance. Results CBC & Chem 7: 08/19/16 04:07 08/19/16 04:07 Labs: Abnormal Lab Results - Last 24 Hours (Table) 08/17/16 08/18/16 08/18/16 Range/Units 13:01 15:08 16:11 RBC (4.30-5.90) m/uL Hgb (13.0-17.5) gm/dL Hct (39.0-53.0) % MCHC (31.0-37.0) g/dL RDW (11.5-15.5) % Neutrophils # (1.3-7.7) k/uL Lymphocytes # (1.0-4.8) k/uL ABG pO2 235 H (83-108) mmHg ABG HCO3 26 H (21-25) mmol/L ABG Total CO2 27 H (19-24) mmol/L ABG O2 Saturation 99.8 H (94-97) % ABG Hematocrit 25 L (34.0-46.0) % Sodium (137-145) mmol/L BUN (9-20) mg/dL Glucose (74-99) mg/dL POC Glucose (mg/dL) 215 H 211 H (75-99) mg/dL Calcium (8.4-10.2) mg/dL Alkaline Phosphatase (38-126) U/L Total Protein (6.3-8.2) g/dL Albumin (3.5-5.0) g/dL 08/18/16 08/18/16 08/18/16 Range/Units 17:21 18:10 19:07 RBC (4.30-5.90) m/uL Hgb (13.0-17.5) gm/dL Hct (39.0-53.0) % MCHC (31.0-37.0) g/dL RDW (11.5-15.5) % Neutrophils # (1.3-7.7) k/uL Lymphocytes # (1.0-4.8) k/uL ABG pO2 (83-108) mmHg ABG HCO3 (21-25) mmol/L ABG Total CO2 (19-24) mmol/L ABG O2 Saturation (94-97) % ABG Hematocrit (34.0-46.0) % Sodium (137-145) mmol/L BUN (9-20) mg/dL Glucose (74-99) mg/dL POC Glucose (mg/dL) 182 H 155 H 216 H (75-99) mg/dL Calcium (8.4-10.2) mg/dL Alkaline Phosphatase (38-126) U/L Total Protein (6.3-8.2) g/dL Albumin (3.5-5.0) g/dL 08/18/16 08/18/16 08/18/16 Range/Units 20:00 21:00 22:02 RBC (4.30-5.90) m/uL Hgb (13.0-17.5) gm/dL Hct (39.0-53.0) % MCHC (31.0-37.0) g/dL RDW (11.5-15.5) % Neutrophils # (1.3-7.7) k/uL Lymphocytes # (1.0-4.8) k/uL ABG pO2 (83-108) mmHg ABG HCO3 (21-25) mmol/L ABG Total CO2 (19-24) mmol/L ABG O2 Saturation (94-97) % ABG Hematocrit (34.0-46.0) % Sodium (137-145) mmol/L BUN (9-20) mg/dL Glucose (74-99) mg/dL POC Glucose (mg/dL) 193 H 173 H 166 H (75-99) mg/dL Calcium (8.4-10.2) mg/dL Alkaline Phosphatase (38-126) U/L Total Protein (6.3-8.2) g/dL Albumin (3.5-5.0) g/dL 08/18/16 08/19/16 08/19/16 Range/Units 23:06 00:04 01:01 RBC (4.30-5.90) m/uL Hgb (13.0-17.5) gm/dL Hct (39.0-53.0) % MCHC (31.0-37.0) g/dL RDW (11.5-15.5) % Neutrophils # (1.3-7.7) k/uL Lymphocytes # (1.0-4.8) k/uL ABG pO2 (83-108) mmHg ABG HCO3 (21-25) mmol/L ABG Total CO2 (19-24) mmol/L ABG O2 Saturation (94-97) % ABG Hematocrit (34.0-46.0) % Sodium (137-145) mmol/L BUN (9-20) mg/dL Glucose (74-99) mg/dL POC Glucose (mg/dL) 144 H 131 H 120 H (75-99) mg/dL Calcium (8.4-10.2) mg/dL Alkaline Phosphatase (38-126) U/L Total Protein (6.3-8.2) g/dL Albumin (3.5-5.0) g/dL 08/19/16 08/19/16 08/19/16 Range/Units 01:59 03:04 04:05 RBC (4.30-5.90) m/uL Hgb (13.0-17.5) gm/dL Hct (39.0-53.0) % MCHC (31.0-37.0) g/dL RDW (11.5-15.5) % Neutrophils # (1.3-7.7) k/uL Lymphocytes # (1.0-4.8) k/uL ABG pO2 (83-108) mmHg ABG HCO3 (21-25) mmol/L ABG Total CO2 (19-24) mmol/L ABG O2 Saturation (94-97) % ABG Hematocrit (34.0-46.0) % Sodium (137-145) mmol/L BUN (9-20) mg/dL Glucose (74-99) mg/dL POC Glucose (mg/dL) 112 H 149 H 142 H (75-99) mg/dL Calcium (8.4-10.2) mg/dL Alkaline Phosphatase (38-126) U/L Total Protein (6.3-8.2) g/dL Albumin (3.5-5.0) g/dL 08/19/16 08/19/16 08/19/16 Range/Units 04:07 04:07 05:09 RBC 3.17 L (4.30-5.90) m/uL Hgb 8.1 L (13.0-17.5) gm/dL Hct 27.6 L (39.0-53.0) % MCHC 29.5 L (31.0-37.0) g/dL RDW 16.3 H (11.5-15.5) % Neutrophils # 8.8 H (1.3-7.7) k/uL Lymphocytes # 0.5 L (1.0-4.8) k/uL ABG pO2 (83-108) mmHg ABG HCO3 (21-25) mmol/L ABG Total CO2 (19-24) mmol/L ABG O2 Saturation (94-97) % ABG Hematocrit (34.0-46.0) % Sodium 135 L (137-145) mmol/L BUN 23 H (9-20) mg/dL Glucose 132 H (74-99) mg/dL POC Glucose (mg/dL) 125 H (75-99) mg/dL Calcium 7.8 L (8.4-10.2) mg/dL Alkaline Phosphatase 35 L (38-126) U/L Total Protein 4.7 L (6.3-8.2) g/dL Albumin 2.7 L (3.5-5.0) g/dL 08/19/16 08/19/16 08/19/16 Range/Units 06:07 07:09 08:33 RBC (4.30-5.90) m/uL Hgb (13.0-17.5) gm/dL Hct (39.0-53.0) % MCHC (31.0-37.0) g/dL RDW (11.5-15.5) % Neutrophils # (1.3-7.7) k/uL Lymphocytes # (1.0-4.8) k/uL ABG pO2 (83-108) mmHg ABG HCO3 (21-25) mmol/L ABG Total CO2 (19-24) mmol/L ABG O2 Saturation (94-97) % ABG Hematocrit (34.0-46.0) % Sodium (137-145) mmol/L BUN (9-20) mg/dL Glucose (74-99) mg/dL POC Glucose (mg/dL) 110 H 138 H 189 H (75-99) mg/dL Calcium (8.4-10.2) mg/dL Alkaline Phosphatase (38-126) U/L Total Protein (6.3-8.2) g/dL Albumin (3.5-5.0) g/dL 08/19/16 08/19/16 08/19/16 Range/Units 09:14 11:27 13:27 RBC (4.30-5.90) m/uL Hgb (13.0-17.5) gm/dL Hct (39.0-53.0) % MCHC (31.0-37.0) g/dL RDW (11.5-15.5) % Neutrophils # (1.3-7.7) k/uL Lymphocytes # (1.0-4.8) k/uL ABG pO2 (83-108) mmHg ABG HCO3 (21-25) mmol/L ABG Total CO2 (19-24) mmol/L ABG O2 Saturation (94-97) % ABG Hematocrit (34.0-46.0) % Sodium (137-145) mmol/L BUN (9-20) mg/dL Glucose (74-99) mg/dL POC Glucose (mg/dL) 219 H 168 H 198 H (75-99) mg/dL Calcium (8.4-10.2) mg/dL Alkaline Phosphatase (38-126) U/L Total Protein (6.3-8.2) g/dL Albumin (3.5-5.0) g/dL Microbiology - Last 24 Hours (Table) 08/12/16 19:38 Blood Culture - Final Blood No Growth after 144 hours Assessment and Plan (1) COPD (chronic obstructive pulmonary disease) Status: Acute Plan: impression: 1. Medical debility. 2. Non-STEMI. 3. Status post Leroy bypassing. 4. COPD and asthma exacerbation. 5. Chronic kidney disease. 6. Obesity. 7. Hypertension. 8. Diabetes with multiple complications including gastroparesis and retinopathy. Comments and plan: At this time PT and OT are ordered. Safety concerns anticipated. Patient reports that he lives with his friends, takes care of . They're concerned that the would have to take care of his as well as patient. I discussed with him that that is why I am here , to make sure doesn't come to that. We'll follow closely with possible anticipated need and benefit of inpatient rehab.
[2016-08-19 15:41] LABS: Glucose,Whole Blood 146 mg/dL (75-99)
[2016-08-19] MEDS: INSULIN REGULAR 100 UNIT in SODIUM CHLORIDE 0.9% 100 ML IV SCH ×4 (15:46→21:26)
[2016-08-19 17:34] LABS: Glucose,Whole Blood 109 mg/dL (75-99)
[2016-08-19 17:46] LABS: Glucose,Whole Blood 100 mg/dL (75-99)
[2016-08-19 18:49] LABS: Glucose,Whole Blood 148 mg/dL (75-99)
[2016-08-19 20:43] LABS: Glucose,Whole Blood 156 mg/dL (75-99)
[2016-08-19] MEDS: SENNOSIDES-DOCUSATE SODIUM 1 EACH TAB PO SCH (21:25)
[2016-08-19 22:59] LABS: Glucose,Whole Blood 142 mg/dL (75-99)
[2016-08-20 01:07] LABS: Glucose,Whole Blood 123 mg/dL (75-99)
[2016-08-20 01:55] LABS: Glucose,Whole Blood 152 mg/dL (75-99)
[2016-08-20] MEDS: HYDROcodone/APAP 5-325MG 1 EACH TAB PO PRN (02:15)
[2016-08-20 03:48] LABS: Glucose,Whole Blood 208 mg/dL (75-99)
[2016-08-20 06:02] LABS: Glucose,Whole Blood 139 mg/dL (75-99)
[2016-08-20] MEDS: PANTOPRAZOLE 40 MG TABLET PO SCH (06:48)
[2016-08-20] MEDS: metFORMIN 500 MG TAB PO SCH ×2 (06:48→17:22)
[2016-08-20] MEDS: METOCLOPRAMIDE 10 MG TAB PO SCH ×4 (06:48→20:31)
[2016-08-20 07:59] LABS: Anion Gap 8 mmol/L; Calcium 8.3 mg/dL (8.4-10.2); Carbon Dioxide 23 mmol/L (22-30); Chloride 104 mmol/L (98-107); Glucose 105 mg/dL (74-99); Non-African American GFR(MDRD) >60 (>60 ml/min/1.73 sqM); Sodium 135 mmol/L (137-145)
[2016-08-20 08:00] LABS: Anisocytosis Slight; Basophils % (A) 0 %; CH 26.5; CHCM 31.6; Eosinophils # (A) 0.1 k/uL (0-0.7); Eosinophils % (A) 0 %; HCT 26.6 % (39.0-53.0); HDW 2.89; HGB 8.6 gm/dL (13.0-17.5); Hypochromasia Slight; Luc # (Auto) 0.34; Luc % (Auto) 3; Lymphocytes % (A) 9 %; MCH 27.3 pg (25.0-35.0); MCHC 32.3 g/dL (31.0-37.0); MCV 84.4 fL (80.0-100.0); Mean Platelet Volume 8.6; Monocytes # (A) 1.1 k/uL (0-1.0); Monocytes % (A) 9 %; Neutrophils # (A) 9.3 k/uL (1.3-7.7); Neutrophils % (A) 79 %; RBC 3.15 m/uL (4.30-5.90); RDW 16.1 % (11.5-15.5); WBC 11.7 k/uL (3.8-10.6); WBC (Perox) 12.21
--- NOTE | 2016-08-20 08:02 | XR ---
EXAMINATION TYPE: XR chest 2V DATE OF EXAM: 08/20/2016 6:21 AM COMPARISON: Yesterday HISTORY: Bypass surgery TECHNIQUE: Frontal and lateral views of the chest are obtained. FINDINGS: There is no heart failure. Cardiac silhouette is mildly enlarged. There are sternal wires. There is slight blunting of the costophrenic angles. There are chest leads. IMPRESSION: Small pleural effusions without change compared to yesterday. No heart failure.
[2016-08-20 08:09] LABS: Blood Urea Nitrogen 32 mg/dL (9-20); Potassium 5.1 mmol/L (3.5-5.1)
[2016-08-20 08:09] LABS: Glucose,Whole Blood 115 mg/dL (75-99)
[2016-08-20 08:10] LABS: Phosphorous 3.4 mg/dL (2.5-4.5)
[2016-08-20] MEDS: ATORVASTATIN 40 MG TAB PO SCH (09:13)
[2016-08-20] MEDS: GABAPENTIN 300 MG CAP PO SCH ×2 (09:13→20:30)
[2016-08-20] MEDS: CLOPIDOGREL 75 MG TAB PO SCH (09:13)
[2016-08-20] MEDS: HEPARIN SODIUM,PORCINE 5,000 UNIT/ML 1 ML VIAL SQ SCH ×3 (09:13→23:55)
[2016-08-20] MEDS: ASPIRIN 325 MG TAB PO SCH (09:13)
[2016-08-20] MEDS: METOPROLOL TARTRATE 25 MG TAB PO SCH ×3 (09:13→20:30)
[2016-08-20] MEDS: MULTIVITAMINS, THERA 1 EACH TAB PO SCH (09:14)
[2016-08-20] MEDS: amLODIPine 5 MG TAB PO SCH (09:14)
[2016-08-20 09:39] LABS: Glucose,Whole Blood 257 mg/dL (75-99)
[2016-08-20] MEDS: MUPIROCIN 2% OINT 22 GM TUBE NASAL SCH ×2 (09:51→20:30)
--- NOTE | 2016-08-20 09:57 | P.PN ---
Progress Note - Text CV Surgery Nursing Principal diagnosis: Non-ST elevation myocardial infarction with double vessel coronary artery disease, preserved left ventricular function, poorly controlled diabetes with micro-and macrovascular complication. Chronic kidney disease. Retinopathy. Obesity. Hypertension. Hyperlipidemia. Obstructive sleep apnea. POD #3 non-aortic clamp off pump triple coronary artery bypass grafting using the left internal mammary artery to the left anterior descending artery, reverse saphenous vein graft connected to the aorta using the PAS-Port device and connected distally to the first diagonal artery, reverse saphenous vein graft connected to the aorta using the PAS-Port device and connected distally to the right coronary artery in the groove after the PDA takeoff. Endoscopic harvesting of the left greater saphenous vein. Sternal plating and sternal cable using Agorique/Roadmunk system. Transesophageal echocardiogram and epi- aortic scanning. Intraoperative graft flow measurements using the EdgeSpringstim machine. Patient awake and alert, no distress noted, no specific complaints, patient is sitting up to the bedside chair. He stated that he had ambulated in the hallway this a.m. without difficulty. Vital Signs: Afebrile Vital Signs - 24 hr 08/19/16 08/19/16 08/19/16 08:56 09:00 09:09 Temperature Pulse Rate 90 84 88 Pulse Rate [ Bilateral Radial] Pulse Rate [ Dural Mechanic ] Respiratory 14 Rate Blood Pressure [Left Arm] Blood Pressure [Right Arm] O2 Sat by Pulse 100 Oximetry 08/19/16 08/19/16 08/19/16 11:00 12:03 12:16 Temperature 97.1 F L Pulse Rate 88 88 Pulse Rate [ 86 Bilateral Radial] Pulse Rate [ Dural Mechanic ] Respiratory 18 Rate Blood Pressure 122/57 [Left Arm] Blood Pressure [Right Arm] O2 Sat by Pulse 95 Oximetry 08/19/16 08/19/16 08/19/16 16:00 19:21 19:32 Temperature Pulse Rate 97 96 Pulse Rate [ 87 Bilateral Radial] Pulse Rate [ Dural Mechanic ] Respiratory 18 Rate Blood Pressure 108/56 [Left Arm] Blood Pressure [Right Arm] O2 Sat by Pulse 97 97 Oximetry 08/19/16 08/20/16 08/20/16 20:00 00:00 04:00 Temperature 99.0 F 98.9 F 97.7 F Pulse Rate Pulse Rate [ Bilateral Radial] Pulse Rate [ 104 H 100 83 Dural Mechanic ] Respiratory 16 18 17 Rate Blood Pressure [Left Arm] Blood Pressure 126/66 120/59 107/59 [Right Arm] O2 Sat by Pulse 94 L 95 98 Oximetry Labs: Short CBC 08/20/16 Range/Units 06:47 WBC 11.7 H (3.8-10.6) k/uL Hgb 8.6 L (13.0-17.5) gm/dL Hct 26.6 L (39.0-53.0) % Plt Count 233 (150-450) k/uL Neutrophils # 9.3 H (1.3-7.7) k/uL BMP 08/20/16 06:47 Sodium 135 L Potassium 5.1 Chloride 104 Carbon Dioxide 23 BUN 32 H Creatinine 1.01 Glucose 105 H Calcium 8.3 L Microbiology 08/12/16 19:38 Blood Blood Culture - Final No Growth after 144 hours 08/14/16 13:57 Nasal Swab Nasal Screen MRSA/MSSA (ALFRED) - Final 08/14/16 12:54 Urine,Clean Catch Urine Culture - Final IV Fluids: 0.9% normal saline at 20 mL/h Insulin drip at 5.5 units per hour. Lungs: Few scattered crackles throughout, diminished bilateral bases. Respirations are unlabored. O2 sat: 98% on room air. I/S: 1500 mL, reviewed with the patient the importance of using his incentive spirometry every hour while awake. The patient gave a good return demonstration on the use of his incentive spirometry. Heart: S1S2, regular rhythm and rate, negative for S3, gallop or murmur. Remote telemetry showing sinus tachycardia heart rate 101. Sternum stable, chest incision clean with medline silver dressing clean and dry. Heart hugger in place. Patient demonstrating proper use of his heart hugger. Left leg incisions clean dry and well approximated. Scant serosanguineous drainage from lower leg old SUNDAY site. Knee-high EVON hose and sequential compression devices in place to bilateral lower extremity Corbin. Abdomen: Soft, Positive bowel sounds present in all 4 quadrants. CBGs: 115-219 mg/dL in the last 24 hours. U/O: Adequate. 600 mL output in the last 8 hours. 24 hr Total: Intake & Output 08/18/16 08/19/16 08/20/16 08/21/16 06:59 06:59 06:59 06:59 Intake Total 2033.311 8408.154 7901.411 10.268 Output Total 4137 2420 975 Balance -2103.689 -1206.807 147.411 10.268 Weight 123.2 kg 120.7 kg 121 kg Active Medications Hydrocodone Bitart/Acetaminophen (Donora 5-325) 2 each PO Q4HR PRN PRN Reason: Severe Pain Hydrocodone Bitart/Acetaminophen (Donora 5-325) 1 each PO Q4HR PRN PRN Reason: Moderate Pain Last Admin: 08/20/16 02:15 Dose: 1 each Albuterol/Ipratropium (Duoneb 0.5 Mg-3 Mg/3 Ml Soln) 3 ml INHALATION RT-QID [facility] Last Admin: 08/19/16 19:21 Dose: 3 ml Amlodipine Besylate (Norvasc) 5 mg PO DAILY [facility] Last Admin: 08/19/16 08:50 Dose: 5 mg Aspirin (Aspirin) 325 mg PO DAILY [facility] Last Admin: 08/19/16 08:50 Dose: 325 mg Atorvastatin Calcium (Lipitor) 40 mg PO DAILY [facility] Last Admin: 08/19/16 08:50 Dose: 40 mg Bisacodyl (Dulcolax) 10 mg RECTAL DAILY PRN PRN Reason: Constipation Calcitriol (Rocaltrol) 0.25 mcg PO MOWEFR [facility] Last Admin: 08/18/16 10:37 Dose: 0.25 mcg Clopidogrel Bisulfate (Plavix) 75 mg PO DAILY [facility] Last Admin: 08/19/16 08:50 Dose: 75 mg Gabapentin (Neurontin) 600 mg PO BID [facility] Last Admin: 08/19/16 21:26 Dose: 600 mg Heparin Sodium (Porcine) (Heparin) 5,000 unit SQ Q8HR [facility] Last Admin: 08/19/16 23:12 Dose: 5,000 unit Insulin Human Regular 100 unit (/ Sodium Chloride) 101 mls @ 0 mls/hr IV .Q0M [facility]; Per Protocol PRN Reason: Protocol Last Titration: 08/20/16 08:01 Dose: 0 units/hr, 0 mls/hr Magnesium Hydroxide (Milk Of Magnesia) 2,400 mg PO BID PRN PRN Reason: Constipation Metformin HCl (Glucophage) 1,000 mg PO BID-W/MEALS [facility] Last Admin: 08/20/16 06:48 Dose: 1,000 mg Metoclopramide HCl (Reglan) 10 mg PO ACHS [facility] Last Admin: 08/20/16 06:48 Dose: 10 mg Metoprolol Tartrate (Lopressor) 25 mg PO BID [facility] Last Admin: 08/19/16 21:26 Dose: 25 mg Miscellaneous Information (Magnesium Per Protocol) 1 each MISCELLANE DAILY PRN ; Protocol PRN Reason: Per Protocol Miscellaneous Information (Phosphorus Per Protocol) 1 each MISCELLANE DAILY PRN ; Protocol PRN Reason: Per Protocol Miscellaneous Information (Potassium Per Protocol) 1 each MISCELLANE DAILY PRN ; Protocol PRN Reason: Per Protocol Multivitamins (Theragran) 1 each PO DAILY@1200 [facility] Last Admin: 08/19/16 12:18 Dose: 1 each Mupirocin (Bactroban Oint) 1 applic NASAL BID [facility] Stop: 08/20/16 21:01 Last Admin: 08/19/16 21:26 Dose: 1 applic Ondansetron HCl (Zofran) 4 mg IVP Q6HR PRN PRN Reason: Nausea And Vomiting Pantoprazole Sodium (Protonix) 40 mg PO AC-BRKFST [facility] Last Admin: 08/20/16 06:48 Dose: 40 mg Senna/Docusate Sodium (Senokot-S) 2 each PO HS [facility] Last Admin: 08/19/16 21:25 Dose: 2 each Sodium Chloride (Saline Flush) 10 ml IV BID [facility] Last Admin: 08/19/16 21:26 Dose: 10 ml Plan: 1. Continue aspirin, beta huey metoprolol will be increased to 25 mg tid, statin, heparin, Plavix. 2. telehealth nurse educator who we consult did for instructions on use of his insulin pump. 3. Social work consult for discharge planning to acute or subacute rehab, and to assist with medication affordability as an outpatient. 4. Encourage incentive spirometry use. Pulmonary management per Dr. Rangel 5. Insulin and diabetic management per primary service 6. Increase activity as tolerated walking in the kiser with assistance. 7. Dr. Iraheta recommendations noted, discharge planning in place for rehab placement. 8. GI/DVT prophylaxis. 9. Physical therapy and occupational therapy to follow. 10. More recommendations as patient progresses.
--- NOTE | 2016-08-20 10:57 | P.PN ---
Subjective Principal diagnosis: Acute myocardial infarction, status post CABG This is a 55-year-old white male with history of multiple medical problems including COPD, hypertension, dyslipidemia, diabetes, obesity, and he has a very sedentary lifestyle. 2 years ago, the patient had a stress test which was supposedly normal. This was done in [place]. Patient presented this time to the ER with 3 days history of tightness across the chest, associated with some shortness of breath. His EKG was nonspecific, however his enzymes were positive , the patient was found to have non-ST elevation myocardial infarction. Today the patient underwent cardiac catheterization by Dr. Vegas, and he was found to have significant coronary artery disease. Hence the patient was advised to have myocardial revascularization. And the patient is yet to be seen by cardiac surgery on consultation. In the meantime the patient was placed on medications for his acute ME and I was asked to see him on consultation. His shortness of breath is improved, his chest pain is resolved. However the patient is known to have remote smoking history, however he quit many years ago. Patient was told at one point that he may have emphysema, severity of which is not clear. However the patient is not O2 dependent and not prednisone dependent. Bedside spirometry was done, and it was a poor quality because of the effort was very poor, hence I recommended a full PFT to be done in a.m. Patient was reevaluated today on 08/15/2016, doing relatively well, however his PFT is quite abnormal showing mostly a picture of restriction and poor effort with very low Mvv and low FVC, lower lung volumes. This would make him a very high surgical risk, in the meantime I ordered a high-resolution CT of the chest , his chest x-ray was showing a right paratracheal soft tissue fullness, and some subsegmental interstitial perihilar changes felt to be related to congestive heart failure unless proven otherwise. CT of the chest is showing mostly congestive heart failure, with air bronchograms noted in the right lung base and there is also evidence of calcified subcarinal and left hilar nodes noted. Fatty infiltration of the liver was also noted, and cystic focus of left kidney was noted. Patient will likely improve with aggressive diuresis. Patient was reevaluated today on 08/16/2016, seems to be doing much better, breathing a lot easier, and he is doing well with incentive spirometry. Patient is scheduled to undergo myocardial revascularization in a.m. And his follow-up chest x-ray is showing definite improvement. Hence the patient will be cleared for surgery, however he is still considered moderate to high operative risk. Patient was seen yesterday on 08/17/2016, and he was postoperative day #0/ CABG.patient had off-pump triple coronary artery bypass grafting using JIN to LAD and reverse SVG to aorta using the PASport device and connected distally to the first diagonal artery, reverse saphenous graft connected to the aorta using the PASport device and connected distally to the right coronary artery in the groove after the PDA takeoff.his ventilator settings were addressed yesterday, and I was able to extubate the patient uneventfully within few hours after he arrived to the ICU. I saw him today on 08/18/2016, patient is off mechanical ventilation, doing quite well, chest x-ray is relatively unremarkable. Patient is hemodynamically stable. And in no distress. Labs and meds were all reviewed. Reevaluated today on 08/19/2016, patient is doing well asymptomatic, on nasal cannula, in no distress. Chest x-ray showed minimal atelectasis at the bases patient will likely be transferred out of the ICU to a cardiac floor. In the meantime we'll continue updrafts, continue incentive spirometry, no need for any other bronchodilators or steroids at this point. Reevaluated today on 08/20/2016, continues to do quite well, no cough no wheezing no shortness of breath. The chest x-ray showed minimal left basilar atelectasis and small tiny left pleural effusion. Patient again is asymptomatic. And he is doing well. Being considered for possible rehab referral in the morning. Objective - Vital Signs Vital signs: Vital Signs Temp 97.7 F 08/20/16 04:00 Pulse 99 08/20/16 08:00 Resp 18 08/20/16 08:00 BP 119/59 08/20/16 08:00 Pulse Ox 99 08/20/16 08:00 Intake & Output 08/19/16 08/20/16 08/20/16 18:59 06:59 18:59 Intake Total 146.189 976.222 130.268 Output Total 375 600 400 Balance -228.811 376.222 -269.732 Weight 121 kg Intake: IV 72 140 0.9 for pressure bag 12 0.9 sodium chloride 40 140 Lactated Ringers 1,000 ml 20 @ 20 mls/hr IV .Q24H ALE Rx#:[id number] Intake, IV Titration 74.189 86.222 10.268 Amount Insulin Regular 100 unit 74.189 86.222 10.268 In Sodium Chloride 0.9% 100 ml @ Per Protocol IV .Q0M ALE Rx#:[id number] Oral 750 120 Output: Chest Tube Drainage 60 Bilateral Mediastinal 20 Left Lateral Chest 40 Drainage 40 Left Lower Calf 40 Urine 275 600 400 Other: Voiding Method Indwelling Catheter Toilet Urinal # Bowel Movements 0 ABP, PAP, CO, CI - Last Documented Arterial Blood Pressure 137/50 Pulmonary Artery Pressure 32/13 Cardiac Output 6.8 Cardiac Index 3 - Exam Physical Exam: Revealed a 55-year-old in no distress HEENT:[Neck is supple.] [No neck masses.] [No thyromegaly.] [No JVD.] Chest: Diminished breath sounds at the bases, no crackles or rhonchi or wheezes. ] Cardiac Exam: [Normal S1 and S2, no S3 gallop, no murmur.] Abdomen: [Soft, nontender, no megaly, no rebound, no guarding, normal bowel sounds.] Extremities: [No clubbing, no edema, no cyanosis.] Neurological Exam: [No focal neurologic deficit.] - Labs CBC & Chem 7: 08/20/16 06:47 08/20/16 06:47 Labs: Abnormal Lab Results - Last 24 Hours (Table) 08/19/16 08/19/16 08/19/16 Range/Units 11:27 13:27 15:38 WBC (3.8-10.6) k/uL RBC (4.30-5.90) m/uL Hgb (13.0-17.5) gm/dL Hct (39.0-53.0) % RDW (11.5-15.5) % Neutrophils # (1.3-7.7) k/uL Monocytes # (0-1.0) k/uL Sodium (137-145) mmol/L BUN (9-20) mg/dL Glucose (74-99) mg/dL POC Glucose (mg/dL) 168 H 198 H 146 H (75-99) mg/dL Calcium (8.4-10.2) mg/dL 08/19/16 08/19/16 08/19/16 Range/Units 17:31 17:45 18:48 WBC (3.8-10.6) k/uL RBC (4.30-5.90) m/uL Hgb (13.0-17.5) gm/dL Hct (39.0-53.0) % RDW (11.5-15.5) % Neutrophils # (1.3-7.7) k/uL Monocytes # (0-1.0) k/uL Sodium (137-145) mmol/L BUN (9-20) mg/dL Glucose (74-99) mg/dL POC Glucose (mg/dL) 109 H 100 H 148 H (75-99) mg/dL Calcium (8.4-10.2) mg/dL 08/19/16 08/19/16 08/20/16 Range/Units 20:41 22:58 00:55 WBC (3.8-10.6) k/uL RBC (4.30-5.90) m/uL Hgb (13.0-17.5) gm/dL Hct (39.0-53.0) % RDW (11.5-15.5) % Neutrophils # (1.3-7.7) k/uL Monocytes # (0-1.0) k/uL Sodium (137-145) mmol/L BUN (9-20) mg/dL Glucose (74-99) mg/dL POC Glucose (mg/dL) 156 H 142 H 123 H (75-99) mg/dL Calcium (8.4-10.2) mg/dL 08/20/16 08/20/16 08/20/16 Range/Units 01:54 03:46 06:01 WBC (3.8-10.6) k/uL RBC (4.30-5.90) m/uL Hgb (13.0-17.5) gm/dL Hct (39.0-53.0) % RDW (11.5-15.5) % Neutrophils # (1.3-7.7) k/uL Monocytes # (0-1.0) k/uL Sodium (137-145) mmol/L BUN (9-20) mg/dL Glucose (74-99) mg/dL POC Glucose (mg/dL) 152 H 208 H 139 H (75-99) mg/dL Calcium (8.4-10.2) mg/dL 08/20/16 08/20/16 08/20/16 Range/Units 06:47 06:47 07:49 WBC 11.7 H (3.8-10.6) k/uL RBC 3.15 L (4.30-5.90) m/uL Hgb 8.6 L (13.0-17.5) gm/dL Hct 26.6 L (39.0-53.0) % RDW 16.1 H (11.5-15.5) % Neutrophils # 9.3 H (1.3-7.7) k/uL Monocytes # 1.1 H (0-1.0) k/uL Sodium 135 L (137-145) mmol/L BUN 32 H (9-20) mg/dL Glucose 105 H (74-99) mg/dL POC Glucose (mg/dL) 115 H (75-99) mg/dL Calcium 8.3 L (8.4-10.2) mg/dL 08/20/16 Range/Units 09:03 WBC (3.8-10.6) k/uL RBC (4.30-5.90) m/uL Hgb (13.0-17.5) gm/dL Hct (39.0-53.0) % RDW (11.5-15.5) % Neutrophils # (1.3-7.7) k/uL Monocytes # (0-1.0) k/uL Sodium (137-145) mmol/L BUN (9-20) mg/dL Glucose (74-99) mg/dL POC Glucose (mg/dL) 257 H (75-99) mg/dL Calcium (8.4-10.2) mg/dL Assessment and Plan Plan: Impression: 1 acute non-ST elevation myocardial infarction,status post triple-vessel CABG, postoperative day # 3 2 significant coronary artery disease based on cardiac catheterization.status post CABG postoperative day #3 3 morbid obesity 4 history of hypertension 5 history of dyslipidemia 6 postoperative atelectasis and small left pleural effusion. Recommendation: continue present treatment plan including present meds, incentive spirometry, bronchodilators, discharge planning to rehab in the morning.. Time with Patient: Less than 30
[2016-08-20 11:09] LABS: Glucose,Whole Blood 265 mg/dL (75-99)
[2016-08-20] MEDS: INSULIN REGULAR 100 UNIT in SODIUM CHLORIDE 0.9% 100 ML IV SCH ×2 (11:13→20:25)
--- NOTE | 2016-08-20 11:22 | PN ---
DATE OF SERVICE: 08/19/2016 This 55-year-old gentleman admitted with acute non-ST segment elevation myocardial infarction, underwent CAD/CABG. Patient also had uncontrolled diabetes mellitus. Also the patient is on insulin drip at this time with a combination of metformin. Sugars anywhere between 120 and 160. The patient previously was using insulin pump before moving to the area but after that because of lack of supplies, the patient was using Humalog and the patient was using up to 300 units of Humalog, 8 units in the morning 70 units at lunch and 100 units in the afternoon with sugars around 200. No chest pain or palpitation. No fever. On exam, alert and oriented x3. Pulse is 87, blood pressure 108/52, respirations 18, temperature 97 degrees, pulse ox 97% on room air. HEENT: Conjunctivae normal. NECK: No jugular venous distention. CARDIOVASCULAR: S1, S2 muffled. RESPIRATORY: Breath sounds diminished at bases. A few scattered rhonchi and crackles. ABDOMEN: Soft, nontender. Legs: No edema. No swelling. Nervous system: Higher function as mentioned earlier. Moves all four limbs. LYMPHATICS: No lymph nodes palpable in the neck, axillae or groin. SKIN: No ulcer, rash or bleeding. LABS: Accu-Cheks 109, 100, 148, 156. Other labs are WBC 10.9, hemoglobin is 8.1. ASSESSMENT: 1. Acute non-ST segment elevation myocardial infarction present on admission status post coronary artery bypass grafting x3. 2. Status post cardiac catheterization. 3. Diabetes mellitus type 2, uncontrolled present on admission, brittle, on insulin drip. 4. Chronic kidney disease, Stage III, present on admission. 5. Hypertension. 6. History of chronic obstructive pulmonary disease. 7. Congestive heart failure with acute exacerbation, with acute systolic dysfunction ejection fraction 40 to 45% present on admission. 8. History of degenerative joint disease. 9. History of Charcot joints. 10. History of nicotine dependence. 11. History of heparin monitoring. 12. Hyperlipidemia. 13. Obesity. 14. Anemia of chronic disease secondary to chronic kidney disease. 15. Acute hypoxic respiratory failure, present on admission. 16. Ascending aortic aneurysm [address] scan. 17. Left kidney cyst around 3.[address] scan. 18. Fatty liver. 19. Hilar and subcarinal nodules. 20. Obesity with body mass index of 37.9. 21. FULL CODE. RECOMMENDATIONS AND DISCUSSION: I would recommend to continue current medications, continue with monitoring, symptomatic treatment. As far as the insulin management is concerned, I would recommend to continue the insulin drip at this time. I have recommended the patient to obtain the insulin pump and bring it and consult with diabetic education so that we can reinstate the pump with fresh supplies, which will be the best option since the patient has extremely brittle diabetes mellitus, which was probably felt in fluctuating blood sugars if he tried basal bolus regimen. For the time being, we will continue insulin drip and we will closely work with case management assistant and psych social worker to coordinate the diabetic treatment and obtain the pump. Once again continue to monitor. Further recommendations to follow.
[2016-08-20] MEDS: IPRATROPIUM-ALBUTEROL 3 ML NEB INHALATION SCH ×4 (11:47→20:47)
[2016-08-20 13:36] LABS: Glucose,Whole Blood 167 mg/dL (75-99)
--- NOTE | 2016-08-20 14:39 | P.PN ---
Subjective Principal diagnosis: Non-STEMI This is a pleasant 55-year-old gentleman with a past medical history significant for obesity, diabetes, hypertension and dyslipidemia. Presented to the hospital complaining of chest discomfort and difficulty breathing. He ruled in for non-Q-wave myocardial infarction, underwent coronary bypass grafting surgery. Patient was seen and examined this morning, up ambulating without any difficulty. Reaching 1500 on his incentive spirometry. The pressure 120/60, 112/60, heart rate 80s. Potassium 5.1, creatinine 1.0. Objective - Vital Signs Vital signs: Vital Signs Temp 97.7 F 08/20/16 04:00 Pulse 92 08/20/16 12:02 Resp 18 08/20/16 11:53 BP 111/57 08/20/16 11:53 Pulse Ox 97 08/20/16 11:53 Intake & Output 08/19/16 08/20/16 08/20/16 18:59 06:59 18:59 Intake Total 146.189 976.222 423.632 Output Total 375 600 400 Balance -228.811 376.222 23.632 Weight 121 kg Intake: IV 72 140 0.9 for pressure bag 12 0.9 sodium chloride 40 140 Lactated Ringers 1,000 ml 20 @ 20 mls/hr IV .Q24H ALE Rx#:[id number] Intake, IV Titration 74.189 86.222 63.632 Amount Insulin Regular 100 unit 74.189 86.222 63.632 In Sodium Chloride 0.9% 100 ml @ Per Protocol IV .Q0M ALE Rx#:[id number] Oral 750 360 Output: Chest Tube Drainage 60 Bilateral Mediastinal 20 Left Lateral Chest 40 Drainage 40 Left Lower Calf 40 Urine 275 600 400 Other: Voiding Method Indwelling Catheter Toilet Urinal # Voids 1 # Bowel Movements 0 ABP, PAP, CO, CI - Last Documented Arterial Blood Pressure 137/50 Pulmonary Artery Pressure 32/13 Cardiac Output 6.8 Cardiac Index 3 - Exam PHYSICAL EXAMINATION: HEENT: [Head is atraumatic, normocephalic. Pupils equal, round. Neck is supple. There is no elevated jugular venous pressure.] HEART EXAMINATION: [Heart S1, S2 normal. No murmur or gallop heard.] CHEST EXAMINATION:[ Lungs are clear to auscultation and precussion. No chest wall tenderness is noted on palpation or with deep breathing.] ABDOMEN: [ Soft, nontender. Bowel sounds are heard. No organomegaly noted]. EXTREMITIES:[ 2+ peripheral pulses with no evidence of peripheral edema and no calf tenderness noted]. NEUROLOGIC [patient is awake, alert and oriented -3.] . - Labs CBC & Chem 7: 08/20/16 06:47 08/20/16 06:47 Labs: Abnormal Lab Results - Last 24 Hours (Table) 08/19/16 08/19/16 08/19/16 Range/Units 15:38 17:31 17:45 WBC (3.8-10.6) k/uL RBC (4.30-5.90) m/uL Hgb (13.0-17.5) gm/dL Hct (39.0-53.0) % RDW (11.5-15.5) % Neutrophils # (1.3-7.7) k/uL Monocytes # (0-1.0) k/uL Sodium (137-145) mmol/L BUN (9-20) mg/dL Glucose (74-99) mg/dL POC Glucose (mg/dL) 146 H 109 H 100 H (75-99) mg/dL Calcium (8.4-10.2) mg/dL 08/19/16 08/19/16 08/19/16 Range/Units 18:48 20:41 22:58 WBC (3.8-10.6) k/uL RBC (4.30-5.90) m/uL Hgb (13.0-17.5) gm/dL Hct (39.0-53.0) % RDW (11.5-15.5) % Neutrophils # (1.3-7.7) k/uL Monocytes # (0-1.0) k/uL Sodium (137-145) mmol/L BUN (9-20) mg/dL Glucose (74-99) mg/dL POC Glucose (mg/dL) 148 H 156 H 142 H (75-99) mg/dL Calcium (8.4-10.2) mg/dL 08/20/16 08/20/16 08/20/16 Range/Units 00:55 01:54 03:46 WBC (3.8-10.6) k/uL RBC (4.30-5.90) m/uL Hgb (13.0-17.5) gm/dL Hct (39.0-53.0) % RDW (11.5-15.5) % Neutrophils # (1.3-7.7) k/uL Monocytes # (0-1.0) k/uL Sodium (137-145) mmol/L BUN (9-20) mg/dL Glucose (74-99) mg/dL POC Glucose (mg/dL) 123 H 152 H 208 H (75-99) mg/dL Calcium (8.4-10.2) mg/dL 08/20/16 08/20/16 08/20/16 Range/Units 06:01 06:47 06:47 WBC 11.7 H (3.8-10.6) k/uL RBC 3.15 L (4.30-5.90) m/uL Hgb 8.6 L (13.0-17.5) gm/dL Hct 26.6 L (39.0-53.0) % RDW 16.1 H (11.5-15.5) % Neutrophils # 9.3 H (1.3-7.7) k/uL Monocytes # 1.1 H (0-1.0) k/uL Sodium 135 L (137-145) mmol/L BUN 32 H (9-20) mg/dL Glucose 105 H (74-99) mg/dL POC Glucose (mg/dL) 139 H (75-99) mg/dL Calcium 8.3 L (8.4-10.2) mg/dL 08/20/16 08/20/16 08/20/16 Range/Units 07:49 09:03 10:48 WBC (3.8-10.6) k/uL RBC (4.30-5.90) m/uL Hgb (13.0-17.5) gm/dL Hct (39.0-53.0) % RDW (11.5-15.5) % Neutrophils # (1.3-7.7) k/uL Monocytes # (0-1.0) k/uL Sodium (137-145) mmol/L BUN (9-20) mg/dL Glucose (74-99) mg/dL POC Glucose (mg/dL) 115 H 257 H 265 H (75-99) mg/dL Calcium (8.4-10.2) mg/dL 08/20/16 Range/Units 13:03 WBC (3.8-10.6) k/uL RBC (4.30-5.90) m/uL Hgb (13.0-17.5) gm/dL Hct (39.0-53.0) % RDW (11.5-15.5) % Neutrophils # (1.3-7.7) k/uL Monocytes # (0-1.0) k/uL Sodium (137-145) mmol/L BUN (9-20) mg/dL Glucose (74-99) mg/dL POC Glucose (mg/dL) 167 H (75-99) mg/dL Calcium (8.4-10.2) mg/dL Assessment and Plan (1) NSTEMI (non-ST elevated myocardial infarction) Status: Acute (2) Triple vessel coronary artery disease Status: Acute (3) S/P cardiac cath Status: Acute (4) Diabetes Status: Acute (5) HTN (hypertension) Status: Acute (6) Hyperlipemia Status: Acute (7) COPD (chronic obstructive pulmonary disease) Status: Acute (8) S/P CABG (coronary artery bypass graft) Status: Acute Plan: We will add lisinopril 5 mg daily to the patient's medication regime. Continue other medications. DNP note has been reviewed, I agree with a documented findings and plan of care. Patient was seen and examined.
[2016-08-20 15:13] LABS: Glucose,Whole Blood 117 mg/dL (75-99)
[2016-08-20] MEDS: LISINOPRIL 2.5 MG TAB PO SCH (15:21)
[2016-08-20 16:27] LABS: Glucose,Whole Blood 190 mg/dL (75-99)
[2016-08-20 18:35] LABS: Glucose,Whole Blood 279 mg/dL (75-99)
[2016-08-20 20:24] LABS: Glucose,Whole Blood 228 mg/dL (75-99)
[2016-08-20] MEDS: SENNOSIDES-DOCUSATE SODIUM 1 EACH TAB PO SCH (20:31)
[2016-08-20 22:42] LABS: Glucose,Whole Blood 84 mg/dL (75-99)
[2016-08-20 23:36] LABS: Glucose,Whole Blood 137 mg/dL (75-99)
[2016-08-21 01:20] LABS: Glucose,Whole Blood 179 mg/dL (75-99)
[2016-08-21] MEDS: INSULIN REGULAR 100 UNIT in SODIUM CHLORIDE 0.9% 100 ML IV SCH (01:36)
[2016-08-21] MEDS: HYDROcodone/APAP 5-325MG 1 EACH TAB PO PRN (03:12)
[2016-08-21 03:22] LABS: Glucose,Whole Blood 178 mg/dL (75-99)
[2016-08-21 05:13] LABS: Glucose,Whole Blood 170 mg/dL (75-99)
[2016-08-21 05:59] VITALS: RESP 16
[2016-08-21 06:41] LABS: Basophils % (A) 0 %; CHCM 30.4; Eosinophils # (A) 0.1 k/uL (0-0.7); Eosinophils % (A) 1 %; HCT 23.5 % (39.0-53.0); HDW 2.86; HGB 7.4 gm/dL (13.0-17.5); Hypochromasia Moderate; Luc # (Auto) 0.31; Luc % (Auto) 4; Lymphocytes # (A) 0.9 k/uL (1.0-4.8); Lymphocytes % (A) 12 %; MCHC 31.4 g/dL (31.0-37.0); MCV 86.2 fL (80.0-100.0); Mean Platelet Volume 7.2; Monocytes # (A) 0.6 k/uL (0-1.0); Monocytes % (A) 7 %; Neutrophils # (A) 6.1 k/uL (1.3-7.7); Neutrophils % (A) 76 %; RBC 2.73 m/uL (4.30-5.90); RDW 15.9 % (11.5-15.5); WBC (Perox) 8.47
[2016-08-21 06:51] LABS: Anion Gap 8 mmol/L; Blood Urea Nitrogen 32 mg/dL (9-20); Calcium 7.8 mg/dL (8.4-10.2); Carbon Dioxide 23 mmol/L (22-30); Chloride 98 mmol/L (98-107); Glucose 120 mg/dL (74-99); Non-African American GFR(MDRD) >60 (>60 ml/min/1.73 sqM); Potassium 4.1 mmol/L (3.5-5.1); Sodium 129 mmol/L (137-145)
[2016-08-21] MEDS: METOCLOPRAMIDE 10 MG TAB PO SCH ×4 (07:05→20:48)
[2016-08-21] MEDS: metFORMIN 500 MG TAB PO SCH ×2 (07:05→17:06)
[2016-08-21] MEDS: PANTOPRAZOLE 40 MG TABLET PO SCH (07:06)
[2016-08-21 07:15] LABS: Glucose,Whole Blood 97 mg/dL (75-99)
[2016-08-21] MEDS: IPRATROPIUM-ALBUTEROL 3 ML NEB INHALATION SCH ×4 (09:19→20:32)
[2016-08-21] MEDS: METOPROLOL TARTRATE 25 MG TAB PO SCH ×3 (09:36→22:28)
[2016-08-21] MEDS: ATORVASTATIN 40 MG TAB PO SCH (09:39)
[2016-08-21] MEDS: CLOPIDOGREL 75 MG TAB PO SCH (09:39)
[2016-08-21] MEDS: ASPIRIN 325 MG TAB PO SCH (09:39)
[2016-08-21] MEDS: HEPARIN SODIUM,PORCINE 5,000 UNIT/ML 1 ML VIAL SQ SCH ×2 (09:39→15:17)
[2016-08-21] MEDS: LISINOPRIL 2.5 MG TAB PO SCH (09:40)
[2016-08-21 09:41] LABS: Glucose,Whole Blood 289 mg/dL (75-99)
--- NOTE | 2016-08-21 10:10 | P.PN ---
Subjective Principal diagnosis: Non-ST elevation myocardial infarction with double vessel coronary artery disease, preserved left ventricular function, poorly controlled diabetes with micro-and macrovascular complication. Chronic kidney disease. Retinopathy. Obesity. Hypertension. Hyperlipidemia. Obstructive sleep apnea. POD #4 non-aortic clamp off pump triple coronary artery bypass grafting using the left internal mammary artery to the left anterior descending artery, reverse saphenous vein graft connected to the aorta using the PAS-Port device and connected distally to the first diagonal artery, reverse saphenous vein graft connected to the aorta using the PAS-Port device and connected distally to the right coronary artery in the groove after the PDA takeoff. Endoscopic harvesting of the left greater saphenous vein. Sternal plating and sternal cable using basno/[employer] system. Transesophageal echocardiogram and epi- aortic scanning. Intraoperative graft flow measurements using the Dr. Jerry's [employer] machine. Patient currently sitting up in the recliner. No apparent distress. Has no complaints at this time. Verbalizes understanding of discharge process including waiting for insurance authorization and placement in a rehab facility. Objective - Vital Signs Vital signs: Vital Signs Temp 98.8 F 08/21/16 04:00 Pulse 96 08/21/16 04:00 Resp 16 08/21/16 04:00 BP 124/81 08/21/16 04:00 Pulse Ox 94 L 08/21/16 04:00 Intake & Output 08/20/16 08/21/16 08/21/16 18:59 06:59 18:59 Intake Total 809.369 960.605 14.948 Output Total 400 Balance 409.369 960.605 14.948 Weight 122.2 kg Intake: IV 160 160 0.9 sodium chloride 160 160 Intake, IV Titration 109.369 100.605 14.948 Amount Insulin Regular 100 unit 109.369 100.605 14.948 In Sodium Chloride 0.9% 100 ml @ Per Protocol IV .Q0M ALE Rx#:[id number] Oral 540 700 Lipid 0 0.9 sodium chloride 0 Output: Urine 400 Other: Voiding Method Toilet Urinal # Voids 1 3 # Bowel Movements 0 2 ABP, PAP, CO, CI - Last Documented Arterial Blood Pressure 137/50 Pulmonary Artery Pressure 32/13 Cardiac Output 6.8 Cardiac Index 3 - Constitutional General appearance: Present: cooperative, no acute distress, obese - Respiratory Details: Lungs sounds diminished bilaterally. Respirations even, nonlabored. Currently on room air. Able to achieve 1250 mL on incentive spirometry. Effective cough. - Cardiovascular Details: S1, S2 present. Regular rate and rhythm, normal sinus rhythm on telemetry. No events noted overnight. Sternum stable. No edema present. Heart hugger in place with patient demonstrating appropriate use. - Gastrointestinal Gastrointestinal Comment(s): Abdomen soft, nontender, nondistended. Active bowel sounds 4 quadrants. Positive bowel movement yesterday. Tolerating diet. - Genitourinary Genitourinary Comment(s): Continues to void clear, yellow urine with adequate output. - Integumentary Integumentary Comment(s): Anterior chest incision covered with dry intact silver dressing. Left lower extremity EVH site well approximated. - Musculoskeletal Musculoskeletal: Present: gait normal, strength equal bilaterally - Psychiatric Psychiatric: Present: A&O x's 3, appropriate affect, intact judgment & insight - Allied health notes Allied health notes reviewed: case management - Labs CBC & Chem 7: 08/21/16 06:03 08/21/16 06:01 Labs: Abnormal Lab Results - Last 24 Hours (Table) 08/20/16 08/20/16 08/20/16 Range/Units 06:47 06:47 07:49 WBC 11.7 H (3.8-10.6) k/uL RBC 3.15 L (4.30-5.90) m/uL Hgb 8.6 L (13.0-17.5) gm/dL Hct 26.6 L (39.0-53.0) % RDW 16.1 H (11.5-15.5) % Neutrophils # 9.3 H (1.3-7.7) k/uL Lymphocytes # (1.0-4.8) k/uL Monocytes # 1.1 H (0-1.0) k/uL Sodium 135 L (137-145) mmol/L BUN 32 H (9-20) mg/dL Glucose 105 H (74-99) mg/dL POC Glucose (mg/dL) 115 H (75-99) mg/dL Calcium 8.3 L (8.4-10.2) mg/dL 08/20/16 08/20/16 08/20/16 Range/Units 09:03 10:48 13:03 WBC (3.8-10.6) k/uL RBC (4.30-5.90) m/uL Hgb (13.0-17.5) gm/dL Hct (39.0-53.0) % RDW (11.5-15.5) % Neutrophils # (1.3-7.7) k/uL Lymphocytes # (1.0-4.8) k/uL Monocytes # (0-1.0) k/uL Sodium (137-145) mmol/L BUN (9-20) mg/dL Glucose (74-99) mg/dL POC Glucose (mg/dL) 257 H 265 H 167 H (75-99) mg/dL Calcium (8.4-10.2) mg/dL 08/20/16 08/20/16 08/20/16 Range/Units 14:53 16:23 18:31 WBC (3.8-10.6) k/uL RBC (4.30-5.90) m/uL Hgb (13.0-17.5) gm/dL Hct (39.0-53.0) % RDW (11.5-15.5) % Neutrophils # (1.3-7.7) k/uL Lymphocytes # (1.0-4.8) k/uL Monocytes # (0-1.0) k/uL Sodium (137-145) mmol/L BUN (9-20) mg/dL Glucose (74-99) mg/dL POC Glucose (mg/dL) 117 H 190 H 279 H (75-99) mg/dL Calcium (8.4-10.2) mg/dL 08/20/16 08/20/16 08/21/16 Range/Units 20:22 23:33 01:10 WBC (3.8-10.6) k/uL RBC (4.30-5.90) m/uL Hgb (13.0-17.5) gm/dL Hct (39.0-53.0) % RDW (11.5-15.5) % Neutrophils # (1.3-7.7) k/uL Lymphocytes # (1.0-4.8) k/uL Monocytes # (0-1.0) k/uL Sodium (137-145) mmol/L BUN (9-20) mg/dL Glucose (74-99) mg/dL POC Glucose (mg/dL) 228 H 137 H 179 H (75-99) mg/dL Calcium (8.4-10.2) mg/dL 08/21/16 08/21/16 08/21/16 Range/Units 03:08 05:11 06:01 WBC (3.8-10.6) k/uL RBC (4.30-5.90) m/uL Hgb (13.0-17.5) gm/dL Hct (39.0-53.0) % RDW (11.5-15.5) % Neutrophils # (1.3-7.7) k/uL Lymphocytes # (1.0-4.8) k/uL Monocytes # (0-1.0) k/uL Sodium 129 L (137-145) mmol/L BUN 32 H (9-20) mg/dL Glucose 120 H (74-99) mg/dL POC Glucose (mg/dL) 178 H 170 H (75-99) mg/dL Calcium 7.8 L (8.4-10.2) mg/dL 08/21/16 Range/Units 06:03 WBC (3.8-10.6) k/uL RBC 2.73 L (4.30-5.90) m/uL Hgb 7.4 L (13.0-17.5) gm/dL Hct 23.5 L (39.0-53.0) % RDW 15.9 H (11.5-15.5) % Neutrophils # (1.3-7.7) k/uL Lymphocytes # 0.9 L (1.0-4.8) k/uL Monocytes # (0-1.0) k/uL Sodium (137-145) mmol/L BUN (9-20) mg/dL Glucose (74-99) mg/dL POC Glucose (mg/dL) (75-99) mg/dL Calcium (8.4-10.2) mg/dL Assessment and Plan (1) NSTEMI (non-ST elevated myocardial infarction) Status: Acute (2) Acute exacerbation of chronic obstructive airways disease Status: Acute (3) History of chronic kidney disease Status: Acute (4) Insulin dependent diabetes mellitus Status: Acute (5) Hypertension Status: Acute (6) Hyperlipidemia associated with type 2 diabetes mellitus Status: Acute (7) Obesity (BMI 30-39.9) Status: Acute (8) Obstructive sleep apnea on CPAP Status: Acute (9) Secondary hyperparathyroidism of renal origin Status: Acute (10) Diabetic gastroparesis associated with type 2 diabetes mellitus Status: Acute Plan: 1. Continue aspirin, beta huey, statin, heparin, Plavix, Norvasc. 2. Question [place] versus ARB. Previously on ARB per nephrology. Will defer to cardiology recommendations. 3. Continue to encourage incentive spirometry use. 4. Insulin and diabetic management per primary service 5. GI/DVT prophylaxis. 6. Increase activity, ambulate in hallway minimum 4 times daily. Physical therapy following. 7. Will need primary care physician upon discharge. 8. Anticipate discharge to rehabilitation facility soon. Insurance authorization, placement pending. Time with Patient: Greater than 30
[2016-08-21] MEDS: GABAPENTIN 300 MG CAP PO SCH ×2 (10:13→20:48)
[2016-08-21] MEDS: CALCITRIOL 0.25 MCG CAP PO SCH (10:13)
[2016-08-21 11:08] LABS: Glucose,Whole Blood 261 mg/dL (75-99)
--- NOTE | 2016-08-21 11:20 | PN ---
DATE OF SERVICE: 08/20/2016 This 55-year-old gentleman who was admitted with CAD/CABG, also had blood sugars. No chest pain. No palpitations. No fever. On exam, alert and oriented times three. Pulse 91, blood pressure 125/52, respirations 18, temperature normal, pulse ox 94% on room air. HEENT: Conjunctivae normal. NECK: No jugular venous distention. CARDIOVASCULAR: S1, S2 muffled. RESPIRATORY: Breath sounds diminished at the bases. A few rhonchi. No crackles. ABDOMEN: Soft. Nontender. LEGS: No edema. No swelling. CENTRAL NERVOUS SYSTEM: No focal deficits. LABS: 190, 279, 228. ASSESSMENT: 1. Acute non-ST segment elevation myocardial infarction, present on admission, status post coronary artery disease, coronary artery bypass grafting x3. 2. Status post cardiac catheterization. 3. Diabetes mellitus type 2, uncontrolled, present on admission, brittle on insulin drip. 4. Chronic kidney disease stage III, present on admission. 5. Hypertension. 6. History of chronic obstructive pulmonary disease. 7. Congestive heart failure with acute exacerbation, with acute systolic dysfunction, ejection fraction 40% to 45% present on admission. 8. History of degenerative joint disease. 9. History of Charcot joints. 10. History of nicotine dependence. 11. Heparin monitoring. 12. Hyperlipidemia. 13. Obesity. 14. Anemia of chronic disease secondary to chronic kidney disease. 15. FULL CODE. 16. Hypoxic respiratory failure, present on admission. 17. Ascending aortic aneurysm [address] scan. 18. Left kidney cyst 3.8 per CAT scan. 19. Fatty liver. 20. Hilar and subcarinal nodules. 21. Obesity with body mass index of 37.9. 22. FULL CODE. RECOMMENDATIONS AND RECOMMEND: Recommend to continue current medications. Continue with symptomatic treatment. Continue insulin. Otherwise, explore the possibility of initiating insulin pump as the patient was using previously. We will consult diabetic education and Valentin the diabetic nurse to coordinate that. Otherwise, continue to monitor. Further recommendations to follow. MTDD
--- NOTE | 2016-08-21 11:38 | P.PN ---
Subjective Principal diagnosis: Non-STEMI This is a pleasant 55-year-old gentleman with a past medical history significant for obesity, diabetes, hypertension and dyslipidemia. Presented to the hospital complaining of chest discomfort and difficulty breathing. He ruled in for non-Q-wave myocardial infarction, underwent coronary bypass grafting surgery. Patient was seen and examined this morning, up ambulating without any difficulty. Blood pressure 124/80 heart rate in the 70s. Possibly being discharged home today. Objective - Vital Signs Vital signs: Vital Signs Temp 99.0 F 08/21/16 08:00 Pulse 101 H 08/21/16 11:28 Resp 16 08/21/16 08:00 BP 106/52 08/21/16 11:28 Pulse Ox 96 08/21/16 11:28 Intake & Output 08/20/16 08/21/16 08/21/16 18:59 06:59 18:59 Intake Total 809.369 960.605 465.401 Output Total 400 Balance 409.369 960.605 465.401 Weight 122.2 kg Intake: IV 160 160 0.9 sodium chloride 160 160 Intake, IV Titration 109.369 100.605 35.401 Amount Insulin Regular 100 unit 109.369 100.605 35.401 In Sodium Chloride 0.9% 100 ml @ Per Protocol IV .Q0M [facility] Rx#:[id number] Oral 540 700 430 Lipid 0 0.9 sodium chloride 0 Output: Urine 400 Other: Voiding Method Toilet Toilet Urinal Urinal # Voids 1 3 # Bowel Movements 0 2 ABP, PAP, CO, CI - Last Documented Arterial Blood Pressure 137/50 Pulmonary Artery Pressure 32/13 Cardiac Output 6.8 Cardiac Index 3 - Exam PHYSICAL EXAMINATION: HEENT: [Head is atraumatic, normocephalic. Pupils equal, round. Neck is supple. There is no elevated jugular venous pressure.] HEART EXAMINATION: [Heart S1, S2 normal. No murmur or gallop heard.] CHEST EXAMINATION:[ Lungs are clear to auscultation and precussion. No chest wall tenderness is noted on palpation or with deep breathing.] ABDOMEN: [ Soft, nontender. Bowel sounds are heard. No organomegaly noted]. EXTREMITIES:[ 2+ peripheral pulses with no evidence of peripheral edema and no calf tenderness noted]. NEUROLOGIC [patient is awake, alert and oriented -3.] . - Labs CBC & Chem 7: 08/21/16 06:03 08/21/16 06:01 Labs: Abnormal Lab Results - Last 24 Hours (Table) 08/20/16 08/20/16 08/20/16 Range/Units 13:03 14:53 16:23 RBC (4.30-5.90) m/uL Hgb (13.0-17.5) gm/dL Hct (39.0-53.0) % RDW (11.5-15.5) % Lymphocytes # (1.0-4.8) k/uL Sodium (137-145) mmol/L BUN (9-20) mg/dL Glucose (74-99) mg/dL POC Glucose (mg/dL) 167 H 117 H 190 H (75-99) mg/dL Calcium (8.4-10.2) mg/dL 08/20/16 08/20/16 08/20/16 Range/Units 18:31 20:22 23:33 RBC (4.30-5.90) m/uL Hgb (13.0-17.5) gm/dL Hct (39.0-53.0) % RDW (11.5-15.5) % Lymphocytes # (1.0-4.8) k/uL Sodium (137-145) mmol/L BUN (9-20) mg/dL Glucose (74-99) mg/dL POC Glucose (mg/dL) 279 H 228 H 137 H (75-99) mg/dL Calcium (8.4-10.2) mg/dL 08/21/16 08/21/16 08/21/16 Range/Units 01:10 03:08 05:11 RBC (4.30-5.90) m/uL Hgb (13.0-17.5) gm/dL Hct (39.0-53.0) % RDW (11.5-15.5) % Lymphocytes # (1.0-4.8) k/uL Sodium (137-145) mmol/L BUN (9-20) mg/dL Glucose (74-99) mg/dL POC Glucose (mg/dL) 179 H 178 H 170 H (75-99) mg/dL Calcium (8.4-10.2) mg/dL 08/21/16 08/21/16 08/21/16 Range/Units 06:01 06:03 09:40 RBC 2.73 L (4.30-5.90) m/uL Hgb 7.4 L (13.0-17.5) gm/dL Hct 23.5 L (39.0-53.0) % RDW 15.9 H (11.5-15.5) % Lymphocytes # 0.9 L (1.0-4.8) k/uL Sodium 129 L (137-145) mmol/L BUN 32 H (9-20) mg/dL Glucose 120 H (74-99) mg/dL POC Glucose (mg/dL) 289 H (75-99) mg/dL Calcium 7.8 L (8.4-10.2) mg/dL 08/21/16 Range/Units 11:06 RBC (4.30-5.90) m/uL Hgb (13.0-17.5) gm/dL Hct (39.0-53.0) % RDW (11.5-15.5) % Lymphocytes # (1.0-4.8) k/uL Sodium (137-145) mmol/L BUN (9-20) mg/dL Glucose (74-99) mg/dL POC Glucose (mg/dL) 261 H (75-99) mg/dL Calcium (8.4-10.2) mg/dL Assessment and Plan (1) NSTEMI (non-ST elevated myocardial infarction) Status: Acute (2) Triple vessel coronary artery disease Status: Acute (3) S/P cardiac cath Status: Acute (4) Diabetes Status: Acute (5) HTN (hypertension) Status: Acute (6) Hyperlipemia Status: Acute (7) COPD (chronic obstructive pulmonary disease) Status: Acute (8) S/P CABG (coronary artery bypass graft) Status: Acute Plan: Cardiology's perspective, we'll continue the current medications. If the patient is discharged home today we will make him a follow-up appointment with Dr. Vegas in the office in 2 weeks. DNP note has been reviewed, I agree with a documented findings and plan of care. Patient was seen and examined.
[2016-08-21 11:46] VITALS: BMI 39.7
[2016-08-21 11:53] LABS: Glucose,Whole Blood 200 mg/dL (75-99)
[2016-08-21] MEDS: MULTIVITAMINS, THERA 1 EACH TAB PO SCH (12:10)
--- NOTE | 2016-08-21 12:22 | P.PN ---
Subjective This is a 55-year-old white male with history of multiple medical problems including COPD, hypertension, dyslipidemia, diabetes, obesity, and he has a very sedentary lifestyle. 2 years ago, the patient had a stress test which was supposedly normal. This was done in [place]. Patient presented this time to the ER with 3 days history of tightness across the chest, associated with some shortness of breath. His EKG was nonspecific, however his enzymes were positive , the patient was found to have non-ST elevation myocardial infarction. Today the patient underwent cardiac catheterization by Dr. Vegas, and he was found to have significant coronary artery disease. Hence the patient was advised to have myocardial revascularization. And the patient is yet to be seen by cardiac surgery on consultation. In the meantime the patient was placed on medications for his acute UT and I was asked to see him on consultation. His shortness of breath is improved, his chest pain is resolved. However the patient is known to have remote smoking history, however he quit many years ago. Patient was told at one point that he may have emphysema, severity of which is not clear. However the patient is not O2 dependent and not prednisone dependent. Bedside spirometry was done, and it was a poor quality because of the effort was very poor, hence I recommended a full PFT to be done in a.m. Patient was reevaluated today on 08/15/2016, doing relatively well, however his PFT is quite abnormal showing mostly a picture of restriction and poor effort with very low Mvv and low FVC, lower lung volumes. This would make him a very high surgical risk, in the meantime I ordered a high-resolution CT of the chest , his chest x-ray was showing a right paratracheal soft tissue fullness, and some subsegmental interstitial perihilar changes felt to be related to congestive heart failure unless proven otherwise. CT of the chest is showing mostly congestive heart failure, with air bronchograms noted in the right lung base and there is also evidence of calcified subcarinal and left hilar nodes noted. Fatty infiltration of the liver was also noted, and cystic focus of left kidney was noted. Patient will likely improve with aggressive diuresis. Patient was reevaluated today on 08/16/2016, seems to be doing much better, breathing a lot easier, and he is doing well with incentive spirometry. Patient is scheduled to undergo myocardial revascularization in a.m. And his follow-up chest x-ray is showing definite improvement. Hence the patient will be cleared for surgery, however he is still considered moderate to high operative risk. The patient is seen again today 08/17/2016 in follow-up. He is now status post coronary artery bypass grafting 3. He received a JIN to the LAD and 2 saphenous vein grafts to the diagonal and RCA. He is currently intubated and on the mechanical ventilator at settings of assist control of 12, tidal volume 500 , FiO2 100%, PEEP of 5. Blood gases reveal a P O2 of 296, p O2 50, PH7.35. He has mediastinal and left pleural chest tubes in place. Chest x-ray was reviewed. He is currently sedated on propofol 20 mcg/kg/m, he is on insulin drip at 2 units per hour. He is on a nitroglycerin drip at 5 mg/m. He has lactated Ringer's at 50 MLS per hour. Current blood pressure 99/53 with a mean of 67, PA pressure 35/25 with a mean of 29 and a CVP of 18. He is making adequate urine currently. Cardiac output 5, cardiac index 2.2. I saw him today on 08/18/2016, patient is off mechanical ventilation, doing quite well, chest x-ray is relatively unremarkable. Patient is hemodynamically stable. And in no distress. Labs and meds were all reviewed. Reevaluated today on 08/19/2016, patient is doing well asymptomatic, on nasal cannula, in no distress. Chest x-ray showed minimal atelectasis at the bases patient will likely be transferred out of the ICU to a cardiac floor. In the meantime we'll continue updrafts, continue incentive spirometry, no need for any other bronchodilators or steroids at this point. Reevaluated today on 08/20/2016, continues to do quite well, no cough no wheezing no shortness of breath. The chest x-ray showed minimal left basilar atelectasis and small tiny left pleural effusion. Patient again is asymptomatic. And he is doing well. Being considered for possible rehab referral in the morning. The patient was seen and evaluated again today on 08/21/2016 on the selective care unit. This is postoperative day #4. He is awake and alert in no acute distress. He has been up ambulating in the hallway. He denies any worsening shortness of breath, cough or congestion. He is pulling about 1250 MLS on his incentive spirometer. Objective - Vital Signs Vital signs: Vital Signs Temp 99.0 F 08/21/16 08:00 Pulse 101 H 08/21/16 11:28 Resp 16 08/21/16 08:00 BP 106/52 08/21/16 11:28 Pulse Ox 96 08/21/16 11:28 Intake & Output 08/20/16 08/21/16 08/21/16 18:59 06:59 18:59 Intake Total 809.369 960.605 465.401 Output Total 400 Balance 409.369 960.605 465.401 Weight 122.2 kg 122.2 kg Intake: IV 160 160 0.9 sodium chloride 160 160 Intake, IV Titration 109.369 100.605 35.401 Amount Insulin Regular 100 unit 109.369 100.605 35.401 In Sodium Chloride 0.9% 100 ml @ Per Protocol IV .Q0M [facility] Rx#:[id number] Oral 540 700 430 Lipid 0 0.9 sodium chloride 0 Output: Urine 400 Other: Voiding Method Toilet Toilet Urinal Urinal # Voids 1 3 # Bowel Movements 0 2 ABP, PAP, CO, CI - Last Documented Arterial Blood Pressure 137/50 Pulmonary Artery Pressure 32/13 Cardiac Output 6.8 Cardiac Index 3 - Exam GENERAL EXAM: Awake, alert in no acute distress. HEAD: Normocephalic. EYES: Sluggish reaction of pupils, equal size. NOSE: Clear with pink turbinates. THROAT: No erythema. NECK: No masses, no JVD. CHEST: Sternal dressing is dry and intact. LUNGS: Equal air entry with few scattered rhonchi, crackles in the bases. CVS: S1 and S2 normal with no audible murmurs, regular rhythm. ABDOMEN: Soft.. SPINE: No scoliosis or deformity SKIN: No rashes Extremities: There is wrapped to the bilateral lower extremities, compression devices in place. - Labs CBC & Chem 7: 08/21/16 06:03 08/21/16 06:01 Labs: Abnormal Lab Results - Last 24 Hours (Table) 08/20/16 08/20/16 08/20/16 Range/Units 13:03 14:53 16:23 RBC (4.30-5.90) m/uL Hgb (13.0-17.5) gm/dL Hct (39.0-53.0) % RDW (11.5-15.5) % Lymphocytes # (1.0-4.8) k/uL Sodium (137-145) mmol/L BUN (9-20) mg/dL Glucose (74-99) mg/dL POC Glucose (mg/dL) 167 H 117 H 190 H (75-99) mg/dL Calcium (8.4-10.2) mg/dL 08/20/16 08/20/16 08/20/16 Range/Units 18:31 20:22 23:33 RBC (4.30-5.90) m/uL Hgb (13.0-17.5) gm/dL Hct (39.0-53.0) % RDW (11.5-15.5) % Lymphocytes # (1.0-4.8) k/uL Sodium (137-145) mmol/L BUN (9-20) mg/dL Glucose (74-99) mg/dL POC Glucose (mg/dL) 279 H 228 H 137 H (75-99) mg/dL Calcium (8.4-10.2) mg/dL 08/21/16 08/21/16 08/21/16 Range/Units 01:10 03:08 05:11 RBC (4.30-5.90) m/uL Hgb (13.0-17.5) gm/dL Hct (39.0-53.0) % RDW (11.5-15.5) % Lymphocytes # (1.0-4.8) k/uL Sodium (137-145) mmol/L BUN (9-20) mg/dL Glucose (74-99) mg/dL POC Glucose (mg/dL) 179 H 178 H 170 H (75-99) mg/dL Calcium (8.4-10.2) mg/dL 08/21/16 08/21/16 08/21/16 Range/Units 06:01 06:03 09:40 RBC 2.73 L (4.30-5.90) m/uL Hgb 7.4 L (13.0-17.5) gm/dL Hct 23.5 L (39.0-53.0) % RDW 15.9 H (11.5-15.5) % Lymphocytes # 0.9 L (1.0-4.8) k/uL Sodium 129 L (137-145) mmol/L BUN 32 H (9-20) mg/dL Glucose 120 H (74-99) mg/dL POC Glucose (mg/dL) 289 H (75-99) mg/dL Calcium 7.8 L (8.4-10.2) mg/dL 08/21/16 08/21/16 Range/Units 11:06 11:47 RBC (4.30-5.90) m/uL Hgb (13.0-17.5) gm/dL Hct (39.0-53.0) % RDW (11.5-15.5) % Lymphocytes # (1.0-4.8) k/uL Sodium (137-145) mmol/L BUN (9-20) mg/dL Glucose (74-99) mg/dL POC Glucose (mg/dL) 261 H 200 H (75-99) mg/dL Calcium (8.4-10.2) mg/dL Assessment and Plan Plan: Impression: 1 Acute non-ST elevation myocardial infarction, 2 Significant coronary artery disease based on cardiac catheterization. Status post coronary artery bypass grafting utilizing a JIN to the LAD, saphenous vein grafts to the diagonal and RCA. Postoperative day #4. 3 Ventilator dependence as an expected outcome to thoracotomy. 4 History of hypertension 5 History of dyslipidemia 6 Suspect some component of COPD, full PFT is pending, his initial bedside PFT is very poor because of mostly of poor effort. Although restriction is strongly suspected. 7 Suspect some component of congestive heart failure on presentation, improved on the follow-up chest x-ray. Plan: The patient was seen and evaluated by Dr. Hussein. We have encouraged increased use of the incentive spirometer and cough and deep breathing exercises. He is up ambulating with assistance. The plan is for possible discharge to inpatient rehabilitation. We'll continue to follow.
[2016-08-21 12:58] LABS: Glucose,Whole Blood 151 mg/dL (75-99)
[2016-08-21] MEDS ORDERED: INSULIN GLARGINE 100 UNIT/ML 10 ML VIAL SQ STA (14:32)
[2016-08-21 15:05] LABS: Glucose,Whole Blood 121 mg/dL (75-99)
[2016-08-21 16:45] LABS: Glucose,Whole Blood 152 mg/dL (75-99)
[2016-08-21] MEDS: INSULIN LISPRO (humaLOG) 300 UNIT/3 ML VIAL SQ SCH ×3 (17:26→22:27)
[2016-08-21] MEDS: SENNOSIDES-DOCUSATE SODIUM 1 EACH TAB PO SCH (20:37)
[2016-08-21 20:53] LABS: Glucose,Whole Blood 198 mg/dL (75-99)
[2016-08-21] MEDS ORDERED: amLODIPine 5 MG TAB PO SCH (21:00)
[2016-08-21] MEDS ORDERED: INSULIN GLARGINE 100 UNIT/ML 10 ML VIAL SQ SCH (21:00)
--- NOTE | 2016-08-21 22:45 | PN ---
DATE OF SERVICE: 08/21/2016 This 55-year-old gentleman who was admitted after CAD/CABG also had uncontrolled blood sugars also. The patient was on insulin pump previously but currently the patient is unable to coordinate pumps because of insurance reasons, currently, the patient is on insulin drip and necessitating anywhere 7 units to 30 units per hour. On exam alert and oriented times three, pulse is 91, blood pressure 93/41, respiratory rate 16, temperature 98.9, Pulse ox is 100% on room air. HEENT: Conjunctivae normal. NECK: No jugular venous distention. CARDIOVASCULAR: S1, S2 muffled. RESPIRATORY: Breath sounds diminished at the bases. A few scattered rhonchi and crackles. ABDOMEN: Soft. Nontender. LEGS: No edema. No swelling. CENTRAL NERVOUS SYSTEM: No focal deficits. LABS: Accu-Cheks 152, other labs noted. Hemoglobin 7.4. ASSESSMENT: 1. Acute non-ST segment elevation myocardial infarction, present on admission status post coronary artery bypass grafting x3. 2. Status post cardiac catheterization. 3. Diabetes mellitus type 2, uncontrolled present on admission, brittle diabetes type 2 on insulin drip. 4. Chronic kidney disease, stage III present on admission. 5. Hypertension. 6. Chronic obstructive pulmonary disease. 7. History of congestive heart failure acute exacerbation, with acute systolic dysfunction, ejection fraction 40% to 45% present on admission. 8. History of degenerative joint disease. 9. History of Charcot joints. 10. History nicotine dependence. 11. Heparin monitoring. 12. Hyperlipidemia. 13. Obesity. 14. Anemia of chronic disease secondary to chronic kidney disease. 15. Acute hypoxic respiratory failure, present on admission. 16. Ascending aortic aneurysm, full cm on the CT scan. 17. Left kidney cyst 3.8, CAT scan. 18. Fatty liver. 19. Hilar and subcarinal nodules. 20. Obesity with a body mass index of 37.9. 21. FULL CODE. RECOMMENDATIONS AND DISCUSSION: Recommended to continue current medications. Continue with monitoring, symptomatic treatment. Otherwise, at this time, I recommend to transition insulin drip to a combination of basal bolus Lantus and as well as Novolog. See orders for further details. Once again, the prognosis is guarded because of multiple complex medical issues. Further recommendations to follow. MTDD
[2016-08-22] MEDS: HEPARIN SODIUM,PORCINE 5,000 UNIT/ML 1 ML VIAL SQ SCH ×2 (01:28→08:32)
[2016-08-22 06:02] LABS: Glucose,Whole Blood 167 mg/dL (75-99)
[2016-08-22] MEDS: metFORMIN 500 MG TAB PO SCH (06:43)
[2016-08-22] MEDS: PANTOPRAZOLE 40 MG TABLET PO SCH (06:44)
[2016-08-22] MEDS: METOCLOPRAMIDE 10 MG TAB PO SCH ×2 (06:44→12:18)
[2016-08-22 07:11] LABS: Anion Gap 7 mmol/L; Blood Urea Nitrogen 24 mg/dL (9-20); Calcium 8.5 mg/dL (8.4-10.2); Carbon Dioxide 25 mmol/L (22-30); Chloride 100 mmol/L (98-107); Glucose 141 mg/dL (74-99); Non-African American GFR(MDRD) >60 (>60 ml/min/1.73 sqM); Potassium 4.5 mmol/L (3.5-5.1); Sodium 132 mmol/L (137-145)
[2016-08-22] MEDS: INSULIN LISPRO (humaLOG) 300 UNIT/3 ML VIAL SQ SCH ×4 (07:20→12:18)
[2016-08-22 08:15] LABS: Anisocytosis Slight; Aty Lym Flag Slight; CH 26.2; CHCM 30.8; HCT 22.8 % (39.0-53.0); HDW 2.89; HGB 7.5 gm/dL (13.0-17.5); Hypochromasia Moderate; MCH 27.9 pg (25.0-35.0); MCHC 32.7 g/dL (31.0-37.0); MCV 85.6 fL (80.0-100.0); Mean Platelet Volume 8.8; RBC 2.67 m/uL (4.30-5.90); RDW 16.2 % (11.5-15.5); WBC 9.4 k/uL (3.8-10.6); WBC (Perox) 9.56
[2016-08-22] MEDS: METOPROLOL TARTRATE 25 MG TAB PO SCH (08:32)
[2016-08-22] MEDS: ASPIRIN 325 MG TAB PO SCH (08:32)
[2016-08-22] MEDS: CLOPIDOGREL 75 MG TAB PO SCH (08:32)
[2016-08-22] MEDS: LISINOPRIL 2.5 MG TAB PO SCH (08:32)
[2016-08-22] MEDS: GABAPENTIN 300 MG CAP PO SCH (08:32)
[2016-08-22] MEDS: ATORVASTATIN 40 MG TAB PO SCH (08:33)
[2016-08-22] MEDS: IPRATROPIUM-ALBUTEROL 3 ML NEB INHALATION SCH ×3 (09:18→16:36)
[2016-08-22 09:35] LABS: Add Differential Manual Differential
[2016-08-22 09:54] LABS: Metamyelocytes % 0.5 %; Myelocytes % 1.5 %; Nucleated Red Blood Cells 0 /100 WBC (0-0); Total Cells Counted 200; Toxic Granulation Present
--- NOTE | 2016-08-22 10:25 | P.PN ---
Subjective Principal diagnosis: Non-ST elevation myocardial infarction with double vessel coronary artery disease, preserved left ventricular function, poorly controlled diabetes with micro-and macrovascular complication. Chronic kidney disease. Retinopathy. Obesity. Hypertension. Hyperlipidemia. Obstructive sleep apnea. POD #5 non-aortic clamp off pump triple coronary artery bypass grafting using the left internal mammary artery to the left anterior descending artery, reverse saphenous vein graft connected to the aorta using the PAS-Port device and connected distally to the first diagonal artery, reverse saphenous vein graft connected to the aorta using the PAS-Port device and connected distally to the right coronary artery in the groove after the PDA takeoff. Endoscopic harvesting of the left greater saphenous vein. Sternal plating and sternal cable using [employer] system. Transesophageal echocardiogram and epi- aortic scanning. Intraoperative graft flow measurements using the [employer] machine. Patient currently sitting up in bed. No apparent distress. Has no complaints at this time. Verbalizes understanding that he doesn't qualify for rehab and will most likely be discharged to home with home care this afternoon. Objective - Vital Signs Vital signs: Vital Signs Temp 99 F 08/22/16 04:00 Pulse 95 08/22/16 04:00 Resp 16 08/22/16 04:00 BP 113/54 08/22/16 04:00 Pulse Ox 94 L 08/22/16 04:00 Intake & Output 08/21/16 08/22/16 08/22/16 18:59 06:59 18:59 Intake Total 931.663 500 Balance 931.663 500 Weight 122.2 kg 121.2 kg Intake: Intake, IV Titration 57.663 Amount Insulin Regular 100 unit 57.663 In Sodium Chloride 0.9% 100 ml @ Per Protocol IV .Q0M [facility] Rx#:[id number] Oral 874 500 Other: Voiding Method Toilet Toilet Urinal Urinal # Voids 1 1 ABP, PAP, CO, CI - Last Documented Arterial Blood Pressure 137/50 Pulmonary Artery Pressure 32/13 Cardiac Output 6.8 Cardiac Index 3 - Constitutional General appearance: Present: cooperative, no acute distress, obese - Respiratory Details: Lung sounds very diminished bilaterally. Respirations even, nonlabored. Only able to achieve 1000 mL on his incentive spirometry. Effective cough with yellow sputum. - Cardiovascular Details: S1, S2 present. Regular rate and rhythm, normal sinus rhythm on telemetry. No events noted overnight with the exception of occasional sinus tach low 100s. Sternum stable. Heart hugger in place with patient demonstrating appropriate use. Teds, SCDs present. - Gastrointestinal Gastrointestinal Comment(s): Abdomen soft, nontender, nondistended. Active bowel sounds 4 quadrants. Tolerating diet. - Genitourinary Genitourinary Comment(s): Continues to void adequate amounts of clear, yellow urine. - Integumentary Integumentary Comment(s): Anterior chest incision covered with dry intact silver dressing. Left lower extremity EVH site well approximated. - Musculoskeletal Musculoskeletal: Present: gait normal, strength equal bilaterally - Psychiatric Psychiatric: Present: A&O x's 3, appropriate affect, intact judgment & insight - Allied health notes Allied health notes reviewed: OT - Labs CBC & Chem 7: 08/22/16 05:32 08/22/16 05:32 Labs: Abnormal Lab Results - Last 24 Hours (Table) 08/21/16 08/21/16 08/21/16 Range/Units 09:40 11:06 11:47 Sodium (137-145) mmol/L BUN (9-20) mg/dL Glucose (74-99) mg/dL POC Glucose (mg/dL) 289 H 261 H 200 H (75-99) mg/dL 08/21/16 08/21/16 08/21/16 Range/Units 12:56 15:03 16:43 Sodium (137-145) mmol/L BUN (9-20) mg/dL Glucose (74-99) mg/dL POC Glucose (mg/dL) 151 H 121 H 152 H (75-99) mg/dL 08/21/16 08/22/16 08/22/16 Range/Units 20:49 05:32 06:01 Sodium 132 L (137-145) mmol/L BUN 24 H (9-20) mg/dL Glucose 141 H (74-99) mg/dL POC Glucose (mg/dL) 198 H 167 H (75-99) mg/dL Assessment and Plan (1) NSTEMI (non-ST elevated myocardial infarction) Status: Acute (2) Acute exacerbation of chronic obstructive airways disease Status: Acute (3) History of chronic kidney disease Status: Acute (4) Insulin dependent diabetes mellitus Status: Acute (5) Hypertension Status: Acute (6) Hyperlipidemia associated with type 2 diabetes mellitus Status: Acute (7) Obesity (BMI 30-39.9) Status: Acute (8) Obstructive sleep apnea on CPAP Status: Acute (9) Secondary hyperparathyroidism of renal origin Status: Acute (10) Diabetic gastroparesis associated with type 2 diabetes mellitus Status: Acute Plan: 1. Continue aspirin, statin, heparin, Plavix, Norvasc. Will increase Lopressor to 50 mg twice a day to gain better heart rate control 2. Will DC lisinopril. Was hypotensive in the last 24 hours. Discussed with cardiology 3. Continue to encourage incentive spirometry use. 4. Insulin and diabetic management per primary service 5. GI/DVT prophylaxis. 6. Increase activity, ambulate in hallway minimum 4 times daily. Physical therapy following. 7. Will need primary care physician upon discharge. 8. Anticipate discharge to home today. Time with Patient: Greater than 30
[2016-08-22 11:28] LABS: Glucose,Whole Blood 160 mg/dL (75-99)
[2016-08-22 11:58] VITALS: BP 94/54; TEMP 98.1
[2016-08-22 12:07] VITALS: PULSE 96
--- NOTE | 2016-08-22 12:16 | P.PN ---
Subjective Principal diagnosis: Non-STEMI This is a pleasant 55-year-old gentleman with a past medical history significant for obesity, diabetes, hypertension and dyslipidemia. Presented to the hospital complaining of chest discomfort and difficulty breathing. He ruled in for non-Q-wave myocardial infarction, underwent coronary bypass grafting surgery. Patient was seen and examined this morning, up ambulating without any difficulty. Blood pressure 94/50 with a heart rate in the 90s to low 100s. Reaching around thousand on his INRs today, patient's been encouraged to continue to work hard on that. Objective - Vital Signs Vital signs: Vital Signs Temp 98.1 F 08/22/16 11:54 Pulse 96 08/22/16 12:07 Resp 16 08/22/16 11:54 BP 94/54 08/22/16 11:54 Pulse Ox 98 08/22/16 11:54 Intake & Output 08/21/16 08/22/16 08/22/16 18:59 06:59 18:59 Intake Total 931.663 500 380 Balance 931.663 500 380 Weight 122.2 kg 121.2 kg Intake: Intake, IV Titration 57.663 Amount Insulin Regular 100 unit 57.663 In Sodium Chloride 0.9% 100 ml @ Per Protocol IV .Q0M [facility] Rx#:[id number] Oral 874 500 380 Other: Voiding Method Toilet Toilet Toilet Urinal Urinal Urinal # Voids 1 1 ABP, PAP, CO, CI - Last Documented Arterial Blood Pressure 137/50 Pulmonary Artery Pressure 32/13 Cardiac Output 6.8 Cardiac Index 3 - Exam PHYSICAL EXAMINATION: HEENT: [Head is atraumatic, normocephalic. Pupils equal, round. Neck is supple. There is no elevated jugular venous pressure.] HEART EXAMINATION: [Heart S1, S2 normal. No murmur or gallop heard.] CHEST EXAMINATION: Lungs are clear with diminished air entry to bilateral bases. ABDOMEN: [ Soft, nontender. Bowel sounds are heard. No organomegaly noted]. EXTREMITIES:[ 2+ peripheral pulses with no evidence of peripheral edema and no calf tenderness noted]. NEUROLOGIC [patient is awake, alert and oriented -3.] . - Labs CBC & Chem 7: 08/22/16 05:32 08/22/16 05:32 Labs: Abnormal Lab Results - Last 24 Hours (Table) 08/21/16 08/21/16 08/21/16 Range/Units 12:56 15:03 16:43 RBC (4.30-5.90) m/uL Hgb (13.0-17.5) gm/dL Hct (39.0-53.0) % RDW (11.5-15.5) % Lymphocytes # (Manual) (1.0-4.8) k/uL Monocytes # (Manual) (0-1.0) k/uL Sodium (137-145) mmol/L BUN (9-20) mg/dL Glucose (74-99) mg/dL POC Glucose (mg/dL) 151 H 121 H 152 H (75-99) mg/dL 08/21/16 08/22/16 08/22/16 Range/Units 20:49 05:32 05:32 RBC 2.67 L (4.30-5.90) m/uL Hgb 7.5 L (13.0-17.5) gm/dL Hct 22.8 L (39.0-53.0) % RDW 16.2 H (11.5-15.5) % Lymphocytes # (Manual) 0.3 L (1.0-4.8) k/uL Monocytes # (Manual) 1.3 H (0-1.0) k/uL Sodium 132 L (137-145) mmol/L BUN 24 H (9-20) mg/dL Glucose 141 H (74-99) mg/dL POC Glucose (mg/dL) 198 H (75-99) mg/dL 08/22/16 08/22/16 Range/Units 06:01 11:26 RBC (4.30-5.90) m/uL Hgb (13.0-17.5) gm/dL Hct (39.0-53.0) % RDW (11.5-15.5) % Lymphocytes # (Manual) (1.0-4.8) k/uL Monocytes # (Manual) (0-1.0) k/uL Sodium (137-145) mmol/L BUN (9-20) mg/dL Glucose (74-99) mg/dL POC Glucose (mg/dL) 167 H 160 H (75-99) mg/dL Assessment and Plan (1) NSTEMI (non-ST elevated myocardial infarction) Status: Acute (2) Triple vessel coronary artery disease Status: Acute (3) S/P cardiac cath Status: Acute (4) Diabetes Status: Acute (5) HTN (hypertension) Status: Acute (6) Hyperlipemia Status: Acute (7) COPD (chronic obstructive pulmonary disease) Status: Acute (8) S/P CABG (coronary artery bypass graft) Status: Acute Plan: Cardiology's perspective, we'll continue the current medications. Patient has been encouraged to increase his use of his incentive spirometry. We will request a repeat chest x-ray today. DNP note has been reviewed, I agree with a documented findings and plan of care. Patient was seen and examined.
[2016-08-22] MEDS: MULTIVITAMINS, THERA 1 EACH TAB PO SCH (12:18)
--- NOTE | 2016-08-22 14:12 | P.PN ---
Subjective This is a 55-year-old white male with history of multiple medical problems including COPD, hypertension, dyslipidemia, diabetes, obesity, and he has a very sedentary lifestyle. 2 years ago, the patient had a stress test which was supposedly normal. This was done in [place]. Patient presented this time to the ER with 3 days history of tightness across the chest, associated with some shortness of breath. His EKG was nonspecific, however his enzymes were positive , the patient was found to have non-ST elevation myocardial infarction. Today the patient underwent cardiac catheterization by Dr. Vegas, and he was found to have significant coronary artery disease. Hence the patient was advised to have myocardial revascularization. And the patient is yet to be seen by cardiac surgery on consultation. In the meantime the patient was placed on medications for his acute NM and I was asked to see him on consultation. His shortness of breath is improved, his chest pain is resolved. However the patient is known to have remote smoking history, however he quit many years ago. Patient was told at one point that he may have emphysema, severity of which is not clear. However the patient is not O2 dependent and not prednisone dependent. Bedside spirometry was done, and it was a poor quality because of the effort was very poor, hence I recommended a full PFT to be done in a.m. Patient was reevaluated today on 08/15/2016, doing relatively well, however his PFT is quite abnormal showing mostly a picture of restriction and poor effort with very low Mvv and low FVC, lower lung volumes. This would make him a very high surgical risk, in the meantime I ordered a high-resolution CT of the chest , his chest x-ray was showing a right paratracheal soft tissue fullness, and some subsegmental interstitial perihilar changes felt to be related to congestive heart failure unless proven otherwise. CT of the chest is showing mostly congestive heart failure, with air bronchograms noted in the right lung base and there is also evidence of calcified subcarinal and left hilar nodes noted. Fatty infiltration of the liver was also noted, and cystic focus of left kidney was noted. Patient will likely improve with aggressive diuresis. Patient was reevaluated today on 08/16/2016, seems to be doing much better, breathing a lot easier, and he is doing well with incentive spirometry. Patient is scheduled to undergo myocardial revascularization in a.m. And his follow-up chest x-ray is showing definite improvement. Hence the patient will be cleared for surgery, however he is still considered moderate to high operative risk. The patient is seen again today 08/17/2016 in follow-up. He is now status post coronary artery bypass grafting 3. He received a JIN to the LAD and 2 saphenous vein grafts to the diagonal and RCA. He is currently intubated and on the mechanical ventilator at settings of assist control of 12, tidal volume 500 , FiO2 100%, PEEP of 5. Blood gases reveal a P O2 of 296, p O2 50, PH7.35. He has mediastinal and left pleural chest tubes in place. Chest x-ray was reviewed. He is currently sedated on propofol 20 mcg/kg/m, he is on insulin drip at 2 units per hour. He is on a nitroglycerin drip at 5 mg/m. He has lactated Ringer's at 50 MLS per hour. Current blood pressure 99/53 with a mean of 67, PA pressure 35/25 with a mean of 29 and a CVP of 18. He is making adequate urine currently. Cardiac output 5, cardiac index 2.2. I saw him today on 08/18/2016, patient is off mechanical ventilation, doing quite well, chest x-ray is relatively unremarkable. Patient is hemodynamically stable. And in no distress. Labs and meds were all reviewed. Reevaluated today on 08/19/2016, patient is doing well asymptomatic, on nasal cannula, in no distress. Chest x-ray showed minimal atelectasis at the bases patient will likely be transferred out of the ICU to a cardiac floor. In the meantime we'll continue updrafts, continue incentive spirometry, no need for any other bronchodilators or steroids at this point. Reevaluated today on 08/20/2016, continues to do quite well, no cough no wheezing no shortness of breath. The chest x-ray showed minimal left basilar atelectasis and small tiny left pleural effusion. Patient again is asymptomatic. And he is doing well. Being considered for possible rehab referral in the morning. The patient was seen and evaluated again today on 08/21/2016 on the selective care unit. This is postoperative day #4. He is awake and alert in no acute distress. He has been up ambulating in the hallway. He denies any worsening shortness of breath, cough or congestion. He is pulling about 1250 MLS on his incentive spirometer. The patient was seen again today in follow-up on 08/22/2016 on the selective care unit. Postoperative day #5. He has been up and ambulate with assistance. He is doing quite well. He denies any worsening shortness of breath, cough or congestion. He continues to work well with the incentive spirometer. He is anxious to go home. Objective - Vital Signs Vital signs: Vital Signs Temp 98.1 F 08/22/16 11:54 Pulse 96 08/22/16 12:18 Resp 16 08/22/16 11:54 BP 94/54 08/22/16 11:54 Pulse Ox 98 08/22/16 11:54 Intake & Output 08/21/16 08/22/16 08/22/16 18:59 06:59 18:59 Intake Total 931.663 500 380 Balance 931.663 500 380 Weight 122.2 kg 121.2 kg Intake: Intake, IV Titration 57.663 Amount Insulin Regular 100 unit 57.663 In Sodium Chloride 0.9% 100 ml @ Per Protocol IV .Q0M [facility] Rx#:[id number] Oral 874 500 380 Other: Voiding Method Toilet Toilet Toilet Urinal Urinal Urinal # Voids 1 1 ABP, PAP, CO, CI - Last Documented Arterial Blood Pressure 137/50 Pulmonary Artery Pressure 32/13 Cardiac Output 6.8 Cardiac Index 3 - Exam GENERAL EXAM: Awake, alert in no acute distress. HEAD: Normocephalic. EYES: Sluggish reaction of pupils, equal size. NOSE: Clear with pink turbinates. THROAT: No erythema. NECK: No masses, no JVD. CHEST: Sternal dressing is dry and intact. LUNGS: Equal air entry with few scattered rhonchi, crackles in the bases. CVS: S1 and S2 normal with no audible murmurs, regular rhythm. ABDOMEN: Soft.. SPINE: No scoliosis or deformity SKIN: No rashes Extremities: There is wrapped to the bilateral lower extremities, compression devices in place. - Labs CBC & Chem 7: 08/22/16 05:32 08/22/16 05:32 Labs: Abnormal Lab Results - Last 24 Hours (Table) 08/21/16 08/21/16 08/21/16 Range/Units 15:03 16:43 20:49 RBC (4.30-5.90) m/uL Hgb (13.0-17.5) gm/dL Hct (39.0-53.0) % RDW (11.5-15.5) % Lymphocytes # (Manual) (1.0-4.8) k/uL Monocytes # (Manual) (0-1.0) k/uL Sodium (137-145) mmol/L BUN (9-20) mg/dL Glucose (74-99) mg/dL POC Glucose (mg/dL) 121 H 152 H 198 H (75-99) mg/dL 08/22/16 08/22/16 08/22/16 Range/Units 05:32 05:32 06:01 RBC 2.67 L (4.30-5.90) m/uL Hgb 7.5 L (13.0-17.5) gm/dL Hct 22.8 L (39.0-53.0) % RDW 16.2 H (11.5-15.5) % Lymphocytes # (Manual) 0.3 L (1.0-4.8) k/uL Monocytes # (Manual) 1.3 H (0-1.0) k/uL Sodium 132 L (137-145) mmol/L BUN 24 H (9-20) mg/dL Glucose 141 H (74-99) mg/dL POC Glucose (mg/dL) 167 H (75-99) mg/dL 08/22/16 Range/Units 11:26 RBC (4.30-5.90) m/uL Hgb (13.0-17.5) gm/dL Hct (39.0-53.0) % RDW (11.5-15.5) % Lymphocytes # (Manual) (1.0-4.8) k/uL Monocytes # (Manual) (0-1.0) k/uL Sodium (137-145) mmol/L BUN (9-20) mg/dL Glucose (74-99) mg/dL POC Glucose (mg/dL) 160 H (75-99) mg/dL Assessment and Plan Plan: Impression: 1 Acute non-ST elevation myocardial infarction, 2 Significant coronary artery disease based on cardiac catheterization. Status post coronary artery bypass grafting utilizing a JIN to the LAD, saphenous vein grafts to the diagonal and RCA. Postoperative day #5. 3 Ventilator dependence as an expected outcome to thoracotomy. 4 History of hypertension 5 History of dyslipidemia 6 Suspect some component of COPD, full PFT is pending, his initial bedside PFT is very poor because of mostly of poor effort. Although restriction is strongly suspected. 7 Suspect some component of congestive heart failure on presentation, improved on the follow-up chest x-ray. Plan: The patient was seen and evaluated by Dr. Hussein. We have encouraged the increased use of the incentive spirometer and cough and deep breathing exercises. He is up ambulating with assistance. He is cleared for discharge from the pulmonary standpoint. He'll be seen in our office in 1 week's time we' ll repeat a chest x-ray done. He is encouraged to call sooner with any pulmonary issues or complaints.
--- NOTE | 2016-08-22 15:54 | P.DS ---
Providers Date of admission: 08/12/16 19:08 Attending physician: Terrie James Consults: 08/12/16 22:43 Consult Physician Routine Consulting Provider: Priti Hurtado Consult Reason/Comments: CP, elevated troponins Do you want consulting provider notified?: Yes 08/13/16 20:06 Consult Physician Routine Consulting Provider: Teo Gomez Consult Reason/Comments: pneumonia Do you want consulting provider notified?: Yes 08/14/16 10:03 Consult Physician Routine Consulting Provider: Terrie James Consult Reason/Comments: evaluation for CABG Do you want consulting provider notified?: Already Contacted 08/14/16 10:21 Consult Anesthesia Routine Consulting Provider: Anesthesia,Services Consult Reason/Comments: Cardiac Surgery Pre-Op 08/17/16 13:56 Consult Physician Routine Consulting Provider: Katherine Sarmiento Consult Reason/Comments: med management Do you want consulting provider notified?: Already Contacted 08/19/16 09:34 Consult Physician Routine Consulting Provider: Andrez Iraheta Consult Reason/Comments: Rehab placement Do you want consulting provider notified?: Yes Primary care physician: Stated None - Discharge Diagnosis(es) (1) NSTEMI (non-ST elevated myocardial infarction) Current Visit: Yes Status: Acute (2) Acute exacerbation of chronic obstructive airways disease Current Visit: Yes Status: Acute (3) History of chronic kidney disease Current Visit: Yes Status: Acute (4) Insulin dependent diabetes mellitus Current Visit: Yes Status: Acute (5) Hypertension Current Visit: Yes Status: Acute (6) Hyperlipidemia associated with type 2 diabetes mellitus Current Visit: Yes Status: Acute (7) Obesity (BMI 30-39.9) Current Visit: Yes Status: Acute (8) Obstructive sleep apnea on CPAP Current Visit: Yes Status: Acute (9) Secondary hyperparathyroidism of renal origin Current Visit: Yes Status: Acute (10) Diabetic gastroparesis associated with type 2 diabetes mellitus Current Visit: Yes Status: Acute Hospital Course: FINAL DIAGNOSIS: 1.[Non-ST elevation myocardial infarction with double vessel coronary artery disease] 2.[Uncontrolled type 2 diabetes with hemoglobin A1c of 9%] 3.[Chronic kidney disease, stage III per previous cheesemaker] 4.[Obesity with a BMI 39.5 kg/m2] 5.[Hypertension] 6.[Hyperlipidemia] 7.[Obstructive sleep apnea] 8.[Retinopathy] 9.[COPD with FEV1 39%] 10.[Previous tobacco dependence] PRINCIPAL PROCEDURE: [] 1.[ Left heart catheterization ] 2.[ transthoracic echocardiogram] 3.[ Urgent non-aortic clamp off pump triple coronary artery bypass grafting using the left internal mammary artery to the left anterior descending artery, reverse saphenous vein graft connected to the aorta using the PAS-Port device and connected distally to the first diagonal artery, reverse saphenous vein graft connected to the aorta using the PAS-Port device and connected distally to the right coronary artery in the groove after the PDA takeoff ] 4.[Endoscopic harvesting of the left greater saphenous vein] 5.[Sternal plating and sternal cable using [employer] system] 6.[Intraoperative transesophageal echocardiogram and epi-aortic scanning] 7.[Intraoperative graft flow measurements using the Medistim machine] HISTORY OF PRESENT ILLNESS: [ This 55-year-old woman presented to the emergency room with 2 days complaint of chest pain, associated with shortness of breath. Initially he attributed to this to his COPD, but when it didn't get better he came into the emergency room. He was ruled in for non-ST elevation myocardial infarction, and was taken to the cardiac catheterization lab which demonstrated a calcified right and left coronary system, codominant right and left coronary system, severe triple vessel coronary artery disease, critical disease involving the distal right coronary artery, occluded left circumflex coronary artery in the proximal portion with fills by collateral from the left anterior descending coronary artery, and severe disease involving the mid left anterior descent coronary artery. Cardiology consulted Dr. James from cardiothoracic surgery for potential surgical revascularization. Dr. James had an extensive discussion with the patient, all risks and benefits were explained, and he elected to proceed with surgery. Preoperative testing was completed. The patient was maintained inpatient secondary to his disease process. ] HOSPITAL COURSE:[ After cardiac catheterization, it was felt that this gentleman needed 2 days for optimization of his pulmonary and renal status before taking him to surgery. On 08/17/2016 he was taken to the preoperative area, prepared for surgery, and then taken to the operating room. Dr. James performed an urgent non-aortic clamp off pump triple coronary artery bypass grafting using the left internal mammary artery to the left anterior descending artery, reverse saphenous vein graft connected to the aorta using the PAS-Port device and connected distally to the first diagonal artery, reverse saphenous vein graft connected to the aorta using the PAS-Port device and connected distally to the right coronary artery in the groove after the PDA takeoff, endoscopic harvesting of the left greater saphenous vein, sternal plating and sternal cable using [employer] system, intraoperative transesophageal echocardiogram and epi-aortic scanning and intraoperative graft flow measurements using the Medistim machine. Upon completion of surgery, the patient was subsequently transferred to the cardiovascular intensive care unit where he was recovered, monitored hemodynamically, and where he progressed to cardiac rehabilitation phase 1. He was extubated, all lines, tubes, and drips were discontinued when appropriate, and he was transferred to [address] [place] [address] for further monitoring and rehabilitation. His oxygen was titrated down, he continued to work with physical therapy, and was ready to be discharged home on postoperative day #5 with [facility] to follow. ] COMPLICATIONS: [The patient did not experience any postoperative complications. ] CONSULTATIONS: 1.[Dr. Marin for cardiology] 2.[Dr. Rangel for pulmonology] 3.[Dr. Sarmiento for medical management] DISCHARGE INSTRUCTIONS: 1. No driving for 4 weeks, or until physician gives their ok. 2. The patient should sleep in their own bed, no medical bed needed. 3. Stairs are not an issue. If the bedroom is upstairs, it is advised that the patient go up at night and down in the morning for the first week. Go slowly, using handrail and take 1 step at a time. 4. EVON hose are to be worn for 30 days or until physician discontinues. 5. Heart hugger is to be worn 100% of the time until physician discontinues.( except when showering) 6. No lifting, pushing, or pulling more than 10 pounds for 12 weeks. The physician will advise of any restriction changes. 7. The patient is expected to continue the prescribed walking program. 8. Continue pain control per as needed orders. 9. Continue with incentive spirometry and splinting/heart hugger until otherwise directed by the physician. 10. Must shower daily using liquid antibacterial soap and a separate white washcloth for each individual incision. 11. Routine sternal incision care including no lotions/powders/ointments on incision. HOME HEALTH SERVICES TO PROVIDE: RN SKILLED HOME CARE SERVICES FOR POST-OP SURGICAL PATIENTS WITH THE FOLLOWING: Coronary Artery Bypass Surgery (CABG), Mitral Valve Replacement/ Repair ( MVR), Aortic Valve Replacement/Repair (AVR) RN TO CONTINUE EDUCATION FROM ``ROAD TO A HEALTH HEART PATIENT EDUCATION MANUAL (GIVEN TO PATIENT IN THE HOSPITAL) MEDICATION RECONCILIATION WITH EDUCATION NEEDED ON FIRST HOME VISIT EMPHASIZE IMPORTANCE OF WEARING BREAST SUPPORT/HEART HUGGER ENCOURAGE USE OF INCENTIVE SPIROMETER 10 X EVERY HOUR WHILE AWAKE ENCOURAGE UTILIZATION OF LOWER EXTREMITY COMPRESSION STOCKINGS/EVON HOSE and ELEVATE LEGS ABOVE LEVEL OF HEART WHILE AT REST. ENCOURAGE AMBULATION 3-5x/day INCREASING TOLERATES, WHILE AVOID EXTREMES IN TEMPERATURE FREQUENCY: RN TO OPEN THE PATIENT WITHIN 24 HOURS OF DISCHARGE FROM THE HOSPITAL WITH TELEHEALTH INSTALLED AT [facility] [place], RN TO VISIT 2-3 X A WEEK FOR 4 WEEKS ESTABLISHED BY PATIENT NEEDS. REMOVAL OF SUTURES: NURSING SERVICES TO REMOVE SUTURES TWO WEEKS POST SURGICAL DATE [ 08/31/16]. If any questions regarding suture removal please call the office at [phone]. LABORATORY: CBC, CMP TO BE DRAWN ON THE THIRD DAY HOME, Sunday08/25/2016 (RAN STAT) FAX RESULTS TO [phone]. TELEHEALTH PARAMETERS: WEIGHT: NOTIFY MD OF WEIGHT GAIN OF 2 LBS IN 24 HOURS OR 5 LBS IN ONE WEEK HR: NOTIFY MD OF HR <55 BPM OR HR>100 BPM BP: NOTIFY MD IF BP <90/55 OR BP>140/100 O2 SAT: NOTIFY MD IF PO2<93% ON ROOM AIR SEND TELEHEALTH REPORT TO PLEASURE CRAFT SAILOR AND CARDIOVASCULAR SURGEON THE FIRST WEEK OF CARE AND THEN BI-WEEKLY. PLEASE ADDITIONALLY COMMUNICATE ANY ABNORMALS AND NEW FINDINGS TO THE SURGEONS OFFICE. Patient Condition at Discharge: Serious Plan - Discharge Summary New Discharge Prescriptions: Aspirin 325 mg PO DAILY #30 tab Atorvastatin [Lipitor] 40 mg PO DAILY #30 tab Clopidogrel [Plavix] 75 mg PO DAILY #30 tab HYDROcodone/APAP 5-325MG [[place] 5-325] 1 - 2 tab PO Q6HR PRN #60 tab PRN Reason: Moderate Pain INSULIN LISPRO (humaLOG) [humaLOG (formulary)] 20 unit SQ AC-TID #2 vial Insulin Glargine [Lantus] 50 unit SQ HS #2 vial Metoprolol Tartrate [Lopressor] 50 mg PO BID #60 tab amLODIPine [Norvasc] 5 mg PO HS #30 tab metFORMIN HCL [Glucophage] 1,000 mg PO BID-W/MEALS #60 tab Discharge Medication List Calcitriol [Rocaltrol] 0.25 mcg PO MOWEFR 08/12/16 [History] Metoclopramide [Reglan] 10 mg PO ACHS 08/12/16 [History] Albuterol Sulfate [Proventil Hfa] 2 puff INHALATION RT-Q6H PRN 08/13/16 [History ] Ascorbic Acid [Vitamin C] 1,000 mg PO DAILY 08/13/16 [History] Fish Oil/Dha/Epa [Fish Oil 1,200 mg Fish Oil] 1 cap PO TID 08/13/16 [History] Gabapentin [Neurontin] 600 mg PO BID 08/13/16 [History] Gemfibrozil [Lopid] 600 mg PO AC-BID 08/13/16 [History] INSULIN LISPRO (HumaLOG) [humaLOG] 280 - 400 units SQ ACHS 08/13/16 [History] Ipratropium Nebulized [Atrovent Nebulized] 0.5 mg INHALATION RT-QID 08/13/16 [ History] Mometasone/Formoterol [Dulera 100 Mcg/5 Mcg Inhaler] 2 puff INHALATION RT-BID [History] Bismuth Subsalicylate [Pepto-Bismol] 0 mg PO DAILY PRN 08/14/16 [History] Cyclobenzaprine [Flexeril] 10 mg PO TID 08/14/16 [History] Magnesium Oxide 400 mg PO DAILY 08/14/16 [History] Polyethylene Glycol 3350 [Miralax] 17 gm PO DAILY PRN 08/14/16 [History] Turmeric/Cumin 1,300 mg PO DAILY 08/14/16 [History] Aspirin 325 mg PO DAILY #30 tab 08/22/16 [Rx] Atorvastatin [Lipitor] 40 mg PO DAILY #30 tab 08/22/16 [Rx] Clopidogrel [Plavix] 75 mg PO DAILY #30 tab 08/22/16 [Rx] HYDROcodone/APAP 5-325MG [[place] 5-325] 1 - 2 tab PO Q6HR PRN #60 tab 08/22/16 [ Rx] INSULIN LISPRO (humaLOG) [humaLOG (formulary)] 20 unit SQ AC-TID #2 vial [Rx] Insulin Glargine [Lantus] 50 unit SQ HS #2 vial 08/22/16 [Rx] Metoprolol Tartrate [Lopressor] 50 mg PO BID #60 tab 08/22/16 [Rx] Multivitamins, Thera [Multivitamin (formulary)] 1 each PO DAILY@1200 tab [Rx] amLODIPine [Norvasc] 5 mg PO HS #30 tab 08/22/16 [Rx] metFORMIN HCL [Glucophage] 1,000 mg PO BID-W/MEALS #60 tab 08/22/16 [Rx] Follow up Appointment(s)/Referral(s): Lurdes Rangel MD [STAFF PHYSICIAN] - 08/30/16 2:00 pm Kinza Maki MD [STAFF PHYSICIAN] - 08/24/16 9:30 am Javon Marin MD [STAFF PHYSICIAN] - 09/04/16 3:30 pm Terrie James MD [STAFF PHYSICIAN] - 09/15/16 11:30 am [facility], [NON-STAFF] - Ambulatory/Diagnostic Orders: Complete Blood Count w/diff [LAB.AMB] Time Frame: 3 Days, Facility: [facility], Location: Laboratory [facility] Comprehensive Metabolic Panel [LAB.AMB] Time Frame: 3 Days, Facility: [facility], Location: [facility] Activity/Diet/Wound Care/Special Instructions: DISCHARGE INSTRUCTIONS: 1. No driving for 4 weeks, or until physician gives their ok. 2. The patient should sleep in their own bed, no medical bed needed. 3. Stairs are not an issue. If the bedroom is upstairs, it is advised that the patient go up at night and down in the morning for the first week. Go slowly, using handrail and take 1 step at a time. 4. EVON hose are to be worn for 30 days or until physician discontinues. 5. Heart hugger is to be worn 100% of the time until physician discontinues.( except when showering) 6. No lifting, pushing, or pulling more than 10 pounds for 12 weeks. The physician will advise of any restriction changes. 7. The patient is expected to continue the prescribed walking program. 8. Continue pain control per as needed orders. 9. Continue with incentive spirometry and splinting/heart hugger until otherwise directed by the physician. 10. Must shower daily using liquid antibacterial soap and a separate white washcloth for each individual incision. 11. Routine sternal incision care including no lotions/powders/ointments on incision. HOME HEALTH SERVICES TO PROVIDE: RN SKILLED HOME CARE SERVICES FOR POST-OP SURGICAL PATIENTS WITH THE FOLLOWING: Coronary Artery Bypass Surgery (CABG), Mitral Valve Replacement/ Repair ( MVR), Aortic Valve Replacement/Repair (AVR) RN TO CONTINUE EDUCATION FROM ``ROAD TO A HEALTH HEART PATIENT EDUCATION MANUAL (GIVEN TO PATIENT IN THE HOSPITAL) MEDICATION RECONCILIATION WITH EDUCATION NEEDED ON FIRST HOME VISIT EMPHASIZE IMPORTANCE OF WEARING BREAST SUPPORT/HEART HUGGER ENCOURAGE USE OF INCENTIVE SPIROMETER 10 X EVERY HOUR WHILE AWAKE ENCOURAGE UTILIZATION OF LOWER EXTREMITY COMPRESSION STOCKINGS/EVON HOSE and ELEVATE LEGS ABOVE LEVEL OF HEART WHILE AT REST. ENCOURAGE AMBULATION 3-5x/day INCREASING TOLERATES, WHILE AVOID EXTREMES IN TEMPERATURE FREQUENCY: RN TO OPEN THE PATIENT WITHIN 24 HOURS OF DISCHARGE FROM THE HOSPITAL WITH TELEHEALTH INSTALLED AT [facility] [place], RN TO VISIT 2-3 X A WEEK FOR 4 WEEKS ESTABLISHED BY PATIENT NEEDS. REMOVAL OF SUTURES: NURSING SERVICES TO REMOVE SUTURES TWO WEEKS POST SURGICAL DATE [ 08/31/16]. If any questions regarding suture removal please call the office at [phone]. LABORATORY: CBC, CMP TO BE DRAWN ON THE THIRD DAY HOME, Sunday08/25/2016 (RAN STAT) FAX RESULTS TO [phone]. TELEHEALTH PARAMETERS: WEIGHT: NOTIFY MD OF WEIGHT GAIN OF 2 LBS IN 24 HOURS OR 5 LBS IN ONE WEEK HR: NOTIFY MD OF HR <55 BPM OR HR>100 BPM BP: NOTIFY MD IF BP <90/55 OR BP>140/100 O2 SAT: NOTIFY MD IF PO2<93% ON ROOM AIR SEND TELEHEALTH REPORT TO PLEASURE CRAFT SAILOR AND CARDIOVASCULAR SURGEON THE FIRST WEEK OF CARE AND THEN BI-WEEKLY. PLEASE ADDITIONALLY COMMUNICATE ANY ABNORMALS AND NEW FINDINGS TO THE SURGEONS OFFICE. Discharge Disposition: HOME WITH HOME HEALTH SERVICES
[2016-08-22 16:33] LABS: Glucose,Whole Blood 112 mg/dL (75-99)
--- NOTE | 2016-08-22 16:51 | P.PN ---
Subjective 55-year-old gentleman is seen in consultation and pending clinical progress with the cardiothoracic team. Patient is status post CABG. Patient states to have no new complaints today. Patient states that he was a poorly controlled diabetic in the past. Is having chest pain, difficulty breathing, nausea, vomiting, diarrhea at this time. Objective - Vital Signs Vital signs: Vital Signs Temp 98.1 F 08/22/16 11:54 Pulse 96 08/22/16 12:18 Resp 16 08/22/16 11:54 BP 94/54 08/22/16 11:54 Pulse Ox 98 08/22/16 11:54 Intake & Output 08/21/16 08/22/16 08/22/16 18:59 06:59 18:59 Intake Total 931.663 500 880 Balance 931.663 500 880 Weight 122.2 kg 121.2 kg Intake: Intake, IV Titration 57.663 Amount Insulin Regular 100 unit 57.663 In Sodium Chloride 0.9% 100 ml @ Per Protocol IV .Q0M [facility] Rx#:[id number] Oral 874 500 880 Other: Voiding Method Toilet Toilet Toilet Urinal Urinal Urinal # Voids 1 1 ABP, PAP, CO, CI - Last Documented Arterial Blood Pressure 137/50 Pulmonary Artery Pressure 32/13 Cardiac Output 6.8 Cardiac Index 3 - Exam Physical exam Gen. appearance oriented 3 in no distress Neck is supple no JVD Lungs good air entry clear to auscultation no rhonchi or wheezing Heart S1-S2 heard regular rate and rhythm no murmurs appreciated . Midsternal prior incision appears within normal limits Abdomen is soft nontender no organomegaly bowel sounds are intact Neurologically cranial nerves II-12 grossly intact no focal motor or sensory deficits noted Skin no abnormalities appreciated - Labs CBC & Chem 7: 08/22/16 05:32 08/22/16 05:32 Labs: Abnormal Lab Results - Last 24 Hours (Table) 08/21/16 08/22/16 08/22/16 Range/Units 20:49 05:32 05:32 RBC 2.67 L (4.30-5.90) m/uL Hgb 7.5 L (13.0-17.5) gm/dL Hct 22.8 L (39.0-53.0) % RDW 16.2 H (11.5-15.5) % Lymphocytes # (Manual) 0.3 L (1.0-4.8) k/uL Monocytes # (Manual) 1.3 H (0-1.0) k/uL Sodium 132 L (137-145) mmol/L BUN 24 H (9-20) mg/dL Glucose 141 H (74-99) mg/dL POC Glucose (mg/dL) 198 H (75-99) mg/dL 08/22/16 08/22/16 08/22/16 Range/Units 06:01 11:26 16:13 RBC (4.30-5.90) m/uL Hgb (13.0-17.5) gm/dL Hct (39.0-53.0) % RDW (11.5-15.5) % Lymphocytes # (Manual) (1.0-4.8) k/uL Monocytes # (Manual) (0-1.0) k/uL Sodium (137-145) mmol/L BUN (9-20) mg/dL Glucose (74-99) mg/dL POC Glucose (mg/dL) 167 H 160 H 112 H (75-99) mg/dL Assessment and Plan Plan: #1 diabetes mellitus type II will be discharged on 50 units of Levemir and 20 units of pre-meal insulin 3 times a day. And metformin thousand milligrams twice a day. #2 CAD status post CABG #3 obesity #4 dyslipidemia #5 history of hypertension Plan Patient is new to the area patient will be referred to a primary care physician in the area. Patient is recommended to follow up for recommendations of insulin coverage. Patient is also encouraged to check pre-meal glucose level, post prandial glucose level 2 hours after lunch and 1 glucose level fasting.
[2016-08-22] MEDS ORDERED: METOPROLOL TARTRATE 50 MG TAB PO SCH (21:00)
== END 2016-08-22 18:11 | disposition home health service (06) | DRG 233 ==
LOC: EC 18:47 → 6SEL 19:08 → 6ICU 08-17 07:38 → 6SEL 08-19 10:19
PROVIDERS: ADMIT Hospitalist; ATTEND Surgery
PROC: B2111ZZ Fluoroscopy of Multiple Coronary Arteries using Low Osmolar Contrast (ICD-10-PCS; 2016-08-14)
PROC: B44HZZZ Ultrasonography of Bilateral Lower Extremity Arteries (ICD-10-PCS; 2016-08-15)
PROC: 021109W Bypass Coronary Artery, Two Arteries from Aorta with Autologous Venous Tissue, Open Approach (ICD-10-PCS; 2016-08-17)
PROC: 06BQ4ZZ Excision of Left Saphenous Vein, Percutaneous Endoscopic Approach (ICD-10-PCS; 2016-08-17)
PROC: B246ZZ4 Ultrasonography of Right and Left Heart, Transesophageal (ICD-10-PCS; 2016-08-17)
PROC: 02100Z9 Bypass Coronary Artery, One Artery from Left Internal Mammary, Open Approach (ICD-10-PCS; principal; 2016-08-17 08:00)
DX: I21.4 Non-ST elevation (NSTEMI) myocardial infarction (principal); I50.21 Acute systolic (congestive) heart failure; J96.01 Acute respiratory failure with hypoxia; J15.6 Pneumonia due to other Gram-negative bacteria; I42.9 Cardiomyopathy, unspecified; J44.0 Chronic obstructive pulmonary disease with (acute) lower respiratory infection; I13.0 Hypertensive heart and chronic kidney disease with heart failure and stage 1 through stage 4 chronic kidney disease, or unspecified chronic kidney disease; J45.901 Unspecified asthma with (acute) exacerbation; E11.22 Type 2 diabetes mellitus with diabetic chronic kidney disease; J44.1 Chronic obstructive pulmonary disease with (acute) exacerbation; N25.81 Secondary hyperparathyroidism of renal origin; E87.1 Hypo-osmolality and hyponatremia; J98.11 Atelectasis; J95.89 Other postprocedural complications and disorders of respiratory system, not elsewhere classified; E11.43 Type 2 diabetes mellitus with diabetic autonomic (poly)neuropathy; I71.2 Thoracic aortic aneurysm, without rupture; E66.01 Morbid (severe) obesity due to excess calories; E11.319 Type 2 diabetes mellitus with unspecified diabetic retinopathy without macular edema; E11.65 Type 2 diabetes mellitus with hyperglycemia; K31.84 Gastroparesis; N28.1 Cyst of kidney, acquired; N18.3 Chronic kidney disease, stage 3 (moderate); E78.5 Hyperlipidemia, unspecified; G47.33 Obstructive sleep apnea (adult) (pediatric); I25.10 Atherosclerotic heart disease of native coronary artery without angina pectoris; Z68.39 Body mass index [BMI] 39.0-39.9, adult; Z82.49 Family history of ischemic heart disease and other diseases of the circulatory system; M19.91 Primary osteoarthritis, unspecified site; Z90.49 Acquired absence of other specified parts of digestive tract; Z87.891 Personal history of nicotine dependence; Z79.4 Long term (current) use of insulin; K21.9 Gastro-esophageal reflux disease without esophagitis; K76.0 Fatty (change of) liver, not elsewhere classified; D63.1 Anemia in chronic kidney disease; Z96.41 Presence of insulin pump (external) (internal); Z79.82 Long term (current) use of aspirin; Z79.899 Other long term (current) drug therapy; Y83.2 Surgical operation with anastomosis, bypass or graft as the cause of abnormal reaction of the patient, or of later complication, without mention of misadventure at the time of the procedure; Y92.230 Patient room in hospital as the place of occurrence of the external cause
CPT/HCPCS: 36415; 36600; 36620; 71010; 71020; 71250; 80048; 80053; 80061; 80074; 81003; 82330; 82550; 82553; 82805; 82947; 83036; 83735; 83880; 84100; 84439; 84443; 84484; 85025; 85520; 85610; 85730; 86850; 86891; 86900; 86901; 86920; 87040; 87070; 87086; 87502; 93005; 93306; 93454; 93880; 93922; 93970; 94002; 94060; 94150; 94640; 94729; 94760; 96365; 96366; 96368; 96375; 96376; 99291

== ENCOUNTER 2016-08-24 20:46 | Observation (INO) | payer OTHER ==
[2016-08-24 21:58] LABS: Anisocytosis Slight; Basophils % (A) 0 %; CH 26.5; CHCM 30.9; Eosinophils # (A) 0.1 k/uL (0-0.7); Eosinophils % (A) 1 %; HCT 22.9 % (39.0-53.0); HDW 3.11; Hypochromasia Moderate; Luc # (Auto) 0.32; Luc % (Auto) 4; Lymphocytes # (A) 0.6 k/uL (1.0-4.8); Lymphocytes % (A) 7 %; MCH 26.5 pg (25.0-35.0); MCHC 30.7 g/dL (31.0-37.0); MCV 86.5 fL (80.0-100.0); Mean Platelet Volume 8.2; Monocytes # (A) 0.7 k/uL (0-1.0); Monocytes % (A) 8 %; Neutrophils # (A) 6.4 k/uL (1.3-7.7); Neutrophils % (A) 79 %; RBC 2.65 m/uL (4.30-5.90); RDW 16.8 % (11.5-15.5); WBC 8.1 k/uL (3.8-10.6); WBC (Perox) 8.36
--- NOTE | 2016-08-24 22:03 | ED ---
Recheck HPI - General Chief Complaint: Recheck/Abnormal Lab/Rx Stated Complaint: post open heart surgery Time Seen by Provider: 08/24/16 21:05 Source: family Mode of arrival: ambulatory Limitations: no limitations - History of Present Illness Initial Comments: This patient is a 55-year-old man who presents with complaint that he is anemic. The patient states that he had gone to see his physician Dr. Maki today as routine follow-up. She had drawn labs and then called him tonight and told him that his hemoglobin was 6 and that he needed to go to the emergency department. The patient had a triple bypass operation approximately a week ago , being discharged from here 2 days ago. The patient states that since that time he has been having generalized fatigue and exertional dyspnea. The patient denies any fever or chills. He denies any complaints related to his surgical incision, including no erythema, drainage, or abnormal pain. The patient denies oliva chest pain or dyspnea. He does note that he has very little exercise tolerance, but states that that had been going on before the surgery as well. patient denies any other complaints. MD Complaint: abnormal lab -: hour(s) Returns Today for: Called Because of Abnormal Lab/Test Symptoms Since Prior Visit: no new symptoms Context: planned re-check, called for abnormal lab result Associated Symptoms: other (Fatigue and exertional dyspnea) - Related Data Home Medications Medication Instructions Recorded Confirmed Calcitriol [Rocaltrol] 0.25 mcg PO MOWEFR 08/12/16 08/24/16 Metoclopramide [Reglan] 10 mg PO ACHS 08/12/16 08/24/16 Albuterol Sulfate [Proventil Hfa] 2 puff INHALATION RT-Q6H PRN 08/13/16 08/24/16 Ascorbic Acid [Vitamin C] 1,000 mg PO DAILY 08/13/16 08/24/16 Fish Oil/Dha/Epa [Fish Oil 1,200 1 cap PO TID 08/13/16 08/24/16 mg Fish Oil] Gabapentin [Neurontin] 600 mg PO BID 08/13/16 08/24/16 Gemfibrozil [Lopid] 600 mg PO AC-BID 08/13/16 08/24/16 INSULIN LISPRO (HumaLOG) [humaLOG] 280 - 400 units SQ ACHS 08/13/16 08/24/16 Ipratropium Nebulized [Atrovent 0.5 mg INHALATION RT-QID 08/13/16 08/24/16 Nebulized] Mometasone/Formoterol [Dulera 100 2 puff INHALATION RT-BID 08/13/16 08/24/16 Mcg/5 Mcg Inhaler] Bismuth Subsalicylate 262 mg PO DAILY PRN 08/14/16 08/24/16 [Pepto-Bismol] Cyclobenzaprine [Flexeril] 10 mg PO TID 08/14/16 08/24/16 Magnesium Oxide 400 mg PO DAILY 08/14/16 08/24/16 Polyethylene Glycol 3350 [Miralax] 17 gm PO DAILY PRN 08/14/16 08/24/16 Turmeric/Cumin 1,300 mg PO DAILY 08/14/16 08/24/16 Previous Rx's Medication Instructions Recorded Aspirin 325 mg PO DAILY #30 tab 08/22/16 Atorvastatin [Lipitor] 40 mg PO DAILY #30 tab 08/22/16 Clopidogrel [Plavix] 75 mg PO DAILY #30 tab 08/22/16 HYDROcodone/APAP 5-325MG [[place] 1 - 2 tab PO Q6HR PRN #60 tab 08/22/16 5-325] INSULIN LISPRO (humaLOG) [humaLOG 20 unit SQ AC-TID #2 vial 08/22/16 (formulary)] Insulin Glargine [Lantus] 50 unit SQ HS #2 vial 08/22/16 Metoprolol Tartrate [Lopressor] 50 mg PO BID #60 tab 08/22/16 Multivitamins, Thera [Multivitamin 1 each PO DAILY@1200 tab 08/22/16 (formulary)] amLODIPine [Norvasc] 5 mg PO HS #30 tab 08/22/16 metFORMIN HCL [Glucophage] 1,000 mg PO BID-W/MEALS #60 tab 08/22/16 Allergies Allergy/AdvReac Type Severity Reaction Status Date / Time No Known Allergies Allergy Verified 08/24/16 21:53 Review of Systems ROS Statement: Those systems with pertinent positive or pertinent negative responses have been documented in the HPI. ROS Other: All systems not noted in ROS Statement are negative. Constitutional: Reports: weakness (Generalized). Denies: fever, chills Respiratory: Denies: cough, dyspnea, wheezes, hemoptysis Cardiovascular: Reports: dyspnea on exertion. Denies: chest pain, palpitations , orthopnea, syncope Gastrointestinal: Denies: abdominal pain, vomiting, diarrhea, melena, hematochezia Genitourinary: Denies: dysuria, hematuria Musculoskeletal: Denies: back pain Skin: Denies: rash Neurological: Denies: headache, weakness, numbness Hematological/Lymphatic: Denies: easy bleeding Past Medical History Past Medical History: COPD, Diabetes Mellitus, Hypertension, Osteoarthritis (OA) , Renal Disease Additional Past Medical History / Comment(s): emphysema, retinopathy, charcot joints, gastroparesis, STAGE 3 RENAL FAILURE, MURMUR A CHILD, History of Any Multi-Drug Resistant Organisms: None Reported Past Surgical History: Cholecystectomy Additional Past Surgical History / Comment(s): SURGERY FOR GERD WHERE THEY MOVED ESOPHAGUS UP, carpal tunnel surgery, foot wounds requiring bone from right big toe to be removed, open heart surgery. Past Anesthesia/Blood Transfusion Reactions: No Reported Reaction Past Psychological History: No Psychological Hx Reported Smoking Status: Former smoker Past Alcohol Use History: None Reported Past Drug Use History: None Reported - Past Family History Father Brother(s) Family Medical History: Diabetes Mellitus Mother Family Medical History: Myocardial Infarction ([place]) General Exam Limitations: no limitations General appearance: alert, in no apparent distress, obese Head exam: Present: atraumatic, normocephalic Eye exam: Present: normal appearance. Absent: scleral icterus, conjunctival injection ENT exam: Present: normal oropharynx Neck exam: Present: normal inspection, full ROM Respiratory exam: Present: normal lung sounds bilaterally, other (The patient's surgical incision has a normal postoperative appearance. There is no abnormal erythema or discharge.). Absent: respiratory distress, wheezes, rales, rhonchi , stridor, chest wall tenderness Cardiovascular Exam: Present: regular rate (The patient's rate is 92 of my exam) , normal rhythm, normal heart sounds. Absent: systolic murmur, diastolic murmur , rubs, gallop GI/Abdominal exam: Present: soft. Absent: distended, tenderness, guarding, rebound, mass Extremities exam: Present: normal inspection, normal capillary refill. Absent: pedal edema, calf tenderness Back exam: Present: normal inspection. Absent: CVA tenderness (R), CVA tenderness (L) Neurological exam: Present: alert Skin exam: Present: warm, dry, intact, normal color. Absent: rash Course Vital Signs 08/24/16 08/24/16 08/25/16 20:56 23:03 00:16 Temperature 99.1 F 100.8 F H Pulse Rate 101 H 104 H 97 Respiratory 20 20 20 Rate Blood Pressure 116/56 118/58 140/60 O2 Sat by Pulse 100 98 98 Oximetry Medical Decision Making - Lab Data Result diagrams: 08/24/16 21:36 08/24/16 21:36 Lab Results 08/24/16 08/24/16 08/24/16 Range/Units 21:36 21:36 21:36 WBC 8.1 (3.8-10.6) k/uL RBC 2.65 L (4.30-5.90) m/uL Hgb 7.0 L* (13.0-17.5) gm/dL Hct 22.9 L (39.0-53.0) % MCV 86.5 (80.0-100.0) fL MCH 26.5 (25.0-35.0) pg MCHC 30.7 L (31.0-37.0) g/dL RDW 16.8 H (11.5-15.5) % Plt Count 314 (150-450) k/uL Neutrophils % 79 % Lymphocytes % 7 % Monocytes % 8 % Eosinophils % 1 % Basophils % 0 % Neutrophils # 6.4 (1.3-7.7) k/uL Lymphocytes # 0.6 L (1.0-4.8) k/uL Monocytes # 0.7 (0-1.0) k/uL Eosinophils # 0.1 (0-0.7) k/uL Basophils # 0.0 (0-0.2) k/uL Hypochromasia Moderate Anisocytosis Slight PT (9.0-12.0) sec INR (<1.1) APTT (22.0-30.0) sec Sodium 133 L (137-145) mmol/L Potassium 4.4 (3.5-5.1) mmol/L Chloride 98 (98-107) mmol/L Carbon Dioxide 27 (22-30) mmol/L Anion Gap 8 mmol/L BUN 21 H (9-20) mg/dL Creatinine 1.30 H (0.66-1.25) mg/dL Est GFR (MDRD) Af Amer >60 (>60 ml/min/1.73 sqM) Est GFR (MDRD) Non-Af 57 (>60 ml/min/1.73 sqM) Glucose 142 H (74-99) mg/dL Calcium 8.4 (8.4-10.2) mg/dL Magnesium 1.4 L (1.6-2.3) mg/dL Blood Type O Positive Blood Type Recheck No Antibody Screen NEGATIVE Crossmatch See Detail Spec Expiration Date 08/27/2016 - 233508/24/16 Range/Units 21:36 WBC (3.8-10.6) k/uL RBC (4.30-5.90) m/uL Hgb (13.0-17.5) gm/dL Hct (39.0-53.0) % MCV (80.0-100.0) fL MCH (25.0-35.0) pg MCHC (31.0-37.0) g/dL RDW (11.5-15.5) % Plt Count (150-450) k/uL Neutrophils % % Lymphocytes % % Monocytes % % Eosinophils % % Basophils % % Neutrophils # (1.3-7.7) k/uL Lymphocytes # (1.0-4.8) k/uL Monocytes # (0-1.0) k/uL Eosinophils # (0-0.7) k/uL Basophils # (0-0.2) k/uL Hypochromasia Anisocytosis PT 10.3 (9.0-12.0) sec INR 1.0 (<1.1) APTT 23.0 (22.0-30.0) sec Sodium (137-145) mmol/L Potassium (3.5-5.1) mmol/L Chloride (98-107) mmol/L Carbon Dioxide (22-30) mmol/L Anion Gap mmol/L BUN (9-20) mg/dL Creatinine (0.66-1.25) mg/dL Est GFR (MDRD) Af Amer (>60 ml/min/1.73 sqM) Est GFR (MDRD) Non-Af (>60 ml/min/1.73 sqM) Glucose (74-99) mg/dL Calcium (8.4-10.2) mg/dL Magnesium (1.6-2.3) mg/dL Blood Type Blood Type Recheck Antibody Screen Crossmatch Spec Expiration Date - EKG Data -: EKG Interpreted by Me EKG shows normal: sinus rhythm, axis (Normal), intervals (Normal), QRS complexes (Normal) Rate: normal (Rate 98 bpm) Interpretation: nonspecific ST-T wave changes Disposition Clinical Impression: Anemia, Fever Disposition: ADMITTED IP TO THIS [facility] Condition: Fair
[2016-08-24 22:04] LABS: Anion Gap 8 mmol/L; Blood Urea Nitrogen 21 mg/dL (9-20); Calcium 8.4 mg/dL (8.4-10.2); Carbon Dioxide 27 mmol/L (22-30); Chloride 98 mmol/L (98-107); Glucose 142 mg/dL (74-99); Magnesium 1.4 mg/dL (1.6-2.3); Non-African American GFR(MDRD) 57 (>60 ml/min/1.73 sqM); Potassium 4.4 mmol/L (3.5-5.1); Sodium 133 mmol/L (137-145)
[2016-08-24 22:23] LABS: Prothrombin Time 10.3 sec (9.0-12.0)
[2016-08-25] MEDS ORDERED: MAGNESIUM SULFATE-D5W PMX 1 GM in DEXTROSE/WATER 1 100ML.BAG IVPB ONE (00:16)
[2016-08-25] MEDS ORDERED: ACETAMINOPHEN TAB 325 MG TAB PO STA (00:27)
[2016-08-25] MEDS ORDERED: NALOXONE 0.4 MG/ML 1 ML VIAL IV PRN (00:35)
[2016-08-25] MEDS ORDERED: ACETAMINOPHEN TAB 325 MG TAB PO PRN (00:35)
[2016-08-25] MEDS ORDERED: ALBUTEROL NEBULIZED 2.5 MG/3 ML INHALATION PRN (00:37)
[2016-08-25] MEDS ORDERED: POLYETHYLENE GLYCOL 3350 17 GM POWD.PACK PO PRN (00:37)
[2016-08-25] MEDS ORDERED: HYDROcodone/APAP 5-325MG 1 EACH TAB PO PRN (00:37)
[2016-08-25] MEDS ORDERED: BISMUTH SUBSALICYLATE 4,192 MG/240 ML BOTTLE PO PRN (00:37)
[2016-08-25] MEDS ORDERED: SODIUM CHLORIDE 0.9% 1,000 ML IV SCH (00:45)
[2016-08-25] MEDS ORDERED: CALCITRIOL 0.25 MCG CAP PO SCH ×2 (00:45→01:20)
[2016-08-25 01:01] LABS: Appearance,Urine Clear (Clear); Bilirubin,Urine Negative (Negative); Glucose,Urine (UA) Negative (Negative); Ketones,Urine Negative (Negative); Leukocyte Esterase,Urine Negative (Negative); Nitrite,Urine Negative (Negative); PH, Urine 6.5 (5.0-8.0); Protein,Urine Negative (Negative); Specific Gravity,Urine 1.012 (1.001-1.035); UA Billing (MACRO vs. MICRO) CHEM
--- NOTE | 2016-08-25 01:13 | XR ---
EXAM: XR Chest, 1 View. CLINICAL HISTORY: Reason: fever TECHNIQUE: Frontal view of the chest. COMPARISON: Chest radiograph on 08/20/2016 FINDINGS: Hardware: Median sternotomy wires. Postsurgical changes of the heart and spine are normal visualized on this exam compared to prior. Lungs/pleura: Mildly low lung volumes. Similar bibasilar opacities likely represent atelectasis. Probable small bilateral pleural effusions, similar. Heart/mediastinum: Stable cardiomegaly. Soft tissues: Unremarkable. Bones: No acute fracture. Upper abdomen: Unremarkable. IMPRESSION: Similar bibasilar opacities likely represent small bilateral pleural effusions and atelectasis. Superimposed pneumonia difficult to completely exclude. Stable cardiomegaly.
[2016-08-25 02:38] VITALS: BMI 39.1
[2016-08-25 03:30] LABS: Glucose,Whole Blood 214 mg/dL (75-99)
[2016-08-25 06:14] LABS: Glucose,Whole Blood 208 mg/dL (75-99)
[2016-08-25 06:35] LABS: Anisocytosis Slight; CH 26.6; CHCM 30.7; HCT 24.7 % (39.0-53.0); HDW 3.42; HGB 7.7 gm/dL (13.0-17.5); Hypochromasia Marked; MCH 27.2 pg (25.0-35.0); MCHC 31.2 g/dL (31.0-37.0); MCV 87.3 fL (80.0-100.0); Mean Platelet Volume 7.1; Poikilocytosis Slight; RBC 2.83 m/uL (4.30-5.90); RDW 16.4 % (11.5-15.5); WBC 8.2 k/uL (3.8-10.6)
[2016-08-25] MEDS: METOCLOPRAMIDE 10 MG TAB PO SCH ×4 (06:59→21:03)
[2016-08-25] MEDS: GEMFIBROZIL 600 MG TAB PO SCH ×2 (06:59→17:39)
[2016-08-25] MEDS: metFORMIN 500 MG TAB PO SCH ×2 (06:59→17:38)
[2016-08-25] MEDS: INSULIN LISPRO (humaLOG) 300 UNIT/3 ML VIAL SQ SCH ×3 (07:34→17:39)
[2016-08-25] MEDS: HEPARIN SODIUM,PORCINE 5,000 UNIT/ML 1 ML VIAL SQ SCH ×3 (08:17→23:47)
[2016-08-25] MEDS: MAGNESIUM OXIDE 400 MG TAB PO SCH (08:17)
[2016-08-25] MEDS: ASCORBIC ACID 500 MG TAB PO SCH (08:17)
[2016-08-25] MEDS: GABAPENTIN 300 MG CAP PO SCH ×2 (08:18→20:44)
[2016-08-25] MEDS: METOPROLOL TARTRATE 50 MG TAB PO SCH ×2 (08:18→20:44)
[2016-08-25] MEDS: ATORVASTATIN 40 MG TAB PO SCH (08:19)
[2016-08-25] MEDS: FAMOTIDINE 20 MG TAB PO SCH ×2 (08:20→20:45)
[2016-08-25] MEDS: CYCLOBENZAPRINE 10 MG TAB PO SCH ×3 (08:20→23:47)
[2016-08-25] MEDS: IPRATROPIUM 0.5 MG/2.5 ML NEBU INHALATION SCH ×4 (08:43→20:49)
[2016-08-25] MEDS: SYMBICORT 80-4.5 MCG INHALER INHALATION SCH ×2 (08:43→20:49)
[2016-08-25] MEDS ORDERED: NON-FORMULARY DRUG (Fish Oil/Dha/Epa [Fish Oil 1,200 Mg Fish Oil] 1 CAP) PO SCH (09:00)
[2016-08-25] MEDS: ASPIRIN 325 MG TAB PO SCH (09:17)
[2016-08-25] MEDS: CLOPIDOGREL 75 MG TAB PO SCH (09:17)
[2016-08-25 12:12] LABS: Glucose,Whole Blood 82 mg/dL (75-99)
[2016-08-25] MEDS: MULTIVITAMINS, THERA 1 EACH TAB PO SCH (12:20)
--- NOTE | 2016-08-25 15:19 | P.HPIM ---
History of Present Illness H&P Date: 08/25/16 55-year-old gentleman who underwent a triple-vessel bypass off clamped surgery on 08/17/2016 went to his primary care physician office with complaints of difficulty breathing and generalized weakness. Patient apparently had a blood draw there was noted to have a hemoglobin of 6.7 and Zosyn into the emergency room for an admission to the hospital. Patient was given a unit of PRBC emergently. Patient's hemoglobin prior to discharge was between 7.4 and 8.2 and at that time was asymptomatic at the time of discharge.Initial hemoglobin redraw in the emergency room was 7 however a unit of PRBC was transfused. Patient at the time of my evaluation denies having any headaches, blurry vision , nausea, vomiting, chest pain, difficulty breathing, urinary urgency or frequency, constipation or diarrhea. Patient's glucose levels have been erratic. Review of Systems All systems: negative (noted in HPI) Past Medical History Past Medical History: COPD, Diabetes Mellitus, Hypertension, Osteoarthritis (OA) , Renal Disease Additional Past Medical History / Comment(s): emphysema, retinopathy, charcot joints, gastroparesis, STAGE 3 RENAL FAILURE, MURMUR A CHILD, History of Any Multi-Drug Resistant Organisms: None Reported Past Surgical History: Cholecystectomy, Coronary Bypass/CABG, Heart Catheterization Additional Past Surgical History / Comment(s): SURGERY FOR GERD WHERE THEY MOVED ESOPHAGUS UP, carpal tunnel surgery, foot wounds requiring bone from right big toe to be removed, open heart surgery. 08/17/16 - 3 vessel CABG Past Anesthesia/Blood Transfusion Reactions: No Reported Reaction Past Psychological History: No Psychological Hx Reported Smoking Status: Former smoker Past Alcohol Use History: None Reported Past Drug Use History: None Reported - Past Family History Father Brother(s) Family Medical History: Diabetes Mellitus Mother Family Medical History: Myocardial Infarction ([place]) Medications and Allergies Home Medications Medication Instructions Recorded Confirmed Type Calcitriol [Rocaltrol] 0.25 mcg PO MOWEFR 08/12/16 08/24/16 History Metoclopramide [Reglan] 10 mg PO ACHS 08/12/16 08/24/16 History Albuterol Sulfate [Proventil Hfa] 2 puff INHALATION RT-Q6H PRN 08/13/16 History Ascorbic Acid [Vitamin C] 1,000 mg PO DAILY 08/13/16 08/24/16 History Fish Oil/Dha/Epa [Fish Oil 1,200 1 cap PO TID 08/13/16 08/24/16 History mg Fish Oil] Gabapentin [Neurontin] 600 mg PO BID 08/13/16 08/24/16 History Gemfibrozil [Lopid] 600 mg PO AC-BID 08/13/16 08/24/16 History INSULIN LISPRO (HumaLOG) [humaLOG] 280 - 400 units SQ ACHS 08/13/16 08/24/16 History Ipratropium Nebulized [Atrovent 0.5 mg INHALATION RT-QID 08/13/16 08/24/16 History Nebulized] Mometasone/Formoterol [Dulera 100 2 puff INHALATION RT-BID 08/13/16 08/24/16 History Mcg/5 Mcg Inhaler] Bismuth Subsalicylate 262 mg PO DAILY PRN 08/14/16 08/24/16 History [Pepto-Bismol] Cyclobenzaprine [Flexeril] 10 mg PO TID 08/14/16 08/24/16 History Magnesium Oxide 400 mg PO DAILY 08/14/16 08/24/16 History Polyethylene Glycol 3350 [Miralax] 17 gm PO DAILY PRN 08/14/16 08/24/16 History Turmeric/Cumin 1,300 mg PO DAILY 08/14/16 08/24/16 History Allergies Allergy/AdvReac Type Severity Reaction Status Date / Time No Known Allergies Allergy Verified 08/24/16 21:53 Physical Exam Vitals: Vital Signs Temp Pulse Pulse Resp BP BP Pulse Ox 08/25/16 12:05 82 08/25/16 11:55 80 08/25/16 11:15 99.5 F 87 20 116/56 96 08/25/16 08:53 88 08/25/16 08:47 88 08/25/16 08:00 97.5 F L 113 H 20 158/70 97 08/25/16 03:47 98.4 F 95 18 133/63 96 08/25/16 02:46 18 08/25/16 02:31 100 F H 100 18 119/62 94 L 08/25/16 02:01 98.9 F 101 H 20 118/56 96 03/31/17 01:31 100.0 F H 98 20 122/74 97 08/25/16 01:21 100.5 F H 95 20 108/51 97 Intake and Output 08/25/16 08/25/16 08/25/16 06:59 14:59 22:59 Intake Total 770 198 Output Total 1200 Balance 770 -1002 Intake: IV 100 80 Magnesium Sulfate-D5w Pmx 100 1 gm In Dextrose/Water 1 100ml.bag @ 100 mls/hr IVPB ONCE ONE Rx#: [id number] Sodium Chloride 0.9% 1, 80 000 ml @ 20 mls/hr IV . Q24H [facility] Rx#:[id number] Oral 360 118 Blood Product 310 Rc Pheresis As-3 Unit 310 [id number] Output: Urine 1200 Other: Voiding Method Toilet Weight 120.2 kg Physical exam Gen. appearance oriented 3 in no distress Neck is supple no JVD Lungs good air entry clear to auscultation no rhonchi or wheezing incisional site appears appropriate. Heart S1-S2 heard regular rate and rhythm no murmurs appreciated Abdomen is soft nontender no organomegaly bowel sounds are intact lower extremities incisional site appears appropriate compression stockings on. Neurologically cranial nerves II-12 grossly intact no focal motor or sensory deficits noted Skin no abnormalities appreciated Results CBC & Chem 7: 08/25/16 06:16 08/24/16 21:36 Labs: Abnormal Lab Results - Last 24 Hours (Table) 08/25/16 08/25/16 08/25/16 Range/Units 03:10 06:10 06:16 RBC 2.83 L (4.30-5.90) m/uL Hgb 7.7 L (13.0-17.5) gm/dL Hct 24.7 L (39.0-53.0) % RDW 16.4 H (11.5-15.5) % POC Glucose (mg/dL) 214 H 208 H (75-99) mg/dL Microbiology - Last 24 Hours (Table) 08/25/16 00:50 Urine Culture - Preliminary Urine,Voided Thrombosis Risk Factor Assmnt - Choose All That Apply Any of the Below Risk Factors Present?: Yes Each Factor Represents 1 point: Abnormal pulmonary function (COPD), Age 41-60 years, Heart failure (<1month), History of prior major surgery (<1month), Obesity (BMI >25), Serious lung disease incl. pneumonia (< 1month), Swollen legs (current) Other Risk Factors: No Thrombosis Risk Factor Assessment Total Risk Factor Score: 7 Thrombosis Risk Factor Assessment Level: High Risk Assessment and Plan Plan: #1 mildly symptomatic acute blood loss anemia as expected from the recent surgery #2 history of CAD was previously admitted as NSTEMI #3 diabetes mellitus type 2, difficult to control #4 acute kidney injury on top of CK D stage III #5 history of essential hypertension #6 dyslipidemia #7 obesity #8 clinical obstructive sleep apnea #9 trace bilateral pleural effusions as expected from recent surgery #10 isolated episode of hypoglycemia A #11 peripheral neuropathy Plan Patient is status post 1 unit of PRBC. We'll repeat labs in the a.m. Kidney function will be assessed as well. Patient will likely be discharged home in the next 24 hours. We'll have the cardiothoracic team on board. no signs of overt bleeding are reported. However as patient has already received blood nutritional deficiencies cannot be delineated.
[2016-08-25 17:02] LABS: Glucose,Whole Blood 124 mg/dL (75-99)
--- NOTE | 2016-08-25 18:29 | P.PN ---
Progress Note - Text This 55 y/o male is well known to our service as we discharged him from the hospital 3 days ago after CABG on October 17. Apparently he was asked to come to the emergency room by his primary care physician after lab draw in her office demonstrated hemaglobin 6.7 with the patient reporting fatigue, which is an expected outcome one week post op. Upon admission to the ER, his hemaglobin was 7.0, he was transfused 1 unit of PRBCs and admitted as an observation patient. His hemaglobin after transfusion was 7.7. He does state that he has felt fatigued but he was fatigued prior to his surgery, and his hemaglobin was in the mid 7 range at discharge, also an expected outcome. Oxygen was placed on the patient despite saturations in the high 90s as it was felt that this would be beneficial given his anemia. Assessment and Plan: This case was discussed with Dr. Lawler from cardiothoracic surgery and Dr. Israel. The patient will be kept overnight for observation, repeat labs will be drawn in the morning, his oxygen has been titrated off, teaching was reinforced as to expected signs and symptoms after surgery, and the patient will likely be discharged to home in the morning with home care to follow. Thank you, Dr. Israel, for this consult. It is a pleasure providing care for your patient.
[2016-08-25 20:29] LABS: Glucose,Whole Blood 111 mg/dL (75-99)
[2016-08-25] MEDS ORDERED: INSULIN GLARGINE 100 UNIT/ML 10 ML VIAL SQ SCH ×2 (21:00)
[2016-08-25] MEDS ORDERED: amLODIPine 5 MG TAB PO SCH (21:00)
[2016-08-25] MEDS: BENZOCAINE/MENTHOL LOZENG 1 EACH LOZENGE MUCOUS MEM PRN (21:41)
[2016-08-26 01:43] LABS: Glucose,Whole Blood 146 mg/dL (75-99)
[2016-08-26 04:45] VITALS: RESP 18
[2016-08-26 06:09] LABS: Glucose,Whole Blood 152 mg/dL (75-99)
[2016-08-26 06:37] LABS: Anion Gap 10 mmol/L; Blood Urea Nitrogen 15 mg/dL (9-20); Calcium 8.7 mg/dL (8.4-10.2); Carbon Dioxide 24 mmol/L (22-30); Chloride 100 mmol/L (98-107); Glucose 135 mg/dL (74-99); Magnesium 1.6 mg/dL (1.6-2.3); Non-African American GFR(MDRD) >60 (>60 ml/min/1.73 sqM); Potassium 4.4 mmol/L (3.5-5.1); Sodium 134 mmol/L (137-145)
[2016-08-26 06:47] LABS: Anisocytosis Slight; Aty Lym Flag Slight; CH 26.8; CHCM 30.3; HCT 27.6 % (39.0-53.0); HDW 3.59; HGB 8.4 gm/dL (13.0-17.5); Hypochromasia Marked; MCH 26.9 pg (25.0-35.0); MCHC 30.3 g/dL (31.0-37.0); Mean Platelet Volume 7.8; Poikilocytosis Slight; RBC 3.11 m/uL (4.30-5.90); RDW 16.9 % (11.5-15.5); WBC 7.2 k/uL (3.8-10.6); WBC (Perox) 6.98
[2016-08-26] MEDS: INSULIN LISPRO (humaLOG) 300 UNIT/3 ML VIAL SQ SCH ×3 (07:03→12:05)
[2016-08-26] MEDS: GEMFIBROZIL 600 MG TAB PO SCH (07:04)
[2016-08-26] MEDS: metFORMIN 500 MG TAB PO SCH (07:04)
[2016-08-26] MEDS: METOCLOPRAMIDE 10 MG TAB PO SCH ×2 (07:04→12:05)
[2016-08-26 07:05] LABS: Add Differential Manual Differential
[2016-08-26 07:07] LABS: Manual Review Performed; Nucleated Red Blood Cells 0 /100 WBC (0-0); Total Cells Counted 100
[2016-08-26 07:08] LABS: Polychromasia Present
[2016-08-26] MEDS ORDERED: MAGNESIUM SULFATE-D5W PMX 1 GM in DEXTROSE/WATER 1 100ML.BAG IVPB ONE (07:15)
--- NOTE | 2016-08-26 07:42 | P.PN ---
Subjective Principal diagnosis: Anemia, expected outcome from surgery. POD #9 coronary artery bypass grafting. Patient currently sitting up in bed in no apparent distress. States he feels better than when he came in. All questions answered. Objective - Vital Signs Vital signs: Vital Signs Temp 98.0 F 08/26/16 04:00 Pulse 101 H 08/26/16 04:00 Resp 18 08/26/16 04:00 BP 131/65 08/26/16 04:00 Pulse Ox 94 L 08/26/16 04:00 Intake & Output 08/25/16 08/26/16 08/26/16 18:59 06:59 18:59 Intake Total 298 Output Total 2700 600 Balance -2402 -600 Weight 118.5 kg Intake: IV 80 Sodium Chloride 0.9% 1, 80 000 ml @ 20 mls/hr IV . Q24H [facility] Rx#:[id number] Oral 218 Output: Urine 2700 600 Other: Voiding Method Toilet Toilet # Voids 1 - Constitutional General appearance: Present: cooperative, no acute distress, obese - Respiratory Details: Lungs sounds diminished bilaterally. Respirations even, nonlabored. Continues to remain on room air. - Cardiovascular Details: S1, S2 present. Regular rate and rhythm, normal sinus rhythm on telemetry. No events noted overnight. Heart hugger in place with patient demonstrating appropriate use. Patient states he is able to feel clicking in his sternum after pushing himself up to get out of bed, however his sternum feels stable to me. - Gastrointestinal Gastrointestinal Comment(s): Abdomen soft, nontender, nondistended. Active bowel sounds 4 quadrants. Tolerating diet. - Genitourinary Genitourinary Comment(s): Continues to void clear, yellow urine per urinal. - Integumentary Integumentary Comment(s): Anterior chest incision well approximated with dry, intact Dermabond dressing. Left lower extremity EVH site well approximated, however continues to have trace amount of drainage. - Musculoskeletal Musculoskeletal: Present: gait normal, strength equal bilaterally - Psychiatric Psychiatric: Present: A&O x's 3, appropriate affect, intact judgment & insight - Allied health notes Allied health notes reviewed: nursing - Labs CBC & Chem 7: 08/26/16 05:58 08/26/16 05:58 Labs: Abnormal Lab Results - Last 24 Hours (Table) 08/25/16 08/25/16 08/26/16 Range/Units 16:35 20:28 01:42 RBC (4.30-5.90) m/uL Hgb (13.0-17.5) gm/dL Hct (39.0-53.0) % MCHC (31.0-37.0) g/dL RDW (11.5-15.5) % Lymphocytes # (Manual) (1.0-4.8) k/uL Sodium (137-145) mmol/L Glucose (74-99) mg/dL POC Glucose (mg/dL) 124 H 111 H 146 H (75-99) mg/dL 08/26/16 08/26/16 08/26/16 Range/Units 05:58 05:58 06:07 RBC 3.11 L (4.30-5.90) m/uL Hgb 8.4 L (13.0-17.5) gm/dL Hct 27.6 L (39.0-53.0) % MCHC 30.3 L (31.0-37.0) g/dL RDW 16.9 H (11.5-15.5) % Lymphocytes # (Manual) 0.8 L (1.0-4.8) k/uL Sodium 134 L (137-145) mmol/L Glucose 135 H (74-99) mg/dL POC Glucose (mg/dL) 152 H (75-99) mg/dL Microbiology - Last 24 Hours (Table) 08/25/16 00:50 Urine Culture - Preliminary Urine,Voided Assessment and Plan (1) Postoperative anemia Status: Acute (2) S/P CABG (coronary artery bypass graft) Status: Acute Plan: 1. Continue aspirin, Plavix, Lipitor, Norvasc, Lopressor. 2. Patient needs to get into the shower and clean all incisions well this morning. 3. Activity restrictions reinforced with patient with patient verbalizing understanding. 4. Hemoglobin stable this morning at 8.4. Will monitor outpatient. 5. We will set up an appointment this week to monitor patient's progress outpatient. 6. May discharge from our standpoint with same discharge instructions from September 22. Time with Patient: Greater than 30
[2016-08-26] MEDS: ASCORBIC ACID 500 MG TAB PO SCH (08:12)
[2016-08-26] MEDS: CYCLOBENZAPRINE 10 MG TAB PO SCH (08:13)
[2016-08-26] MEDS: FAMOTIDINE 20 MG TAB PO SCH (08:13)
[2016-08-26] MEDS: MULTIVITAMINS, THERA 1 EACH TAB PO SCH (08:13)
[2016-08-26] MEDS: GABAPENTIN 300 MG CAP PO SCH (08:13)
[2016-08-26] MEDS: CLOPIDOGREL 75 MG TAB PO SCH (08:13)
[2016-08-26] MEDS: HEPARIN SODIUM,PORCINE 5,000 UNIT/ML 1 ML VIAL SQ SCH (08:13)
[2016-08-26] MEDS: MAGNESIUM OXIDE 400 MG TAB PO SCH (08:14)
[2016-08-26] MEDS: METOPROLOL TARTRATE 50 MG TAB PO SCH (08:14)
[2016-08-26] MEDS: ASPIRIN 325 MG TAB PO SCH (08:14)
[2016-08-26] MEDS: ATORVASTATIN 40 MG TAB PO SCH (08:15)
[2016-08-26] MEDS: SYMBICORT 80-4.5 MCG INHALER INHALATION SCH (09:18)
[2016-08-26] MEDS: IPRATROPIUM 0.5 MG/2.5 ML NEBU INHALATION SCH ×2 (09:18→13:42)
[2016-08-26] MEDS: BENZOCAINE/MENTHOL LOZENG 1 EACH LOZENGE MUCOUS MEM PRN (10:00)
[2016-08-26 11:57] LABS: Glucose,Whole Blood 111 mg/dL (75-99)
[2016-08-26 12:14] VITALS: BP 119/63; TEMP 97.8
[2016-08-26 13:55] VITALS: PULSE 84
--- NOTE | 2016-08-26 19:41 | P.DS ---
Providers Date of admission: 08/25/16 00:41 Attending physician: Alex Israel MD Consults: 08/25/16 11:45 Consult Physician Urgent Consulting Provider: Sudheer Lawler Consult Reason/Comments: CAD Do you want consulting provider notified?: Yes Primary care physician: [facility] Course: 55-year-old gentleman who underwent a triple-vessel bypass off clamped surgery on 08/17/2016 went to his primary care physician office with complaints of difficulty breathing and generalized weakness. Patient apparently had a blood draw there was noted to have a hemoglobin of 6.7 and Zosyn into the emergency room for an admission to the hospital. Patient was given a unit of PRBC emergently. Patient's hemoglobin prior to discharge was between 7.4 and 8.2 and at that time was asymptomatic at the time of discharge.Initial hemoglobin redraw in the emergency room was 7 however a unit of PRBC was transfused. Patient at the time of my evaluation denies having any headaches, blurry vision , nausea, vomiting, chest pain, difficulty breathing, urinary urgency or frequency, constipation or diarrhea. Patient's glucose levels have been erratic. 08/26/16 HB was stable on the day of discharge PT was ambulating without difficulty Neck is supple no JVD Lungs good air entry clear to auscultation no rhonchi or wheezing incisional site appears appropriate. Heart S1-S2 heard regular rate and rhythm no murmurs appreciated Abdomen is soft nontender no organomegaly bowel sounds are intact lower extremities incisional site appears appropriate compression stockings on. Neurologically cranial nerves II-12 grossly intact no focal motor or sensory deficits noted Skin no abnormalities appreciated Assessment and Plan Plan: #1 mildly symptomatic acute blood loss anemia as expected from the recent surgery #2 history of CAD was previously admitted as NSTEMI #3 diabetes mellitus type 2, difficult to control #4 acute kidney injury on top of CK D stage III #5 history of essential hypertension #6 dyslipidemia #7 obesity #8 clinical obstructive sleep apnea #9 trace bilateral pleural effusions as expected from recent surgery #10 isolated episode of hypoglycemia A #11 peripheral neuropathy Insulin regimen was changed, glucose levels appropriate on the day of discharge MEds were reconciled Discharged home with close followup with ct surgery and [facility]. Patient Condition at Discharge: Fair Plan - Discharge Summary New Discharge Prescriptions: Albuterol Sulfate [Proventil Hfa] 2 puff INHALATION RT-Q6H PRN #1 hfa.aer.ad PRN Reason: Shortness Of Breath Gabapentin [Neurontin] 600 mg PO BID #90 cap Gemfibrozil [Lopid] 600 mg PO AC-BID #60 tab Ipratropium Nebulized [Atrovent Nebulized] 0.5 mg INHALATION RT-QID #1 neb Discharge Medication List Calcitriol [Rocaltrol] 0.25 mcg PO MOWEFR 08/12/16 [History] Metoclopramide [Reglan] 10 mg PO ACHS 08/12/16 [History] Ascorbic Acid [Vitamin C] 1,000 mg PO DAILY 08/13/16 [History] Fish Oil/Dha/Epa [Fish Oil 1,200 mg Fish Oil] 1 cap PO TID 08/13/16 [History] INSULIN LISPRO (HumaLOG) [humaLOG] 280 - 400 units SQ ACHS 08/13/16 [History] Mometasone/Formoterol [Dulera 100 Mcg/5 Mcg Inhaler] 2 puff INHALATION RT-BID [History] Bismuth Subsalicylate [Pepto-Bismol] 262 mg PO DAILY PRN 08/14/16 [History] Cyclobenzaprine [Flexeril] 10 mg PO TID 08/14/16 [History] Magnesium Oxide 400 mg PO DAILY 08/14/16 [History] Polyethylene Glycol 3350 [Miralax] 17 gm PO DAILY PRN 08/14/16 [History] Turmeric/Cumin 1,300 mg PO DAILY 08/14/16 [History] Aspirin 325 mg PO DAILY #30 tab 08/22/16 [Rx] Atorvastatin [Lipitor] 40 mg PO DAILY #30 tab 08/22/16 [Rx] Clopidogrel [Plavix] 75 mg PO DAILY #30 tab 08/22/16 [Rx] HYDROcodone/APAP 5-325MG [Ackerman 5-325] 1 - 2 tab PO Q6HR PRN #60 tab 08/22/16 [ Rx] Metoprolol Tartrate [Lopressor] 50 mg PO BID #60 tab 08/22/16 [Rx] Multivitamins, Thera [Multivitamin (formulary)] 1 each PO DAILY@1200 tab [Rx] amLODIPine [Norvasc] 5 mg PO HS #30 tab 08/22/16 [Rx] metFORMIN HCL [Glucophage] 1,000 mg PO BID-W/MEALS #60 tab 08/22/16 [Rx] Albuterol Sulfate [Proventil Hfa] 2 puff INHALATION RT-Q6H PRN #1 hfa.aer.ad 06/13 [Rx] Gabapentin [Neurontin] 600 mg PO BID #90 cap 08/26/16 [Rx] Gemfibrozil [Lopid] 600 mg PO AC-BID #60 tab 08/26/16 [Rx] INSULIN LISPRO (humaLOG) [humaLOG (formulary)] 15 unit SQ AC-TID vial 08/26/16 [Rx] Insulin Glargine [Lantus] 55 unit SQ HS vial 08/26/16 [Rx] Ipratropium Nebulized [Atrovent Nebulized] 0.5 mg INHALATION RT-QID #1 neb 08/26 [Rx] Follow up Appointment(s)/Referral(s): Lurdes Rangel MD [STAFF PHYSICIAN] - 08/30/16 12:00 pm Yasmin Dalton NPC [Nurse Practitioner] - 08/30/16 11:00 am Kinza Maki MD [Primary Care Provider] - 2 Weeks Javon Marin MD [STAFF PHYSICIAN] - 09/04/16 3:30 pm Terrie James MD [STAFF PHYSICIAN] - 09/15/16 11:30 am Patient Instructions/Handouts: Anemia (DC) Activity/Diet/Wound Care/Special Instructions: Please resume [facility] as previously directed. Please continue with the same post-operative discharge instructions as given August 22, 2016. Discharge Disposition: HOME SELF-CARE
== END 2016-08-26 16:52 | disposition home or self-care (01) ==
LOC: EC 20:46 → 6SEL 08-25 00:41
PROVIDERS: ADMIT Internal Medicine; ATTEND Internal Medicine
DX: D62 Acute posthemorrhagic anemia (principal); I25.10 Atherosclerotic heart disease of native coronary artery without angina pectoris; I25.2 Old myocardial infarction; E11.43 Type 2 diabetes mellitus with diabetic autonomic (poly)neuropathy; E11.22 Type 2 diabetes mellitus with diabetic chronic kidney disease; E11.319 Type 2 diabetes mellitus with unspecified diabetic retinopathy without macular edema; E11.610 Type 2 diabetes mellitus with diabetic neuropathic arthropathy; E11.649 Type 2 diabetes mellitus with hypoglycemia without coma; E66.9 Obesity, unspecified; E78.5 Hyperlipidemia, unspecified; G47.33 Obstructive sleep apnea (adult) (pediatric); G62.9 Polyneuropathy, unspecified; I12.9 Hypertensive chronic kidney disease with stage 1 through stage 4 chronic kidney disease, or unspecified chronic kidney disease; N17.9 Acute kidney failure, unspecified; N18.3 Chronic kidney disease, stage 3 (moderate); K31.84 Gastroparesis; J44.9 Chronic obstructive pulmonary disease, unspecified; Z79.02 Long term (current) use of antithrombotics/antiplatelets; Z79.4 Long term (current) use of insulin; Z79.82 Long term (current) use of aspirin; Z79.899 Other long term (current) drug therapy; Z87.891 Personal history of nicotine dependence; Z95.1 Presence of aortocoronary bypass graft; Z79.51 Long term (current) use of inhaled steroids; J90 Pleural effusion, not elsewhere classified
CPT/HCPCS: 96365 ×2; 99285 ×2; 36430; 36415; 94640 ×4; 93005; 86900; 86901; 80048 ×2; 83735 ×3; 85025 ×2; 85027; 85610; 85730; 86850; 86920; 81003; 87040; 87086; 71010; G0378 ×2; P9016; J1644 ×2; J3475 ×2; 96366; 96372